=== PATIENT | male | born 1950 | race Caucasian/White ===

== ENCOUNTER → 2018-06-02 08:54 | Outpatient (CLI) | payer MEDICARE, BC, SELFPAY ==
[2017-08-20 10:12] VITALS: BMI 27.3
--- NOTE | 2018-06-02 08:59 | NM_ITS ---
CLINICAL: 68-year-old male with reported history of low back discomfort. WHOLE BODY 99m Tc MDP RADIONUCLIDE BONE SCINTIGRAPHY COMPARISON: None available FINDINGS: Following the intravenous administration of 25.4 mCi of 99m Tc MDP, whole body bone images reveal: 1. Increased radiopharmaceutical concentration is identified in the acromioclavicular and sternoclavicular compartments of both shoulders, second lumbar vertebra posteriorly on the left and right, left posterior sacrum. 2. Facilitated tracer concentration is demonstrated in the left posterior seventh rib. 3. The remaining skeletal structures are scintigraphically unremarkable with the bilateral renal images and urinary bladder activity identified. The right kidney demonstrates apparent prominent collecting system activity. NM/Bone Scan Whole Body IMPRESSION: 1. The increase in radiopharmaceutical concentration identified in the left posterior seventh rib is most consistent with isolated trauma-fracture. Plain film radiography correlation may be of benefit. In patients > 65 years of age, increased radiopharmaceutical concentration on bone scintigraphy in uncomplicated documented fracture, may take > 18 months for complete resolution. (River et al, Seminars of Nuclear Medicine, 13:104, 1983). 2. Degenerative arthritis appears expressed in the shoulders bilaterally, second lumbar vertebra and left-posterior sacrum. Electronically Signed: Pradip Carrion DO at 23:15 EST Tel , Service support ,
== END ==
PROVIDERS: Family Provider Family Medicine; PCP Family Medicine; Referring Provider Orthopaedic Surgery; Visit Provider Orthopaedic Surgery
DX: Z87.81 Personal history of (healed) traumatic fracture (principal)
CPT/HCPCS: 78306

== ENCOUNTER 2019-06-22 05:32 | Day surgery (SDC) | payer MEDICARE, BC, SELFPAY ==
[2018-08-18 09:48] VITALS: BMI 27.3
[2019-06-22] VITALS (9 sets, daily range): BP systolic 85–122; BP diastolic 64–97; PULSE 52–60; RESP 16–18; TEMP 36.1–36.7; O2SAT 93–100; BMI 27.6
--- NOTE | 2019-06-22 06:00 | PCM.HP.STD ---
Problem List (1) Screening for intestinal cancer Status: Acute History of Present Illness Date of Admission: 06/22/19 The patient is a 69 year old M who presents for screening colonoscopy today. He denies abdominal pain or bright red blood per rectum or melena. His previous colonoscopy was approximately 6 years ago. He has a family history with a brother who had colon cancer Past Medical History Past Medical History (Chronic Problems): Chronic Problems (Last Updated 08/20/17 @ 10:32 by Glendy Medley) Psoriasis (Chronic) Lyme disease (Chronic) Vision problems (Chronic) Hyperlipidemia (Chronic) Hearing problem (Chronic) Acid reflux (Chronic) Skin cancer (Chronic) Back problem (Chronic) Arthritis (Chronic) Medical History: Medical History (Last Updated 08/20/17 @ 10:32 by Glendy Medley) Psoriasis (Chronic) L40.9 Lyme disease (Chronic) A69.20 Vision problems (Chronic) H54.7 Hyperlipidemia (Chronic) E78.5 Hearing problem (Chronic) H91.90 Acid reflux (Chronic) K21.9 Skin cancer (Chronic) C44.90 Back problem (Chronic) M53.9 Arthritis (Chronic) M19.90 History of malignant neoplasm of skin Z85.828 Neck, back & scalp Fracture T14.8XXA Rt arm Allergies No Known Allergies Allergy (Verified 06/17/19 15:15) Home Medications: Ambulatory Orders Medication Instructions Recorded apremilast 30 mg tablet 30 mg PO BID 08/20/17 clobetasol 0.05 % topical ointment 1 applic TOPICAL BID 08/20/17 metronidazole 0.75 % topical cream 1 applic TOPICAL BID 08/20/17 omeprazole 20 mg capsule,delayed 20 mg PO QDAY 08/20/17 release atorvastatin 40 mg tablet 20 mg PO QDAY tab 08/18/18 Surgical History: Surgical History (Last Updated 08/20/17 @ 10:26 by Glendy Medley) History of hand surgery Z98.890 Rt 4th digit Smoking Status: Current every day smoker Tobacco Use: Chew Review of Systems Constitutional: Denies: Anorexia HEENT: Denies: Difficulty Swallowing Cardiovascular: Denies: Chest Pain Respiratory: Denies: Cough Gastrointestinal: Denies: Abdominal Pain, Melena Endocrine: Denies: Change in Body Habitus VTE Information - Inpt Only VTE Present on Admission: No Patient Problems: Active and Suspected Problems (Last Updated 08/20/17 @ 10:32 by Glendy Medley) Screening for intestinal cancer (Acute) - Physical Exam Vitals/I&O's: Body Mass Index (BMI) 27.3 General: Alert, Oriented x3, Cooperative, No apparent distress HEENT: Atraumatic Lungs: Clear to auscultation, Normal air movement Cardiovascular: Regular rate, Regular Rhythm Abdomen: Bowel Sounds Present, Soft, Non Tender Psych/Mental Status: Normal Affect Assessment/Plan All Active Problems (Last Updated 08/20/17 @ 10:32 by Glendy Medley) Screening for intestinal cancer (Acute) Plan to proceed with a screening colonoscopy with possible biopsy or polypectomy is indicated. He is aware of the technique, benefit, risks, alternatives. Previous colonoscopy approximately 5 to 6 years ago. Family history of colon cancer in a sibling. He presents via open access today. Fabian Garcia M.D., F.A.C.S.
[2019-06-22] MEDS: Lactated Ringers 1,000 ML 100 ML IV (06:13)
--- NOTE | 2019-06-22 06:43 | OP.COLON_ITS ---
Patient Name: iJm Fowler Procedure Date: 06/22/2019 6:10 AM Date of : 1950 Age: 69 Procedure: Colonoscopy Indications: Screening in patient at increased risk: Colorectal cancer in brother before age 60 Providers: Fabian Garcia MD Referring MD: Fabian Garcia MD Medicines: Midazolam 3.5 mg IV, Meperidine 100 mg IV Patient Profile: Last Colonoscopy: 5 years ago. Complications: No immediate complications. Procedure: Pre-Anesthesia Assessment: - Prior to the procedure, a History and Physical was performed, and patient medications and allergies were reviewed. The patient's tolerance of previous anesthesia was also reviewed. The risks and benefits of the procedure and the sedation options and risks were discussed with the patient. All questions were answered, and informed consent was obtained. Prior Anticoagulants: The patient has taken no previous anticoagulant or antiplatelet agents. ASA Grade Assessment: II - A patient with mild systemic disease. After reviewing the risks and benefits, the patient was deemed in satisfactory condition to undergo the procedure. After I obtained informed consent, the scope was passed under direct vision. Throughout the procedure, the patient's blood pressure, pulse, and oxygen saturations were monitored continuously. The colonoscope was introduced through the anus and advanced to the cecum, identified by appendiceal orifice and ileocecal valve. The colonoscopy was performed without difficulty. The patient tolerated the procedure well. The quality of the bowel preparation was good. The ileocecal valve and the appendiceal orifice were photographed. Moderate Sedation: Moderate (conscious) sedation was personally administered by the endoscopist. The following parameters were monitored: oxygen saturation, heart rate, blood pressure, and response to care. Total physician intraservice time was 15 minutes. Scope In: 6:29:13 AM Scope Withdrawal Time 0 hours 6 minutes 11 seconds Scope Out: 6:38:29 AM Total Procedure Duration Time 0 hours 9 minutes 16 seconds Findings: The perianal and digital rectal examinations were normal. The colon (entire examined portion) appeared normal. Impression: - The entire examined colon is normal. - No specimens collected. Recommendation: - Discharge patient to home. - Resume previous diet. - Continue present medications. - Repeat colonoscopy in 5 years for surveillance. Procedure Code(s): --- Professional --- 99583, Colonoscopy, flexible; diagnostic, including collection of specimen(s) by brushing or washing, when performed (separate procedure) 35109, 59, Moderate sedation services provided by the same physician or other qualified health animal care specialist performing the diagnostic or therapeutic service that the sedation supports, requiring the presence of an independent trained observer to assist in the monitoring of the patient's level of consciousness and physiological status; initial 15 minutes of intraservice time, patient age 5 years or older Diagnosis Code(s): --- Professional --- Z80.0, Family history of malignant neoplasm of digestive organs CPT copyright 2017 [employer]. All rights reserved. The codes documented in this report are preliminary and upon bilingual receptionist review may be revised to meet current compliance requirements. Fabian Garcia MD 06/22/2019 6:42:21 AM This report has been signed electronically. Number of Addenda: 0 Note Initiated On: 06/22/2019 6:10 AM
--- NOTE | 2019-06-22 06:43 | OP.CCLET_ITS ---
06/22/2019 Hang Vera Re : Colonoscopy procedure for Jim Fowler Dear Dr. Vera This procedure was performed on Saturday, June 22, 2019. My impressions and recommendations are as follows: Impressions : - The entire examined colon is normal. - No specimens collected. Recommendations : - Discharge patient to home. - Resume previous diet. - Continue present medications. - Repeat colonoscopy in 5 years for surveillance. My findings are described in the full procedure note, which is enclosed. If I can be of further assistance, please feel free to contact me at Doctor phone number(s): Work: . Sincerely, Fabian Garcia MD 06/22/2019 6:42:21 AM This report has been signed electronically.
== END 2019-06-22 08:02 | disposition home or self-care (01) ==
LOC: EN 05:33 → AC 05:35
PROVIDERS: Family Provider Family Medicine; PCP Family Medicine; Referring Provider Surgery; Visit Provider Surgery
PROC: 0DJD8ZZ Inspection of Lower Intestinal Tract, Via Natural or Artificial Opening Endoscopic (ICD-10-PCS; CPT 45378; principal; 2019-06-22 06:25)
DX: Z12.11 Encounter for screening for malignant neoplasm of colon (principal); Z80.0 Family history of malignant neoplasm of digestive organs; K21.9 Gastro-esophageal reflux disease without esophagitis; L40.9 Psoriasis, unspecified; A69.20 Lyme disease, unspecified; E78.5 Hyperlipidemia, unspecified; M19.90 Unspecified osteoarthritis, unspecified site; Z85.828 Personal history of other malignant neoplasm of skin; Z79.899 Other long term (current) drug therapy; F17.220 Nicotine dependence, chewing tobacco, uncomplicated
CPT/HCPCS: G0105; 99152; 99153; J7120

== ENCOUNTER → 2020-02-01 16:20 | Outpatient (CLI) | payer MEDICARE, BC, SELFPAY ==
[2020-02-01 16:00] VITALS: BMI 27.6
[2020-02-01 16:44] LABS: Absolute Lymphocyte Count 1.94 X10^3/uL (0.83-4.51); Absolute Neutrophil Count 5.5 X10^3/uL (2.0-7.7); Basophil# 0.03 X10^3/uL; Basophil% 0.4 % (0-1); Eosinophil# 0.03 X10^3/uL; Eosinophils% 0.4 % (0-5); Hematocrit 47.5 % (40-54); Hemoglobin 16.1 g/dL (13.0-16.5); Lymphocyte # 1.94 X10^3/ul (4.0); Lymphocyte % 23.6 % (19-41); Mean Corp Hgb Conc 33.9 g/dL (32-36); Mean Corpuscular Hgb 32.2 pg (27.0-32.0); Mean Platelet Vol. 9.4 fl (6.2-12.0); Monocyte# 0.68 X10^3/uL; Monocyte% 8.3 % (0-10); NRBC Flagged by Analyzer 0 % (0-5); Neutrophil # 5.51 X10^3/uL (2.7-7.7); Neutrophil % 67.1 % (47-70); Platelet Count 207 K/mm3 (150-450); RBC Distribution Width CV 13.2 % (11.6-14.6); RBC Distribution Width SD 45.3 fl (35.1-43.9); White Blood Count 8.2 K/mm3 (4.4-11.0)
[2020-02-01 17:19] LABS: Thyroid Stim Hormone (TSH) 1.09 uIU/mL (0.358-3.74)
== END ==
PROVIDERS: PCP Family Medicine; Visit Provider Family Medicine
DX: E78.5 Hyperlipidemia, unspecified (principal); G57.90 Unspecified mononeuropathy of unspecified lower limb
CPT/HCPCS: 36415; 84443; 85025

== ENCOUNTER → 2020-06-16 14:19 | Outpatient (CLI) | payer MEDICARE, BC, SELFPAY ==
[2020-06-16 13:31] VITALS: BMI 35.9
[2020-06-16 14:22] LABS: Bacteria 0 SEEN /hpf (None Seen); Mucous, Urine 0 SEEN /hpf (<or=2+); Squamous Epithelial Cells - UA 0 SEEN /hpf (0-5); White Blood Cells 0 SEEN /hpf (0-5)
[2020-06-16 16:03] LABS: Color, Urine Yellow (Yellow); Glucose, Dipstick Normal (Normal); Ketone-Dipstick Negative (Negative); Leukocyte Esterase-Dipstick Negative /ul (Negative); Nitrite-Dipstick Negative (Negative); Occult Blood-Urine 10 /ul (Negative); Protein-Dipstick Negative (Negative); Urine Bilirubin Dipstick Negative (Negative); Urine Clarity Clear (Clear); Urine Urobilinogen Normal (Normal); Urine pH 6.5 (5.0 - 8.0)
[2020-06-16 16:10] LABS: Red Blood Cells-Urine 0-5 SEEN /hpf (0-5)
== END ==
PROVIDERS: PCP Family Medicine; Referring Provider Nurse Practitioner Family; Visit Provider Nurse Practitioner Family
DX: N50.819 Testicular pain, unspecified (principal); N45.1 Epididymitis
CPT/HCPCS: 81001; 87086

== ENCOUNTER → 2020-07-10 13:56 | Outpatient (CLI) | payer MEDICARE, BC, SELFPAY ==
[2020-06-28 14:20] VITALS: BMI 28.0
--- NOTE | 2020-07-10 14:02 | CT_ITS ---
STUDY: CT ABDOMEN AND PELVIS WITHOUT CONTRAST REASON FOR EXAM: Male, 70 years old. RLQ PAIN. NO HEMATURIA/N/V/D/C. RADIATION DOSAGE (If Supplied By Facility): CTDIvol = ( 11.65 ) mGy, DLP = ( 605.18 ) mGycm TECHNIQUE: Transaxial images were obtained from the dome of the diaphragm to the symphysis pubis without oral contrast, and without intravenous contrast. Sagittal and coronal images were reconstructed. Individualized dose optimization techniques were used for this CT. COMPARISON: None. FINDINGS: The visualized lung bases are unremarkable. The visualized portions of the heart are within normal limits. Scattered calcified hepatic granulomas. There is a solitary gallstone. It measures 8.9 mm. There are multiple benign calcified granulomata of the spleen. Normal pancreas. Normal bilateral adrenal glands. There is a 4.6 cm x 3.6 cm cyst in the anterior midportion of the right kidney. Scattered nonobstructive right intrarenal calculi. The largest calculus measures 4.8 mm and is in the lower pole. Scattered small nonobstructive left intrarenal calculi. The largest measures 2 mm and is in the lower pole. Normal visualized stomach. Normal small intestine. There are multiple colonic diverticula consistent with diverticulosis. The appendix is visualized and appears normal. There is scattered atherosclerotic calcification of the abdominal aorta, without a demonstrated aneurysm. Normal inferior vena cava. Normal retroperitoneum. Normal urinary bladder. Central prostatic calcification. There is a small umbilical hernia containing fat. Small right inguinal hernia containing fat. There are degenerative changes of the visualized lumbar spine. Mild degree of loss of height of the superior end plate of the L2 vertebrae. CT/Abdomen/Pelvis without Cont IMPRESSION: Small scattered bilateral nonobstructive intrarenal calculi. Right renal cyst. Solitary gallstone. Electronically Signed: Jake De Santiago MD at 15:01 EST , Service support ,
== END ==
PROVIDERS: PCP Family Medicine; Referring Provider Nurse Practitioner Adult Health; Visit Provider Nurse Practitioner Adult Health
DX: R10.9 Unspecified abdominal pain (principal); Z87.442 Personal history of urinary calculi
CPT/HCPCS: 74176

== ENCOUNTER → 2020-07-12 11:08 | Outpatient (CLI) | payer MEDICARE, BC, SELFPAY ==
[2020-06-28 14:20] VITALS: BMI 28.0
--- NOTE | 2020-07-12 11:12 | US_ITS ---
STUDY: SCROTUM ULTRASOUND REASON FOR EXAM: Male, 70 years old. RIGHT TESTICLE PAIN X 3 MONTHS -- PATIENT IS DONE TAKING ANTIBIOTICS TECHNIQUE: Ultrasound evaluation of the scrotum was performed with color Doppler and static rolle-scale imaging. COMPARISON: None. FINDINGS: RIGHT TESTICLE INTRATESTICULAR: There is a normal size of the right testicle. The right testicle measures 4.8 cm x 4 cm x 2.7 cm. There is a homogenous echotexture. There is normal arterial and normal venous vascularity. There is no demonstrated right testicular mass or cyst. EXTRATESTICULAR: The epididymis is enlarged. The epididymis head measures 1 cm x 1.6 cm x 1.4 cm. There is normal vascularity of the epididymis. There is a well-defined cystic structure within the epididymis, without internal echoes, consistent with an epididymal cyst. This measures 6 mm x 6 mm x 4 mm. There is a large hydrocele. There is no demonstrated varicocele. There is no demonstrated extratesticular mass or cyst. LEFT TESTICLE INTRATESTICULAR: There is a normal size of the left testicle. The left testicle measures 4.2 cm x 2.6 cm x 2.4 cm. There is a homogenous echotexture. There is normal arterial and normal venous vascularity. There is no demonstrated left testicular mass or cyst. EXTRATESTICULAR: The epididymis is enlarged. The epididymis head measures 1.4 cm x 1.6 x 1 cm. There is normal vascularity of the epididymis. There is a well-defined cystic structure within the epididymis, without internal echoes, consistent with an epididymal cyst. This measures 6 mm x 6 mm x 4 mm. There is a large hydrocele. There is no demonstrated varicocele. There is no demonstrated extratesticular mass or cyst. US/Testicular with Arterial Flow IMPRESSION: Large bilateral hydroceles. Enlargement of both epididymis. Small bilateral epididymal cysts. Electronically Signed: Jake De Santiago MD at 12:55 EST , Service support ,
== END ==
PROVIDERS: PCP Family Medicine; Referring Provider Nurse Practitioner Adult Health; Visit Provider Nurse Practitioner Adult Health
DX: N50.811 Right testicular pain (principal)
CPT/HCPCS: 76870; 93976

== ENCOUNTER → 2020-07-13 15:04 | Outpatient (CLI) | payer MEDICARE, BC, SELFPAY ==
[2020-06-28 14:20] VITALS: BMI 28.0
--- NOTE | 2020-07-13 15:07 | EKG12_ITS ---
Test Reason : PREOP Blood Pressure : / mmHG Vent. Rate : 078 BPM Atrial Rate : 078 BPM P-R Int : 138 ms QRS Dur : 086 ms QT Int : 358 ms P-R-T Axes : 035 -22 029 degrees QTc Int : 408 ms Normal sinus rhythm Normal ECG Confirmed by PALLAVI PÉREZ, BRODY ([id number]), editor trade journal MAYA URBAN ([id number]) on 07/17/2020 7:53:47 AM Referred By: Sorin Lebron Confirmed By:ROBIN OLIVO MD
[2020-07-13 16:19] LABS: Hematocrit 47.8 % (40-54); Hemoglobin 15.8 g/dL (13.0-16.5); Mean Corp Hgb Conc 33.1 g/dL (32-36); Mean Corpuscular Hgb 32.2 pg (27.0-32.0); Mean Corpuscular Volume 97.4 fL (80-94); Mean Platelet Vol. 9.7 fl (6.2-12.0); Platelet Count 233 K/mm3 (150-450); RBC Distribution Width CV 12.7 % (11.6-14.6); RBC Distribution Width SD 45.8 fl (35.1-43.9); Red Blood Count 4.91 M/mm3 (4.6-6.2); White Blood Count 7.4 K/mm3 (4.4-11.0)
[2020-07-13 17:13] LABS: Anion Gap 4 (5-15); BUN 16 mg/dL (7-18); BUN/Creat Ratio 15.2 RATIO (10-20); Calcium,Total 8.7 mg/dL (8.5-10.1); Chloride 106 mmol/L (98-107); Creatinine, Serum 1.05 mg/dL (0.70-1.30); EST Glomerular Filtration Rate 74 mL/min (>60); Est Glom Filt Rate - Afr Amer 89 mL/min (>60); Glucose 71 mg/dL (74-106); Potassium 4.2 mmol/L (3.5-5.1); Sodium Level 140 mmol/L (136-145)
== END ==
PROVIDERS: PCP Family Medicine; Referring Provider Urology; Visit Provider Urology
DX: Z01.812 Encounter for preprocedural laboratory examination (principal); G57.90 Unspecified mononeuropathy of unspecified lower limb
CPT/HCPCS: 36415; 80048; 85027; 93005

== ENCOUNTER → 2020-08-21 13:55 | Outpatient (CLI) | payer MEDICARE, BC, SELFPAY ==
[2020-06-28 14:20] VITALS: BMI 28.0
== END ==
PROVIDERS: PCP Family Medicine; Visit Provider Nurse Practitioner Adult Health
DX: N43.2 Other hydrocele (principal)
CPT/HCPCS: 87070; 87075; 87205

== ENCOUNTER → 2021-09-13 | Outpatient (CLI) | payer MEDICARE, BC, SELFPAY ==
[2021-09-13 15:19] LABS: Absolute Lymphocyte Count 2.01 X10^3/uL (0.83-4.51); Absolute Neutrophil Count 5.2 X10^3/uL (2.0-7.7); Basophil# 0.03 X10^3/uL; Basophil% 0.4 % (0-1); Eosinophil# 0.06 X10^3/uL; Eosinophils% 0.7 % (0-5); Hematocrit 47.5 % (40-54); Hemoglobin 16.2 g/dL (13.0-16.5); Lymphocyte # 2.01 X10^3/ul (0.83-4.51); Lymphocyte % 24.7 % (19-41); Mean Corp Hgb Conc 34.1 g/dL (32-36); Mean Corpuscular Hgb 32.5 pg (27.0-32.0); Mean Corpuscular Volume 95.4 fL (80-94); Mean Platelet Vol. 9.9 fl (6.2-12.0); Monocyte# 0.83 X10^3/uL; Monocyte% 10.2 % (0-10); NRBC Flagged by Analyzer 0 % (0-5); Neutrophil # 5.18 X10^3/uL (2.7-7.7); Neutrophil % 63.6 % (47-70); Platelet Count 225 K/mm3 (150-450); RBC Distribution Width CV 12.9 % (11.6-14.6); RBC Distribution Width SD 45.4 fl (35.1-43.9); Red Blood Count 4.98 M/mm3 (4.6-6.2); White Blood Count 8.1 K/mm3 (4.4-11.0)
[2021-09-13 15:35] LABS: Thyroid Stim Hormone (TSH) 1.14 uIU/mL (0.358-3.74)
== END | disposition home or self-care (01) ==
LOC: BIMLAB 13:44
PROVIDERS: PCP Family Medicine; Referring Provider Physician Assistant; Visit Provider Physician Assistant
DX: R53.83 Other fatigue (principal); Z13.29 Encounter for screening for other suspected endocrine disorder
CPT/HCPCS: 36415; 84443; 85025

== ENCOUNTER → 2023-08-05 | Outpatient (CLI) | payer MEDICARE, BC, SELFPAY ==
[2023-08-05 15:43] LABS: Absolute Lymphocyte Count 2.06 X10^3/uL (0.83-4.51); Absolute Neutrophil Count 3.1 X10^3/uL (2.0-7.7); Basophil# 0.02 X10^3/uL; Basophil% 0.3 % (0-1); Eosinophil# 0.04 X10^3/uL; Eosinophils% 0.7 % (0-5); Hemoglobin 16.4 g/dL (13.0-16.5); Lymphocyte # 2.06 X10^3/ul (0.83-4.51); Lymphocyte % 35.3 % (19-41); Mean Corp Hgb Conc 33.5 g/dL (32-36); Mean Corpuscular Hgb 31.4 pg (27.0-32.0); Mean Corpuscular Volume 93.7 fL (80-94); Mean Platelet Vol. 10.6 fl (6.2-12.0); Monocyte# 0.64 X10^3/uL; NRBC Flagged by Analyzer 0 % (0-5); Neutrophil # 3.06 X10^3/uL (2.7-7.7); Neutrophil % 52.4 % (47-70); Platelet Count 189 K/mm3 (150-450); RBC Distribution Width CV 12.3 % (11.6-14.6); RBC Distribution Width SD 42.8 fl (35.1-43.9); Red Blood Count 5.23 M/mm3 (4.6-6.2); White Blood Count 5.8 K/mm3 (4.4-11.0)
== END | disposition home or self-care (01) ==
LOC: BIMLAB 11:24
PROVIDERS: PCP Family Medicine; Visit Provider Family Medicine
DX: A69.20 Lyme disease, unspecified (principal)
CPT/HCPCS: 36415; 84403; 85025

== ENCOUNTER → 2023-08-26 | Outpatient (CLI) | payer MEDICARE, BC, SELFPAY ==
[2023-08-26 16:44] LABS: Basophil# 0.03 X10^3/uL; Basophil% 0.5 % (0-1); Eosinophil# 0.07 X10^3/uL; Eosinophils% 1.1 % (0-5); Hematocrit 48.1 % (40-54); Hemoglobin 16.8 g/dL (13.0-16.5); Lymphocyte % 27.6 % (19-41); Mean Corp Hgb Conc 34.9 g/dL (32-36); Mean Corpuscular Hgb 32.2 pg (27.0-32.0); Mean Corpuscular Volume 92.3 fL (80-94); Mean Platelet Vol. 10.4 fl (6.2-12.0); Monocyte# 0.59 X10^3/uL; NRBC Flagged by Analyzer 0 % (0-5); Neutrophil # 4.01 X10^3/uL (2.7-7.7); Neutrophil % 61.5 % (47-70); Platelet Count 191 K/mm3 (150-450); RBC Distribution Width CV 12.2 % (11.6-14.6); RBC Distribution Width SD 41.5 fl (35.1-43.9); Red Blood Count 5.21 M/mm3 (4.6-6.2); White Blood Count 6.5 K/mm3 (4.4-11.0)
[2023-08-26 16:56] LABS: ALB/GLOB Ratio 0.8 RATIO (0.9-2.4); AST(SGOT) 40 U/L (15-37); Alanine Aminotransfer ALT/SGPT 54 U/L (16-61); Albumin, Serum 3.5 g/dL (3.2-5.0); Alkaline Phosphatase 79 U/L (45-117); Amylase 40 U/L (25-115); Anion Gap 9 (5-15); BUN 17 mg/dL (7-18); BUN/Creat Ratio 12.9 RATIO (10-20); Calcium,Total 8.9 mg/dL (8.5-10.1); Chloride 106 mmol/L (98-107); Creatinine, Serum 1.32 mg/dL (0.70-1.30); EST Glomerular Filtration Rate 56 mL/min (>60); Est Glom Filt Rate - Afr Amer 68 mL/min (>60); Globulin 4.3 g/dL (2.2-4.2); Glucose 179 mg/dL (74-106); Lipase 26 U/L (13-75); Potassium 3.8 mmol/L (3.5-5.1); Protein, Total 7.8 g/dL (6.4-8.2); Sodium Level 136 mmol/L (136-145)
[2023-08-28 13:08] LABS: Lyme Scn Total Ab w/Rflx Negative (Negative)
== END | disposition home or self-care (01) ==
LOC: BIMLAB 15:48
PROVIDERS: PCP Family Medicine; Visit Provider Nurse Practitioner
DX: R10.9 Unspecified abdominal pain (principal); R53.83 Other fatigue
CPT/HCPCS: 36415; 80053; 82150; 83690; 85025; 86618

== ENCOUNTER → 2023-12-08 | Outpatient (CLI) | payer MEDICARE, BC, SELFPAY ==
[2023-12-10 19:07] LABS: QNTFERON TB Mitogen Value > 10.00 IU/mL (.); QNTFERON TB Nil Value 0 IU/mL (.); QNTFERON TB1+ Ag Value 0.06 IU/mL (.); QNTFERON TB2+ Ag Value 0.05 IU/mL (.); QNTIFERON TB Positive Criteria Negative (Negative)
== END | disposition home or self-care (01) ==
PROVIDERS: PCP Family Medicine; Referring Provider Dermatology Pediatric Dermatology; Visit Provider Dermatology Pediatric Dermatology
DX: L20.89 Other atopic dermatitis (principal); L40.0 Psoriasis vulgaris; Z79.899 Other long term (current) drug therapy
CPT/HCPCS: 36415; 86480

== ENCOUNTER → 2024-02-09 | Outpatient (CLI) | payer MEDICARE, BC, SELFPAY ==
[2024-02-09 11:19] LABS: Bacteria 0 SEEN /hpf (None Seen); Red Blood Cells-Urine 0 SEEN /hpf (0-5); Squamous Epithelial Cells - UA 0 SEEN /hpf (0-5)
[2024-02-09 15:15] LABS: Color, Urine Yellow (Yellow); Glucose, Dipstick Normal (Normal); Ketone-Dipstick Negative (Negative); Leukocyte Esterase-Dipstick Negative /ul (Negative); Nitrite-Dipstick Negative (Negative); Occult Blood-Urine Negative /ul (Negative); Protein-Dipstick Negative (Negative); Urine Bilirubin Dipstick Negative (Negative); Urine Clarity Clear (Clear); Urine Urobilinogen Normal (Normal)
[2024-02-09 15:29] LABS: Mucous, Urine RARE /hpf (<or=2+); White Blood Cells 0-5 SEEN /hpf (0-5)
[2024-02-09 15:54] LABS: ALB/GLOB Ratio 1.1 RATIO (0.9-2.4); AST(SGOT) 39 U/L (15-37); Alanine Aminotransfer ALT/SGPT 49 U/L (16-61); Albumin, Serum 3.8 g/dL (3.2-5.0); Alkaline Phosphatase 56 U/L (45-117); Anion Gap 7 (5-15); BUN 19 mg/dL (7-18); BUN/Creat Ratio 18.3 RATIO (10-20); Chloride 103 mmol/L (98-107); Creatinine, Serum 1.04 mg/dL (0.70-1.30); EST Glomerular Filtration Rate 74 mL/min (>60); Est Glom Filt Rate - Afr Amer 89 mL/min (>60); Globulin 3.5 g/dL (2.2-4.2); Glucose 90 mg/dL (74-106); Potassium 4.1 mmol/L (3.5-5.1); Protein, Total 7.3 g/dL (6.4-8.2); Sodium Level 139 mmol/L (136-145)
[2024-02-09 16:21] LABS: Hemoglobin A1c 5.8 % (3.8-5.6)
== END | disposition home or self-care (01) ==
PROVIDERS: PCP Family Medicine; Referring Provider Dermatology Pediatric Dermatology; Visit Provider Dermatology Pediatric Dermatology
DX: L20.89 Other atopic dermatitis (principal); L40.0 Psoriasis vulgaris; Z79.899 Other long term (current) drug therapy
CPT/HCPCS: 36415; 80053; 81001; 83036; 87086

== ENCOUNTER → 2024-10-25 | Outpatient (CLI) | payer MEDICARE, BC, SELFPAY ==
[2024-10-27 11:08] LABS: QNTFERON TB Mitogen Value > 10.00 IU/mL (.); QNTFERON TB Nil Value 0.05 IU/mL (.); QNTFERON TB1+ Ag Value 0.04 IU/mL (.); QNTFERON TB2+ Ag Value 0.05 IU/mL (.); QNTIFERON TB Positive Criteria Negative (Negative)
== END | disposition home or self-care (01) ==
LOC: MTLAB 11:09
PROVIDERS: PCP Family Medicine; Referring Provider Physician Assistant Medical; Visit Provider Physician Assistant Medical
DX: L40.0 Psoriasis vulgaris (principal); Z79.899 Other long term (current) drug therapy
CPT/HCPCS: 36415; 86480

== ENCOUNTER 2024-11-16 06:47 | Day surgery (SDC) | payer MEDICARE, BC, SELFPAY ==
[2024-11-16] VITALS (8 sets, daily range): BP systolic 107–130; BP diastolic 70–86; PULSE 61–72; RESP 16; TEMP 36.6–36.7; O2SAT 92–100; BMI 30.6
--- OUTSIDE RECORDS SUMMARY | 2024-11-16 06:50 | XMS RPT_ITS | CCD ---
Author Organization [facility] [employer] Care Team Providers Care Customer Operations Associate Name Role Phone UNKNOWN, PCP D Unavailable Unavailable ESTERLE, RYANNE Unavailable Unavailable ESTERLE, RYANNE Unavailable Unavailable ESTERLE, RYANNE Unavailable Unavailable ESTERLE, RYANNE Unavailable Unavailable Dr. Kevin Vera Primary Care Provider [phone] Dr. Kevin Vera Referring Provider [phone] NAHUN Dominguez Attending Provider Unavailab Dr. Kevin Osorio Primary Care Provider [phone] Dr. Kevin Vera Attending Provider [phone] Dr. Kevin Vera Referring Provider [phone] CONCHITA Power Attending Provider [phone] KEVIN VERA Consulting Unavailable KEVIN VERA Referring Unavailable CLAUDIOLUIS SHANNON Admitting Unavailable CLAUDIO LUIS Felipe Primary Care Unavailable CLAUDIOLUIS SHANNON Attending Unavailable PROVIDER, UNKNOWN Consulting Unavailable PROVIDER, UNKNOWN Consulting Unavailable COLLIER, NEO C Admitting Unavailable COLLIER, NEO C Primary Care Unavailable NANDO NEO Beth Attending Unavailable KEVIN VERA DO Consulting Unavailable PROVIDER, UNKNOWN Consulting Unavailable PROVIDER, UNKNOWN Consulting Unavailable LAURITA SANCHEZ MD Admitting Unavailable LAURITA SANCHEZ MD Primary Care Unavailable LAURITA SANCHEZ MD Attending Unavailable KEVIN VERA DO Consulting Unavailable PROVIDER, UNKNOWN Consulting Unavailable PROVIDER, UNKNOWN Consulting Unavailable KEVIN VERA DO Consulting Unavailable BELIA HOLLEY DR Admitting Unavailable BELIA HOLLEY DR Primary Care Unavailable BELIA HOLLEY DR Attending Unavailable PROVIDER, UNKNOWN Consulting Unavailable PROVIDER, UNKNOWN Consulting Unavailable Dr. Kevin Vera DO Primary Care Provider Dr. Kevin Vera DO Referring Provider [phone] Jennie Yun Attending Provider [phone] Jojo PÉREZ, Dr. Orantes Attending Provider Gilberto Elmore Attending Provider Gilberto Elmore Referring Provider Dr. Haris Harding MD Attending Provider Brown, Kevin R Referring Unavailable Jennie Calvo Attending Unavailable Brown, Kevin R Primary Care Unavailable Laura Laurita Attending Unavailable Laura, Laurita Referring Unavailable Brown, Kevin R Primary Care Unavailable Laura Laurita Attending Unavailable Laura, Laurita Referring Unavailable Brown, Kevin R Primary Care Unavailable Gilberto Elmore Attending Unavailable Brown, Kevin R Primary Care Unavailable Gilberto Elmore Referring Unavailable Brown, Kevin R Primary Care Unavailable Haris Harding Attending Unavailable Brown, Kevin R Referring Unavailable Lamberto Uribe Attending Unavailable Brown, Kevin R Primary Care Unavailable Brown, Kevin R Referring Unavailable Brown, Kevin R Primary Care Unavailable Haris Harding Attending Unavailable Allergies Allergy Classification Reported Allergen(s) Allergy Type Date of Onset Reaction(s) Facility (1 source) Adhesive agent; Translations: [ADHESIVE] Propensity to adverse reactions (disorder) [facility] Repository (1 source) Shellfish; Translations: [SHELLFISH DERIVED] Propensity to adverse reactions (disorder) [facility] Repository (1 source) Adhesive Tape; Translations: [TAPE] Propensity to adverse reactions (disorder) [facility] Repository (1 source) Seafood; Translations: [SEAFOOD] Food allergy (disorder) [facility] Repository (4 sources) Amoxicillin Drug Allergy [facility] (1 source) Amoxicillin Drug Allergy [address] [place] [address] Repository (1 source) clams Drug allergy (disorder) [address] [place] [address] Medications Current Medications Medication Drug Class(es) Dates Sig (Normalized) Sig (Original) amLODIPine 5 mg oral tablet (7 sources) Dihydropyridine Calcium Channel Katie Start: 09-13-2021 take 1 tablet by mouth once daily Amlodipine 5 mg tablet Active 5 mg PO DAILY September 13, 2021 12:00am cholecalciferol 0.05 mg oral capsule (7 sources) Vitamin D Start: 09-13-2021 take 1 capsule by mouth once daily Cholecalciferol (Vitamin D3) 50 mcg (2,000 unit) capsule Active 50 ug PO DAILY September 13, 2021 12:00am clobetasol propionate 0.0005 mg/mg topical ointment (7 sources) Corticosteroid Start: 08-20-2017 Clobetasol 0.05 % ointment Active 1 NMA TOPICAL TWICE A DAY August 20, 2017 12:00am 1 ml guselkumab 100 mg/ml auto-injector (2 sources) Interleukin-23 Antagonist Start: 10-26-2024 Guselkumab (Tremfya) 100 mg/mL auto-injector Active 100 mg SC every 8 weeks October 26, 2024 12:00am methocarbamol 500 mg oral tablet (3 sources) Muscle Relaxant Start: 09-28-2024 take 1 tablet by mouth three times daily as needed for pain Methocarbamol 500 mg tablet Active 500 mg PO THREE TIMES A DAY as needed for pain/spasms September 28, 2024 12:00am metroNIDAZOLE 7.5 mg/ml topical cream (7 sources) Nitroimidazole Antimicrobial Start: 08-20-2017 Metronidazole 0.75 % cream Active 1 NMA TOPICAL TWICE A DAY August 20, 2017 12:00am omeprazole 20 mg delayed release oral capsule (7 sources) Proton Pump Inhibitor Start: 08-20-2017 take 1 capsule by mouth once daily Omeprazole 20 mg capsule,delayed release(DR/EC) Active 20 mg PO daily August 20, 2017 12:00am rosuvastatin calcium 10 mg oral tablet (7 sources) HMG-CoA Reductase Inhibitor Start: 09-13-2021 take 1 tablet by mouth once daily Rosuvastatin 10 mg tablet Active 10 mg PO DAILY September 13, 2021 12:00am Completed/Discontinued Medications Medication Drug Class(es) Dates Sig (Normalized) Sig (Original) acetaminophen 325 mg / oxyCODONE hydrochloride 5 mg oral tablet (7 sources) Opioid Agonist Start: 11-30-2013 End: 08-20-2017 Oxycodone-Acetamino phen 1 TABLET tablet Discontinued 1 {tbl} PO EVERY 4 HOURS NEEDED as needed for Pain November 30, 2013 12:00am August 20, 2017 10:16am Start: 11-30-2013 End: 08-20-2017 take 1 tablet by mouth every four hours as needed Oxycodone-Acetaminophen Discontinued 1 TABLET PO EVERY 4 HOURS NEEDED November 30, 2013 12:00am August 20, 2017 10:16am apremilast 30 mg oral tablet (7 sources) Start: 08-20-2017 End: 09-13-2021 take 1 tablet by mouth twice daily Apremilast 30 mg tablet Discontinued 30 mg PO TWICE A DAY August 20, 2017 12:00am September 13, 2021 1:03pm atorvastatin 40 mg oral tablet (14 sources) HMG-CoA Reductase Inhibitor Start: 08-18-2018 End: 02-01-2020 Atorvastatin 40 mg tablet Discontinued 20 mg PO daily August 18, 2018 9:43am February 01, 2020 3:58pm Start: 08-18-2018 End: 02-01-2020 take 20 mg by mouth once daily Atorvastatin Discontinu ed 20 MG PO daily August 18, 2018 9:43am February 01, 2020 3:58pm Start: 08-20-2017 End: 08-18-2018 take 1 tablet by mouth once daily Atorvastatin 40 mg tablet Discontinued 40 mg PO daily August 20, 2017 12:00am August 18, 2018 9:45am cephalexin 500 mg oral capsule (7 sources) Cephalosporin Antibacterial Start: 08-16-2020 End: 09-13-2021 take 1 capsule by mouth twice daily Cephalexin (Keflex) 500 mg capsule Discontinued 500 mg PO TWICE A DAY August 16, 2020 12:00am September 13, 2021 1:03pm ciprofloxacin 500 mg oral tablet (7 sources) Quinolone Antimicrobial Start: 11-30-2013 End: 08-20-2017 take 1 tablet by mouth twice daily Ciprofloxacin Hcl 500 MG tablet Discontinued 500 mg PO TWICE A DAY November 30, 2013 12:00am August 20, 2017 10:16am DULoxetine 30 mg delayed release oral capsule (19 sources) Serotonin and Norepinephrine Reuptake Inhibitor Start: 08-12-2023 End: 08-26-2023 take 1 capsule by mouth once daily Duloxetine 30 mg capsule,delayed release(DR/EC) Discontinued 30 mg PO DAILY August 12, 2023 12:00am August 26, 2023 3:41pm Start: 08-20-2017 End: 08-18-2018 take 1 capsule by mouth once daily Duloxetine 30 mg capsule,delayed release(DR/EC) Discontinued 30 mg PO daily August 25, 2017 3:59pm August 18, 2018 9:44am gabapentin 300 mg oral capsule (7 sources) Anti-epileptic Agent Start: 06-27-2020 End: 09-13-2021 take 1 capsule by mouth at bedtime Gabapentin 300 mg capsule Discontinued 300 mg PO AT BEDTIME June 27, 2020 1:00am September 13, 2021 1:04pm levoFLOXacin 500 mg oral tablet (7 sources) Quinolone Antimicrobial Start: 06-16-2020 End: 06-28-2020 take 1 tablet by mouth every twenty-four hours Levofloxacin 500 mg tablet Discontinued 500 mg PO Q24H June 16, 2020 1:00am June 28, 2020 3:50pm pramipexole dihydrochloride 0.25 mg oral tablet (14 sources) Nonergot Dopamine Agonist Start: 03-22-2020 End: 06-27-2020 take 1 tablet by mouth at bedtime Pramipexole 0.25 mg tablet Discontinued 0.25 mg PO AT BEDTIME March 22, 2020 3:27pm June 27, 2020 4:55pm Start: 02-02-2020 End: 03-22-2020 take 1 tablet by mouth at bedtime Pramipexole 0.125 mg tablet Discontinued 0.125 mg PO AT BEDTIME February 02, 2020 12:00am March 22, 2020 3:28pm sulfamethoxazole 800 mg / trimethoprim 160 mg oral tablet (7 sources) Dihydrofolate Reductase Inhibitor Antibacterial, Sulfonamide Antimicrobial Start: 06-28-2020 End: 09-13-2021 Sulfamethoxazole-Trimethopri m (Bactrim Ds) 800-160 mg tablet Discontinued 1 {tbl} PO TWICE A DAY June 28, 2020 1:00am September 13, 2021 1:03pm tamsulosin hydrochloride 0.4 mg oral capsule (7 sources) alpha-Adrenergic Katie Start: 11-24-2013 End: 08-20-2017 take 1 capsule by mouth once daily Tamsulosin 0.4 MG capsule Discontinued 0.4 mg PO DAILY November 24, 2013 12:00am August 20, 2017 10:16am Problems Active Problems Problem Classification Problem Date Documented Da te Episodic/Chronic Abdominal pain (9 sources) Abdominal pain; Translations: [Unspecified abdominal pain] Onset: 10-26-2024 08-26-2023 Episodic Allergic reactions (1 source) Other atopic dermatitis; Translations: [Other atopic dermatitis] Onset: 03-06-2024 Chronic Allergic reactions (6 sources) Environmental allergy; Translations: [Other allergy status, other than to drugs and biological substances] 10-24-2021 Episodic Blindness and vision defects (7 sources) Disorder of vision; Translations: [Unspecified visual loss] 08-20-2017 Chronic Disorders of lipid metabolism (8 sources) Hyperlipidemia, unspecified; Translations: [Hyperlipidemia] Onset: 10-02-2016 07-28-2019 Chronic E Codes: Adverse effects of medical drugs (6 sources) Adverse reaction to drug; Translations: [Adverse effect of unspecified drugs, medicaments and biological substances, initial encounter] 08-26-2023 Episodic Esophageal disorders (8 sources) Gastro-esophageal reflux disease without esophagitis; Translations: [Gastroesophageal reflux disease] Onset: 10-02-2016 08-20-2017 Chronic External Injury - Machinery (1 source) Contact with other specified machinery, initial encounter; Translations: [CONTACT OTH SPEC MACHINE] Onset: 10-02-2016 Inflammatory conditions of male genital organs (7 sources) Epididymitis; Translations: [Epididymitis] 06-28-2020 Episodic Malaise and fatigue (8 sources) Fatigue; Translations: [Other fatigue] 10-17-2021 Episodic Osteoarthritis (7 sources) Arthritis; Translations: [Unspecified osteoarthritis, unspecified site] 08-20-2017 Chronic Other ear and sense organ disorders (7 sources) Hearing disorder; Translations: [Unspecified hearing loss, unspecified ear] 08-20-2017 Chronic Other fractures (4 sources) Compression fracture of thoracic spine; Translations: [Wedge compression fracture of T7-T8 vertebra, initial encounter for closed fracture] 09-28-2024 Episodic Other gastrointestinal disorders (2 sources) Dysphagia; Translations: [Dysphagia, unspecified] 10-05-2024 Episodic Other hereditary and degenerative nervous system conditions (7 sources) Restless legs; Translations: [Restless legs syndrome] 04-05-2020 Chronic Other infections; including parasitic (7 sources) Lyme disease; Translations: [Lyme disease, unspecified] 08-20-2017 Episodic Other inflammatory condition of skin (1 source) Psoriasis, unspecified; Translations: [PSORIASIS UNSPECIFIED] Onset: 10-02-2016 Chronic Other inflammatory condition of skin (7 sources) Psoriasis; Translations: [Psoriasis, unspecified] 08-20-2017 Chronic Other inflammatory condition of skin (1 source) Psoriasis vulgaris; Translations: [Psoriasis vulgaris] Onset: 10-29-2024 Chronic Other lower respiratory disease (7 sources) History of influenza; Translations: [Personal history of other diseases of the respiratory system] 07-28-2019 Episodic Other nervous system disorders (7 sources) Peripheral neuritis; Translations: [Unspecified mononeuropathy of unspecified lower limb] 02-01-2020 Chronic Other non-epithelial cancer of skin (7 sources) Malignant neoplasm of skin; Translations: [Unspecified malignant neoplasm of skin, unspecified] 08-20-2017 Episodic Other screening for suspected conditions (not mental disorders or infectious disease) (7 sources) Patient encounter status; Translations: [Encounter for screening for malignant neoplasm of intestinal tract, unspecified] 06-22-2019 Episodic Spondylosis; intervertebral disc disorders; other back problems (13 sources) Back problem; Translations: [Dorsopathy, unspecified] Onset: 09-28-2024 08-20-2017 Episodic Past or Other Problems Problem Classification Problem Date Documented Da te Episodic/Chronic Open wounds of extremities (1 source) Laceration of other specified muscles, fascia and tendons at wrist and hand level, left hand, initial encounter; Translations: [LAC OTH SPEC M T T WR HN] Onset: 10-02-2016 Episodic Other connective tissue disease (2 sources) Pain in left hand; Translations: [PAIN IN LEFT HAND] Onset: 10-02-2016 Episodic Results Test Name Value Interpretation Reference Range Facility Quantiferon TB-Gold+on 10-27 QFT MITOGEN JEREMIAH > 10.00 Normal . [facility] Comment on above: Performed By: #### L 3400.8000 #### [facility] [address] [place], [address] QFT NIL VALUE 0.05 IU/mL Normal . [facility] Comment on above: Performed By: #### [id number] #### [facility] [address] [place], [address] QFT TB GOLD+ Comment Normal . [facility] Comment on above: Result Comment: Nicolás tiFERON-TB Gold Plus is a qualitative indirect test for M tuberculosis infection (including disease) and is intended for use in conjunction with risk assessment, radiography, and other medical and diagnostic evaluations. The QuantiFERON-TB Gold Plus result is determined by subtracting the Nil value from either TB antigen (Ag) value. The Mitogen tube serves as a control for the test. Performed By: #### L [id number] #### [facility] [address] [place], [place], [id number] QFT TB POS CRIT Negative Normal Negative [facility] Comment on above: Result Comment: No r esponse to M tuberculosis antigens detected. Infection with M tuberculosis is unlikely, but high risk individuals should be considered for additional testing (ATS/IDSA/CDC Clinical Practice Guidelines, 2017). The reference range is an Antigen minus Nil result of <0.35 IU/mL. The specimen received for QuantiFERON testing was incubated by the ordering institution. Specific procedures outlined in our Directory of Services and in the package insert for the QuantiFERON Gold (In Tube) test must be followed to enable for proper stimulation of cells for the production of interferon gamma. Chemiluminescence immunoassay methodology Performed at: [employer] [id number] [employer] Commod[employer] Grader: Pro Briceño PhD, Phone: [phone] Performed By: #### [id number] #### [facility] [address] [place], [address] QFT TB1+ AG JEREMIAH 0.04 IU/mL Normal . [facility] Comment on above: Performed By: #### [id number] #### [facility] [address] [place], [address] QFT TB2+ AG JEREMIAH 0.05 IU/mL Normal . [facility] Comment on above: Performed By: #### [id number] #### [facility] [address] [place], [place], [id number] Surgery Visit Reporton 10-26 Surgery Visit Report [facility] [address] [place] [address] OFFICE VISIT Date of Service: 10/26/24 MR#: [id number] Acct: [id number] Name: GILL KENNEY Rep #: [id number] : 1950 Provider: Dr. Haris lockhart MD Age/Sex: 74/M Location: [facility] Status: Signed Intake Vital Signs 09/28/24 08:49 10/26/24 09:29 Height 5 ft 10 in 5 ft 9 in Weight: 210 lb 210 lb BMI 30.1 31.0 BP 199/96 H Blood Pressure Location Rt brachial Position Sitting Respiration 18 Intake Visit Reasons: Dysphagia Chief Complaint: GI issues/due for c-scope Bleaching Supervisor Required: No Is patient in pain?: No Allergies amoxicillin Allergy (Severe, Verified 10/26/24 09:30) Rash Medications ???Medication ???Instructions ???Recorded ???Confirmed ???Type clobetasol 0.05 % topical ointment 1 applic topical BID 08/20/17 History metronidazole 0.75 % topical cream 1 applic topical BID 08/20/17 History omeprazole 20 mg capsule,delayed 20 mg PO QDAY 08/20/17 09/28/24 Hi story release amlodipine 5 mg tablet 5 mg PO DAILY 09/13/21 09/28/24 Hi story cholecalciferol (vitamin D3) 50 50 mcg PO DAILY 09/13/21 09/28/24 History mcg (2,000 unit) capsule rosuvastatin 10 mg tablet 10 mg PO DAILY 09/13/21 09/28/24 H istory methocarbamol 500 mg tablet 500 mg PO TID PRN pain/spasms #60 09/28/24 09/28/24 Rx tabs guselkumab 100 mg/mL subcutaneous 100 mg subcut Q8W 10/26/24 History auto-injector (Tremfya) Have you fallen in the past year?: No PFSH Medical History Epididymitis Psoriasis Lyme disease History of malignant neoplasm of skin Vision problems Hyperlipidemia Hearing problem Acid reflux Skin cancer Fracture Back problem Arthritis Surgical History Status post bilateral inguinal hernia repair History of hand surgery Family History Mother Arthritis Father Arthritis Brother Colon cancer Diabetes Sister Diabetes Social History Smoking Status: Current every day smoker alcohol intake: current alcohol intake frequency: 0-2 drinks per day Alcohol type: beer substance use type: does not use what type of physical activity do you participate in: none HPI HPI HPI: Patient is a 74-year-old male here for belching and bloating. Patient reports that he does not have any dysphagia. He says he easily swallows with no issue. He says that after he eats he feels very full and bloated. He is on omeprazole currently. He does not have any acid reflux. ROS General General: Yes fatigue; No weight change, appetite, colon cancer, breast cancer or weakness HEENT HEENT: No difficulty swallowing, eye injury, eye surgery, swollen glands or hoarseness Endo Endocrine: No thyroid disease, diabetes mellitus, thyroid cancer, Hair loss, heat intolerance or cold intolerance Skin Skin: No rash or changing moles Breast Breast: No left breast lump, right breast lump, nipple discharge, breast pain, abnormal mammogram, abnormal US or breast enlargement Musc Musculoskeletal: Yes back problems and arthritis; No rheumatoid arthritis, gout or joint pain Cardio Cardiovascular: No murmur, pacemaker, heart disease, atrial fibrillation, high blood pressure, heart attack, heart stent, palpitations, shortness of breath with exertion or chest pain Psych Psychiatric: No depression, anxiety or hearing voices Resp Respiratory: Yes shortness of breath, No sleep apnea, No cough, No COPD, No asthma, No emphysema and No wheezing Gastro Gastrointestinal: Yes abdominal pain, Yes nausea or vomiting, No diarrhea, No constipation, No blood in stool, Yes acid reflux, Yes hemorrhoids, No ulcers, No gallbladder problem and No black,tarry stools Will Hematologic: No blood thinners, No blood disorders, No bleeding, No anemia and No blood clots Neuro Neurologic: No system reviewed and no additional complaints, except as documented, No as per HPI, No abnormal gait, No abnormal hearing, No abnormal movements, No abnormal speech, No behavioral changes, No burning sensations, No confusion, No convulsions, No disequilibrium, No dizziness, No localized weakness, No frequent falls, No headache(s), No lack of coordination, No loss of vision, No memory loss, No numbness, No other visual disturbances, No radicular pain, No restless legs, No sensory deficit, No syncope, No tingling, No tremor(s), No weakness and No other Exam Const General: cooperative Orientation: alert and oriented x3 HENMT Head: normal to inspection Neck Neck: normal visual inspection and full ROM Chest Chest (more content not included)... Normal [facility] Qualitative QuantiFERON-TB g old in tube testOrdered By: Gilberto Cosme on 10-25-2024 M. tuberculosis tuberculin stim IFN-g Ql (Bld) 0.04 IU/mL . [facility] Cerv Spine 4 or 5 Viewson Cerv Spine 4 or 5 Views [facility] Services [address] [place], [place] [id number] Cerv Spine 4 or 5 Views MR#: [id number] Acct: [id number] Name: GILL KENNEY Rep #: [id number] : 1950 M 74 From: Thai Ayers MD PCP: Dr. Kevin Vera, DO Status: DEP AMB Study: Cerv Spine 4 or 5 Views Date of Exam: 09/28/24 Exam# [id number] Ordering Dr: Jennie Calvo PROCEDURE: CERV SPINE 4 OR 5 VIEWS 09/28/2024 REASON FOR EXAM: UPPER BACK AND NECK PAIN,X 1 WEEK TECHNIQUE: 4 views of the cervical spine. COMPARISON: None FINDINGS: Cervical vertebral body heights are maintained. There is minimal anterolisthesis of C3 on C4. No significant change in listhesis on flexion and extension imaging. There is disc space narrowing with endplate osteophyte formation and facet arthrosis which is most pronounced at C5-6. RAD/Cerv Spine 4 or 5 Views IMPRESSION: 1. Moderate degenerative changes of the cervical spine are worst at C5-6. 2. Minimal anterolisthesis of C3 on C4, likely degenerative. Reading Location: [facility] CC: NAHUN Ferrer; Dr. Kevin Vera DO [employer] Representative: Signed Normal [facility] Orthopedic Visit Reporton Orthopedic Visit Report [facility] [address] [place] [address] [address] [place] [address] OFFICE VISIT Date of Service: 09/28/24 MR#: [id number] Acct: [id number] Name: GILL KENNEY Rep #: [id number] : 1950 Provider: NAHUN Ferrer Age/Sex: 74/M Location: [facility] Status: Signed Intake Vital Signs 08/26/23 15:23 09/28/24 08:49 Height 5 ft 10 in 5 ft 10 in Weight: 210 lb BMI 30.1 Intake Visit Reasons: CERVICAL SPINE Chief Complaint: Cervical spine pain Accompanied by: Self Is patient in pain?: Yes Pain scale (1-10): 5 Allergies amoxicillin Allergy (Severe, Verified 09/28/24 08:52) Rash Medications ???Medication ???Instructions ???Recorded ???Confirmed ???Type clobetasol 0.05 % topical ointment 1 applic topical BID 08/20/17 History metronidazole 0.75 % topical cream 1 applic topical BID 08/20/17 History omeprazole 20 mg capsule,delayed 20 mg PO QDAY 08/20/17 09/28/24 Hi story release amlodipine 5 mg tablet 5 mg PO DAILY 09/13/21 09/28/24 Hi story cholecalciferol (vitamin D3) 50 50 mcg PO DAILY 09/13/21 09/28/24 History mcg (2,000 unit) capsule rosuvastatin 10 mg tablet 10 mg PO DAILY 09/13/21 09/28/24 H istory methocarbamol 500 mg tablet 500 mg PO TID PRN pain/spasms #60 09/28/24 09/28/24 Rx tabs Have you fallen in the past year?: Yes PFSH Medical History Epididymitis Psoriasis Lyme disease History of malignant neoplasm of skin Vision problems Hyperlipidemia Hearing problem Acid reflux Skin cancer Fracture Back problem Arthritis Surgical History Status post bilateral inguinal hernia repair History of hand surgery Family History Mother Arthritis Father Arthritis Brother Colon cancer Diabetes Sister Diabetes Social History Smoking Status: Current every day smoker alcohol intake: current alcohol intake frequency: 0-2 drinks per day Alcohol type: beer substance use type: does not use what type of physical activity do you participate in: none HPI CERVICAL SPINE Details: This documentation accurately reflects the service provided and the decisions made by me, NAHUN Ferrer 09/28/24 0849. Part of today???s visit was documented by Sebastien Pichardo MA, acting as scribe. GILL KENNEY is a 74 year old M here today for cervical spine pain. Patient is having pain in the ribs and then up into the mid back. The pain is a sharp pain. Both of his legs feels like they're going to give out, because the pain is so bad. This has been going on for the last month. He does think that at least over the last 3 days his pain has been slowly starting to improve. He was in a boat and he fell on his right side and he felt like he pulled something. Patient denies any surgeries on his back. Coughing makes the pain worse. When he coughs the pain in the ribs worsens. Patient denies any radicular symptoms that extends down his arms or legs. The patient has seen his chiropractor which he has been going to for years but has not had any benefit with the chiropractic treatment. Patient denies any balance issues. Patient denies any physical therapy, or injections in the back. Denies any diabetes, or blood thinners. No prior abdominal surgeries. The patient will occasionally take Aleve for his pain which does not give him any significant benefit. Sitting does seem to improve his pain. Bending over worsens the pain. No increased pain with walking. Patient denies any smoking or drug use. Patient does have numbness and tingling in the feet and the toes. The patient does mention that he has had some new shortness of breath especially when bending over. The patient mentions that he has also had some new abdominal discomfort as well. Ortho Exam General General: Yes no acute distress Neurologic: Yes alert and Yes oriented x3 Spine SPINE TESTING CERVICAL THORACIC LUMBAR Musculoskeletal Strength 0=absent - 5=normal Details: Neurological exam of the lower extremities shows 5x5 power. Normal sensations across all dermatomes. No hyperreflexia. No midline or paraspinal tenderness. The patient did have some shortness of breath while completing the muscle examination. Coding Level of Care Code Off vis,new,level 4 Diagnoses Compression fracture of T8 vertebra, initial encounter S22.060A Encounter type: initial encounter Acute bilateral thoracic back pain M54.6 Chronicity: acute Back pain laterality: bilateral Assessment and Plan Assessment and Plan (1) Compression fracture of T8 vertebra: Status: Acu (more content not included)... Normal [facility] Thoracic Spine 2 Viewson Thoracic Spine 2 Views [facility] Imaging Services [address] [place] [address] Thoracic Spine 2 Views MR#: [id number] Acct: [id number] Name: GILL KENNEY Rep #: [id number] : 1950 M 74 From: Fabian Mayer MD PCP: Dr. Kevin Vera, Status: DEP AMB Study: Thoracic Spine 2 Views Date of Exam: 09/28/24 Exam# [id number] Ordering Dr: Jennie Calvo PROCEDURE: THORACIC SPINE 2 VIEWS 09/28/2024 REASON FOR EXAM: UPPER BACK AND NECK PAIN X 1 WEEK TECHNIQUE: Two views thoracic spine COMPARISON: None available FINDINGS: Age-indeterminate moderate anterior wedge compression fracture deformity of what appears to be T8. The other visualized thoracic vertebral bodies appear within limits. Disc spaces appear within limits. RAD/Thoracic Spine 2 Views IMPRESSION: Age-indeterminate moderate anterior wedge compression fracture deformity of what appears to be T8, clinically correlate. Reading Location: [facility] CC: NAHUN Ferrer; Dr. Kevin Vera DO In [employer] Representative: Signed Normal [facility] Urine Cultureon 02-10-2024 URC Culture exhibits no growth. Normal [facility] Comment on above: Performed By: #### L 500.4050, L400.0001, L501.9985, M100.2200 #### [facility] [address] [place], [address] Comprehensive Metabolic Prof ilon 02-09-2024 Albumin [Mass/Vol] 3.8 g/dL Normal 3.2-5.0 [facility] Comment on above: Performed By: #### L 500.4050, L400.0001, L501.9985, M100.2200 #### [facility] [address] [place], [address] Albumin/Globulin [Mass ratio] 1.1 {ratio} Normal 0.9-2.4 [facility] Comment on above: Performed By: #### L 500.4050, L400.0001, L501.9985, M100.2200 #### [facility] [address] [place], [address] ALK P 56 U/L Normal 45-117 [facility] Comment on above: Performed By: #### L 500.4050, L400.0001, L501.9985, M100.2200 #### [facility] [address] [place], [address] ALT [Catalytic activity/Vol] 49 U/L Normal 16-61 [facility] Comment on above: Performed By: #### L 500.4050, L400.0001, L501.9985, M100.2200 #### [facility] [address] [place], [address] AST [Catalytic activity/Vol] 39 U/L High 15-37 [facility] Comment on above: Performed By: #### L 500.4050, L400.0001, L501.9985, M100.2200 #### [facility] [address] [place], [address] Bilirubin [Mass/Vol] 0.90 mg/dL Normal 0.20-1.00 [facility] Comment on above: Result Comment: For patients on eltrombopag therapy, use of Dimension [place] TBIL is not recommended. Performed By: #### L 500.4050, L400.0001, L501.9985, M100.2200 #### [facility] [address] [place], [address] BUN/CRE 18.3 RATIO Normal 10-20 [facility] Comment on above: Performed By: #### L 500.4050, L400.0001, L501.9985, M100.2200 #### [facility] [address] [place], [address] CA,Total 10.0 mg/dL Normal 8.5-10.1 [facility] Comment on above: Performed By: #### L 500.4050, L400.0001, L501.9985, M100.2200 #### [facility] [address] [place], [address] Chloride [Moles/Vol] 103 mmol/L Normal 98-107 [facility] Comment on above: Performed By: #### L 500.4050, L400.0001, L501.9985, M100.2200 #### [facility] [address] [place], [address] CO2 [Moles/Vol] 29.0 mmol/L Normal 21.0-32.0 [facility] Comment on above: Performed By: #### L 500.4050, L400.0001, L501.9985, M100.2200 #### [facility] [address] [place], [address] Creatinine [Mass/Vol] 1.04 mg/dL Normal 0.70-1.30 [facility] Comment on above: Result Comment: The validity of the calculated GFR GFRAA in patients over 70 years has not been determined. Clinical correlation is essential. Performed By: #### L 500.4050, L400.0001, L501.9985, M100.2200 #### [facility] [address] [place], [address] EST GFR - AA 89 mL/min Normal >60 [facility] Comment on above: Result Comment: Afri can [place] GFR Calc Performed By: #### L 500.4050, L400.0001, L501.9985, M100.2200 #### [facility] [address] [place], [address] GAP 7 Normal 5-15 [facility] Comment on above: Performed By: #### L 500.4050, L400.0001, L501.9985, M100.2200 #### [facility] [address] [place], [address] GFR/1.73 sq M.predicted among non-blacks MDRD (S/P/Bld) [Vol rate/Area] 74 mL/min/{1.73_m2} Normal >60 [facility] Comment on above: Result Comment: Non- GFR Calc Performed By: #### L 500.4050, L400.0001, L501.9985, M100.2200 #### [facility] [address] [place], [address] Globulin (S) [Mass/Vol] 3.5 g/dL Normal 2.2-4.2 [facility] Comment on above: Performed By: #### L 500.4050, L400.0001, L501.9985, M100.2200 #### [facility] [address] [place], [address] Glucose [Mass/Vol] 90 mg/dL Normal 74-106 [facility] Comment on above: Performed By: #### L 500.4050, L400.0001, L501.9985, M100.2200 #### [facility] [address] [place], [address] Potassium [Moles/Vol] 4.1 mmol/L Normal 3.5-5.1 [facility] Comment on above: Performed By: #### L 500.4050, L400.0001, L501.9985, M100.2200 #### [facility] [address] [place], [address] Sodium [Moles/Vol] 139 mmol/L Normal 136-145 [facility] Comment on above: Performed By: #### L 500.4050, L400.0001, L501.9985, M100.2200 #### [facility] [address] [place], [address] T PROT 7.3 g/dL Normal 6.4-8.2 [facility] Comment on above: Performed By: #### L 500.4050, L400.0001, L501.9985, M100.2200 #### [facility] [address] [place], [address] Urea nitrogen [Mass/Vol] 19 mg/dL High 7-18 [facility] Comment on above: Performed By: #### L 500.4050, L400.0001, L501.9985, M100.2200 #### [facility] [address] [place], [address] Hemoglobin A1con 02-09-2024 HbA1c (Bld) [Mass fraction] 5.8 % High 3.8-5.6 [facility] Comment on above: Result Comment: Norm al < 5.7 % Prediabetic 5.7 - 6.4 % Diabetic >or= 6.5 % Please note range changes. Performed By: #### L 500.4050, L400.0001, L501.9985, M100.2200 #### [facility] [address] [place], [address] Urinalysis, Completeon 02-08 Mucus Ql (Urine sed) RARE Normal [facility] Comment on above: Order Comment: CLEAN CATCH Performed By: #### L 500.4050, L400.0001, L501.9985, M100.2200 #### [facility] [address] [place], [address] WBC 0-5 SEEN Normal 0-5 [facility] Comment on above: Order Comment: CLEAN CATCH Performed By: #### L 500.4050, L400.0001, L501.9985, M100.2200 #### [facility] [address] [place], [address] BACTERIA 0 SEEN Normal None Seen [facility] Comment on above: Order Comment: CLEAN CATCH Performed By: #### L 500.4050, L400.0001, L501.9985, M100.2200 #### [facility] [address] [place], [address] EPI,SQUAMOUS 0 SEEN Normal 0-5 [facility] Comment on above: Order Comment: CLEAN CATCH Performed By: #### L 500.4050, L400.0001, L501.9985, M100.2200 #### [facility] [address] [place], [address] RBC 0 SEEN Normal 0-5 [facility] Comment on above: Order Comment: CLEAN CATCH Performed By: #### L 500.4050, L400.0001, L501.9985, M100.2200 #### [facility] [address] [place], [address] HEPATITIS ACUTE PANEL [CCL]o n 02-03-2024 Hep B Core Ab, IgM Negative Normal Negative [facility] Comment on above: Result Comment: No e vidence of recent infection with Hepatitis B virus. Should recent infection be suspected, repeat testing may be considered 3-4 weeks after this draw. Performed By: #### 2 76411 #### [facility],[address] [place] [address] Hepatitis A Ab IgM Negative Normal Negative [facility] Comment on above: Result Comment: No e vidence of recent infection with Hepatitis A virus. Performed By: #### 2 99474 #### [facility],[address] [place] [address] Hepatitis B Surf. Ag Negative Normal Negative [facility] Comment on above: Result Comment: [place] [address] Aric Whitt III, M.D. [id number] Performed By: #### 2 12849 #### [facility],[address] [place], [place] [address] Hepatitis C Ab IA Negative Normal Negative [facility] Comment on above: Result Comment: The result suggests no evidence of active infection with Hepatitis C virus. Should recent infection be suspected, repeat testing may be considered 4-6 weeks after this draw. Performed By: #### 2 00788 #### [facility],[address] [place], [place] [address] HAV IgM Ser Qlon 02-02-2024 HAV IgM Ql (S) Negative Normal Negative [facility] Comment on above: Order Comment: Speci men Type: BLOOD SPECIMEN Ordering Facility: [facility] Address: [address] [place] [address] Result Comment: No e vidence of recent infection with Hepatitis A virus. Performed By: #### 3 1204-1, 5195-3, 57136-5 #### [facility] CLIA [id number] [address] [place] [address] [place] HBV core IgM Ser Qlon 2023 HBV core IgM Ql (S) Negative Normal Negative [facility] Comment on above: Order Comment: Rebeccai bear Type: BLOOD SPECIMEN Ordering Facility: [facility] Address: [address] [place] [address] Result Comment: No e vidence of recent infection with Hepatitis B virus. Should recent infection be suspected, repeat testing may be considered 3-4 weeks after this draw. Performed By: #### 3 1204-1, 5195-3, 62063-1 #### [facility] CLIA [id number] [address] [place] [address] [place] HBV surface Ag Ser Qlon 01-17 HBV surface Ag Ql (S) Negative Normal Negative [facility] Comment on above: Order Comment: Speci men Type: BLOOD SPECIMEN Ordering Facility: [facility] Address: [address] [place] [address] Performed By: #### 3 1204-1, 5195-3, 23257-3 #### [facility] CLIA [id number] [address] [place] [address] [place] HCV Ab Ser Qlon 02-02-2024 HCV Ab Ql (S) Negative Normal Negative [facility] Comment on above: Order Comment: Speci men Type: BLOOD SPECIMEN Ordering Facility: [facility] Address: [address] [place] [address] Result Comment: The result suggests no evidence of active infection with Hepatitis C virus. Should recent infection be suspected, repeat testing may be considered 4-6 weeks after this draw. Performed By: #### 1 6128-1 #### [facility] CLIA [id number] [address] [place] [address] [place] Quantiferon TB-Gold+on 12-09 QFT MITOGEN JEREMIAH > 10.00 Normal . [facility] Comment on above: Performed By: #### L 3400.8000 #### [facility] [address] [place], [place], [address] QFT NIL VALUE 0 IU/mL Normal . [facility] Comment on above: Performed By: #### L 3400.8000 #### [facility] [address] [place], [place], [address] QFT TB GOLD+ Comment Normal . [facility] Comment on above: Result Comment: Nicolás tiFERON-TB Gold Plus is a qualitative indirect test for M tuberculosis infection (including disease) and is intended for use in conjunction with risk assessment, radiography, and other medical and diagnostic evaluations. The QuantiFERON-TB Gold Plus result is determined by subtracting the Nil value from either TB antigen (Ag) value. The Mitogen tube serves as a control for the test. Performed By: #### L 3400.8000 #### [facility] [address] [facility]. [place], [place], [address] QFT TB POS CRIT Negative Normal Negative [facility] Comment on above: Result Comment: No r esponse to M tuberculosis antigens detected. Infection with M tuberculosis is unlikely, but high risk individuals should be considered for additional testing (ATS/IDSA/CDC Clinical Practice Guidelines, 2017). The reference range is an Antigen minus Nil result of <0.35 IU/mL. The specimen received for QuantiFERON testing was incubated by the ordering institution. Specific procedures outlined in our Directory of Services and in the package insert for the QuantiFERON Gold (In Tube) test must be followed to enable for proper stimulation of cells for the production of interferon gamma. Chemiluminescence immunoassay methodology Performed at: [employer] [id number] [employer] Grader: Pro Briceño PhD, Phone: [phone] Performed By: #### L 3400.8000 #### [facility] [address] [facility] [place], [address] QFT TB1+ AG JEREMIAH 0.06 IU/mL Normal . [facility] Comment on above: Performed By: #### L 3400.8000 #### [facility] [address] [place], [address] QFT TB2+ AG JEREMIAH 0.05 IU/mL Normal . [facility] Comment on above: Performed By: #### L 3400.8000 #### [facility] [address] [place], [place], [address] EMERGENCY REPORTon 4 EMERGENCY REPORT [facility] EMERGENCY ROOM REPORT NAME ACCOUNT SEX AGE ADMIT DISCHARGE PT MED. RECORD# NUMBER DATE DATE TYPE GILL KENNEY [id number] M 73 09/20/23 09/20/23 3 [id number] ROOM: ER DATE OF : 1950 DICTATING PHYSICIAN: Neo Collier CHIEF COMPLAINT: 1. Right eye foreign body irritation. 2. Redness and tenderness to the right hand. HISTORY OF PRESENT ILLNESS: The patient was using a skill saw yesterday and thinks he got a small wood chip in his right eye. He has continued to have a painful foreign body sensation in that eye since. It was more noticeable this morning. He has not had any vision deficits. No purulent drainage or noticeable redness. It seems to be worse when he blinks. Additionally, he states that he has a small skin scrape over the dorsum of his right hand that he had earlier in the week, and over the last couple of days he has developed some redness and soreness along that area that radiates slightly toward the fingers and wrist area. No fever or chills. No drainage or fluctuance. He is able to move the hand and fingers well. No forearm or any other regional pain. PAST MEDICAL HISTORY: Significant for hypertension and elevated cholesterol. PAST SURGICAL HISTORY: Previous surgeries as noted on the surgery list. MEDICATIONS: Per medication reconciliation list. SOCIAL HISTORY: He lives at home by himself. He does not smoke. He drinks alcohol occasionally. PHYSICAL EXAMINATION: GENERAL: This is a 73-year-old, pleasant male who is alert and appropriate. He does not appear toxic or in acute distress. SKIN: His skin is pink, warm and dry. HEENT: There is no obvious facial redness or swelling. No noticeable conjunctival redness or periorbital edema. Pupils are equal, round, and reactive to light. Extraocular muscles are intact. On closer examination across his cornea, it does look like he has perhaps a small wood sliver that is adherent to the cornea at about the mid to lateral aspect of the iris at about 8 to 9 o'clock. No other obvious abnormalities seen. EXTREMITIES: Examination to the right hand shows a superficial healing scabbed skin tear of about 1 cm on the mid-dorsum of the hand. Surrounding this, there is some mild redness and some slight tenderness extending out toward the MCP joints. Full range of motion. Good extension. Good flexion. Normal neurovascular examination. No appreciable induration. No tenderness at the wrist or Page 1 of 2 GILL KENNEY Emergency Room Report GILL KENNEY : 1950 forearm. EMERGENCY DEPARTMENT COURSE AND TREATMENT: The patient had tetracaine drops instilled in that eye, and then it was examined further after the drops were placed. I did not see this area across the cornea anymore. The upper lid was everted actually several times, and eye irrigation was placed to that area. No further foreign body was seen. I did not see any evidence of any fluorescein uptake with blue light examination. Repeat eye examination essentially was normal. DIAGNOSIS: 1. Right corneal foreign body, removed in Emergency Department. No evidence of any significant corneal abrasion. 2. Local cellulitis from skin abrasion to right hand. PLAN/DISPOSITION: I did give him a prescription for cephalexin. Return if symptoms worsen. He was referred to [facility] to follow up in 24-48 hours if the eye has any ongoing symptoms, returning if it is significantly worse. Follow up with family provider in 2 to 3 days if the hand has any ongoing symptoms as well. Dictated By: Neo Collier MD 09/20/23 09:11 JOB #: [id number] Transcribed By: darrell 09/20/23 12:13 Electronically signed by: LILO Collier M.D. 09/28/23 08:20 Page 2 of 2 GILL KENNEY Emergency Room Report Normal [facility] Absolute lymphocyte countOrd ered By: Isi Power on 08-26-2023 Lymphocytes Auto (Unsp spec) [#/Vol] 1.80 10*3/uL 0.83-4.51 [facility] Automated lymphocyte count a s percentage of total leukocytesOrdered By: Isi Power on 08-26-2023 Lymphocytes/100 WBC Auto (Unsp spec) 27.6 % 19-41 [facility] Basophil percentageOrdered B y: Isi Power on 08-26-2023 Amylase [Catalytic activity/Vol] 40 U/L 25-115 [facility] Basophils/100 WBC (Bld) 0.5 % 0-1 [facility] Bilirubin [Mass/Vol] 0.90 mg/dL 0.20-1.[address] [facility] Comment on above: For patients on eltr ombopag therapy, use of Dimension [place] TBIL is not recommended. Chloride [Moles/Vol] 106 mmol/L 98-107 [facility] Eosinophils/100 WBC (Bld) 1.1 % 0-5 [facility] Glucose [Mass/Vol] 179 mg/dL 74-106 [facility] Comment on above: Fasting Glucose resu lt greater than or equal to 126 mg/dL suggests DIABETES MELLITUS per A.D.A. criteria. Hemoglobin (Bld) [Mass/Vol] 16.8 g/dL 13.0-16.5 [facility] Monocytes/100 WBC (Bld) 9.0 % 0-10 [facility] Neutrophils (Bld) [#/Vol] 4.0 10*3/uL 2.0-7.7 [facility] Neutrophils/100 WBC (Bld) 61.5 % 47-70 [facility] Potassium [Moles/Vol] 3.8 mmol/L 3.5-5.1 [facility] Protein [Mass/Vol] 7.8 g/dL 6.4-8.2 [facility] Sodium [Moles/Vol] 136 mmol/L 136-145 [facility] WBC (Bld) [#/Vol] 6.5 10*3/uL 4.4-11.0 [facility] Determination of erythrocyte mean corpuscular volume (MCV)Ordered By: Isi Power on 08-26-2023 MCV (RBC) [Entitic vol] 92.3 fL 80-94 [facility] Erythrocyte distribution wid th ratioOrdered By: Isi Power on 08-26-2023 Erythrocyte distribution width (RBC) [Ratio] 12.2 % 11.6-14.6 [facility] Erythrocyte distribution wid th standard deviationOrdered By: Isi Power on 08-26-2023 Erythrocyte distribution width (RBC) [Entitic vol] 41.5 fL 35.1-43.9 [facility] Hematocrit Auto (Bld) [Volum e fraction]Ordered By: Isi Power on 08-26-2023 Hematocrit (Bld) [Volume fraction] 48.1 % 40-54 [facility] Immature granulocytes/100 WB C Auto (Bld)Ordered By: Isi Power on 08-26-2023 Immature granulocytes/100 WBC (Bld) 0.300 % 0.0-0.9 [facility] Comment on above: IG% - Immature Granu locytes (promyelocytes, myelocytes and metamyelocytes) > 1% indicates that a LEFT SHIFT is Present. Laboratory - Chemistry and C hemistry - challengeon 08-26-2023 Bilirubin Ql (U) Small (1+) [facility] Glucose Ql (U) Negative [facility] Ketones Ql (U) Small (15+) [facility] pH (U) 6 [pH] [facility] Specific gravity (U) [Rel density] 1.015 [facility] Urobilinogen (U) [Mass/Vol] Negative [facility] - Chemistry and C hemistry - challengeOrdered By: Isi Power on 08-26-2023 Albumin/Globulin [Mass ratio] 0.8 {ratio} 0.9-2.4 [facility] ALP [Catalytic activity/Vol] 79 U/L 45-117 [facility] ALT [Catalytic activity/Vol] 54 U/L 16-61 [facility] CO2 [Moles/Vol] 21.0 mmol/L 21.0-32.0 [facility] Globulin (S) [Mass/Vol] 4.3 g/dL 2.2-4.2 [facility] Lipase [Catalytic activity/Vol] 26 U/L 13-75 [facility] Comment on above: Please note:LIPASE r evised reference range effective 22. New Lipase methodology. Expected to produce lower values than the previous assay method. NEW Reference Range: 13 - 75 U/L Urea nitrogen/Creatinine [Mass ratio] 12.9 mg/mg 10-20 [facility] - Hematology and Cell countson 08-26-2023 Hemoglobin Ql (U) Negative [facility] - Hematology and Cell countsOrdered By: Isi Power on 08-26-2023 MCH (RBC) [Entitic mass] 32.2 pg 27.0-32.0 [facility] MCHC (RBC) [Mass/Vol] 34.9 g/dL 32-36 [facility] Nucleated RBC/100 WBC (Bld) [Ratio] 0 % 0-5 [facility] Platelet mean volume (Bld) [Entitic vol] 10.4 fL 6.2-12.0 [facility] Platelets (Bld) [#/Vol] 191 10*3/uL 150-450 [facility] - Specimen inform ationon 08-26-2023 Clarity (U) Cloudy [facility] Color (U) STRAW [facility] - Urinalysison Nitrite Ql (U) Negative [facility] Protein Ql (U) Negative [facility] No Panel Informationon 08-25 Urine Leukocytes Negatve [facility] Urine Non-Hemolyzed Blood [facility] No Panel InformationOrdered By: Isi Power on 08-26-2023 Estimated GFR (MDRD) Amer 68 mL/min >60 [facility] Comment on above: GFR Calc Estimated GFR (MDRD) Non-Af Amer 56 mL/min >60 [facility] Comment on above: Non- GFR Calc Lyme Disease Total Antibody Negative Negative [facility] Comment on above: Lyme antibodies not detected. Reflex testing is notindicated.No laboratory evidence of infection with B. burgdorferi(Lyme disease). Negative results may occur in patientsrecently infected (less than or equal to 14 days) with B.burgdorferi. If recent infection is suspected, repeattesting on a new sample collected in 7 to 14 days isrecommended.Performed at: [facility] [id number] Director: Pro Briceño PhD, Phone: [phone] RBC Auto (Bld) [#/Vol]Ordere d By: Isi Power on 08-26-2023 RBC (Bld) [#/Vol] 5.21 10*6/uL 4.6-6.2 [facility] Serum or plasma calcium sadiq urement (mass/volume)Ordered By: Isi Power on 08-26-2023 Calcium [Mass/Vol] 8.9 mg/dL 8.5-10.1 [facility] Serum or plasma creatinine m easurement (mass/volume)Ordered By: Isi Power on 08-26-2023 Creatinine [Mass/Vol] 1.32 mg/dL 0.70-1.30 [facility] Comment on above: The validity of the calculated GFR & GFRAA in patients over 70 years has not been determined. Clinical correlation is essential. Serum or plasma urea nitroge n measurement (mass/volume)Ordered By: Isi Power on 08-26-2023 Urea nitrogen [Mass/Vol] 17 mg/dL 7-18 [facility] Thin prep Papanicolaou smear with manual screeningOrdered By: Isi Power on 08-26-2023 Thin prep Papanicolaou smear with manual screening 3.5 g/dL 3.2-5.0 [facility] Thin prep Papanicolaou smear with manual screening 40 U/L 15-37 [facility] Thin prep Papanicolaou smear with manual screening 9 5-15 [facility] Absolute lymphocyte countOrd ered By: Kevin Vera on 08-05-2023 Lymphocytes Auto (Unsp spec) [#/Vol] 2.06 10*3/uL 0.83-4.51 [facility] Automated lymphocyte count a s percentage of total leukocytesOrdered By: Kevin Vera on 08-05-2023 Lymphocytes/100 WBC Auto (Unsp spec) 35.3 % 19-41 [facility] Basophil percentageOrdered B y: Kevin Vera on 08-05-2023 Basophils/100 WBC (Bld) 0.3 % 0-1 [facility] Eosinophils/100 WBC (Bld) 0.7 % 0-5 [facility] Hemoglobin (Bld) [Mass/Vol] 16.4 g/dL 13.0-16.5 [facility] Monocytes/100 WBC (Bld) 11.0 % 0-10 [facility] Neutrophils (Bld) [#/Vol] 3.1 10*3/uL 2.0-7.7 [facility] Neutrophils/100 WBC (Bld) 52.4 % 47-70 [facility] Testosterone [Mass/Vol] 490.12 ng/dL [facility] Comment on above: CENTRAL 90% REFERENC E RANGES MALE AGE <50 197.44 - 669.58 ng/dL MALE AGE > or = 50 187.72 - 684.19 ng/dL FEMALE AGE <50 8.38 - 35.01 ng/dL FEMALE AGE > or = 50 <7.00 - 35.92 ng/dL Effective as of 12/12/20 WBC (Bld) [#/Vol] 5.8 10*3/uL 4.4-11.0 [facility] Determination of erythrocyte mean corpuscular volume (MCV)Ordered By: Kevin Vera on 08-05-2023 MCV (RBC) [Entitic vol] 93.7 fL 80-94 [facility] Erythrocyte distribution wid th ratioOrdered By: Kevin Vera on 08-05-2023 Erythrocyte distribution width (RBC) [Ratio] 12.3 % 11.6-14.6 [facility] Erythrocyte distribution wid th standard deviationOrdered By: Kevin Vera on 08-05-2023 Erythrocyte distribution width (RBC) [Entitic vol] 42.8 fL 35.1-43.9 [facility] Hematocrit Auto (Bld) [Volum e fraction]Ordered By: Kevin Vera on 08-05-2023 Hematocrit (Bld) [Volume fraction] 49.0 % 40-54 [facility] Immature granulocytes/100 WB C Auto (Bld)Ordered By: Kevin Vera on 08-05-2023 Immature granulocytes/100 WBC (Bld) 0.300 % 0.0-0.9 [facility] Comment on above: IG% - Immature Granu locytes (promyelocytes, myelocytes and metamyelocytes) > 1% indicates that a LEFT SHIFT is Present. Laboratory - Hematology and Cell countsOrdered By: Kevin Vera on 08-05-2023 MCH (RBC) [Entitic mass] 31.4 pg 27.0-32.0 [facility] MCHC (RBC) [Mass/Vol] 33.5 g/dL 32-36 [facility] Nucleated RBC/100 WBC (Bld) [Ratio] 0 % 0-5 [facility] Platelet mean volume (Bld) [Entitic vol] 10.6 fL 6.2-12.0 [facility] Platelets (Bld) [#/Vol] 189 10*3/uL 150-450 [facility] RBC Auto (Bld) [#/Vol]Ordere d By: Kevin Vera on 08-05-2023 RBC (Bld) [#/Vol] 5.23 10*6/uL 4.6-6.2 [facility] Absolute lymphocyte counton 09-13-2021 Lymphocytes Auto (Unsp spec) [#/Vol] 2.01 10*3/uL 0.83-4.51 [facility] Work Phone: Basophil percentageon 2021 Basophils/100 WBC (Bld) 0.4 % 0-1 [facility] Work Phone: [phone] Eosinophils/100 WBC (Bld) 0.7 % 0-5 [facility] Work Phone: [phone] Neutrophils (Bld) [#/Vol] 5.2 10*3/uL 2.0-7.7 [facility] Work Phone: [phone] Neutrophils/100 WBC (Bld) 63.6 % 47-70 [facility] Work Phone: [phone] WBC (Bld) [#/Vol] 8.1 10*3/uL 4.4-11.0 [facility] Work Phone: Blood erythrocytes count (nu mber/volume)on 09-13-2021 RBC (Bld) [#/Vol] 4.98 10*6/uL 4.6-6.2 [facility] Work Phone: Blood hemoglobin measurement (mass/volume)on 09-13-2021 Hemoglobin (Bld) [Mass/Vol] 16.2 g/dL 13.0-16.5 [facility] Work Phone: [phone] Blood lymphocytes/100 leukoc yteson 09-13-2021 Lymphocytes/100 WBC (Bld) 24.7 % 19-41 [facility] Work Phone: Blood monocytes/100 leukocyt eson 09-13-2021 Monocytes/100 WBC (Bld) 10.2 % 0-10 [facility] Work [phone] Blood platelet mean volumeon 09-13-2021 Platelet mean volume (Bld) [Entitic vol] 9.9 fL 6.2-12.0 [facility] Work Phone: Determination of erythrocyte mean corpuscular volume (MCV)on 09-13-2021 MCV (RBC) [Entitic vol] 95.4 fL 80-94 [facility] Work Phone: Hematocrit Auto (Bld) [Volum e fraction]on 09-13-2021 Hematocrit (Bld) [Volume fraction] 47.5 % 40-54 [facility] Work Phone: Laboratory - Hematology and Cell countson 09-13-2021 Erythrocyte distribution width (RBC) [Entitic vol] 45.4 fL 35.1-43.9 [facility] Work Phone: Erythrocyte distribution width (RBC) [Ratio] 12.9 % 11.6-14.6 [facility] Work Phone: Immature granulocytes/100 WBC (Bld) 0.400 % 0.0-0.9 [facility] Work Phone: Comment on above: IG% - Immature Granu locytes (promyelocytes, myelocytes and metamyelocytes) > 1% indicates that a LEFT SHIFT is Present. MCH (RBC) [Entitic mass] 32.5 pg 27.0-32.0 [facility] Work Phone: Nucleated RBC/100 WBC (Bld) [Ratio] 0 % 0-5 [facility] Work Phone: MCHC Auto (RBC) [Mass/Vol]on 09-13-2021 MCHC (RBC) [Mass/Vol] 34.1 g/dL 32-36 [facility] Work Phone: No Panel Informationon 09-13 Thyroid Stimulating Hormone (TSH) 1.14 uIU/mL 0.358-3.74 [facility] Work Phone: Platelets bldon 09-13-2021 Platelets (Bld) [#/Vol] 225 10*3/uL 150-450 [facility] Work Phone: Vital Signs Date Time Vital Sign Value Performing Clinician Faci lity 10-26-2024 09:29-0400 Body height 175.[address] Kevin Vera DO Work Phone: [facility] 10-26-2024 09:29-0400 Body mass index (BMI) [Ratio] 31 kg/m2 Dr. Kevin Vera DO Work Phone: [facility] 10-26-2024 09:29-0400 Body weight 95.[address] Kevin Vear DO Work Phone: [facility] 10-26-2024 09:29-0400 Diastolic blood pressure 96 mm[Hg] Dr. Kevin Vera DO Work Phone: [facility] 10-26-2024 09:29-0400 Respiratory rate 18 /min Dr. Kevin Vera DO Work Phone: [facility] 10-26-2024 09:29-0400 Systolic blood pressure 199 mm[Hg] Dr. Kevin Vera DO Work Phone: [facility] 09-28-2024 08:49-0400 Body height 177.[address] Kevin Vera DO Work Phone: [facility] 09-28-2024 08:49-0400 Body mass index (BMI) [Ratio] 30.1 kg/m2 Dr. Kevin Vera DO Work Phone: [facility] 09-28-2024 08:49-0400 Body weight 95.[address] Kevin Vera DO Work Phone: [facility] 08-26-2023 15:23-0400 Body height 177.[address] Kevin Vera Work Phone: [facility] 08-26-2023 15:23-0400 Body mass index (BMI) [Ratio] 27.8 kg/m2 Dr. Kevin Vera Work Phone: [facility] 08-26-2023 15:23-0400 Body temperature 97.8 [degF] Dr. Kevin Vera Work Phone: [facility] 08-26-2023 15:23-0400 Body weight 88.[address] Kevin Vera Work Phone: [facility] 08-26-2023 15:23-0400 Diastolic blood pressure 70 mm[Hg] Dr. Kevin Vera Work Phone: [facility] 08-26-2023 15:23-0400 Heart rate 105 /min Dr. Kevin Vera Work Phone: [facility] 08-26-2023 15:23-0400 Respiratory rate 16 /min Dr. Kevin Vera Work Phone: [facility] 08-26-2023 15:23-0400 SaO2% (BldA) [Mass fraction] 98 % Dr. Kevin Vera Work Phone: [facility] 08-26-2023 15:23-0400 Systolic blood pressure 118 mm[Hg] Dr. Kevin Vera Work Phone: [facility] 08-05-2023 10:42-0400 Body height 177.[address] Kevin Vera Work Phone: [facility] 08-05-2023 10:42-0400 Body mass index (BMI) [Ratio] 28.1 kg/m2 Dr. Kevin Vera Work Phone: [facility] 08-05-2023 10:42-0400 Body temperature 97.3 [degF] Dr. Kevin Vera Work Phone: [facility] 08-05-2023 10:42-0400 Body weight 88.[address] Kevin Vera Work Phone: [facility] 08-05-2023 10:42-0400 Diastolic blood pressure 84 mm[Hg] Dr. Kevin Vera Work Phone: [facility] 08-05-2023 10:42-0400 Heart rate 78 /min Dr. Kevin Vera Work Phone: [facility] 08-05-2023 10:42-0400 Respiratory rate 16 /min Dr. Kevin Vera Work Phone: [facility] 08-05-2023 10:42-0400 SaO2% (BldA) [Mass fraction] 96 % Dr. Kevin Vera Work Phone: [facility] 08-05-2023 10:42-0400 Systolic blood pressure 128 mm[Hg] Dr. Kevin Vera Work Phone: [facility] 09-13-2021 13:19-0400 Body height 177.[address] Kevin Vera Work Phone: [facility] Work Phone: 09-13-2021 13:19-0400 Body mass index (BMI) [Ratio] 27.8 kg/m2 Dr. Kevin Vera Work Phone: [facility] Work Phone: 09-13-2021 13:19-0400 Body temperature 97.4 [degF] Dr. Kevin Vera Work Phone: [facility] Work Phone: 09-13-2021 13:19-0400 Body weight 87.[address] Kevin Vera Work Phone: [facility] Work Phone: 09-13-2021 13:19-0400 Diastolic blood pressure 86 mm[Hg] Dr. Kevin Vera Work Phone: [facility] Work Phone: 09-13-2021 13:19-0400 Heart rate 72 /min Dr. Kevin Vera Work Phone: [facility] Work Phone: 09-13-2021 13:19-0400 Respiratory rate 14 /min Dr. Kevin Vera Work Phone: [facility] Work Phone: 09-13-2021 13:19-0400 SaO2% (BldA) [Mass fraction] 99 % Dr. Kevin Vera Work Phone: [facility] Work Phone: 09-13-2021 13:19-0400 Systolic blood pressure 138 mm[Hg] Dr. Kevin Vera Work Phone: [facility] Work Phone: Encounters Encounter Date Encounter Type Care Provider Facility Start: 11-16-2024 ambulatory Kevin Vera Facilit y:[facility] Start: 10-26-2024 End: 10-26-[address] Haris Harding MD -[facility] Work Phone: Start: 10-26-2024 End: 10-26-[address] Kevin Vera DO Work Phone: [facility] Work Phone: Start: 10-25-2024 End: 10-25-[address] Kevin Vera DO Work Phone: [facility] Work Phone: Start: 10-25-2024 End: 10-25-2024 Patient encounter procedure Gilberto GARNICA [facility] Work Phone: Start: 10-25-2024 End: 10-25-2024 ambulatory Gilberto GARNICA Facility:[facility] Start: 09-28-2024 End: 09-28-[address] Lamberto Uribe MD -[facility] Start: 09-28-2024 End: 09-28-[address] Kevin Vera DO Work Phone: [facility] Work Phone: Start: 02-09-2024 End: 02-09-2024 ambulatory Laurita Laura Facility:[facility] Start: 02-02-2024 End: 02-02-2024 ambulatory LAURITA PÉREZ [facility] Start: 12-08-2023 End: 12-08-2023 ambulatory Laurita Sanchez Facility:[facility] Start: 09-20-2023 End: 09-20-2023 Emergency department patient visit NEO COLLIER [facility] Start: 08-26-2023 End: 08-26-[address] Kevin Vera Work Phone: [facility] Work Phone: Start: 08-26-2023 End: 08-26-[address] Kevin Vera Work Phone: [facility] Work Phone: Start: 08-05-2023 End: 08-05-[address] Kevin Vera Work Phone: [facility] Work Phone: Start: 08-05-2023 End: 08-05-[address] Kevin Vera Work Phone: [facility] Work Phone: Start: 05-22-2023 End: 05-22-2023 ambulatory KEVIN MALCOLM [facility] Start: 03-29-2023 End: 03-29-2023 Emergency department patient visit KEVIN VERA [facility] Start: 09-13-2021 End: 09-13-[address] Kevin Vera Work Phone: [facility] Start: 10-03-2016 End: 10-04-2016 Evaluation and management of inpatient PCP D UNKNOWN Facility:[facility] Procedures Date Procedure Procedure Detail Performing Clinician Start: 10-25-2024 In-vitro immunologic test Dr. Kevin prakash DO Work Phone: Comment on above: QuantiFERON-TB Gold Plus is a qualitativ e indirect test forM tuberculosis infection (including disease) and isintended for use in conjunction with risk assessment,radiography, and other medical and diagnostic evaluations.The QuantiFERON-TB Gold Plus result is determined bysubtracting the Nil value from either TB antigen (Ag)value. The Mitogen tube serves as a control for the test. No response to M tub erculosis antigens detected.Infection with M tuberculosis is unlikely, but high riskindividuals should be considered for additional testing(ATS/IDSA/CDC Clinical Practice Guidelines, 2017). Thereference range is an Antigen minus Nil result of <0.35IU/mL.The specimen received for QuantiFERON testing was incubatedby the ordering institution. Specific procedures outlinedin our Directory of Services and in the package insert forthe QuantiFERON Gold (In Tube) test must be followed toenable for proper stimulation of cells for the productionof interferon gamma. Chemiluminescence immunoassaymethodologyPerformed at: [address] [id number] Director: Pro Briceño PhD, Phone: [phone] Start: 09-28-[address] Kevin Vera DO Work Phone: Start: 09-28-2024 X-ray of cervical spine Dr. 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 [Presence] in [facility] Payers Date Payer Category Payer Self-pay [id number] 2023 Unknown [id number] 2013 Medicare [id number] 2013 Unknown [id number] 1950 Unknown [id number] 2.16.8 [id number] 1950 Unknown [id number] 2.16.8 [id number] 1950 Unknown [id number] 2.16.8 [id number] 1950 Unknown [id number] 2.16.8 [id number] Medicare [id number] Unknown [id number] Unknown [id number] Unknown [id number] 2.16.8 [id number] Unknown [id number] 2.16.8 [id number] Unknown [id number] 2.16.8 [id number] Unknown [id number] 2.16.8 [id number] Unknown [id number] 2.16.8 [id number] Unknown [id number] 2.16.8 [id number] Unknown [id number] 2.16.8 [id number] Social History Date Type Detail Facility Start: 09-13-2021 End: 08-26-2023 Tobacco smoking status NHIS Unknown if ever smoked [facility] Start: 06-17-2019 [facility] Start: 1950 Sex Assigned At Male [facility] Start: 08-26-2023 Tobacco smoking stat us NHIS Smokes tobacco daily (finding) [facility] Progress note 10-26-2024 Note Date & Type Note Facility 10-26-2024 Progress note [facility] Progress note 10-26-2024 Note Date & Type Note Facility 10-26-2024 Progress note Note Date/Time October 26, 2024 10:00am [facility] [address] [place] [address] OFFICE VISIT Date of Service: 10/26/24 MR#: [id number] Acct: [id number] Name: GILL KENNEY Rep #: [id number] : 1950 Provider: Dr. 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 Supervisor Required: No Is patient in pain?: No Allergies amoxicillin Allergy (Severe, Verified 10/26/24 09:30) Rash Medications ?Medication ?Instructions ?Recorded ?Confirmed ?Type clobetasol 0.05 % topical ointment 1 applic topical BI D 08/20/17 09/28/24 History metronidazole 0.75 % topical cream 1 applic topical BI D 08/20/17 09/28/24 History omeprazole 20 mg capsule,delayed 20 mg PO QDAY 8 09/28/24 History release amlodipine 5 mg tablet 5 mg PO DAILY 09/13/2109/28 History cholecalciferol (vitamin D3) 50 50 mcg PO DAILY 09/28/24 History mcg (2,000 unit) capsule rosuvastatin 10 mg tablet 10 mg PO DAILY 09/13/2109/16 History methocarbamol 500 mg tablet 500 mg PO TID PRN pain/spa sms #60 09/28/24 09/28/24 Rx tabs guselkumab 100 mg/mL subcutaneous 100 mg subcut Q8W 10/26/24 History auto-injector (Tremfya) Have you fallen in the past year?: No PFSH Medical History Epididymitis Psoriasis Lyme disease History of malignant neoplasm of skin Vision problems Hyperlipidemia Hearing problem Acid reflux Skin cancer Fracture Back problem Arthritis Surgical History Status post bilateral inguinal hernia repair History of hand surgery Family History Mother Arthritis Father Arthritis Brother Colon cancer Diabetes Sister Diabetes Social History Smoking Status: Current every day smoker alcohol intake: current alcohol intake frequency: 0-2 drinks per day Alcohol type: beer substance use type: does not use what type of physical activity do you participate in: none HPI HPI HPI: Patient is a 74-year-old male here for belching and bloating. Patient reports that he does not have any dysphagia. He says he easily swallows with no issue. He says that after he eats he feels very full and bloated. He is on omeprazole currently. He does not have any acid reflux. ROS General General: Yes fatigue; No weight change, appetite, colon cancer, breast cancer or weakness HEENT HEENT: No difficulty swallowing, eye injury, eye surgery, swollen glands or hoarseness Endo Endocrine: No thyroid disease, diabetes mellitus, thyroid cancer, Hair loss, heat intolerance or cold intolerance Skin Skin: No rash or changing moles Breast Breast: No left breast lump, right breast lump, nipple discharge, breast pain, abnormal mammogram, abnormal US or breast enlargement Musc Musculoskeletal: Yes back problems and arthritis; No rheumatoid arthritis, gout or joint pain Cardio Cardiovascular: No murmur, pacemaker, heart disease, atrial fibrillation, high blood pressure, heart attack, heart stent, palpitations, shortness of breath with exertion or chest pain Psych Psychiatric: No depression, anxiety or hearing voices Resp Respiratory: Yes shortness of breath, No sleep apnea, No cough, No COPD, No asthma, No emphysema and No wheezing Gastro Gastrointestinal: Yes abdominal pain, Yes nausea or vomiting, No diarrhea, No constipation, No blood in stool, Yes acid reflux, Yes hemorrhoids, No ulcers, Nogallbladder problem and No black,tarry stools Will Hematologic: No blood thinners, No blood disorders, No bleeding, No anemia and No blood clots Neuro Neurologic: No system reviewed and no additional complaints, except as documented, No as per HPI, No abnormal gait, No abnormal hearing, No abnormal movements, No abnormal speech, No behavioral changes, No burning sensations, No confusion, No convulsions, No disequilibrium, No dizziness, No localized weakness, No frequent falls, No headache(s), No lack of coordination, No loss ofvision, No memory loss, No numbness, No other visual disturbances, No radicular pain, No restless legs, No sensory deficit, No syncope, No tingling, No tremor(s), No weakness and No other Exam Const General: cooperative Orientation: alert and oriented x3 HENMT Head: normal to inspection Neck Neck: normal visual inspection and full ROM Chest Chest palpation & inspection: normal inspection of the chest Resp Effort & Inspection: normal respiratory effort Auscultation: clear to auscultation bilaterally Cardio Rate: regular rate Rhythm: regular rhythm GI Inspection: non-distended Palpation: soft and nontender Skin General: no rashes or lesions noted Neuro General: patient alert and patient oriented x3 Extrem General: full ROM Psych Appearance: grossly normal Mental Status: mental status grossly normal Assessment and Plan Assessment and Plan (1) Abdominal pain: Status: Acute Qualifiers: Abdominal location: generalized Qualified Code(s): R10.84 - Generalizedabdominal pain Plan: The patient is having epigastric pain as well as some left upper quadrant pain. He is on omeprazole. He has his last colonoscopy 5 years ago and he was recommended to have another one for family history but he does not want to have this done at this time. He only wants EGD. I discussed EGD in detail with the patient. I explained endoscopy in detail to the patient. I explained the risksincluding but not limited to stroke or heart attack with anesthesia, perforationof the GI tract, bleeding, infection. I explained that any of these could necessitate further emergency surgery. The patient understands and all questions were answered sufficiently. The patient wishes to proceed with procedure. Haris Harding MD Pager: [facility] [address] [place] [address], [address] [place] [address] Office: Coding Level of Care Code Off vis,new,level 3 Diagnoses Generalized abdominal pain R10.84 Abdominal location: generalized Clinical Quality Measures Falls Risk Screening/Assistive Devices Have you fallen in the past year?: No 10/26/24 1000 <Electronically signed by Haris duran MD> Date _ Haris Irvin Signature: Date (if applicable) CC: ~ [facility] Work Phone: Evaluation note 09-28-2024 Note Date & Type Note Facility 09-28-2024 Evaluation note Diagnosis Onset Date Resolution Compression fracture of T8 vertebra acute September 28, 2024 8 :38am Thoracic back pain acute September 282024 8:38am Abdominal pain acute October 26, 2024 9:07am [facility] Work Phone: Evaluation note Note Date & Type Note Facility Evaluation note No assessment information availa ble [facility] Work Phone: Evaluation note Note Date & Type Note Facility Evaluation note Diagnosis Onset Date Fatigue acute [facility] Work Phone: Evaluation note Note Date & Type Note Facility Evaluation note Diagnosis Onset Date Fatigue acute Abdominal pain acute Medication adverse effect ac [place] [facility] Work Phone: Reason for referral (narrative) Note Date & Type Note Facility Reason for referral (narrative) No reason for referral information available [facility] Work Phone: Summary Purpose Family History No Family History Records Found Relationship Condition Age at Onset Recorded Date/T gavino mother Arthritis Unknown father Arthritis Unknown brother Malignant neoplasm of colon Unknown Diabetes mellitus Unknown sister Diabetes mellitus Unknown Advance Directives No Advanced Directives Records Found Advance Directive Response Recorded Date/ Time Advance Directives No November 24 4 10:24am Living Will No June 17 4:19pm Power of Executive Coordinator No June 17, 2019 4:19pm Advance Directive Response Recorded Date/ Time Advance Directives No November 24 4 10:24am Chief Complaint and Reason for Visit Chief Complaint EXCESSIVE FATIGUE Chief Complaint STOMACH PROBLEMS Reason for Visit Fatigue Chief Complaint STOMACH PROBLEMS acute - wants to DC medication Reason for Visit Fatigue Abdominal pain Medication adverse effect Chief Complaint Admit Date CERVICAL SPINE September 28, 2024 8:38a m Room 3 September 28, 2024 9:02a m Chief Complaint Admit Date CERVICAL SPINE September 28, 2024 8:38a m Room 3 September 28, 2024 9:02a m SKIN October 25, 2024 11:08 am Dysphagia October 26, 2024 9:07 am Reason for Visit Admit Date Compression fracture of T8 vertebra September 28, 2024 8:38am Thoracic back pain September 28, 2024 8:38a m Abdominal pain October 26, 2024 9:07 am Additional Source Comments (unrecognized sect ion and content) No Status Records FoundNo Status Records FoundNo Status Records FoundNo Status Records Found INFORMATION SOURCE (unrecogn ized section and content) DATE CREATED AUTHOR 11/12/2017 [facility] DATE CREATED AUTHOR AUTHOR'S ORGANIZ ATION 02/03/2024 [facility] DATE CREATED AUTHOR AUTHOR'S ORGANIZ ATION 02/05/2024 [facility] DATE CREATED AUTHOR AUTHOR'S ORGANIZ ATION 11/16/2024 [facility] Goals (unrecognized section and content) Goals may be documented in a n alternate sectionGoals may be documented in an alternate sectionGoals may be documented in an alternate sectionGoals may be documented in an alternate sectionGoals may be documented in an alternate sectionGoals may be documented in an alternate sectionGoals may be documented in an alternate section Care Teams (unrecognized sec tion and content) Team Status: Active Member Role Status Dates Dr. Kevin Vera DO Primary Care Provider Active Team Status: Inactive Member Role Status Dates Dr. Kevin Vera DO Primary Care Provider Active Start: September 28, 2024 End: September 28, 2024 Dr. Kevin Vera DO Referring Provider Active Start: September 28, 2024 End: September 28, 2024 NAHUN Ferrer Attending Provider Active Star t: September 28, 2024 End: September 28, 2024 Team Status: Inactive Member Role Status Dates Dr. Kevin Vera DO Primary Care Provider Active Start: September 28, 2024 End: September 28, 2024 Dr. Lamberto Uribe MD Attending Provider Active S tart: September 28, 2024 End: September 28, 2024 Team Status: Active Member Role Status Dates Dr. Kevin Vera DO Primary Care Provider Active Start: October 25, 2024 NAHUN Esquivel Attending Provider Active Sta rt: October 25, 2024 NAHUN Esquivel Referring Provider Active Sta rt: October 25, 2024 Team Status: Inactive Member Role Status Dates Dr. Kevin Vera DO Primary Care Provider Active Start: October 26, 2024 End: October 26, 2024 Dr. Kevin Vera DO Referring Provider Active Start: October 26, 2024 End: October 26, 2024 Dr. Haris Harding MD Attending Provider Active Start: October 26, 2024 End: October 26, 2024 Team Status: Active Member Role Status Dates Dr. Kevin Vera DO Family Provider Active Dr. Kevin Vera DO Primary Care Provider Active Team Status: Inactive Member Role Status Dates Dr. Kevin Vera DO Primary Care Pr ovider, Attending Provider, Referring Provider Active Team Status: Inactive Member Role Status Dates Dr. Kevin Vera DO Primary Care Provider, Attend ing Provider Active Team Status: Inactive Member Role Status Dates Dr. Kevin Vera DO Primary Care Provider, Referr ing Provider Active Isi Power NP-C Attending Provider Active Team Status: Inactive Member Role Status Dates Dr. Kevin Vera DO Primary Care Provider Active Isi Power NP-Beth Attending Provider Active Team Status: Active Member Role Status Dates Dr. Kevin Vera DO Primary Care Provider Active Start: September 28, 2024 Dr. Kevin Vera DO Referring Provider Active Start: September 28, 2024 NAHUN Ferrer Attending Provider Active Star t: September 28, 2024 Team Status: Inactive Member Role Status Dates Dr. Kevin Vera DO Primary Care Provider Active Start: October 25, 2024 End: October 25, 2024 NAHUN Esquivel Attending Provider Active Sta rt: October 25, 2024 End: October 25, 2024 NAHUN Esquivel Referring Provider Active Sta rt: October 25, 2024 End: October 25, 2024 FOR RECORDS PERTAINING TO PATIENTS WHO ARE OR HAVE BEEN ENROLLED IN A CHEMICAL DEPENDENCY/SUBSTANCEABUSE PROGRAM, SOME INFORMATION MAY BE OMITTED. This clinical summary was aggregated from multiple sources. Caution should be exercised in using it in the provision of clinical care. This summary normalizes information from multiple sources, and as a consequence, information in this document may materially change the coding, format and clinical context of patient data. In addition, data may be omitted in some cases. CLINICAL DECISIONS SHOULD BE BASED ON THE PRIMARY CLINICAL RECORDS. [employer] [facility]. provides no warranty or guarantee of the accuracy or completeness of information in this document.
[2024-11-16] MEDS: Lactated Ringers 1,000 ML 15 ML IV (07:13)
--- NOTE | 2024-11-16 07:38 | PCM.PRE.AN2 ---
ASA Classification* ASA Classification ASA Classification: 3 Assessment & Plan Anesthesia* Anesthesia Assessment Anesthesia Assessment: Discussed sedation and/or anesthesia options, risks, benefits, and alternatives with patient/parents/legal guardian/POA. Questions invited. The patient/parents/legal guardian/POA seems to understand and agrees to proceed with anesthesia plan. Reviewed the physical assessment, medical history, allergy history and patient home medications list prior to surgery/procedure/anesthetic and documented any changes. Performed airway and anesthesia risk assessments. Anesthesia Type Anesthesia Type: MAC History Source History Obtained from:: Patient and Chart Anesthesia Focused Assessment* Temperature: 98.1 F Pulse Rate: 72 Blood Pressure: 130/86 Respiratory Rate: 16 Pulse Ox: 100 Oxygen Delivery Method: Room Air Airway Assessment Mouth opens: >3 cm Mallampati Score: II Teeth Condition: Intact Labs Anesthesia Preop lab: CBC WBC 6.5 K/mm3 (4.4-11.0) 08/26/23 15:48 08/26/23 RBC 5.21 M/mm3 (4.6-6.2) 08/26/23 15:48 08/26/23 Hgb 16.8 g/dL (13.0-16.5) H 08/26/23 15:48 08/26/23 Hct 48.1 % (40-54) 08/26/23 15:48 08/26/23 Plt Count 191 K/mm3 (150-450) 08/26/23 15:48 08/26/23 CHEMISTRY Potassium 4.1 mmol/L (3.5-5.1) 02/09/24 11:18 02/09/24 Sodium 139 mmol/L (136-145) 02/09/24 11:18 02/09/24 BUN 19 mg/dL (7-18) H 02/09/24 11:18 02/09/24 Creatinine 1.04 mg/dL (0.70-1.30) 02/09/24 11:18 02/09/24 Glucose 90 mg/dL (74-106) 02/09/24 11:18 02/09/24 TSH 1.14 uIU/mL (0.358-3.74) 09/13/21 13:45 09/13/21 COAG Pre-Assessment Diagnosis/Proposed Procedure Planned Operative Procedure(s): EGD with biopsies Anesthesia History 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 When Was Last Pacemaker Check QUESTION #4 FULL TEXT: You/Your Family Experience fever (hyperthermia) with Anesthesia Any additional information?: No Last Oral Intake Last Oral intake: Last Oral Intake NPO since 04:45 11/16/24 07:14 Meds taken in AM with sips of Yes 11/16/24 07:14 water? Meds patient instructed to take am of surgery Any additional information?: No PONV PONV - organizational development manager: PONV - organizational development manager Female No 11/12/24 13:37 HX of Motion Sickness No 11/12/24 13:37 HX of N/V After Surgery No 11/12/24 13:37 Non-Smoker Yes 11/12/24 13:37 Duration of Surgery greater No 11/12/24 13:37 than 60 minutes Number of Risk Factors 1 11/12/24 13:37 PONV Score Low Risk 11/12/24 13:37 Height & Weight Height & Weight: Anesthesia: Height & Weight Height 5 ft 9 in 11/16/24 07:14 Weight: 94 kg 11/16/24 07:14 Body Mass Index (BMI) 30.6 11/16/24 07:14 Respiratory Assessment Respiratory Assessment - organizational development manager: Respiratory Tract Infection Hx - organizational development manager Hx Respiratory Tract Infection No 11/12/24 13:37 STOP Sleep Apnea STOP Sleep Apnea - organizational development manager: STOP Sleep Apnea - organizational development manager Hx Hypertension Yes: on med 11/12/24 13:37 Hx Sleep Apnea No 11/12/24 13:37 CPAP No 06/22/19 06:45 BIPAP No 06/17/19 15:19 Do you snore loudly (louder No 11/12/24 13:37 than talking or can be heard Do you often feel tired/ No 11/12/24 13:37 fatigued/ sleepy during daytime? Has anyone observed you stop No 11/12/24 13:37 breathing during sleep? STOP Results Negative 11/12/24 13:37 QUESTION #5 FULL TEXT : Do you snore loudly (louder than talking or can be heard through closed doors)? Tobacco Use History Tobacco Use History - organizational development manager: Tobacco Use History - organizational development manager Tobacco Use Smoking Status Former smoker 11/12/24 13:37 Hx Tobacco Use No 11/12/24 13:37 Years Smoking Packs Smoked per Day Smoking Cessation Date was No - quit smoking greater 11/12/24 13:37 within the last 15 years than 15 years ago Hx Smoking Cessation Date Hx Smoking Cessation No 11/12/24 13:37 Counseling Hematologic Medial History Hematologic Hx - organizational development manager: Hematologic Medical Hx - metal leaf layer Hx of Blood Transfusion No 11/12/24 13:37 Hx of Transfusion in last 3 No 11/12/24 13:37 Months Date of Last Transfusion (if within last 3 months) Ever experience any problems No 11/12/24 13:37 with transfusion(s)? Specify any problems Hx of Preganancy in last 3 N/A 11/12/24 13:37 Months Nurse Filling Out Transfusion GLADYS 11/12/24 13:37 & Questions: Date: 11/12/24 11/12/24 13:37 Time: 13:39 11/12/24 13:37 Patient unable to answer at this time (ie. confused, unrespo /Reproduction History /Reproductive History - organizational development manager: /Reproductive Hx- organizational development manager Hx Now No 11/12/24 13:37 Gestational Age (in weeks): EDC: Hx Hx Para Hx Section SAB No 11/12/24 13:37 Active Medications Active Medications: Current Medications Generic Name Dose Route Start Last Admin Trade Name Freq PRN Reason Stop Dose Admin Lactated Ringer's 1,000 mls @ 15 mls/hr 11/16/24 07:00 11/16/24 07:13 IV 15 mls/hr .Q48H MANAS Administration PFSH Medical History (Updated 11/12/24 @ 13:36 by Tania Terry) Wears glasses Alcohol use Back pain Gastric reflux Heartburn Former smoker Epididymitis Psoriasis Lyme disease History of malignant neoplasm of skin Vision problems Hyperlipidemia Hearing problem Acid reflux Skin cancer Fracture Back problem Arthritis Home Medications ?Medication ?Instructions ?Recorded ?Last Taken ?Type clobetasol 0.05 % topical ointment 1 applic topical BID PRN psoriasis 08/20/17 Unknown History metronidazole 0.75 % topical cream 1 applic topical BID PRN skin 08/20/17 Unknown History irritation omeprazole 20 mg capsule,delayed 20 mg PO QDAY 08/20/17 11/16/24 History release amlodipine 5 mg tablet 5 mg PO DAILY 09/13/21 11/16/24 History cholecalciferol (vitamin D3) 50 50 mcg PO DAILY 09/13/21 Unknown History mcg (2,000 unit) capsule rosuvastatin 10 mg tablet 10 mg PO DAILY 09/13/21 Unknown History guselkumab 100 mg/mL subcutaneous 100 mg subcut Q8W 10/26/24 Unknown History auto-injector (Tremfya) Allergy/AdvReac Type Severity Reaction Status Date / Time amoxicillin Allergy Severe Rash Verified 11/16/24 07:12 clams AdvReac Severe Vomiting Verified 11/16/24 07:12 Family History Mother Arthritis Father Arthritis Brother Colon cancer Diabetes Sister Diabetes Surgical History (Updated 11/12/24 @ 13:36 by Tania Terry) Status post bilateral inguinal hernia repair History of hand surgery Social History Smoking Status: Former smoker quit date: 05/19/69 alcohol intake: current alcohol intake frequency: 0-2 drinks per day Alcohol type: beer substance use type: does not use what type of physical activity do you participate in: none Review of Systems (Anesthesia) ROS Narrative System reviewed and no additional complaints, except as documented. Physical Exam Const alert and oriented x3 Neck full ROM Resp normal respiratory effort and normal air movement Cardio regular rate and regular rhythm Back/Spine normal ROM Extremity full ROM Extremity Narrative: multiple bruises on arm and hands Skin General Skin Exam: ecchymosis Neuro oriented x3 and moves all extremities
--- NOTE | 2024-11-16 08:01 | HP.PCM_ITS ---
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 Is patient in pain?: No Allergies amoxicillin Allergy (Severe, Verified 10/26/24 09:30) Rash Medications ?Medication ?Instructions ?Recorded ?Confirmed ?Type clobetasol 0.05 % topical ointment 1 applic topical BID 08/20/17 09/28/24 History metronidazole 0.75 % topical cream 1 applic topical BID 08/20/17 09/28/24 History omeprazole 20 mg capsule,delayed 20 mg PO QDAY 08/20/17 09/28/24 History release amlodipine 5 mg tablet 5 mg PO DAILY 09/13/21 09/28/24 History cholecalciferol (vitamin D3) 50 50 mcg PO DAILY 09/13/21 09/28/24 Histor y mcg (2,000 unit) capsule rosuvastatin 10 mg tablet 10 mg PO DAILY 09/13/21 09/28/24 History methocarbamol 500 mg tablet 500 mg PO TID PRN pain/spasms #60 09/28/24 Rx tabs guselkumab 100 mg/mL subcutaneous 100 mg subcut Q8W 10/26/24 10/26/24 Hist ory auto-injector (Tremfya) Have you fallen in the past year?: No PFSH Medical History Epididymitis Psoriasis Lyme disease History of malignant neoplasm of skin Vision problems Hyperlipidemia Hearing problem Acid reflux Skin cancer Fracture Back problem Arthritis Surgical History Status post bilateral inguinal hernia repair History of hand surgery Family History Mother ArthritisFather ArthritisBrother Colon cancer DiabetesSister Diabetes Social History Smoking Status: Current every day smoker alcohol intake: current alcohol intake frequency: 0-2 drinks per day Alcohol type: beer substance use type: does not use what type of physical activity do you participate in: none HPI HPI HPI: Patient is a 74-year-old male here for belching and bloating. Patient reports that he does not have any dysphagia. He says he easily swallows with no issue. He says that after he eats he feels very full and bloated. He is on omeprazole currently. He does not have any acid reflux. ROS General General: Yes fatigue; No weight change, appetite, colon cancer, breast cancer or weakness HEENT HEENT: No difficulty swallowing, eye injury, eye surgery, swollen glands or hoarseness Endo Endocrine: No thyroid disease, diabetes mellitus, thyroid cancer, Hair loss, heat intolerance or cold intolerance Skin Skin: No rash or changing moles Breast Breast: No left breast lump, right breast lump, nipple discharge, breast pain, abnormal mammogram, abnormal US or breast enlargement Musc Musculoskeletal: Yes back problems and arthritis; No rheumatoid arthritis, gout or joint pain Cardio Cardiovascular: No murmur, pacemaker, heart disease, atrial fibrillation, high blood pressure, heart attack, heart stent, palpitations, shortness of breath with exertion or chest pain Psych Psychiatric: No depression, anxiety or hearing voices Resp Respiratory: Yes shortness of breath, No sleep apnea, No cough, No COPD, No asthma, No emphysema and No wheezing Gastro Gastrointestinal: Yes abdominal pain, Yes nausea or vomiting, No diarrhea, No constipation, No blood in stool, Yes acid reflux, Yes hemorrhoids, No ulcers, No gallbladder problem and No black,tarry stools Will Hematologic: No blood thinners, No blood disorders, No bleeding, No anemia and No blood clots Neuro Neurologic: No system reviewed and no additional complaints, except as documented, No as per HPI, No abnormal gait, No abnormal hearing, No abnormal movements, No abnormal speech, No behavioral changes, No burning sensations, No confusion, No convulsions, No disequilibrium, No dizziness, No localized w eakness, No frequent falls, No headache(s), No lack of coordination, No loss of vision, No memory loss, No numbness, No other visual disturbances, No radicular pain, No restless legs, No sensory deficit, No syncope, No tingling, No tremor(s), No weakness and No other Exam Const General: cooperative Orientation: alert and oriented x3 HENMT Head: normal to inspection Neck Neck: normal visual inspection and full ROM Chest Chest palpation & inspection: normal inspection of the chest Resp Effort & Inspection: normal respiratory effort Auscultation: clear to auscultation bilaterally Cardio Rate: regular rate Rhythm: regular rhythm GI Inspection: non-distended Palpation: soft and nontender Skin General: no rashes or lesions noted Neuro General: patient alert and patient oriented x3 Extrem General: full ROM Psych Appearance: grossly normal Mental Status: mental status grossly normal Assessment and Plan Assessment and Plan (1) Abdominal pain: Status: Acute Qualifiers: Abdominal location: generalized Qualified Code(s): R10.84 - Generalized abdominal pain Plan: The patient is having epigastric pain as well as some left upper quadrant pain. He is on omeprazole. He has his last colonoscopy 5 years ago and he was recommended to have another one for family history but he does not want to have this done at this time. He only wants EGD. I discussed EGD in detail with the patient. I explained endoscopy in detail to the patient. I explained the risks including but not limited to stroke or heart attack with anesthesia, perforation of the GI tract, bleeding, infection. I explained that any of these could necessitate further emergency surgery. The patient understands and all questions were answered sufficiently. The patient wishes to proceed with procedure. Haris Harding MD Pager: [facility] [address] [place] [address], [address] [place] [address] Office: I have examined the patient and the H&P has been reviewed. There are no clinical changes since date of exam.
--- NOTE | 2024-11-16 08:25 | OP.EGD_ITS ---
Patient Name: Jim Fowler Procedure Date: 11/16/2024 8:05 AM Date of : 1950 Age: 74 Procedure: Upper GI endoscopy Indications: Epigastric abdominal pain Providers: Haris Harding MD Referring MD: Hang Vera Medicines: Propofol per Anesthesia Patient Profile: This is a 74 year old male. Refer to note in patient chart for documentation of history and physical. Complications: No immediate complications. Procedure: Pre-Anesthesia Assessment: - Prior to the procedure, a History and Physical was performed, and patient medications and allergies were reviewed. The patient's tolerance of previous anesthesia was also reviewed. The risks and benefits of the procedure and the sedation options and risks were discussed with the patient. All questions were answered, and informed consent was obtained. Prior Anticoagulants: The patient has taken no anticoagulant or antiplatelet agents. After reviewing the risks and benefits, the patient was deemed in satisfactory condition to undergo the procedure. After obtaining informed consent, the endoscope was passed under direct vision. Throughout the procedure, the patient's blood pressure, pulse, and oxygen saturations were monitored continuously. The Endoscope was introduced through the mouth, and advanced to the third part of duodenum. The upper GI endoscopy was accomplished without difficulty. The patient tolerated the procedure well. Scope In: 8:18:02 AM Scope Out: 8:20:18 AM Total Procedure Duration Time 0 hours 2 minutes 16 seconds Findings: The esophagus was normal. The stomach was normal. The examined duodenum was normal. Impression: - Normal esophagus. - Normal stomach. - Normal examined duodenum. - No specimens collected. Recommendation: - Discharge patient to home. - Resume previous diet. - Continue present medications. - Perform a RUQ ultrasound at appointment to be scheduled. Procedure Code(s): --- Professional --- 93254, Esophagogastroduodenoscopy, flexible, transoral; diagnostic, including collection of specimen(s) by brushing or washing, when performed (separate procedure) Diagnosis Code(s): --- Professional --- R10.13, Epigastric pain CPT copyright 2021 [employer]. All rights reserved. The codes documented in this report are preliminary and upon information coder review may be revised to meet current compliance requirements. Haris Harding MD 11/16/2024 8:25:52 AM This report has been signed electronically. Number of Addenda: 0 Note Initiated On: 11/16/2024 8:05 AM
--- NOTE | 2024-11-16 08:26 | OP.CCLET_ITS ---
11/16/2024 Hang Vera Re : Upper GI endoscopy procedure for Jim Fowler Dear Dr. Vera This procedure was performed on Saturday, November 16, 2024. My impressions and recommendations are as follows: Impressions : - Normal esophagus. - Normal stomach. - Normal examined duodenum. - No specimens collected. Recommendations : - Discharge patient to home. - Resume previous diet. - Continue present medications. - Perform a RUQ ultrasound at appointment to be scheduled. My findings are described in the full procedure note, which is enclosed. If I can be of further assistance, please feel free to contact me at Doctor phone number(s): , Work: . Sincerely, Haris Harding MD 11/16/2024 8:25:52 AM This report has been signed electronically.
--- NOTE | 2024-11-16 08:28 | PCM.POST.ANE ---
Anesthesia: Postop Eval I Current Vital Signs Temperature: 97.8 F Pulse Rate: 67 Blood Pressure: 107/74 Respiratory Rate: 16 Pulse Ox: 92 Oxygen Delivery Method: Room Air Assessment Airway patent: Yes Spontaneous unlabored respirations: Yes Mental status: Asleep nausea: No Vomiting: No Anesthesia Complication: No Fluid Hydration Crystalloid volume administer (ml): 300 Total IV fluid infused: 300 Progress Note Anesthesia document: Postop Eval 1 completed: Yes
--- NOTE | 2024-11-16 08:43 | PCM.POSTANE2 ---
Anesthesia Postop Eval I Sum Postop Eval Completion status Anesthesia document: Postop Eval 1 completed: Yes Anesthesia Postop Eval I Summary Anesthesia Postop Eval I Summary: Anesthesia Postop Eval I: Assessment Summary Airway patent Yes 11/16/24 08:28 [email or web address] Spontaneous unlabored Yes 11/16/24 08:28 [email or web address] respirations Mental status Asleep 11/16/24 08:28 [email or web address] nausea No 11/16/24 08:28 [email or web address] Vomiting No 11/16/24 08:28 [email or web address] Anesthesia Postop Eval I: Fluid Summary Crystalloid volume administer 300 11/16/24 08:28 [email or web address] (ml) Colloids volume administered ( ml) Blood Product volume administered (ml) Total IV fluid infused 300 11/16/24 08:28 [email or web address] Anesthesia Postop Eval I: Summary Notes Anesthesia Complication No 11/16/24 08:28 [email or web address] Anesthesia Complication Comment: Post-operative progress note Anesthesia: Postop Eval II Evaluation Mental status: Awake and Calm Pain Level: 3 nausea: No Vomiting: No Complications Anesthesia Complication: No
== END 2024-11-16 09:26 | disposition home or self-care (01) ==
LOC: EN 06:48 → AC 06:49
PROVIDERS: PCP Family Medicine; Referring Provider Family Medicine; Visit Provider Surgery
PROC: 0DJ08ZZ Inspection of Upper Intestinal Tract, Via Natural or Artificial Opening Endoscopic (ICD-10-PCS; CPT 43235; principal; 2024-11-16 07:55)
DX: R10.13 Epigastric pain (principal); K21.9 Gastro-esophageal reflux disease without esophagitis; L40.9 Psoriasis, unspecified; E78.5 Hyperlipidemia, unspecified; Z79.899 Other long term (current) drug therapy; Z87.891 Personal history of nicotine dependence
CPT/HCPCS: 43235; J2405

== ENCOUNTER → 2024-11-25 | Outpatient (CLI) | payer MEDICARE, BC, SELFPAY ==
--- NOTE | 2024-11-25 07:45 | US_ITS ---
PROCEDURE: GALLBLADDER 11/25/2024 REASON FOR EXAM: RUQ PAIN COMPARISON: None FINDINGS: Liver: Diffusely echogenic suggesting fatty infiltration. Borderline hepatomegaly. The liver measures 17.7 cm. Gallbladder: Solitary gallstone measuring 1.3 cm 1.3 cm 1.1 cm. Gallbladder wall measures 2 mm. Common bile duct: Normal measuring 5 mm. . Pancreas: Normal Other: The right kidneys of normal size and renal cortex. There is evidence of 2 renal cysts. The largest cyst measures 4.2 cm 3.9 cm 4.7 cm. US/Gallbladder IMPRESSION: Borderline hepatomegaly and fatty infiltration of the liver. Solitary gallstone measuring 1.3 cm 1.3 cm 1.1 cm. Right renal cysts. Reading Location: [place] [address]
== END | disposition home or self-care (01) ==
LOC: US 07:41
PROVIDERS: PCP Family Medicine; Referring Provider Surgery; Visit Provider Surgery
DX: R10.11 Right upper quadrant pain (principal)
CPT/HCPCS: 76705

== ENCOUNTER 2024-12-13 06:49 | Day surgery (SDC) | payer MEDICARE, BC, SELFPAY ==
[2024-12-13] VITALS (13 sets, daily range): BP systolic 86–160; BP diastolic 57–86; PULSE 51–58; RESP 16–20; TEMP 36.1–36.3; O2SAT 96–99; BMI 31.2
--- OUTSIDE RECORDS SUMMARY | 2024-12-13 06:55 | XMS RPT_ITS | CCD ---
Author Organization [facility] Care Team Providers Care Reception Clerk Name Role Phone UNKNOWN, PCP D Unavailable Unavailable ESTERLE, RYANNE Unavailable Unavailable ESTERLE, RYANNE Unavailable Unavailable ESTERLE, RYANNE Unavailable Unavailable ESTERLE, RYANNE Unavailable Unavailable Dr. Kevin Vera Primary Care Provider [phone] Dr. Kevin eVra Referring Provider [phone] NAHUN Dominguez Attending Provider Unavailab Dr. Kevin Osorio Primary Care Provider [phone] Dr. Kevin Vera Attending Provider [phone] Dr. Kevin Vera Referring Provider [phone] CONCHITA Power Attending Provider [phone] KEVIN VERA Consulting Unavailable KEVIN VERA Referring Unavailable CLAUDIOLUIS Admitting Unavailable CLAUDIO, LUIS E Primary Care Unavailable CLAUDIOLUIS SHANNON Attending Unavailable PROVIDER, UNKNOWN Consulting Unavailable PROVIDER, UNKNOWN Consulting Unavailable COLLIER NEO Beth Admitting Unavailable COLLIER, NEO C Primary Care Unavailable NEO COLLIER Attending Unavailable KEVIN VERA DO Consulting Unavailable PROVIDER, UNKNOWN Consulting Unavailable PROVIDER, UNKNOWN Consulting Unavailable LAURITA TARIQ MD Admitting Unavailable LAURITA TARIQ MD Primary Care Unavailable LAURITA TARIQ MD Attending Unavailable KEVIN VERA DO Consulting Unavailable PROVIDER, UNKNOWN Consulting Unavailable PROVIDER, UNKNOWN Consulting Unavailable KEVIN VERA DO Consulting Unavailable BELIA HOLLEY DR Admitting Unavailable BELIA HOLLEY DR Primary Care Unavailable BELIA HOLLEY DR Attending Unavailable PROVIDER, UNKNOWN Consulting Unavailable PROVIDER, UNKNOWN Consulting Unavailable Dr. Kevin Vera DO Primary Care Provider [phone] Dr. Kevin Vera DO Referring Provider [phone] Jennie Yun Attending Provider Jojo PÉREZ, Dr. Orantes Attending Provider Gilberto Elmore Attending Provider [phone] Gilberto Elmore Referring Provider [phone] Meaghan PÉREZ, Dr. Carballo Attending Provider [phone] Meaghan PÉREZ, Dr. Carballo Other Provider Meaghan PÉREZ, Dr. Carballo Referring Provider [phone] Lamberto Uribe Attending Unavailable Brown, Kevin R Primary Care Unavailable Brown, Kevin R Referring Unavailable Calabretta, Haris Consulting Unavailable Brown, Kevin R Primary Care Unavailable Calabretta, Haris Attending Unavailable Brown, Kevin R Referring Unavailable Jennie Calvo Attending Unavailable Brown, Kevin R Primary Care Unavailable Brown, Kevin R Referring Unavailable Brown, Kevin R Primary Care Unavailable Calabretta, Haris Attending Unavailable Brown, Kevin R Referring Unavailable Brown, Kevin R Primary Care Unavailable Calabretta, Haris Attending Unavailable Brown, Kevin R Referring Unavailable Brown, Kevin R Primary Care Unavailable Calabretta, Haris Attending Unavailable LauraDereken Attending Unavailable Laura, Laurita Referring Unavailable Brown, Kevin R Primary Care Unavailable Calabretta, Haris Referring Unavailable Brown, Kevin R Primary Care Unavailable Calabretta, Haris Attending Unavailable Brown, Kevin R Primary Care Unavailable Gilberto Elmore Attending Unavailable Gilberto Elmore Referring Unavailable Calabretta, Haris Referring Unavailable Calabretta, Haris Attending Unavailable Brown, Kevin R Primary Care Unavailable Allergies Allergy Classification Reported Allergen(s) Allergy Type Date of Onset Reaction(s) Facility (1 source) Adhesive agent; Translations: [ADHESIVE] Propensity to adverse reactions (disorder) [facility] Repository (1 source) Shellfish; Translations: [SHELLFISH DERIVED] Propensity to adverse reactions (disorder) [facility] Repository (1 source) Adhesive Tape; Translations: [TAPE] Propensity to adverse reactions (disorder) [facility] Repository (1 source) Seafood; Translations: [SEAFOOD] Food allergy (disorder) [facility] Repository (7 sources) Amoxicillin Drug Allergy [facility] (3 sources) clam allergenic extract Drug Allergy 5 Vomiting [facility] (1 source) Amoxicillin Drug Allergy 5 [facility] Repository (1 source) clams Drug allergy (disorder) 5 [facility] Repository Medications Current Medications Medication Drug Class(es) Dates Sig (Normalized) Sig (Original) amLODIPine 5 mg oral tablet (10 sources) Dihydropyridine Calcium Channel Katie Start: 09-13-2021 take 1 tablet by mouth once daily Amlodipine 5 mg tablet Active 5 mg PO DAILY September 13, 2021 12:00am cholecalciferol 0.05 mg oral capsule (10 sources) Vitamin D Start: 09-13-2021 take 1 capsule by mouth once daily Cholecalciferol (Vitamin D3) 50 mcg (2,000 unit) capsule Active 50 ug PO DAILY September 13, 2021 12:00am clobetasol propionate 0.0005 mg/mg topical ointment (10 sources) Corticosteroid Start: 08-20-2017 Clobetasol 0.05 % ointment Active 1 NMA TOPICAL TWICE A DAY as needed for psoriasis August 20, 2017 12:00am 1 ml guselkumab 100 mg/ml auto-injector (5 sources) Interleukin-23 Antagonist Start: 10-26-2024 Guselkumab (Tremfya) 100 mg/mL auto-injector Active 100 mg SC every 8 weeks October 26, 2024 12:00am metroNIDAZOLE 7.5 mg/ml topical cream (10 sources) Nitroimidazole Antimicrobial Start: 08-20-2017 Metronidazole 0.75 % cream Active 1 NMA TOPICAL TWICE A DAY as needed for skin irritation August 20, 2017 12:00am omeprazole 20 mg delayed release oral capsule (10 sources) Proton Pump Inhibitor Start: 08-20-2017 take 1 capsule by mouth once daily Omeprazole 20 mg capsule,delayed release(DR/EC) Active 20 mg PO daily August 20, 2017 12:00am rosuvastatin calcium 10 mg oral tablet (10 sources) HMG-CoA Reductase Inhibitor Start: 09-13-2021 take 1 tablet by mouth once daily Rosuvastatin 10 mg tablet Active 10 mg PO DAILY September 13, 2021 12:00am Completed/Discontinued Medications Medication Drug Class(es) Dates Sig (Normalized) Sig (Original) acetaminophen 325 mg / oxyCODONE hydrochloride 5 mg oral tablet (10 sources) Opioid Agonist Start: 11-30-2013 End: 08-20-2017 [...] 2017 10:16am apremilast 30 mg oral tablet (10 sources) Start: 08-20-2017 End: 09-13-2021 take 1 tablet by mouth twice daily Apremilast 30 mg tablet Discontinued 30 mg PO TWICE A DAY August 20, 2017 12:00am September 13, 2021 1:03pm atorvastatin 40 mg oral tablet (20 sources) HMG-CoA Reductase Inhibitor Start: 08-18-2018 End: [...] 2018 9:45am cephalexin 500 mg oral capsule (10 sources) Cephalosporin Antibacterial Start: 08-16-2020 End: 09-13-2021 take 1 capsule by mouth twice daily Cephalexin (Keflex) 500 mg capsule Discontinued 500 mg PO TWICE A DAY 14 0 August 16, 2020 12:00am September 13, 2021 1:03pm ciprofloxacin 500 mg oral tablet (10 sources) Quinolone Antimicrobial Start: 11-30-2013 End: 08-20-2017 take 1 tablet by mouth twice daily Ciprofloxacin Hcl 500 MG tablet Discontinued 500 mg PO TWICE A DAY 6 0 November 30, 2013 12:00am August 20, 2017 10:16am DULoxetine 30 mg delayed release oral capsule (20 sources) Serotonin and Norepinephrine Reuptake Inhibitor Start: 08-12-2023 End: 08-26-2023 take 1 capsule by mouth once daily Duloxetine 30 mg capsule,delayed release(DR/EC) Discontinued 30 mg PO DAILY 30 3 August 12, 2023 12:00am August 26, 2023 3:41pm Start: 08-20-2017 End: 08-18-2018 take 1 capsule by mouth once daily Duloxetine 30 mg capsule,delayed release(DR/EC) Discontinued 30 mg PO daily 30 1 August 25, 2017 3:59pm August 18, 2018 9:44am gabapentin 300 mg oral capsule (10 sources) Anti-epileptic Agent Start: 06-27-2020 End: 09-13-2021 take 1 capsule by mouth at bedtime Gabapentin 300 mg capsule Discontinued 300 mg PO AT BEDTIME 30 June 27, 2020 1:00am September 13, 2021 1:04pm levoFLOXacin 500 mg oral tablet (10 sources) Quinolone Antimicrobial Start: 06-16-2020 End: 06-28-2020 take 1 tablet by mouth every twenty-four hours Levofloxacin 500 mg tablet Discontinued 500 mg PO Q24H 10 June 16, 2020 1:00am June 28, 2020 3:50pm methocarbamol 500 mg oral tablet (6 sources) Muscle Relaxant Start: 09-28-2024 End: 11-12-2024 take 1 tablet by mouth three times daily as needed for pain Methocarbamol 500 mg tablet Discontinued 500 mg PO THREE TIMES A DAY as needed for pain/spasms 60 0 September 28, 2024 12:00am November 12, 2024 1:27pm pramipexole dihydrochloride 0.25 mg oral tablet (20 sources) Nonergot Dopamine Agonist Start: 03-22-2020 End: 06-27-2020 take 1 tablet by mouth at bedtime Pramipexole 0.25 mg tablet Discontinued 0.25 mg PO AT BEDTIME 30 March 22, 2020 3:27pm June 27, 2020 4:55pm Start: 02-02-2020 End: 03-22-2020 take 1 tablet by mouth at bedtime Pramipexole 0.125 mg tablet Discontinued 0.125 mg PO AT BEDTIME 30 February 02, 2020 12:00am March 22, 2020 3:28pm sulfamethoxazole 800 mg / trimethoprim 160 mg oral tablet (10 sources) Dihydrofolate Reductase Inhibitor Antibacterial, Sulfonamide Antimicrobial Start: 06-28-2020 End: 09-13-2021 Sulfamethoxazole-Trimethopri m (Bactrim Ds) 800-160 mg tablet Discontinued 1 {tbl} PO TWICE A DAY 28 June 28, 2020 1:00am September 13, 2021 1:03pm tamsulosin hydrochloride 0.4 mg oral capsule (10 sources) alpha-Adrenergic Katie Start: 11-24-2013 End: 08-20-2017 take 1 capsule by mouth once daily Tamsulosin 0.4 MG capsule Discontinued 0.4 mg PO DAILY November 24, 2013 12:00am August 20, 2017 10:16am Problems Active Problems Problem Classification Problem Date Documented Da te Episodic/Chronic Abdominal pain (20 sources) Abdominal pain; Translations: [Unspecified abdominal pain] Onset: 10-26-2024 08-26-2023 Episodic Allergic reactions (1 source) Other atopic dermatitis; Translations: [Other atopic dermatitis] Onset: 03-06-2024 Chronic Allergic reactions (9 sources) Environmental allergy; Translations: [Other allergy status, other than to drugs and biological substances] 10-24-2021 Episodic Blindness and vision defects (10 sources) Disorder of vision; Translations: [Unspecified visual loss] 08-20-2017 Chronic Comment on above: blurry vision Disorders of lipid metabolism (11 sources) Hyperlipidemia, unspecified; Translations: [Hyperlipidemia] Onset: 10-02-2016 07-28-2019 Chronic E Codes: Adverse effects of medical drugs (9 sources) Adverse reaction to drug; Translations: [Adverse effect of unspecified drugs, medicaments and biological substances, initial encounter] 08-26-2023 Episodic Esophageal disorders (11 sources) Gastro-esophageal reflux disease without esophagitis; Translations: [Gastroesophageal reflux disease] Onset: 10-02-2016 08-20-2017 Chronic External Injury - Machinery (1 source) Contact with other specified machinery, initial encounter; Translations: [CONTACT OTH SPEC MACHINE] Onset: 10-02-2016 Inflammatory conditions of male genital organs (10 sources) Epididymitis; Translations: [Epididymitis] 06-28-2020 Episodic Malaise and fatigue (11 sources) Fatigue; Translations: [Other fatigue] 10-17-2021 Episodic Osteoarthritis (10 sources) Arthritis; Translations: [Unspecified osteoarthritis, unspecified site] 08-20-2017 Chronic Other ear and sense organ disorders (10 sources) Hearing disorder; Translations: [Unspecified hearing loss, unspecified ear] 08-20-2017 Chronic Other fractures (10 sources) Compression fracture of thoracic spine; Translations: [Wedge compression fracture of T7-T8 vertebra, initial encounter for closed fracture] 09-28-2024 Episodic Other gastrointestinal disorders (5 sources) Dysphagia; Translations: [Dysphagia, unspecified] 10-05-2024 Episodic Other hereditary and degenerative nervous system conditions (10 sources) Restless legs; Translations: [Restless legs syndrome] 04-05-2020 Chronic Other infections; including parasitic (10 sources) Lyme disease; Translations: [Lyme disease, unspecified] 08-20-2017 Episodic Other inflammatory condition of skin (1 source) Psoriasis, unspecified; Translations: [PSORIASIS UNSPECIFIED] Onset: 10-02-2016 Chronic Other inflammatory condition of skin (10 sources) Psoriasis; Translations: [Psoriasis, unspecified] 08-20-2017 Chronic Other inflammatory condition of skin (1 source) Psoriasis vulgaris; Translations: [Psoriasis vulgaris] Onset: 10-29-2024 Chronic Other lower respiratory disease (10 sources) History of influenza; Translations: [Personal history of other diseases of the respiratory system] 07-28-2019 Episodic Other nervous system disorders (10 sources) Peripheral neuritis; Translations: [Unspecified mononeuropathy of unspecified lower limb] 02-01-2020 Chronic Other non-epithelial cancer of skin (10 sources) Malignant neoplasm of skin; Translations: [Unspecified malignant neoplasm of skin, unspecified] 08-20-2017 Episodic Other screening for suspected conditions (not mental disorders or infectious disease) (10 sources) Patient encounter status; Translations: [Encounter for screening for malignant neoplasm of intestinal tract, unspecified] 06-22-2019 Episodic Spondylosis; intervertebral disc disorders; other back problems (20 sources) Back problem; Translations: [Dorsopathy, unspecified] Onset: [...] Test Name Value Interpretation Reference Range Facility Surgery Visit Reporton 12-07 Surgery Visit Report [facility] [address] [place] [address] OFFICE VISIT Date of Service: 12/07/24 MR#: [id number] Acct: [id number] Name: JIM FOWLER Rep #: [id number] : 1950 Provider: Dr. Haris lockhart MD Age/Sex: 74/M Location: [facility] Status: Signed Intake Vital Signs 11/16/24 07:14 12/07/24 14:52 Height 5 ft 9 in 59 ft BP 117/80 Blood Pressure Location Lt brachial Position Sitting Respiration 17 Pulse 84 Pulse Source Monitor Pulse Oximetry (%) 96 Oxygen Delivery Method room air Intake Visit Reasons: GALLBLADDER U/S RESULTS Chief Complaint: gallbladder u/s results Is patient in pain?: No Allergies amoxicillin Allergy (Severe, Verified 12/07/24 14:49) Rash clams Adverse Reaction (Severe, Verified 12/07/24 14:49) Vomiting Medications ???Medication ???Instructions ???Recorded ???Confirmed ???Type clobetasol 0.05 % topical ointment 1 applic topical BID PRN psorias is 08/20/17 12/07/24 History metronidazole 0.75 % topical cream 1 applic topical BID PRN skin 12/07/24 History irritation omeprazole 20 mg capsule,delayed 20 mg PO QDAY 08/20/17 12/07/24 Hi story release amlodipine 5 mg tablet 5 mg PO DAILY 09/13/21 12/07/24 Hi story cholecalciferol (vitamin D3) 50 50 mcg PO DAILY 09/13/21 12/07/24 History mcg (2,000 unit) capsule rosuvastatin 10 mg tablet 10 mg PO DAILY 09/13/21 12/07/24 H istory guselkumab 100 mg/mL subcutaneous 100 mg subcut Q8W 10/26/24 History auto-injector (Tremfya) Have you fallen in the past year?: No PFSH Medical History RUQ pain Wears glasses Alcohol use Back pain Gastric reflux Heartburn Former smoker Epididymitis Psoriasis Lyme disease History of malignant neoplasm of skin Vision problems Hyperlipidemia Hearing problem Acid reflux Skin cancer Fracture Back problem Arthritis Surgical History (Updated 11/12/24 @ 13:36 by Tania Terry) Status post bilateral inguinal hernia repair History of hand surgery Family History Mother Arthritis Father Arthritis Brother Colon cancer Diabetes Sister Diabetes Social History Smoking Status: Former smoker quit date: 05/19/69 alcohol intake: current alcohol intake frequency: 0-2 drinks per day Alcohol type: beer substance use type: does not use what type of physical activity do you participate in: none HPI HPI HPI: Patient is a 74-year-old male who is following up after ultrasound of the gallbladder. He is still having right back pain. He says there is no rhyme or reason to it. ROS General General: Yes fatigue; No weight change, appetite, colon cancer, breast cancer or weakness HEENT HEENT: No difficulty swallowing, eye injury, eye surgery, swollen glands or hoarseness Endo Endocrine: No thyroid disease, diabetes mellitus, thyroid cancer, Hair loss, heat intolerance or cold intolerance Skin Skin: No rash or changing moles Musc Musculoskeletal: Yes back problems and arthritis; [...] No wheezing Gastro Gastrointestinal: Yes abdominal pain, No nausea or vomiting, No diarrhea, No constipation, [...] inspection and full ROM Chest Chest palpation inspection: normal inspection of the chest Resp Effort Inspection: normal respiratory effort Aus (more content not included)... Normal [facility] Gallbladderon 11-25-2024 Gallbladder [facility] Imaging Services [address] [place], [place] [address] Gallbladder MR#: [id number] Acct: [id number] Name: JIM FOWLER Rep #: [id number] : 1950 M 74 From: Jake salazar MD PCP: Dr. Kevin Vera DO Status: REG CLI Study: Gallbladder Date of Exam: 11/25/24 Exam# [id number] Ordering Dr: Haris Harding PROCEDURE: GALLBLADDER 11/25/2024 REASON FOR EXAM: RUQ PAIN COMPARISON: None FINDINGS: Liver: Diffusely echogenic suggesting fatty infiltration. Borderline hepatomegaly. The liver measures 17.7 cm. Gallbladder: Solitary gallstone measuring 1.3 cm 1.3 cm 1.1 cm. Gallbladder wall measures 2 mm. Common bile duct: Normal measuring 5 mm. . Pancreas: Normal Other: The right kidneys of normal size and renal cortex. There is evidence of 2 renal cysts. The largest cyst measures 4.2 cm 3.9 cm 4.7 cm. US/Gallbladder IMPRESSION: Borderline hepatomegaly and fatty infiltration of the liver. Solitary gallstone measuring 1.3 cm 1.3 cm 1.1 cm. Right renal cysts. Reading Location: [place] [address] CC: Dr. Haris Harding MD; Dr. Kevin Vera DO Turbine Assembler: Signed Normal [facility] EGD Reporton 11-16-2024 EGD Report [facility] Medical Records Department [address] [place] [address] EGD Report MR#: [id number] Acct: [id number] Name: JIM FOWLER Rep #: [id number] : 1950 74 From: Haris Harding MD PCP: Dr. Kevin Vera, Status:REG SD Patient Name: Jim Fowler Procedure Date: 11/16/2024 8:05 AM Date of : 1950 Age: 74 Procedure: Upper GI endoscopy Indications: Epigastric abdominal pain Providers: Haris Harding MD Referring MD: Kevin Vera Medicines: Propofol per Anesthesia Patient Profile: This is a 74 year old male. Refer to note in patient chart for documentation of history and physical. Complications: No immediate complications. Procedure: Pre-Anesthesia Assessment: - Prior to the procedure, a History and Physical was performed, and patient medications and allergies were reviewed. The patient's tolerance of previous anesthesia was also reviewed. The risks and benefits of the procedure and the sedation options and risks were discussed with the patient. All questions were answered, and informed consent was obtained. Prior Anticoagulants: The patient has taken no anticoagulant or antiplatelet agents. After reviewing the risks and benefits, the patient was deemed in satisfactory condition to undergo the procedure. After obtaining informed consent, the endoscope was passed under direct vision. Throughout the procedure, the patient's blood pressure, pulse, and oxygen saturations were monitored continuously. The Endoscope was introduced through the mouth, and advanced to the third part of duodenum. The upper GI endoscopy was accomplished without difficulty. The patient tolerated the procedure well. Scope In: 8:18:02 AM Scope Out: 8:20:18 AM Total Procedure Duration Time 0 hours 2 minutes 16 seconds Findings: The esophagus was normal. The stomach was normal. The examined duodenum was normal. Impression: - Normal esophagus. - Normal stomach. - Normal examined duodenum. - No specimens collected. Recommendation: - Discharge patient to home. - Resume previous diet. - Continue present medications. - Perform a RUQ ultrasound at appointment to be scheduled. Procedure Code(s): --- Professional --- 24178, Esophagogastroduodeno scopy, flexible, transoral; diagnostic, including collection of specimen(s) by brushing or washing, when performed (separate procedure) Diagnosis Code(s): --- Professional --- R10.13, Epigastric pain CPT copyright 2021 [employer]. All rights reserved. The codes documented in this report are preliminary and upon cutting machine tender helper review may be revised to meet current compliance requirements. Haris Harding MD 11/16/2024 8:25:52 AM This report has been signed electronically. Number of Addenda: 0 Note Initiated On: 11/16/2024 8:05 AM 11/16/24824 Date Haris Harding MD Cosigner Signature: Date (if indicated) CC: Dr. Haris Harding MD; Dr. Kevin Vera DO Date Dictated: 11/16/24804 Date Transcribed: Turbine Assembler: MEKHI [facility] MR/POSTOP.[facility] 11-16-2024 MR/POSTOP.[facility] Medical Records Department [address] [place] [address] Anesthesia Postop Eval I 11/16/24827 MR#: [id number] Acct: [id number] Name: JIM FOWLER Rep #: [id number] : 1950 74 From: Zachary Garcia PCP: Dr. Kevin Vera, DO Status:REG SDC Y Race: C Location: [place] [address]- Anesthesia: Postop Eval I Current Vital Signs Temperature: 97.8 F Pulse Rate: 67 Blood Pressure: 107/74 Respiratory Rate: 16 Pulse Ox: 92 Oxygen Delivery Method: Room Air Assessment Airway patent: Yes Spontaneous unlabored respirations: Yes Mental status: Asleep nausea: No Vomiting: No Anesthesia Complication: No Fluid Hydration Crystalloid volume administer (ml): 300 Total IV fluid infused: 300 Progress Note Anesthesia document: Postop Eval 1 completed: Yes 11/16/24828 Zachary Irvin Signature: Date CC: Signed Normal [facility] MR/[id number] 11-16-2024 [facility] Medical Records Department [address] [facility] [place] [address] Anesthesia Postop Eval II 11/16/24 0843 MR#: [id number] Acct: [id number] Name: JIM FOWLER Rep #: [id number] : 1950 74 From: Nba Dallas MD PCP: Dr. Kevin Vera, DO Status:REG SDC Y Race: C Location: [place] [address] Anesthesia Postop Eval I Sum Postop Eval Completion status Anesthesia document: Postop Eval 1 completed: Yes Anesthesia Postop Eval I Summary Anesthesia Postop Eval I Summary: Anesthesia Postop Eval I: Assessment Summary Airway patent Yes 11/16/24 08:28 [email or web address] Spontaneous unlabored Yes 11/16/24 08:28 [email or web address] respirations Mental status Asleep 11/16/24 08:28 [email or web address] nausea No 11/16/24 08:28 [email or web address] Vomiting No 11/16/24 08:28 [email or web address] Anesthesia Postop Eval I: Fluid Summary Crystalloid volume administer 300 11/16/24 08:28 [email or web address] (ml) Colloids volume administered ( ml) Blood Product volume administered (ml) Total IV fluid infused 300 11/16/24 08:28 [email or web address] Anesthesia Postop Eval I: Summary Notes Anesthesia Complication No 11/16/24 08:28 [email or web address] Anesthesia Complication Comment: Post-operative progress note Anesthesia: Postop Eval II Evaluation Mental status: Awake and Calm Pain Level: 3 nausea: No Vomiting: No Complications Anesthesia Complication: No 11/16/24 0843 Date Nba Dallas MD Cosigner Signature: Date CC: Signed Normal [facility] Quantiferon TB-Gold+on 10-27 QFT MITOGEN JEREMIAH > 10.00 Normal . [facility] Comment on above: Performed By: #### L [id number] ####[facility] [address] [place], [address] QFT NIL VALUE 0.05 IU/mL Normal . [facility] Comment on above: Performed By: #### L [id number] ####[facility] [address] [place], [place], [id number] QFT TB GOLD+ Comment Normal . [facility] Comment on above: Result Comment: Nicolás [...] the test. Performed By: #### L [id number] ####[facility] [address] [place], [place], [id number] QFT TB POS CRIT Negative Normal Negative [facility] Comment on above: Result Comment: No [...] interferon gamma. Chemiluminescence immunoassay methodology Performed at: [facility] [address] [id number] Box Car Washer: Pro Briceño PhD, Phone: [phone] Performed By: #### L [id number] ####[facility] [address] [place], [place], [address] QFT TB1+ AG JEREMIAH 0.04 IU/mL Normal . [facility] Comment on above: Performed By: #### L [id number] ####[facility] [address] [facility] [facility] [address] QFT TB2+ AG JEREMIAH 0.05 IU/mL Normal . [facility] Comment on above: Performed By: #### L 3400.8000 ####[facility] [address] [place], [place], [id number] Surgery Visit Reporton 10-26 Surgery Visit Report [facility] [address] [place] [address] OFFICE VISIT Date of Service: 10/26/24 MR#: [id number] Acct: [id number] Name: JIM FOWLER Rep #: [id number] : 1950 Provider: Dr. Haris lockhart MD Age/Sex: 74/M Location: [facility] Status: Signed Intake Vital Signs 09/28/24 08:49 10/26/24 09:29 Height 5 ft 10 in 5 ft 9 in Weight: 210 lb 210 lb BMI 30.1 31.0 BP 199/96 H Blood Pressure Location Rt brachial Position Sitting Respiration 18 Intake Visit Reasons: Dysphagia Chief Complaint: GI issues/due for c-scope Level Vial Inside Grinder Required: No Is patient in pain?: No [...] Chest Chest (more content not included)... Normal [facility] Qualitative QuantiFERON-TB g old in tube testOrdered By: Gilberto Cosme on 10-25-2024 M. tuberculosis tuberculin stim IFN-g Ql (Bld) 0.04 IU/mL . [facility] Cerv Spine 4 or 5 Viewson Cerv Spine 4 or 5 Views [facility] [address] [place] [address] Cerv Spine 4 or 5 Views MR#: [id number] Acct: [id number] Name: JIM FOWLER Rep #: [id number] : 1950 M 74 From: Thai Ayers MD PCP: Dr. Kevin Vera, DO Status: DEP AMB Study: Cerv Spine 4 or 5 Views Date of Exam: 09/28/24 Exam# [id number] Ordering Dr: Jennie Calvo PROCEDURE: CERV SPINE [...] C3 on C4, likely degenerative. Reading Location: [id number] CC: NAHUN Ferrer; Dr. 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 Part of today???s visit was documented by Sebastien Pichardo MA, acting as scribe. JIM FOWLER is a 74 year old M here [...] Status: Acu (more content not included)... Normal [facility] Thoracic Spine 2 Viewson Thoracic Spine 2 Views [facility] Imaging Services [address] [place] [address] Thoracic Spine 2 Views MR#: [id number] Acct: [id number] Name: JIM FOWLER Rep #: [id number] : 1950 M 74 From: Fabian Mayer MD PCP: Dr. Kevin Vera, Status: DEP AMB Study: Thoracic Spine 2 Views Date of Exam: 09/28/24 Exam# [id number] Ordering Dr: Jennie Calvo PROCEDURE: THORACIC SPINE [...] to be T8, clinically correlate. Reading Location: [facility] CC: NAHUN Ferrer; Dr. Kevin Vera DO Turbine Assembler: Signed Normal [facility] Urine Cultureon 02-10-2024 URC Culture exhibits no growth. Normal [facility] Comment on above: Performed By: #### L 500.4050, L400.0001, L501.9985, M100.2200 ####[facility] [address] [place], [address] Comprehensive Metabolic Prof ilon 02-09-2024 Albumin [Mass/Vol] 3.8 g/dL Normal 3.2-5.0 [facility] Comment on above: Performed By: #### L 500.4050, L400.0001, L501.9985, M100.2200 #### [facility] [address] [place], [address] Albumin/Globulin [Mass ratio] 1.1 {ratio} Normal 0.9-2.4 [facility] Comment on above: Performed By: #### L 500.4050, L400.0001, L501.9985, M100.2200 #### [facility] [address] [place], [address] ALK P 56 U/L Normal 45-117 [facility] Comment on above: Performed By: #### L 500.4050, L400.0001, L501.9985, M100.2200 #### [facility] [address] [place], [address] ALT [Catalytic activity/Vol] 49 U/L Normal 16-61 [facility] Comment on above: Performed By: #### L 500.4050, L400.0001, L501.9985, M100.2200 #### [facility] [address] [place], [address] AST [Catalytic activity/Vol] 39 U/L High 15-37 [facility] Comment on above: Performed By: #### L 500.4050, L400.0001, L501.9985, M100.2200 #### [facility] [address] [place], [address] Bilirubin [Mass/Vol] 0.90 mg/dL Normal 0.20-1.00 [facility] Comment on above: Result Comment: For patients on eltrombopag therapy, use of Dimension [place] TBIL is not recommended. Performed By: #### L 500.4050, L400.0001, L501.9985, M100.2200 #### [facility] [address] [place], [address] BUN/CRE 18.3 RATIO Normal 10-20 [facility] Comment on above: Performed By: #### L 500.4050, L400.0001, L501.9985, M100.2200 #### [facility] [address] [place], [address] CA,Total 10.0 mg/dL Normal 8.5-10.1 [facility] Comment on above: Performed By: #### L 500.4050, L400.0001, L501.9985, M100.2200 #### [facility] [address] [place], [address] Chloride [Moles/Vol] 103 mmol/L Normal 98-107 [facility] Comment on above: Performed By: #### L 500.4050, L400.0001, L501.9985, M100.2200 #### [facility] [address] [place], [address] CO2 [Moles/Vol] 29.0 mmol/L Normal 21.0-32.0 [facility] Comment on above: Performed By: #### L 500.4050, L400.0001, L501.9985, M100.2200 #### [facility] [address] [place], [address] Creatinine [Mass/Vol] 1.04 mg/dL Normal 0.70-1.30 [facility] Comment on above: Result Comment: The validity of the calculated GFR GFRAA in patients over 70 years has not been determined. Clinical correlation is essential. Performed By: #### L 500.4050, L400.0001, L501.9985, M100.2200 #### [facility] [address] [place], [address] EST GFR - AA 89 mL/min Normal >60 [facility] Comment on above: Result Comment: Afri can Slovak GFR Calc Performed By: #### L 500.4050, L400.0001, L501.9985, M100.2200 #### [facility] [address] [place], [address] GAP 7 Normal 5-15 [facility] Comment on above: Performed By: #### L 500.4050, L400.0001, L501.9985, M100.2200 #### [facility] [address] [place], [address] GFR/1.73 sq M.predicted among non-blacks MDRD (S/P/Bld) [Vol rate/Area] 74 mL/min/{1.73_m2} Normal >60 [facility] Comment on above: Result Comment: Non- GFR Calc Performed By: #### L 500.4050, L400.0001, L501.9985, M100.2200 #### [facility] [address] [place], [address] Globulin (S) [Mass/Vol] 3.5 g/dL Normal 2.2-4.2 [facility] Comment on above: Performed By: #### L 500.4050, L400.0001, L501.9985, M100.2200 #### [facility] [address] [place], [address] Glucose [Mass/Vol] 90 mg/dL Normal 74-106 [facility] Comment on above: Performed By: #### L 500.4050, L400.0001, L501.9985, M100.2200 #### [facility] [address] [place], [address] Potassium [Moles/Vol] 4.1 mmol/L Normal 3.5-5.1 [facility] Comment on above: Performed By: #### L 500.4050, L400.0001, L501.9985, M100.2200 #### [facility] [address] [place], [address] Sodium [Moles/Vol] 139 mmol/L Normal 136-145 [facility] Comment on above: Performed By: #### L 500.4050, L400.0001, L501.9985, M100.2200 #### [facility] [address] [place], [address] T PROT 7.3 g/dL Normal 6.4-8.2 [facility] Comment on above: Performed By: #### L 500.4050, L400.0001, L501.9985, M100.2200 #### [facility] [address] [place], [address] Urea nitrogen [Mass/Vol] 19 mg/dL High 7-18 [facility] Comment on above: Performed By: #### L 500.4050, L400.0001, L501.9985, M100.2200 #### [facility] [address] [place], [address] Hemoglobin A1con 02-09-2024 HbA1c (Bld) [Mass fraction] 5.8 % High 3.8-5.6 [facility] Comment on above: Result Comment: Norm al < 5.7 % Prediabetic 5.7 - 6.4 % Diabetic >or= 6.5 % Please note range changes. Performed By: #### L 500.4050, L400.0001, L501.9985, M100.2200 #### [facility] [address] [place], [address] Urinalysis, Completeon 02-08 Mucus Ql (Urine sed) RARE Normal [facility] Comment on above: Order Comment: CLEAN CATCH Performed By: #### L 500.4050, L400.0001, L501.9985, M100.2200 #### [facility] [address] [place], [address] WBC 0-5 SEEN Normal 0-5 [facility] Comment on above: Order Comment: CLEAN CATCH Performed By: #### L 500.4050, L400.0001, L501.9985, M100.2200 #### [facility] [address] [place], [address] BACTERIA 0 SEEN Normal None Seen [facility] Comment on above: Order Comment: CLEAN CATCH Performed By: #### L 500.4050, L400.0001, L501.9985, M100.2200 #### [facility] [address] [place], [address] EPI,SQUAMOUS 0 SEEN Normal 0-5 [facility] Comment on above: Order Comment: CLEAN CATCH Performed By: #### L 500.4050, L400.0001, L501.9985, M100.2200 #### [facility] [address] [place], [address] RBC 0 SEEN Normal 0-5 [facility] Comment on above: Order Comment: CLEAN CATCH Performed By: #### L 500.4050, L400.0001, L501.9985, M100.2200 #### [facility] [address] [place], [address] HEPATITIS ACUTE PANEL [CCL]o n 02-03-2024 Hep B Core Ab, IgM Negative Normal Negative [facility] Comment on above: Result Comment: No e vidence of recent infection with Hepatitis B virus. Should recent infection be suspected, repeat testing may be considered 3-4 weeks after this draw. Performed By: #### 2 25744 #### [facility],[address] [place] [address] Hepatitis A Ab IgM Negative Normal Negative [facility] Comment on above: Result Comment: No e vidence of recent infection with Hepatitis A virus. Performed By: #### 2 17220 #### [facility],[address] [place], [place] [address] Hepatitis B Surf. Ag Negative Normal Negative [facility] Comment on above: Result Comment: [facility] [address] [place] [address] Aric Whitt III, M.D. [id number] Performed By: #### 2 64972 #### [facility],[address] [place], [place] [address] Hepatitis C Ab IA Negative Normal Negative [facility] Comment on above: Result Comment: The result suggests no evidence of active infection with Hepatitis C virus. Should recent infection be suspected, repeat testing may be considered 4-6 weeks after this draw. Performed By: #### 2 71522 #### [facility],[address] [place], [place] [address] HAV IgM Ser Qlon 02-02-2024 HAV IgM Ql (S) Negative Normal Negative [facility] Comment on above: Order Comment: Specdiane sifuentes Type: BLOOD SPECIMEN Ordering Facility: [facility] Address: [address] [place] [address] Result Comment: No e vidence of recent infection with Hepatitis A virus. Performed By: #### 3 1204-1, 3, 43510-4 #### [facility] CLIA [id number] [address] [place] [address] [place] HBV core IgM Ser Qlon 2023 HBV core IgM Ql (S) Negative Normal Negative [facility] Comment on above: Order Comment: Jenna sifuentes Type: BLOOD SPECIMEN Ordering Facility: [facility] Address: [address] [place] [address] Result Comment: No e vidence of recent infection with Hepatitis B virus. Should recent infection be suspected, repeat testing may be considered 3-4 weeks after this draw. Performed By: #### 3 1204-1, 5-3, 09595-5 #### [facility] CLIA [id number] [address] [place] [address] [place] HBV surface Ag Ser Qlon 01-17 HBV surface Ag Ql (S) Negative Normal Negative [facility] Comment on above: Order Comment: Jenna sifuentes Type: BLOOD SPECIMEN Ordering Facility: [facility] Address: [address] [place] [address] Performed By: #### 3 1204-1, 5-3, 29876-4 #### [facility] CLIA [id number] [facility] [place] [address] [place] HCV Ab Ser Qlon 02-02-2024 HCV Ab Ql (S) Negative Normal Negative [facility] Comment on above: Order Comment: Speci men Type: BLOOD SPECIMEN Ordering Facility: [facility] Address: [address] [place] [address] Result Comment: The result suggests no evidence of active infection with Hepatitis C virus. Should recent infection be suspected, repeat testing may be considered 4-6 weeks after this draw. Performed By: #### 1 6128-1 #### [facility] CLIA [id number] [address] [place], [place] [address] [address] [address] [place] EMERGENCY REPORTon 4 EMERGENCY REPORT [facility] EMERGENCY ROOM REPORT NAME ACCOUNT SEX AGE ADMIT DISCHARGE PT MED. RECORD# NUMBER DATE DATE TYPE JIM FOWLER [id number] M 73 09/20/23 09/20/23 3 [address] ROOM: ER DATE OF : 1950 DICTATING [...] the wrist or Page 1 of 2 JIM FOWLER Emergency Room Report JIM FOWLER : 1950 forearm. EMERGENCY DEPARTMENT COURSE AND [...] if symptoms worsen. He was referred to [facility] to follow up in 24-48 hours if the eye has any ongoing symptoms, returning if it is significantly worse. Follow up with family provider in 2 to 3 days if the hand has any ongoing symptoms as well. Dictated By: Neo Collier MD 09/20/23 09:11 JOB #: [id number] Transcribed By: darrell 09/20/23 12:13 Electronically signed by: LILO Collier M.D. 09/28/23 08:20 Page 2 of 2 JIM FOWLER Emergency Room Report Normal [facility] Absolute lymphocyte countOrd ered By: Isi Power on 08-26-2023 Lymphocytes Auto (Unsp spec) [#/Vol] 1.80 10*3/uL 0.83-4.51 [facility] Automated lymphocyte count a s percentage of total leukocytesOrdered By: Isi Power on 08-26-2023 Lymphocytes/100 WBC Auto (Unsp spec) 27.6 % 19-41 [facility] Basophil percentageOrdered B y: Isi Power on 08-26-2023 Amylase [Catalytic activity/Vol] 40 U/L 25-115 [facility] Basophils/100 WBC (Bld) 0.5 % 0-1 [facility] Bilirubin [Mass/Vol] 0.90 mg/dL 0.20-1.00 [facility] Comment on above: For patients on eltr ombopag therapy, use of Dimension [place] TBIL is not recommended. Chloride [Moles/Vol] 106 mmol/L 98-107 [facility] Eosinophils/100 WBC (Bld) 1.1 % 0-5 [facility] Glucose [Mass/Vol] 179 mg/dL 74-106 [facility] Comment on above: Fasting Glucose resu lt greater than or equal to 126 mg/dL suggests DIABETES MELLITUS per A.D.A. criteria. Hemoglobin (Bld) [Mass/Vol] 16.8 g/dL 13.0-16.5 [facility] Monocytes/100 WBC (Bld) 9.0 % 0-10 [facility] Neutrophils (Bld) [#/Vol] 4.0 10*3/uL 2.0-7.7 [facility] Neutrophils/100 WBC (Bld) 61.5 % 47-70 [facility] Potassium [Moles/Vol] 3.8 mmol/L 3.5-5.1 [facility] Protein [Mass/Vol] 7.8 g/dL 6.4-8.2 [facility] Sodium [Moles/Vol] 136 mmol/L 136-145 [facility] WBC (Bld) [#/Vol] 6.5 10*3/uL 4.4-11.0 [facility] Determination of erythrocyte mean corpuscular volume (MCV)Ordered By: Isi Mendietayelitza on 08-26-2023 MCV (RBC) [Entitic vol] 92.3 fL 80-94 [facility] Erythrocyte distribution wid th ratioOrdered By: Isi Power on 08-26-2023 Erythrocyte distribution width (RBC) [Ratio] 12.2 % 11.6-14.6 [facility] Erythrocyte distribution wid th standard deviationOrdered By: Isi Power on 08-26-2023 Erythrocyte distribution width (RBC) [Entitic vol] 41.5 fL 35.1-43.9 [facility] Hematocrit Auto (Bld) [Volum e fraction]Ordered By: Isi Power on 08-26-2023 Hematocrit (Bld) [Volume fraction] 48.1 % 40-54 [facility] Immature granulocytes/100 WB C Auto (Bld)Ordered By: Isi Power on 08-26-2023 Immature granulocytes/100 WBC (Bld) 0.300 % 0.0-0.9 [facility] Comment on above: IG% - Immature Granu locytes (promyelocytes, myelocytes and metamyelocytes) > 1% indicates that a LEFT SHIFT is Present. Laboratory - Chemistry and C hemistry - challengeon 08-26-2023 Bilirubin Ql (U) Small (1+) [facility] Glucose Ql (U) Negative [facility] Ketones Ql (U) Small (15+) [facility] pH (U) 6 [pH] [facility] Specific gravity (U) [Rel density] 1.015 [facility] Urobilinogen (U) [Mass/Vol] Negative [facility] Laboratory - Chemistry and C hemistry - challengeOrdered By: Isi Power on 08-26-2023 Albumin/Globulin [Mass ratio] 0.8 {ratio} 0.9-2.4 [facility] ALP [Catalytic activity/Vol] 79 U/L 45-117 [facility] ALT [Catalytic activity/Vol] 54 U/L 16-61 [facility] CO2 [Moles/Vol] 21.0 mmol/L 21.0-32.0 [facility] Globulin (S) [Mass/Vol] 4.3 g/dL 2.2-4.2 [facility] Lipase [Catalytic activity/Vol] 26 U/L 13-75 [facility] Comment on above: Please note:LIPASE r evised reference range effective 22. New Lipase methodology. Expected to produce lower values than the previous assay method. NEW Reference Range: 13 - 75 U/L Urea nitrogen/Creatinine [Mass ratio] 12.9 mg/mg 10-20 [facility] Laboratory - Hematology and Cell countson 08-26-2023 Hemoglobin Ql (U) Negative [facility] Laboratory - Hematology and Cell countsOrdered By: Isi Power on 08-26-2023 MCH (RBC) [Entitic mass] 32.2 pg 27.0-32.0 [facility] MCHC (RBC) [Mass/Vol] 34.9 g/dL 32-36 [facility] Nucleated RBC/100 WBC (Bld) [Ratio] 0 % 0-5 [facility] Platelet mean volume (Bld) [Entitic vol] 10.4 fL 6.2-12.0 [facility] Platelets (Bld) [#/Vol] 191 10*3/uL 150-450 [facility] Laboratory - Specimen inform ationon 08-26-2023 Clarity (U) Cloudy [facility] Color (U) STRAW [facility] Laboratory - Urinalysison Nitrite Ql (U) Negative [facility] Protein Ql (U) Negative [facility] No Panel Informationon 08-25 Urine Leukocytes Negatve [facility] Urine Non-Hemolyzed Blood [facility] No Panel InformationOrdered By: Isi Power on 08-26-2023 Estimated GFR (MDRD) Amer 68 mL/min >60 [facility] Comment on above: GFR Calc Estimated GFR (MDRD) Non-Af Amer 56 mL/min >60 [facility] Comment on above: Non- GFR Calc Lyme Disease Total Antibody Negative Negative [facility] Comment on above: Lyme antibodies not detected. Reflex testing is notindicated.No laboratory evidence of infection with B. burgdorferi(Lyme disease). Negative results may occur in patientsrecently infected (less than or equal to 14 days) with B.burgdorferi. If recent infection is suspected, repeattesting on a new sample collected in 7 to 14 days isrecommended.Performed at: [address] [id number] Director: Pro Briceño PhD, Phone: [phone] RBC Auto (Bld) [#/Vol]Ordere d By: Isi Power on 08-26-2023 RBC (Bld) [#/Vol] 5.21 10*6/uL 4.6-6.2 [facility] Serum or plasma calcium sadiq urement (mass/volume)Ordered By: Isi Power on 08-26-2023 Calcium [Mass/Vol] 8.9 mg/dL 8.5-10.1 [facility] Serum or plasma creatinine m easurement (mass/volume)Ordered By: Isi Power on 08-26-2023 Creatinine [Mass/Vol] 1.32 mg/dL 0.70-1.30 [facility] Comment on above: The validity of the calculated GFR & GFRAA in patients over 70 years has not been determined. Clinical correlation is essential. Serum or plasma urea nitroge n measurement (mass/volume)Ordered By: Isi Power on 08-26-2023 Urea nitrogen [Mass/Vol] 17 mg/dL 7-18 [facility] Thin prep Papanicolaou smear with manual screeningOrdered By: Isi Power on 08-26-2023 Thin prep Papanicolaou smear with manual screening 3.5 g/dL 3.2-5.0 [facility] Thin prep Papanicolaou smear with manual screening 40 U/L 15-37 [facility] Thin prep Papanicolaou smear with manual screening 9 5-15 [facility] Absolute lymphocyte countOrd ered By: Kevin Vera on 08-05-2023 Lymphocytes Auto (Unsp spec) [#/Vol] 2.06 10*3/uL 0.83-4.51 [facility] Automated lymphocyte count a s percentage of total leukocytesOrdered By: Kevin Vera on 08-05-2023 Lymphocytes/100 WBC Auto (Unsp spec) 35.3 % 19-41 [facility] Basophil percentageOrdered B y: Kevin Vera on 08-05-2023 Basophils/100 WBC (Bld) 0.3 % 0-1 [facility] Eosinophils/100 WBC (Bld) 0.7 % 0-5 [facility] Hemoglobin (Bld) [Mass/Vol] 16.4 g/dL 13.0-16.5 [facility] Monocytes/100 WBC (Bld) 11.0 % 0-10 [facility] Neutrophils (Bld) [#/Vol] 3.1 10*3/uL 2.0-7.7 [facility] Neutrophils/100 WBC (Bld) 52.4 % 47-70 [facility] Testosterone [Mass/Vol] 490.12 ng/dL [facility] Comment on above: CENTRAL 90% REFERENC E RANGES MALE AGE <50 197.44 - 669.58 ng/dL MALE AGE > or = 50 187.72 - 684.19 ng/dL FEMALE AGE <50 8.38 - 35.01 ng/dL FEMALE AGE > or = 50 <7.00 - 35.92 ng/dL Effective as of 12/12/20 WBC (Bld) [#/Vol] 5.8 10*3/uL 4.4-11.0 [facility] Determination of erythrocyte mean corpuscular volume (MCV)Ordered By: Kevin Vera on 08-05-2023 MCV (RBC) [Entitic vol] 93.7 fL 80-94 [facility] Erythrocyte distribution wid th ratioOrdered By: Kevin Vera on 08-05-2023 Erythrocyte distribution width (RBC) [Ratio] 12.3 % 11.6-14.6 [facility] Erythrocyte distribution wid th standard deviationOrdered By: Kevinranjit Vera on 08-05-2023 Erythrocyte distribution width (RBC) [Entitic vol] 42.8 fL 35.1-43.9 [facility] Hematocrit Auto (Bld) [Volum e fraction]Ordered By: Kevin Vera on 08-05-2023 Hematocrit (Bld) [Volume fraction] 49.0 % 40-54 [facility] Immature granulocytes/100 WB C Auto (Bld)Ordered By: Kevin eVra on 08-05-2023 Immature granulocytes/100 WBC (Bld) 0.300 % 0.0-0.9 [facility] Comment on above: IG% - Immature Granu locytes (promyelocytes, myelocytes and metamyelocytes) > 1% indicates that a LEFT SHIFT is Present. Laboratory - Hematology and Cell countsOrdered By: Kevin Vera on 08-05-2023 MCH (RBC) [Entitic mass] 31.4 pg 27.0-32.0 [facility] MCHC (RBC) [Mass/Vol] 33.5 g/dL 32-36 [facility] Nucleated RBC/100 WBC (Bld) [Ratio] 0 % 0-5 [facility] Platelet mean volume (Bld) [Entitic vol] 10.6 fL 6.2-12.0 [facility] Platelets (Bld) [#/Vol] 189 10*3/uL 150-450 [facility] RBC Auto (Bld) [#/Vol]Ordere d By: Kevin Vera on 08-05-2023 RBC (Bld) [#/Vol] 5.23 10*6/uL 4.6-6.2 [facility] Absolute lymphocyte counton 09-13-2021 Lymphocytes Auto (Unsp spec) [#/Vol] 2.01 10*3/uL 0.83-4.51 [facility] Work Phone: Basophil percentageon 2021 Basophils/100 WBC (Bld) 0.4 % 0-1 [facility] Work Phone: Eosinophils/100 WBC (Bld) 0.7 % 0-5 [facility] Work Phone: Neutrophils (Bld) [#/Vol] 5.2 10*3/uL 2.0-7.7 [facility] Work Phone: Neutrophils/100 WBC (Bld) 63.6 % 47-70 [facility] Work Phone: WBC (Bld) [#/Vol] 8.1 10*3/uL 4.4-11.0 [facility] Work Phone: Blood erythrocytes count (nu mber/volume)on 09-13-2021 RBC (Bld) [#/Vol] 4.98 10*6/uL 4.6-6.2 [facility] Work Phone: [phone] Blood hemoglobin measurement (mass/volume)on 09-13-2021 Hemoglobin (Bld) [Mass/Vol] 16.2 g/dL 13.0-16.5 [facility] Work Phone: Blood lymphocytes/100 leukoc yteson 09-13-2021 Lymphocytes/100 WBC (Bld) 24.7 % 19-41 [facility] Work Phone: Blood monocytes/100 leukocyt eson 09-13-2021 Monocytes/100 WBC (Bld) 10.2 % 0-10 [facility] Work Phone: Blood platelet mean volumeon 09-13-2021 Platelet mean volume (Bld) [Entitic vol] 9.9 fL 6.2-12.0 [facility] Work Phone: Determination of erythrocyte mean corpuscular volume (MCV)on 09-13-2021 MCV (RBC) [Entitic vol] 95.4 fL 80-94 [facility] Work Phone: Hematocrit Auto (Bld) [Volum e fraction]on 09-13-2021 Hematocrit (Bld) [Volume fraction] 47.5 % 40-54 [facility] Work Phone: Laboratory - Hematology and Cell countson 09-13-2021 Erythrocyte distribution width (RBC) [Entitic vol] 45.4 fL 35.1-43.9 [facility] Work Phone: Erythrocyte distribution width (RBC) [Ratio] 12.9 % 11.6-14.6 [facility] Work Phone: Immature granulocytes/100 WBC (Bld) 0.400 % 0.0-0.9 [facility] Work Phone: Comment on above: IG% - Immature Granu locytes (promyelocytes, myelocytes and metamyelocytes) > 1% indicates that a LEFT SHIFT is Present. MCH (RBC) [Entitic mass] 32.5 pg 27.0-32.0 [facility] Work Phone: Nucleated RBC/100 WBC (Bld) [Ratio] 0 % 0-5 [facility] Work Phone: MCHC Auto (RBC) [Mass/Vol]on 09-13-2021 MCHC (RBC) [Mass/Vol] 34.1 g/dL 32-36 [facility] Work Phone: No Panel Informationon 09-13 Thyroid Stimulating Hormone (TSH) 1.14 uIU/mL 0.358-3.74 [facility] Work Phone: Platelets bldon 09-13-2021 Platelets (Bld) [#/Vol] 225 10*3/uL 150-450 [facility] Work Phone: Vital Signs Date Time Vital Sign Value Performing Clinician Faci lity 12-07-2024 14:52-0400 Body height 1798.[address] Kevin Vera DO Work Phone: [facility] 12-07-2024 14:52-0400 Diastolic blood pressure 80 mm[Hg] Dr. Kevin Vera DO Work Phone: [facility] 12-07-2024 14:52-0400 Heart rate 84 /min Dr. Kevin Vera DO Work Phone: [facility] 12-07-2024 14:52-0400 Respiratory rate 17 /min Dr. Kevin Vera DO Work Phone: [facility] 12-07-2024 14:52-0400 SaO2% (BldA) [Mass fraction] 96 % Dr. Kevin Vera DO Work Phone: [facility] 12-07-2024 14:52-0400 Systolic blood pressure 117 mm[Hg] Dr. Kevin Vera DO Work Phone: [facility] 11-16-2024 08:40-0400 Body temperature 97.8 [degF] Dr. Kevin Vera DO Work Phone: [facility] 11-16-2024 08:40-0400 Diastolic blood pressure 80 mm[Hg] Dr. Kevin Vera DO Work Phone: [facility] 11-16-2024 08:40-0400 Heart rate 62 /min Dr. Kevin Vera DO Work Phone: [facility] 11-16-2024 08:40-0400 Respiratory rate 16 /min Dr. Kevin Vera DO Work Phone: [facility] 11-16-2024 08:40-0400 SaO2% (BldA) [Mass fraction] 96 % Dr. Kevin Vera DO Work Phone: [facility] 11-16-2024 08:40-0400 Systolic blood pressure 108 mm[Hg] Dr. Kevin Vera DO Work Phone: [facility] 11-16-2024 07:14-0400 Body height 175.[address] Kevin Vera DO Work Phone: [facility] 11-16-2024 07:14-0400 Body mass index (BMI) [Ratio] 30.6 kg/m2 Dr. Kevin Vera DO Work Phone: [facility] 11-16-2024 07:14-0400 Body weight [address] Kevin Vera DO Work Phone: [facility] 10-26-2024 09:29-0400 Body height 175.[address] Kevin Vera DO Work Phone: [facility] 10-26-2024 09:29-0400 Body mass index (BMI) [Ratio] 31 kg/m2 Dr. Kevin Vera DO Work Phone: [facility] 10-26-2024 09:29-0400 Body weight 95.[address] Kevin Vera DO Work Phone: [facility] 10-26-2024 09:29-0400 Diastolic blood pressure 96 mm[Hg] Dr. Kevin Vera DO Work Phone: [facility] 10-26-2024 09:29-0400 Respiratory rate 18 /min Dr. Kevin Vera DO Work Phone: [facility] 10-26-2024 09:29-0400 Systolic blood pressure 199 mm[Hg] Dr. Kevin Vera DO Work Phone: [facility] 09-28-2024 08:49-0400 Body height 177.[address] Kevin Vera DO Work Phone: [facility] 09-28-2024 08:49-0400 Body mass index (BMI) [Ratio] 30.1 kg/m2 Dr. Kevin Vera DO Work Phone: [facility] 09-28-2024 08:49-0400 Body weight 95.[address] Kevin Vera DO Work Phone: [facility] 08-26-2023 15:23-0400 Body height 177.[address] Kevin Vera Work Phone: [facility] 08-26-2023 15:23-0400 Body mass index (BMI) [Ratio] 27.8 kg/m2 Dr. Kevin Vera Work Phone: [facility] 08-26-2023 15:23-0400 Body temperature 97.8 [degF] Dr. Kevin Vera Work Phone: [facility] 08-26-2023 15:23-0400 Body weight 88.[address] Kevin Vera Work Phone: [facility] 08-26-2023 15:23-0400 Diastolic blood pressure 70 mm[Hg] Dr. Kevin Vera Work Phone: [facility] 08-26-2023 15:23-0400 Heart rate 105 /min Dr. Kevin Vera Work Phone: [facility] 08-26-2023 15:23-0400 Respiratory rate 16 /min Dr. Kevin Vera Work Phone: [facility] 08-26-2023 15:23-0400 SaO2% (BldA) [Mass fraction] 98 % Dr. Kevin Vera Work Phone: [facility] 08-26-2023 15:23-0400 Systolic blood pressure 118 mm[Hg] Dr. Kevin Vera Work Phone: [facility] 08-05-2023 10:42-0400 Body height 177.[address] Kevin Vera Work Phone: [facility] 08-05-2023 10:42-0400 Body mass index (BMI) [Ratio] 28.1 kg/m2 Dr. Kevin Vera Work Phone: [facility] 08-05-2023 10:42-0400 Body temperature 97.3 [degF] Dr. Kevin Vera Work Phone: [facility] 08-05-2023 10:42-0400 Body weight 88.[address] Kevin Vera Work Phone: [facility] 08-05-2023 10:42-0400 Diastolic blood pressure 84 mm[Hg] Dr. Kevin Vera Work Phone: [facility] 08-05-2023 10:42-0400 Heart rate 78 /min Dr. Kevin Vera Work Phone: [facility] 08-05-2023 10:42-0400 Respiratory rate 16 /min Dr. Kevin Vera Work Phone: [facility] 08-05-2023 10:42-0400 SaO2% (BldA) [Mass fraction] 96 % Dr. Kevin Vera Work Phone: [facility] 08-05-2023 10:42-0400 Systolic blood pressure 128 mm[Hg] Dr. Kevin Vera Work Phone: [facility] 09-13-2021 13:19-0400 Body height 177.[address] Kevin Vera Work Phone: [facility] Work Phone: 09-13-2021 13:19-0400 Body mass index (BMI) [Ratio] 27.8 kg/m2 Dr. Kevin Vera Work Phone: [facility] Work Phone: 09-13-2021 13:19-0400 Body temperature 97.4 [degF] Dr. Kevin Vera Work Phone: [facility] Work Phone: 09-13-2021 13:19-0400 Body weight 87.[address] Kevin Vera Work Phone: [facility] Work Phone: 09-13-2021 13:19-0400 Diastolic blood pressure 86 mm[Hg] Dr. Kevin Vera Work Phone: [facility] Work Phone: 09-13-2021 13:19-0400 Heart rate 72 /min Dr. Kevin Vera Work Phone: [facility] Work Phone: 09-13-2021 13:19-0400 Respiratory rate 14 /min Dr. Kevin Vera Work Phone: [facility] Work Phone: 09-13-2021 13:19-0400 SaO2% (BldA) [Mass fraction] 99 % Dr. Kevin Vera Work Phone: [facility] Work Phone: 09-13-2021 13:19-0400 Systolic blood pressure 138 mm[Hg] Dr. Kevin Vera Work Phone: [facility] Work Phone: Encounters Encounter Date Encounter Type Care Provider Facility Start: 12-13-2024 ambulatory Haris Varner lity:[facility] Start: 12-07-2024 End: 12-07-[address] Haris Harding MD -[facility] Work Phone: Start: 12-07-2024 End: 12-07-[address] Kevin Vera DO Work Phone: -[facility] Start: 11-25-2024 End: 11-25-[address] Kevin Vera DO Work Phone: [facility] Start: 11-25-2024 End: 11-25-[address] Haris Harding MD -Ultrasound [facility] Work Phone: Start: 11-25-2024 End: 11-25-2024 ambulatory Hrais Harding Facility:[facility] Start: 11-16-2024 ambulatory Kevin Vera Facilit y:[facility] Start: 11-16-2024 Non-patient / Non-visit Dr. Haris Harding MD -[facility] Start: 11-16-2024 End: 11-16-2024 Admission to same day surgery center Dr. Haris Harding MD -Endoscopy Work Phone: Start: 11-16-2024 End: 11-16-[address] Kevin Vera DO Work Phone: -Endoscopy Start: 10-26-2024 End: 10-26-[address] Haris Harding MD -[facility] Work Phone: Start: 10-26-2024 End: 10-26-[address] Kevin Vera DO Work Phone: [facility] Work Phone: Start: 10-25-2024 End: 10-25-[address] Kevin Vera DO Work Phone: [facility] Work Phone: Start: 10-25-2024 End: 10-25-2024 Patient encounter procedure Gilberto GARNICA -[facility] Work Phone: Start: 10-25-2024 End: 10-25-2024 ambulatory Kevin Vera Facility:[facility] Start: 09-28-2024 End: 09-28-[address] Lamberto Uribe MD -[facility] Start: 09-28-2024 End: 09-28-[address] Kevin Vera DO Work Phone: [facility] Work Phone: Start: 02-09-2024 End: 02-09-2024 ambulatory Laurita Darbyok Facility:[facility] Start: 02-02-2024 End: 02-02-2024 ambulatory LAURITA TARIQ [facility] Start: 09-20-2023 End: 09-20-2023 Emergency department patient visit NEO COLLIER [facility] Start: 08-26-2023 End: 08-26-[address] Kevin Vera Work Phone: [facility] Work Phone: Start: 08-26-2023 End: 08-26-[address] Kevin Vera Work Phone: [facility] Work Phone: Start: 08-05-2023 End: 08-05-[address] Kevin Vera Work Phone: [facility] Work Phone: Start: 08-05-2023 End: 08-05-[address] Kevin Vera Work Phone: [facility] Work Phone: Start: 05-22-2023 End: 05-22-2023 ambulatory KEVIN MALCOLM [facility] Start: 03-29-2023 End: 03-29-2023 Emergency department patient visit KEVIN VERA [facility] Start: 09-13-2021 End: 09-13-[address] Kevin Vera Work Phone: [facility] Start: 10-03-2016 End: 10-04-2016 Evaluation and management of inpatient PCP D UNKNOWN Facility:[facility] Procedures Date Procedure Procedure Detail Performing Clinician Start: 11-25-2024 US scan of gallbladder Dr. Kevin Vera DO Work Phone: Start: 11-16-[address] Kevin wang DO Work Phone: Start: 10-25-2024 In-vitro immunologic test Dr. Kevin [...] the productionof interferon gamma. Chemiluminescence immunoassaymethodologyPerformed at: [email or web address] [id number] Director: Pro Briceño PhD, Phone: [phone] Start: 09-28-[address] Kevin Vera DO Work Phone: Start: 09-28-2024 X-ray of cervical spine Dr. Kevin pitts DO Work Phone: Start: 10-02-2016 EXTRACTION LEFT HAND SKI PROVIDER UNKNOW N Start: 10-02-2016 REPAIR LEFT HAND TENDON PROVIDER UNKNOWN Plan of Treatment Date Care Activity Detail Author Start: 11-16-2024 Esophagogastroduodenoscopy transoral diagnostic EGD DIAGNOSTIC BRUSH WASH [facility] Start: 11-16-2024 Patient discharge [facility] Start: 10-25-2024 In-vitro immunologic test [facility] Start: 09-28-2024 XR Thoracic spine Views [facility] Start: 09-28-2024 Xray thoracic spine Thoracic Spine 2 Views [facility] Start: 09-28-2024 X-ray of cervical spine Cerv Spine 4 or 5 Views [facility] Start: 09-28-2024 XR Cervical spine 4 or 5 Views [facility] 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 [Presence] in Blood [facility] Payers Date Payer Category Payer Self-pay [id number] 2024 Unknown [id number] 2013 Medicare [id number] 2013 Unknown [id number] 1950 Unknown [id number] 2.16.8 [id number] 1950 Unknown [id number] 2.16.8 [id number] 1950 Unknown [id number] 2.16.8 [id number] 1950 Unknown [id number] 2.16.8 [id number] Medicare [id number] Unknown [id number] Unknown [id number] Unknown [id number] 2.16.8 [id number] Unknown [id number] 2.16.8 [id number] Unknown [id number] 2.16.8 [id number] Unknown [id number] 2.16.8 [id number] Unknown [id number] 2.16.8 [id number] Unknown [id number] 2.16.8 [id number] Unknown [id number] 2.16.8 [id number] Unknown [id number] 2.16.8 [id number] Unknown [id number] 2.16.8 [id number] Unknown [id number] 2.16.8 [id number] Social History Date Type Detail Facility Start: 09-13-2021 End: 08-26-2023 Tobacco smoking status RIIS Unknown if ever smoked [facility] Start: 06-17-[address] [facility] Start: 1950 Sex Assigned At Male [facility] Start: 08-26-2023 Tobacco smoking stat [facility] Smokes tobacco daily (finding) [facility] Start: 11-12-2024 Tobacco smoking stat [facility] Ex-smoker (finding) [facility] Goals Date Patient Goal Desired Activity /State Mental Status Date Assessment Result Facility 11-16-2024 Cognitive function Touch/Shaking [facility] Work Phone: Clinical Notes 09-28-2024 to 12-07-2024 Note Date & Type Note Facility 12-07-2024 Progress note [facility] 12-07-2024 Progress note Note Date/Time December 07, 2024 3:18pm [facility] H ealt System [facility] [address] [place] [address]. [address] [place] [address] OFFICE VISIT Date of Service: 12/07/24 MR#: [id number] Acct: [id number] Name: JIM FOWLER Rep #: [id number] : 1950 Provider: Dr. Heriberto Harding MD Age/Sex: 74/M Location: [facility] Status: Signed Intake Vital Signs 11/16/24 07:14 12/07/24 14:52 Height 5 ft 9 in 59 ft BP 117/80 Blood Pressure Location Lt brachial Position Sitting Respiration 17 Pulse 84 Pulse Source Monitor Pulse Oximetry (%) 96 Oxygen Delivery Method room air Intake Visit Reasons: GALLBLADDER U/S RESULTS Chief Complaint: gallbladder u/s results Is patient in pain?: No Allergies amoxicillin Allergy (Severe, Verified 12/07/24 14:49) Rash clams Adverse Reaction (Severe, Verified 12/07/24 14:49) Vomiting Medications ?Medication ?Instructions ?Recorded ?Confirmed ?Type clobetasol 0.05 % topical ointment 1 applic topical BI D PRN psoriasis 08/20/17 12/07/24 History metronidazole 0.75 % topical cream 1 applic topical BI D PRN skin 08/20/17 12/07/24 History irritation omeprazole 20 mg capsule,delayed 20 mg PO QDAY 8 12/07/24 History release amlodipine 5 mg tablet 5 mg PO DAILY 09/13/2112/07 History cholecalciferol (vitamin D3) 50 50 mcg PO DAILY 12/07/24 History mcg (2,000 unit) capsule rosuvastatin 10 mg tablet 10 mg PO DAILY 09/13/2111/17 History guselkumab 100 mg/mL subcutaneous 100 mg subcut Q8W 12/07/24 History auto-injector (Tremfya) Have you fallen in the past year?: No PFSH Medical History RUQ pain Wears glasses Alcohol use Back pain Gastric reflux Heartburn Former smoker Epididymitis Psoriasis Lyme disease History of malignant neoplasm of skin Vision problems Hyperlipidemia Hearing problem Acid reflux Skin cancer Fracture Back problem Arthritis Surgical History (Updated 11/12/24 @ 13:36 by Tania Terry) Status post bilateral inguinal hernia repair History of hand surgery Family History Mother Arthritis Father Arthritis Brother Colon cancer Diabetes Sister Diabetes Social History Smoking Status: Former smoker quit date: 05/19/69 alcohol intake: current alcohol intake frequency: 0-2 drinks per day Alcohol type: beer substance use type: does not use what type of physical activity do you participate in: none HPI HPI HPI: Patient is a 74-year-old male who is following up after ultrasound of the gallbladder. He is still having right back pain. He says there is no rhyme or reason to it. ROS General General: Yes fatigue; No weight change, appetite, colon cancer, breast cancer or weakness HEENT HEENT: No difficulty swallowing, eye injury, eye surgery, swollen glands or hoarseness Endo Endocrine: No thyroid disease, diabetes mellitus, thyroid cancer, Hair loss, heat intolerance or cold intolerance Skin Skin: No rash or changing moles Musc Musculoskeletal: Yes back problems and arthritis; [...] No wheezing Gastro Gastrointestinal: Yes abdominal pain, No nausea or vomiting, No diarrhea, No constipation, [...] General: cooperative Orientation: alert and oriented x3 [facility] Head: normal to inspection Neck Neck: normal [...] Assessment and Plan Assessment and Plan (1) RUQ pain: Status: Acute Plan: Patient is having right upper quadrant and right back pain. I informed him thathe has a stone on ultrasound in his gallbladder. This may be causing his pain but I could not guarantee it. I informed him that even if we took out his gallbladder the pain might persist if it is not being caused but his gallbladderbut instead by his back. The patient would like his gallbladder removed. I discussed cholecystectomy with him in detail. I discussed the procedure in detail with the patient. I discussed the risks, benefits, and alternatives of the procedure. I discussed the risks including but not limited to bleeding, infection, injury to surrounding organs such as the liver, bile duct, bowels. Idid discuss the possibility of having to convert to an open procedure as well asthe possibility that if any injuries occurred this may necessitate further surgery at a tertiary care center. The patient would also like his umbilical hernia repaired at the time of surgery. I will use it as a port site and repaired on the way out. Haris Harding MD Pager: [facility] [address] [place] [address], [address] [place] [address] Office: Coding Level of Care Code Off vis,est,level 3 Diagnoses RUQ pain R10.11 Clinical Quality Measures Falls Risk Screening/Assistive Devices Have you fallen in the past year?: No 12/07/24 6795 <Electronically signed by Haris duran MD> Date _ Haris Harding MD Cosigner Signature: Date (if applicable) CC: Dr. Kevin Vera, DO ~ [facility] Work Phone: [phone]) 126-753807-10-2025 Radiology Diagnostic study note [facility] Imaging Services [address] [place] [address] [id number] Gallbladder MR#: [id number] Acct: [id number] Name: JIM FOWLER Rep #: [id number] : 1950 M 74 From: Jovani De Santiago MD PCP: Dr. Kevin Vera, DO Status: LILA Mcallister CLDiane Study:Gallbladder Date of Exam: 11/25/24 Exam# [id number] Ordering Dr: Haris Ribeiro MD PROCEDURE: GALLBLADDER 11/25/2024 REASON FOR EXAM: RUQ PAIN COMPARISON: None FINDINGS: Liver: Diffusely echogenic suggesting fatty infiltration. Borderline hepatomegaly. The liver measures 17.7 cm. Gallbladder: Solitary gallstone measuring 1.3 cm 1.3 cm 1.1 cm. Gallbladder wall measures 2 mm. Common bile duct: Normal measuring 5 mm. . Pancreas: Normal Other: The right kidneys of normal size and renal cortex. There is evidence of 2 renal cysts. The largest cyst measures 4.2 cm 3.9 cm 4.7 cm. US/Gallbladder IMPRESSION: Borderline hepatomegaly and fatty infiltration of the liver. Solitary gallstone measuring 1.3 cm 1.3 cm 1.1 cm. Right renal cysts. Reading Location: [place] [address] CC: Dr. Haris Harding MD; Dr. Kevin Vera, ~ [employer]urbine [employer]er: Signed [facility]07-01-2025 Consult note [facility] Medical Records Department [address] [place], [place] [id number] Anesthesia Postop Eval II 11/16/24 0843 MR#: [id number] Acct: [id number] Name: JIM FOWLER Rep #:[id number] : 1950 74 From: Nba Dallas MD PCP: Dr. Kevin Vera, DO Status:LILA Mcallister [facility] [place] Race: C Location: [place] [address] Anesthesia Postop Eval I Sum Postop Eval Completion status Anesthesia document: Postop Eval 1 completed: Yes Anesthesia Postop Eval I Summary Anesthesia Postop Eval I Summary: Anesthesia Postop Eval I: Assessment Summary Airway patent Yes 11/16/24 08:28 [email or web address] Spontaneous unlabored Yes 11/16/24 08:28 [email or web address] respirations Mental status Asleep 11/16/24 08:28 [email or web address] nausea No 11/16/24 08:28 [email or web address] Vomiting No 11/16/24 08:28 [email or web address] Anesthesia Postop Eval I: Fluid Summary Crystalloid volume administer 300 11/16/24 08:28 [email or web address] (ml) Colloids volume administered ( ml) Blood Product volume administered (ml) Total IV fluid infused 300 11/16/24 08:28 [email or web address] Anesthesia Postop Eval I: Summary Notes Anesthesia Complication No 11/16/24 08:28 [email or web address] Anesthesia Complication Comment: Post-operative progress note Anesthesia: Postop Eval II Evaluation Mental status: Awake and Calm Pain Level: 3 nausea: No Vomiting: No Complications Anesthesia Complication: No 11/16/2443 D> Date _ Nba Irvin Signature: Date CC: ~ Signed [facility]07-01-2025 Consult note [facility] Medical Records Department [address] [facility] [place] [address] Anesthesia Postop Eval I 11/16/24827 MR#: [id number] Acct: [id number] Name: JIM FOWLER Rep #:[id number] : 1950 74 From: Zachary Garcia PCP: Dr. eKvin eVra, DO Status:RE G SD Y Race: C Location: [place] [address] Anesthesia: Postop Eval I Current Vital Signs Temperature: 97.8 F Pulse Rate: 67 Blood Pressure: 107/74 Respiratory Rate: 16 Pulse Ox: 92 Oxygen Delivery Method: Room Air Assessment Airway patent: Yes Spontaneous unlabored respirations: Yes Mental status: Asleep nausea: No Vomiting: No Anesthesia Complication: No Fluid Hydration Crystalloid volume administer (ml): 300 Total IV fluid infused: 300 Progress Note Anesthesia document: Postop Eval 1 completed: Yes 11/16/24828 > Date _ Zachary Irvin Signature: Date CC: ~ Signed [facility] [facility] Procedure note [facility] Medical Records Department [address] [place] [address] Operative Report - CC Letter MR#: [id number] Acct: [id number] Name: JIM FOWLER Rep #:[id number] : 1950 74 From: Haris richardson MD PCP: Dr. Kevin Vera, DO Status:[facility] 11/16/2024 Kevin Vera Re : Upper GI endoscopy procedure for Jim Fowler Dear Dr. Vera This procedure was performed on Saturday, November 16, 2024. My impressions and recommendations are as follows: Impressions : - Normal esophagus. - Normal stomach. - Normal examined duodenum. - No specimens collected. Recommendations : - Discharge patient to home. - Resume previous diet. - Continue present medications. - Perform a RUQ ultrasound at appointment to be scheduled. My findings are described in the full procedure note, which is enclosed. If I can be of further assistance, please feel free to contact me at Doctor phone number(s): , Work: . Sincerely, Haris Harding MD 11/16/2024 8:25:52 AM This report has been signed electronically. 11/16/24824 Date _ Haris Irvin Signature: (if indicated) CC: Dr. Haris Harding MD; Dr. Kevin Vera, DO ~ Date Dictated: 11/16/24804 Date Transcribed: Turbine Assembler: MEKHI Signed [facility]07-01-2025 Procedure note [facility] Medical Records Department [address] [place] [address] EGD Report MR#: [id number] Acct: [id number] Name: JIM FOWLER Rep #:[id number] : 1950 74 From: Haris richardson MD PCP: Dr. Kevin Vera, DO Status:[facility] Patient Name: Jim Fowler Procedure Date: 11/16/2024 8:05 AM Date of : 1950 Age: 74 Procedure: Upper GI endoscopy Indications: Epigastric abdominal pain Providers: Haris Harding MD Referring MD: Kevin Vera Medicines: Propofol per Anesthesia Patient Profile: This is a 74 year old male. Refer to note in patient chart for documentation of history and physical. Complications: No immediate complications. Procedure: Pre-Anesthesia Assessment: - Prior to the procedure, a History and Physical was performed, and patient medications and allergies were reviewed. The patient's tolerance of previous anesthesia was also reviewed. The risks and benefits of the procedure and the sedation options and risks were discussed with the patient. All questions were answered, and informed consent was obtained. Prior Anticoagulants: The patient has taken no anticoagulant or antiplatelet agents. After reviewing the risks and benefits, the patient was deemed in satisfactory condition to undergo the procedure. After obtaining informed consent, the endoscope was passed under direct vision. Throughout the procedure, the patient's blood pressure, pulse, and oxygen saturations were monitored continuously. The Endoscope was introduced through the mouth, and advanced to the third part of duodenum. The upper GI endoscopy was accomplished without difficulty. The patient tolerated the procedure well. Scope In: 8:18:02 AM Scope Out: 8:20:18 AM Total Procedure Duration Time 0 hours 2 minutes 16 seconds Findings: The esophagus was normal. The stomach was normal. The examined duodenum was normal. Impression: - Normal esophagus. - Normal stomach. - Normal examined duodenum. - No specimens collected. Recommendation: - Discharge patient to home. - Resume previous diet. - Continue present medications. - Perform a RUQ ultrasound at appointment to be scheduled. Procedure Code(s): --- Professional --- 75016, Esophagogastroduodenoscopy, flexible, transoral; diagnostic, including collection of specimen(s) by brushing or washing, when performed (separate procedure) Diagnosis Code(s): --- Professional --- R10.13, Epigastric pain CPT copyright 2021 [employer]. All rights reserved. The codes documented in this report are preliminary and upon cutting machine tender helper review may be revised to meet current compliance requirements. Haris Harding MD 11/16/2024 8:25:52 AM This report has been signed electronically. Number of Addenda: 0 Note Initiated On: 11/16/2024 8:05 AM 11/16/24824 Date _ Haris Harding MD Cosigner Signature: Date (if indicated) CC: Dr. Haris Harding MD; Dr. Kevin Vera, DO ~ Date Dictated: 11/16/24804 Date Transcribed: Turbine Assembler: AC Signed [facility]07-01-2025 History and physical note [facility] Medical Records Department [address] [place] [address] History & Physical Exam 11/16/24 08 MR#: [id number] Acct: [id number] Name: JIM FOWLER Rep #:[id number] : 1950 74 From: Haris richardson MD PCP: Dr. Kevin Vera, DO Status:[facility] Location: [facility]14-1 History and Physical Date of Admission: 11/16/24 Intake Vital Signs 09/29/2507:49 10/26/2508:29 Height 5 ft 10 in 5 ft 9 in Weight: 210 lb 210 lb BMI 30.1 31.0 BP 199/96 H Blood Pressure Location Rt brachial Position Sitting Respiration 18 Intake Visit Reasons: Dysphagia Chief Complaint: GI issues/due for c-scope Level Vial Inside Grinder Required: No Is patient in pain?: No Allergies amoxicillin Allergy (Severe, Verified 10/26/24 09:30) Rash Medications ?Medication ?Instructions ?Recorded ?Confirmed ?Type clobetasol 0.05 % topical ointment 1 applic topical BID 08/20/17 09/28/24 History metronidazole 0.75 % topical cream 1 applic topical BID 08/20/17 09/28/24 History omeprazole 20 mg capsule,delayed 20 mg PO QDAY 08/20/17 09/28/24 History release amlodipine 5 mg tablet 5 mg PO DAILY 09/13/21 09/28/24 History cholecalciferol (vitamin D3) 50 50 mcg PO DAILY 09/13/21 09/28/24 Histor y mcg (2,000 unit) capsule rosuvastatin 10 mg tablet 10 mg PO DAILY 09/13/21 09/28/24 History methocarbamol 500 mg tablet 500 mg PO TID PRN pain/spasms #60 09/28/24 Rx tabs guselkumab 100 mg/mL subcutaneous 100 mg subcut Q8W 10/26/24 10/26/24 Hist ory auto-injector (Tremfya) Have you fallen in the past year?: No PFSH Medical History Epididymitis Psoriasis Lyme disease History of malignant neoplasm of skin Vision problems Hyperlipidemia Hearing problem Acid reflux Skin cancer Fracture Back problem Arthritis Surgical History Status post bilateral inguinal hernia repair History of hand surgery Family History Mother ArthritisFather ArthritisBrother Colon cancer DiabetesSister Diabetes Social History Smoking Status: Current every day smoker alcohol intake: current alcohol intake frequency: 0-2 drinks per day Alcohol type: beer substance use type: does not use what type of physical activity do you participate in: none HPI HPI HPI: Patient is a 74-year-old male here for belching and bloating. Patient reports that he does not haveany dysphagia. He says he easily swallows with [...] lack of coordination, No loss ofvision, No memoryloss, No numbness, No other visual disturbances, No [...] proceed with procedure. Haris Harding MD Pager: [facility] [address] [place] [address] [address] [place] [address] Office: I have examined the patient and the H&P has been reviewed. There are no clinicalchanges since date of exam. 11/16/24 0801 Cosigner Signature (if applicable): CC: Dr. Haris Harding MD; Dr. Kevin Vera, DO~ Signed [facility]07-01-2025 [facility] Medical Records Department [address] [place] [address] History Physical Exam 11/16/24 0801 MR#: [id number] Acct: [id number] Name: JIM FOWLER Rep #: [id number] : 1950 74 From: Haris Harding MD PCP: Dr. Kevin Vera DO Status:[facility] Location: [place] [address] History and Physical Date of Admission: 11/16/24 Intake Vital Signs 09/29/2507:49 10/26/2508:29 Height 5 ft 10 in 5 ft 9 in Weight: 210 lb 210 lb BMI 30.1 31.0 BP 199/96 H Blood Pressure Location Rt brachial Position Sitting Respiration 18 Intake Visit Reasons: Dysphagia Chief Complaint: GI issues/due for c-scope Level Vial Inside Grinder Required: No Is patient in pain?: No Allergies amoxicillin Allergy (Severe, Verified 10/26/24 09:30) Rash Medications ???Medication ???Instructions ???Recorded ???Confirmed ???Type clobetasol 0.05 % topical ointment 1 applic topical BID 08/20/17 09/28/24 History metronidazole 0.75 % topical cream 1 applic topical BID 08/20/17 09/28/24 History omeprazole 20 mg capsule,delayed 20 mg PO QDAY 08/20/17 09/28/24 History release amlodipine 5 mg tablet 5 mg PO DAILY 09/13/21 09/28/24 History cholecalciferol (vitamin D3) 50 50 mcg PO DAILY 09/13/21 09/28/24 History mcg (2,000 unit) capsule rosuvastatin 10 mg tablet 10 mg PO DAILY 09/13/21 09/28/24 History methocarbamol 500 mg tablet 500 mg PO TID PRN pain/spasms #60 09/28/24 5 Rx tabs guselkumab 100 mg/mL subcutaneous 100 mg subcut Q8W 10/26/24 10/26/24 History auto-injector (Tremfya) Have you fallen in the past year?: No PFSH Medical History Epididymitis Psoriasis Lyme disease History of malignant neoplasm of skin Vision problems Hyperlipidemia Hearing problem Acid reflux Skin cancer Fracture Back problem Arthritis Surgical History Status post bilateral inguinal hernia repair History of hand surgery Family History Mother ArthritisFather ArthritisBrother Colon cancer DiabetesSister Diabetes Social History Smoking Status: Current every [...] visual inspection and full ROM Chest Chest pal (more content not included)...[facility]07-01-2025 Consult note [facility] Medical Records Department [address] [place] [address] Pre-Anesthesia Evaluation 11/16/2438 MR#: [id number] Acct: [id number] Name: JIM FOWLER Rep #:[id number] : 1950 74 From: Nba Dallas MD PCP: Dr. Kevin Vera, DO Status:RE [facility] Race: C Location: [place] [address] ASA Classification* ASA Classification ASA Classification: 3 Assessment & Plan Anesthesia* Anesthesia Assessment Anesthesia Assessment: Discussed sedation and/or anesthesia options, risks, benefits, and alternatives with patient/parents/legal guardian/POA. Questions invited. The patient/parents/legal guardian/POA seems to understand and agrees to proceedwith anesthesia plan. Reviewed the physical assessment, medical history, allergy history and patient home medications list prior to surgery/procedure/anesthetic and documented any changes. Performed airway and anesthesia risk assessments. Anesthesia Type Anesthesia Type: MAC History Source History Obtained from:: Patient and Chart Anesthesia Focused Assessment* Temperature: 98.1 F Pulse Rate: 72 Blood Pressure: 130/86 Respiratory Rate: 16 Pulse Ox: 100 Oxygen Delivery Method: Room Air Airway Assessment Mouth opens: >3 cm Mallampati Score: II Teeth Condition: Intact Labs Anesthesia Preop lab: CBC WBC 6.5 K/mm3 (4.4-11.0) 08/26/23 15:48 08/26/23 RBC 5.21 M/mm3 (4.6-6.2) 08/26/23 15:48 08/26/23 Hgb 16.8 g/dL (13.0-16.5) H 08/26/23 15:48 4 Hct 48.1 % (40-54) 08/26/23 15:48 08/26/23 Plt Count 191 K/mm3 (150-450) 08/26/23 15:48 08/26/23 CHEMISTRY Potassium 4.1 mmol/L (3.5-5.1) 02/09/24 11:18 02/09/24 Sodium 139 mmol/L (136-145) 02/09/24 11:18 02/09/24 BUN 19 mg/dL (7-18) H 02/09/24 11:18 02/09/24 Creatinine 1.04 mg/dL (0.70-1.30) 02/09/24 11:18 02/09/24 Glucose 90 mg/dL (74-106) 02/09/24 11:18 02/09/24 TSH 1.14 uIU/mL (0.358-3.74) 09/13/21 13:45 COAG Pre-Assessment Diagnosis/Proposed Procedure Planned Operative Procedure(s): EGD with biopsies Anesthesia History Anesthesia History - lathe sander: Anesthesia History - lathe sander Hx Hospitalization No 11/12/24 13:37 Any Problems With Anesthesia No 11/12/24 13:37 Cholinesterase deficiency No 11/12/24 13:37 You/Your Family Experience No 11/12/24 13:37 fever (hyperthermia) with Relationship Recent Exposure to Contagious No 11/16/24 07:14 Disease Does patient have nerve No 11/12/24 13:37 stimulator Patient instructed to have device shut off --Does patient have Pacemaker No 11/16/24 07:14 or ICD? When Was Last Pacemaker Check QUESTION #4 FULL TEXT: You/Your Family Experience fever (hyperthermia) with Anesthesia Any additional information?: No Last Oral Intake Last Oral intake: Last Oral Intake NPO since 04:45 11/16/24 07:14 Meds taken in AM with sips of Yes 11/16/24 07:14 water? Meds patient instructed to take am of surgery Any additional information?: No PONV PONV - lathe sander: PONV - lathe sander Female No 11/12/24 13:37 HX of Motion Sickness No 11/12/24 13:37 HX of N/V After Surgery No 11/12/24 13:37 Non-Smoker Yes 11/12/24 13:37 Duration of Surgery greater No 11/12/24 13:37 than 60 minutes Number of Risk Factors 1 11/12/24 13:37 PONV Score Low Risk 11/12/24 13:37 Height & Weight Height & Weight: Anesthesia: Height & Weight Height 5 ft 9 in 11/16/24 07:14 Weight: 94 kg 11/16/24 07:14 Body Mass Index (BMI) 30.6 11/16/24 07:14 Respiratory Assessment Respiratory Assessment - lathe sander: Respiratory Tract Infection Hx - lathe sander Hx Respiratory Tract Infection No 11/12/24 13:37 STOP Sleep Apnea STOP Sleep Apnea - lathe sander: STOP Sleep Apnea - lathe sander Hx Hypertension Yes: on med 11/12/24 13:37 Hx Sleep Apnea No 11/12/24 13:37 CPAP No 06/22/19 06:45 BIPAP No 06/17/19 15:19 Do you snore loudly (louder No 11/12/24 13:37 than talking or can be heard Do you often feel tired/ No 11/12/24 13:37 fatigued/ sleepy during daytime? Has anyone observed you stop No 11/12/24 13:37 breathing during sleep? STOP Results Negative 11/12/24 13:37 QUESTION #5 FULL TEXT : Do you snore loudly (louder than talking or can be heard through closeddoors)? Tobacco Use History Tobacco Use History - lathe sander: Tobacco Use History - lathe sander Tobacco Use Smoking Status Former smoker 11/12/24 13:37 Hx Tobacco Use No 11/12/24 13:37 Years Smoking Packs Smoked per Day Smoking Cessation Date was No - quit smoking greater 11/12/24 13:37 within the last 15 years than 15 years ago Hx Smoking Cessation Date Hx Smoking Cessation No 11/12/24 13:37 Counseling Hematologic Medial History Hematologic Hx - lathe sander: Hematologic Medical Hx - documentation specialist Hx of Blood Transfusion No 11/12/24 13:37 Hx of Transfusion in last 3 No 11/12/24 13:37 Months Date of Last Transfusion (if within last 3 months) Ever experience any problems No 11/12/24 13:37 with transfusion(s)? Specify any problems Hx of Preganancy in last 3 N/A 11/12/24 13:37 Months Nurse Filling Out Transfusion JZOLLINGE 11/12/24 13:37 & Questions: Date: 11/12/24 11/12/24 13:37 Time: 13:39 11/12/24 13:37 Patient unable to answer at this time (ie. confused, unrespo /Reproduction History /Reproductive History - lathe sander: /Reproductive Hx- lathe sander Hx Now No 11/12/24 13:37 Gestational Age (in weeks): EDC: Hx Hx Para Hx Section SAB No 11/12/24 13:37 Active Medications Active Medications: Current Medications Generic Name Dose Route Start Last Admin Trade Name Freq PRN Reason Stop Dose Admin Lactated Ringer's 1,000 mls @ 15 mls/hr 11/16/24 07:00 11/16/24 07:13 IV 15 mls/hr .Q48H MANAS Administration PFSH Medical History (Updated 11/12/24 @ 13:36 by Tania Terry) Wears glasses Alcohol use Back pain Gastric reflux Heartburn Former smoker Epididymitis Psoriasis Lyme disease History of malignant neoplasm of skin Vision problems Hyperlipidemia Hearing problem Acid reflux Skin cancer Fracture Back problem Arthritis Home Medications ?Medication ?Instructions ?Recorded ?Last Taken ?Type clobetasol 0.05 % topical ointment 1 applic topical BI D PRN psoriasis 08/20/17 Unknown History metronidazole 0.75 % topical cream 1 applic topical BI D PRN skin 08/20/17 Unknown History irritation omeprazole 20 mg capsule,delayed 20 mg PO QDAY 8 11/16/24 History release amlodipine 5 mg tablet 5 mg PO DAILY 09/13/2111/16 History cholecalciferol (vitamin D3) 50 50 mcg PO DAILY Unknown History mcg (2,000 unit) capsule rosuvastatin 10 mg tablet 10 mg PO DAILY 09/13/21 Unkn own History guselkumab 100 mg/mL subcutaneous 100 mg subcut Q8W Unknown History auto-injector (Tremfya) Allergy/AdvReac Type Severity Reaction Status Date / Time amoxicillin Allergy Severe Rash Verified 11/16/24 07:12 clams AdvReac Severe Vomiting Verified 11/16/24 07:12 Family History Mother Arthritis Father Arthritis Brother Colon cancer Diabetes Sister Diabetes Surgical History (Updated 11/12/24 @ 13:36 by Tania Teryr) Status post bilateral inguinal hernia repair History of hand surgery Social History Smoking Status: Former smoker quit date: 05/19/69 alcohol intake: current alcohol intake frequency: 0-2 drinks per day Alcohol type: beer substance use type: does not use what type of physical activity do you participate in: none Review of Systems (Anesthesia) ROS Narrative System reviewed and no additional complaints, except as documented. Physical Exam Const alert and oriented x3 Neck full ROM Resp normal respiratory effort and normal air movement Cardio regular rate and regular rhythm Back/Spine normal ROM Extremity full ROM Extremity Narrative: multiple bruises on arm and hands Skin General Skin Exam: ecchymosis Neuro oriented x3 and moves all extremities 11/16/24 0753 D> Date _ Nba Irvin Signature: Date CC: ~ Signed [facility]06-10-2025 Progress [facility] [address] [facility] [facility] [place] [address] OFFICE VISIT Date of Service: 10/26/24 MR#: [id number] Acct: [id number] Name: JIM FOWLER Rep #: [id number] : 1950 Provider: Dr. Heriberto Harding MD Age/Sex: 74/M Location: [facility] Status: Signed Intake Vital Signs 09/28/24 08:49 10/26/24 09:29 Height 5 ft 10 in 5 ft 9 in Weight: 210 lb 210 lb BMI 30.1 31.0 BP 199/96 H Blood Pressure Location Rt brachial Position Sitting Respiration 18 Intake Visit Reasons: Dysphagia Chief Complaint: GI issues/due for c-scope Level Vial Inside Grinder Required: No Is patient in pain?: No [...] bloating. Patient reports that he does not haveany dysphagia. He says he easily swallows with [...] lack of coordination, No loss ofvision, No memoryloss, No numbness, No other visual disturbances, No radicular pain, No restless legs, No sensory deficit, No syncope, No tingling, No tremor(s), No weakness and No other Exam Const General: cooperative Orientation: alert and oriented x3 [facility] Head: normal to inspection Neck Neck: normal [...] proceed with procedure. Haris Harding MD Pager: [facility] [address] [place] [address] [address] [place] [address] Office: Coding Level of Care Code Off vis,new,level 3 Diagnoses Generalized abdominal pain R10.84 Abdominal location: generalized Clinical Quality Measures Falls Risk Screening/Assistive Devices Have you fallen in the past year?: No 10/26/24 1000 renee PÉREZ> Date _ Haris Harding MD Cosigner Signature: Date (if applicable) CC: ~ [facility]06-10-2025 Progress note Author Haris Harding [facility] Note Date/Time October 26, 2024 10:0 0am [facility] [address] [place], [place] [id number] OFFICE VISIT Date of Service: 10/26/24 MR#: [id number] Acct: [id number] Name: JIM FOWLER Rep #: [id number] : 1950 Provider: Dr. Heriberto Harding MD Age/Sex: 74/M Location: [facility] Status: Signed Intake Vital Signs 09/28/24 08:49 10/26/24 09:29 Height 5 ft 10 in 5 ft 9 in Weight: 210 lb 210 lb BMI 30.1 31.0 BP 199/96 H Blood Pressure Location Rt brachial Position Sitting Respiration 18 Intake Visit Reasons: Dysphagia Chief Complaint: GI issues/due for c-scope Level Vial Inside Grinder Required: No Is patient in pain?: No [...] proceed with procedure. Haris Harding MD Pager: [facility] [address] [place] [address], [address] [place] [address] Office: Coding Level of Care Code Off vis,new,level 3 Diagnoses Generalized abdominal pain R10.84 Abdominal location: generalized Clinical Quality Measures Falls Risk Screening/Assistive Devices Have you fallen in the past year?: No 10/26/24 1000 <Electronically signed by Haris duran MD> Date _ Haris Harding MD Cosigner Signature: Date (if applicable) CC: ~ [facility] Work Phone: 1(345) 541-998105-13-2025 Evaluation note* Diagnosis Onset Date Resolution Status Admit Date Compression fracture of T8 vertebra acute September 28, 2024 8 :38am Thoracic back pain acute September 282024 8:38am Abdominal pain acute October 26, 2024 9:07am [facility] Work Phone: 1(378) 226-187105-13-2025 Evaluation note* Diagnosis Onset Date Resolution Status Admit Date Compression fracture of T8 vertebra acute September 28, 2024 8 :38am Thoracic back pain acute September 282024 8:38am Abdominal pain acute October 26, 2024 9:07am RUQ pain acute December 07 2:44pm [facility] Work Phone: Consult note Author Nbaelena Dallas [facility] Note Date/Time November 16, 2024 7:53a [facility] Medical Records Department [address] [place] [address] Pre-Anesthesia Evaluation 11/16/24 0738 MR#: [id number] Acct: [id number] Name: JIM FOWLER Rep #:[id number] : 1950 74 From: Nba Dallas MD PCP: Dr. Kevin Vera, DO Status:[facility] Race: C Location: [place] [address] ASA Classification* ASA Classification ASA Classification: 3 Assessment & Plan Anesthesia* Anesthesia Assessment Anesthesia Assessment: Discussed sedation and/or anesthesia options, risks, benefits, and alternatives with patient/parents/legal guardian/POA. Questions invited. The patient/parents/legal guardian/POA seems to understand and agrees to proceedwith anesthesia plan. Reviewed the physical assessment, medical history, allergy history and patient home medications list prior to surgery/procedure/anesthetic and documented any changes. Performed airway and anesthesia risk assessments. Anesthesia Type Anesthesia Type: MAC History Source History Obtained from:: Patient and Chart Anesthesia Focused Assessment* Temperature: 98.1 F Pulse Rate: 72 Blood Pressure: 130/86 Respiratory Rate: 16 Pulse Ox: 100 Oxygen Delivery Method: Room Air Airway Assessment Mouth opens: >3 cm Mallampati Score: II Teeth Condition: Intact Labs Anesthesia Preop lab: CBC WBC 6.5 K/mm3 (4.4-11.0) 08/26/23 15:48 08/26/23 RBC 5.21 M/mm3 (4.6-6.2) 08/26/23 15:48 08/26/23 Hgb 16.8 g/dL (13.0-16.5) H 08/26/23 15:48 4 Hct 48.1 % (40-54) 08/26/23 15:48 08/26/23 Plt Count 191 K/mm3 (150-450) 08/26/23 15:48 08/26/23 CHEMISTRY Potassium 4.1 mmol/L (3.5-5.1) 02/09/24 11:18 02/09/24 Sodium 139 mmol/L (136-145) 02/09/24 11:18 02/09/24 BUN 19 mg/dL (7-18) H 02/09/24 11:18 02/09/24 Creatinine 1.04 mg/dL (0.70-1.30) 02/09/24 11:18 02/09/24 Glucose 90 mg/dL (74-106) 02/09/24 11:18 02/09/24 TSH 1.14 uIU/mL (0.358-3.74) 09/13/21 13:45 COAG Pre-Assessment Diagnosis/Proposed Procedure Planned Operative Procedure(s): EGD with biopsies Anesthesia History Anesthesia History - lathe sander: Anesthesia History - lathe sander Hx Hospitalization No 11/12/24 13:37 Any Problems With Anesthesia No 11/12/24 13:37 Cholinesterase deficiency No 11/12/24 13:37 You/Your Family Experience No 11/12/24 13:37 fever (hyperthermia) with Relationship Recent Exposure to Contagious No 11/16/24 07:14 Disease Does patient have nerve No 11/12/24 13:37 stimulator Patient instructed to have device shut off --Does patient have Pacemaker No 11/16/24 07:14 or ICD? When Was Last Pacemaker Check QUESTION #4 FULL TEXT: You/Your Family Experience fever (hyperthermia) with Anesthesia Any additional information?: No Last Oral Intake Last Oral intake: Last Oral Intake NPO since 04:45 11/16/24 07:14 Meds taken in AM with sips of Yes 11/16/24 07:14 water? Meds patient instructed to take am of surgery Any additional information?: No PONV PONV - lathe sander: PONV - lathe sander Female No 11/12/24 13:37 HX of Motion Sickness No 11/12/24 13:37 HX of N/V After Surgery No 11/12/24 13:37 Non-Smoker Yes 11/12/24 13:37 Duration of Surgery greater No 11/12/24 13:37 than 60 minutes Number of Risk Factors 1 11/12/24 13:37 PONV Score Low Risk 11/12/24 13:37 Height & Weight Height & Weight: Anesthesia: Height & Weight Height 5 ft 9 in 11/16/24 07:14 Weight: 94 kg 11/16/24 07:14 Body Mass Index (BMI) 30.6 11/16/24 07:14 Respiratory Assessment Respiratory Assessment - lathe sander: Respiratory Tract Infection Hx - lathe sander Hx Respiratory Tract Infection No 11/12/24 13:37 STOP Sleep Apnea STOP Sleep Apnea - lathe sander: STOP Sleep Apnea - lathe sander Hx Hypertension Yes: on med 11/12/24 13:37 Hx Sleep Apnea No 11/12/24 13:37 CPAP No 06/22/19 06:45 BIPAP No 06/17/19 15:19 Do you snore loudly (louder No 11/12/24 13:37 than talking or can be heard Do you often feel tired/ No 11/12/24 13:37 fatigued/ sleepy during daytime? Has anyone observed you stop No 11/12/24 13:37 breathing during sleep? STOP Results Negative 11/12/24 13:37 QUESTION #5 FULL TEXT : Do you snore loudly (louder than talking or can be heard through closed doors)? Tobacco Use History Tobacco Use History - lathe sander: Tobacco Use History - lathe sander Tobacco Use Smoking Status Former smoker 11/12/24 13:37 Hx Tobacco Use No 11/12/24 13:37 Years Smoking Packs Smoked per Day Smoking Cessation Date was No - quit smoking greater 11/12/24 13:37 within the last 15 years than 15 years ago Hx Smoking Cessation Date Hx Smoking Cessation No 11/12/24 13:37 Counseling Hematologic Medial History Hematologic Hx - lathe sander: Hematologic Medical Hx - documentation specialist Hx of Blood Transfusion No 11/12/24 13:37 Hx of Transfusion in last 3 No 11/12/24 13:37 Months Date of Last Transfusion (if within last 3 months) Ever experience any problems No 11/12/24 13:37 with transfusion(s)? Specify any problems Hx of Preganancy in last 3 N/A 11/12/24 13:37 Months Nurse Filling Out Transfusion JZOLLINGE 11/12/24 13:37 & Questions: Date: 11/12/24 11/12/24 13:37 Time: 13:39 11/12/24 13:37 Patient unable to answer at this time (ie. confused, unrespo /Reproduction History /Reproductive History - lathe sander: /Reproductive Hx- lathe sander Hx Now No 11/12/24 13:37 Gestational Age (in weeks): EDC: Hx Hx Para Hx Section SAB No 11/12/24 13:37 Active Medications Active Medications: Current Medications Generic Name Dose Route Start Last Admin Trade Name Freq PRN Reason Stop Dose Admin Lactated Ringer's 1,000 mls @ 15 mls/hr 11/16/24 07:00 11/16/24 07:13 IV 15 mls/hr .Q48H MANAS Administration PFSH Medical History (Updated 11/12/24 @ 13:36 by Tania Terry) Wears glasses Alcohol use Back pain Gastric reflux Heartburn Former smoker Epididymitis Psoriasis Lyme disease History of malignant neoplasm of skin Vision problems Hyperlipidemia Hearing problem Acid reflux Skin cancer Fracture Back problem Arthritis Home Medications ?Medication ?Instructions ?Recorded ?Last Taken ?Type clobetasol 0.05 % topical ointment 1 applic topical BI D PRN psoriasis 08/20/17 Unknown History metronidazole 0.75 % topical cream 1 applic topical BI D PRN skin 08/20/17 Unknown History irritation omeprazole 20 mg capsule,delayed 20 mg PO QDAY 8 11/16/24 History release amlodipine 5 mg tablet 5 mg PO DAILY 09/13/2111/16 History cholecalciferol (vitamin D3) 50 50 mcg PO DAILY Unknown History mcg (2,000 unit) capsule rosuvastatin 10 mg tablet 10 mg PO DAILY 09/13/21 Unkn own History guselkumab 100 mg/mL subcutaneous 100 mg subcut Q8W Unknown History auto-injector (Tremfya) Allergy/AdvReac Type Severity Reaction Status Date / Time amoxicillin Allergy Severe Rash Verified 11/16/24 07:12 clams AdvReac Severe Vomiting Verified 11/16/24 07:12 Family History Mother Arthritis Father Arthritis Brother Colon cancer Diabetes Sister Diabetes Surgical History (Updated 11/12/24 @ 13:36 by Tania Terry) Status post bilateral inguinal hernia repair History of hand surgery Social History Smoking Status: Former smoker quit date: 05/19/69 alcohol intake: current alcohol intake frequency: 0-2 drinks per day Alcohol type: beer substance use type: does not use what type of physical activity do you participate in: none Review of Systems (Anesthesia) ROS Narrative System reviewed and no additional complaints, except as documented. Physical Exam Const alert and oriented x3 Neck full ROM Resp normal respiratory effort and normal air movement Cardio regular rate and regular rhythm Back/Spine normal ROM Extremity full ROM Extremity Narrative: multiple bruises on arm and hands Skin General Skin Exam: ecchymosis Neuro oriented x3 and moves all extremities 11/16/24 2183 <Electronically signed by Nba Cueva D> Date _ Nba Dallas MD Cosigner Signature: Date CC: ~ Signed [facility] Work Phone: Consult note Author Zachary Garcia [facility] Note Date/Time November 16, 2024 8:29a [facility] Medical Records Department [facility] [place] [address] Anesthesia Postop Eval I 11/16/2428 MR#: [id number] Acct: [id number] Name: JIM FOWLER Rep #:[id number] 4 : 1950 74 From: Zachary Garcia PCP: Dr. Kevin Vera, DO Status[place]LILA Mcallister [facility] Race: C Location: [place] [address] Anesthesia: Postop Eval I Current Vital Signs Temperature: 97.8 F Pulse Rate: 67 Blood Pressure: 107/74 Respiratory Rate: 16 Pulse Ox: 92 Oxygen Delivery Method: Room Air Assessment Airway patent: Yes Spontaneous unlabored respirations: Yes Mental status: Asleep nausea: No Vomiting: No Anesthesia Complication: No Fluid Hydration Crystalloid volume administer (ml): 300 Total IV fluid infused: 300 Progress Note Anesthesia document: Postop Eval 1 completed: Yes 11/16/24828 <Electronically signed by Zachary Garcia > Date _ Zachary Irvin Signature: Date CC: ~ Signed [facility] Work Phone: Consult note Author Nba Dallas [facility] Note Date/Time November 16, 2024 9:26a [facility] Medical Records Department [address] [place] [id number] Anesthesia Postop Eval II 11/16/24 0843 MR#: [id number] Acct: [id number] Name: JIM FOWLER Rep #:[id number] 3 : 1950 74 From: Nba Dallas MD PCP: Dr. Kevin Vera, DO Status:LILA FERREIRA Y Race: C Location: [place] [address] Anesthesia Postop Eval I Sum Postop Eval Completion status Anesthesia document: Postop Eval 1 completed: Yes Anesthesia Postop Eval I Summary Anesthesia Postop Eval I Summary: Anesthesia Postop Eval I: Assessment Summary Airway patent Yes 11/16/24 08:28 [email or web address] Spontaneous unlabored Yes 11/16/24 08:28 [email or web address] respirations Mental status Asleep 11/16/24 08:28 [email or web address] nausea No 11/16/24 08:28 [email or web address] Vomiting No 11/16/24 08:28 [email or web address] Anesthesia Postop Eval I: Fluid Summary Crystalloid volume administer 300 11/16/24 08:28 [email or web address] (ml) Colloids volume administered ( ml) Blood Product volume administered (ml) Total IV fluid infused 300 11/16/24 08:28 [email or web address] Anesthesia Postop Eval I: Summary Notes Anesthesia Complication No 11/16/24 08:28 [email or web address] Anesthesia Complication Comment: Post-operative progress note Anesthesia: Postop Eval II Evaluation Mental status: Awake and Calm Pain Level: 3 nausea: No Vomiting: No Complications Anesthesia Complication: No 11/16/24 0843 <Electronically signed by Nba Cueva D> Date _ Nba Dallas MD Cosigner Signature: Date CC: ~ Signed [facility] Work Phone: Evaluation noteNo assessment information available [facility] Work Phone: Evaluation note* Diagnosis Onset Date Resolution Status Fatigue acute [facility] Work Phone: Evaluation note* Diagnosis Onset Date Resolution Status Fatigue acute Abdominal pain acute Medication adverse effect ac dorene [facility] Work Phone: History and physical note Author Haris Harding [facility] Note Date/Time November 16, 2024 8:01a m [facility] Medical Records Department [address] [place] [address] History & Physical Exam 11/16/24 08 MR#: [id number] Acct: [id number] Name: JIM FOWLER Rep #:[id number] 4 : 1950 74 From: Haris richardson MD PCP: Dr. Kevin Vera, DO [place] [facility] [place] [address] History and Physical Date of Admission: 11/16/24 Intake Vital Signs 09/29/2507:49 10/26/2508:29 Height 5 ft 10 in 5 ft 9 in Weight: 210 lb 210 lb BMI 30.1 31.0 BP 199/96 H Blood Pressure Location Rt brachial Position Sitting Respiration 18 Intake Visit Reasons: Dysphagia Chief Complaint: GI issues/due for c-scope Level Vial Inside Grinder Required: No Is patient in pain?: No Allergies amoxicillin Allergy (Severe, Verified 10/26/24 09:30) Rash Medications ?Medication ?Instructions ?Recorded ?Confirmed ?Type clobetasol 0.05 % topical ointment 1 applic topical BID 08/20/17 09/28/24 History metronidazole 0.75 % topical cream 1 applic topical BID 08/20/17 09/28/24 History omeprazole 20 mg capsule,delayed 20 mg PO QDAY 08/20/17 09/28/24 History release amlodipine 5 mg tablet 5 mg PO DAILY 09/13/21 09/28/24 History cholecalciferol (vitamin D3) 50 50 mcg PO DAILY 09/13/21 09/28/24 Histor y mcg (2,000 unit) capsule rosuvastatin 10 mg tablet 10 mg PO DAILY 09/13/21 09/28/24 History methocarbamol 500 mg tablet 500 mg PO TID PRN pain/spasms #60 09/28/24 Rx tabs guselkumab 100 mg/mL subcutaneous 100 mg subcut Q8W 10/26/24 10/26/24 Hist ory auto-injector (Tremfya) Have you fallen in the past year?: No PFSH Medical History Epididymitis Psoriasis Lyme disease History of malignant neoplasm of skin Vision problems Hyperlipidemia Hearing problem Acid reflux Skin cancer Fracture Back problem Arthritis Surgical History Status post bilateral inguinal hernia repair History of hand surgery Family History Mother ArthritisFather ArthritisBrother Colon cancer DiabetesSister Diabetes Social History Smoking Status: Current every [...] proceed with procedure. Haris Harding MD Pager: [facility] [address] [place] [address], [address] [place] [address] Office: I have examined the patient and the H&P has been reviewed. There are no clinicalchanges since date of exam. 11/16/24 0801 <Electronically signed by Haris Harding MD> Cosigner Signature (if applicable): CC: Dr. Haris Harding MD; Dr. Kevin Vera, DO~ Signed [facility] Work Phone: Reason for referral (narrative)No reason for [facility] Work Phone: Summary Purpose Family History [...] Will No June 17 4:19pm Power of Entry Level Electrical Engineer No June 17, 2019 4:19pm Advance Directive Response Recorded Date/ Time Advance Directives No November 24 10:24am Advance Directive Response Recorded Date/ Time Do you have a [facility] Power of Entry Level Electrical Engineer? No November 12, 2024 1:37pm Advance Directives No November 24 10:24am Chief Complaint and Reason for Visit [...] Abdominal pain October 26, 2024 9:07 am Chief Complaint Admit Date CERVICAL SPINE September 28, 2024 8:38a m Room 3 September 28, 2024 9:02a m SKIN October 25, 2024 11:08 am Dysphagia October 26, 2024 9:07 am RUQ PAIN November 25, 2024 7:40 am Chief Complaint Admit Date CERVICAL SPINE September 28, 2024 8:38a m Room 3 September 28, 2024 9:02a m SKIN October 25, 2024 11:08 am Dysphagia October 26, 2024 9:07 am RUQ PAIN November 25, 2024 7:40 am GALLBLADDER U/S RESULTS December 07, 2024 2:44pm Reason for Visit Admit Date Compression fracture of T8 vertebra September 28, 2024 8:38am Thoracic back pain September 28, 2024 8:38a m Abdominal pain October 26, 2024 9:07 am RUQ pain December 07, 2024 2:44 pm Additional Source Comments (unrecognized sect ion and content) No Status Records FoundNo Status Records FoundNo Status Records FoundNo Status Records Found INFORMATION SOURCE (unrecogn ized section and content) DATE CREATED AUTHOR 11/12/2017 [facility] DATE CREATED AUTHOR AUTHOR'S ORGANIZ ATION 02/03/2024 [facility] DATE CREATED AUTHOR AUTHOR'S ORGANIZ ATION 02/05/2024 [facility] DATE CREATED AUTHOR AUTHOR'S ORGANIZ ATION 12/11/2024 [facility] Goals (unrecognized section and content) Goals may [...] End: October 26, 2024 Dr. Kevin Vera , Referring Provider Active Start: October 26, 2024 End: October 26, 2024 Dr. Haris Harding MD Attending Provider Active Start: October 26, 2024 End: October 26, 2024 Team Status: Active Member Role Status Dates Dr. Kevin Vera DO Family Provider Active Dr. Kevin Vera DO Primary Care Provider Active Team Status: Inactive Member Role Status Dates Dr. Kevin Vera , DO Primary Care Pr ovider, Attending Provider, Referring Provider Active Team Status: Inactive Member Role Status Dates Dr. Kevin Vera , DO Primary Care Provider, Attend ing Provider Active Team Status: Inactive Member Role Status Dates Dr. Kevin Vera DO Primary Care Provider, Referr ing Provider Active CONCHITA Dill Attending Provider Active Team Status: Inactive Member Role Status Dates Dr. Kevin Vera DO Primary Care Provider Active CONCHITA Dill Attending Provider Active Team Status: Active Member [...] October 25, 2024 End: October 25, 2024 Team Status: Active Member Role/Relationship Status Dates Dr. Kevin Vera DO Primary Care Provider Active Team Status: Inactive Member Role/Relationship Status Dates Dr. Kevin Vera DO Primary Care Provider Active Start: September 28, 2024 End: September 28, 2024 Dr. Kevin Vera DO Referring Provider Active Start: September 28, 2024 End: September 28, 2024 NAHUN Ferrer Attending Provider Active Star t: September 28, 2024 End: September 28, 2024 Team Status: Inactive Member Role/Relationship Status Dates Dr. Kevin Vera DO Primary Care Provider Active Start: September 28, 2024 End: September 28, 2024 Dr. Lamberto Uribe MD Attending Provider Active S tart: September 28, 2024 End: September 28, 2024 Team Status: Inactive Member Role/Relationship Status Dates Dr. Kevin Vera DO Primary Care Provider Active Start: October 25, 2024 End: October 25, 2024 NAHUN Esquivel Attending Provider Active Sta rt: October 25, 2024 End: October 25, 2024 NAHUN Esquivel Referring Provider Active Sta rt: October 25, 2024 End: October 25, 2024 Team Status: Inactive Member Role/Relationship Status Dates Dr. Kevin Vera DO Primary Care Provider Active Start: October 26, 2024 End: October 26, 2024 Dr. Kevin Vera DO Referring Provider Active Start: October 26, 2024 End: October 26, 2024 Dr. Haris Harding MD Attending Provider Active Start: October 26, 2024 End: October 26, 2024 Team Status: Inactive Member Role/Relationship Status Dates Dr. Kevin Vera DO Primary Care Provider Active Start: November 16, 2024 End: November 16, 2024 Dr. Kevin Vera DO Referring Provider Active Start: November 16, 2024 End: November 16, 2024 Dr. Haris Harding MD Attending Provider Active Start: November 16, 2024 End: November 16, 2024 Team Status: Active Member Role/Relationship Status Dates Dr. Kevin Vera DO Primary Care Provider Active Start: November 16, 2024 Dr. Kevin Vera DO Referring Provider Active Start: November 16, 2024 Dr. Haris Harding MD Attending Provider Active Start: November 16, 2024 Dr. Haris Harding MD Other Provider Active Start: November 16, 2024 Team Status: Inactive Member Role/Relationship Status Dates Dr. Kevin Vera DO Primary Care Provider Active Start: November 25, 2024 End: November 25, 2024 Dr. Haris Harding MD Attending Provider Active Start: November 25, 2024 End: November 25, 2024 Dr. Haris Harding MD Referring Provider Active Start: November 25, 2024 End: November 25, 2024 Team Status: Inactive Member Role/Relationship Status Dates Dr. Kevin Vera , Primary Care Provider Active Start: December 07, 2024 End: December 07, 2024 Dr. Kevin Vera , Referring Provider Active Start: December 07, 2024 End: December 07, 2024 Dr. Haris Harding MD Attending Provider Active Start: December 07, 2024 End: December 07, 2024 FOR RECORDS PERTAINING TO PATIENTS WHO [...] BE BASED ON THE PRIMARY CLINICAL RECORDS. [facility] [employer] provides no warranty or guarantee of the accuracy or completeness of information in this document.
--- NOTE | 2024-12-13 07:02 | EKG12_ITS ---
Test Reason : PRE OP Blood Pressure : */* mmHG Vent. Rate : 57 BPM Atrial Rate : 57 BPM P-R Int : 148 ms QRS Dur : 84 ms QT Int : 414 ms P-R-T Axes : 50 -2 12 degrees QTcB Int : 402 ms Sinus bradycardia Inferior infarct , age undetermined Abnormal ECG When compared with ECG of 13-Jul-2020 15:20, No significant change was found Confirmed by LEAH PÉREZ, DARRION ([id number]), medical editor MAYA URBAN ([id number]) on 12/14/2024 1:07:10 PM Referred By: Haris Harding Confirmed By: DARRION LYNN MD
--- NOTE | 2024-12-13 07:18 | PCM.PRE.AN2 ---
ASA Classification* ASA Classification ASA Classification: 2 Assessment & Plan Anesthesia* Anesthesia Assessment Anesthesia Assessment: Discussed sedation and/or anesthesia options, risks, benefits, and alternatives with patient/parents/legal guardian/POA. Questions invited. The patient/parents/legal guardian/POA seems to understand and agrees to proceed with anesthesia plan. Reviewed the physical assessment, medical history, allergy history and patient home medications list prior to surgery/procedure/anesthetic and documented any changes. Performed airway and anesthesia risk assessments. Anesthesia Type Anesthesia Type: General Anesthesia Focused Assessment* Airway Assessment Mouth opens: >3 cm Mallampati Score: II Labs Anesthesia Preop lab: CBC WBC 6.5 K/mm3 (4.4-11.0) 08/26/23 15:48 08/26/23 RBC 5.21 M/mm3 (4.6-6.2) 08/26/23 15:48 08/26/23 Hgb 16.8 g/dL (13.0-16.5) H 08/26/23 15:48 08/26/23 Hct 48.1 % (40-54) 08/26/23 15:48 08/26/23 Plt Count 191 K/mm3 (150-450) 08/26/23 15:48 08/26/23 CHEMISTRY Potassium 4.1 mmol/L (3.5-5.1) 02/09/24 11:18 02/09/24 Sodium 139 mmol/L (136-145) 02/09/24 11:18 02/09/24 BUN 19 mg/dL (7-18) H 02/09/24 11:18 02/09/24 Creatinine 1.04 mg/dL (0.70-1.30) 02/09/24 11:18 02/09/24 Glucose 90 mg/dL (74-106) 02/09/24 11:18 02/09/24 TSH 1.14 uIU/mL (0.358-3.74) 09/13/21 13:45 09/13/21 COAG Pre-Assessment Diagnosis/Proposed Procedure Planned Operative Procedure(s): Laparoscopic cholecystectomy and umbilical hernia repair Anesthesia History 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 When Was Last Pacemaker Check QUESTION #4 FULL TEXT: You/Your Family Experience fever (hyperthermia) with Anesthesia Last Oral Intake Last Oral intake: Last Oral Intake NPO since Meds taken in AM with sips of water? 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 Has anyone observed you stop breathing during sleep? STOP Results QUESTION #5 FULL TEXT : Do you snore loudly (louder than talking or can be heard through closed doors)? 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 Specify any problems Hx of Preganancy in last 3 Months Nurse Filling Out Transfusion & Questions: Date: Time: Patient unable to answer at this time (ie. 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 Hx Now Gestational Age (in weeks): EDC: Hx Hx Para Hx Section SAB No 11/12/24 13:37 Active Medications Active Medications: Current Medications Generic Name Dose Route Start Last Admin Trade Name Freq PRN Reason Stop Dose Admin Lactated Ringer's 1,000 mls @ 15 mls/hr 12/13/24 07:00 IV .Q48H MANAS Clindamycin Phosphate 900 mg in 50 mls @ 75 mls/hr 12/13/24 07:15 Cleocin IV 12/13/24 07:54 INTRAOP ONE PFSH Medical History RUQ pain Wears glasses Alcohol use Back pain Gastric reflux Heartburn Former smoker Epididymitis Psoriasis Lyme disease History of malignant neoplasm of skin Vision problems Hyperlipidemia Hearing problem Acid reflux Skin cancer Fracture Back problem Arthritis Home Medications ?Medication ?Instructions ?Recorded ?Last Taken ?Type clobetasol 0.05 % topical ointment 1 applic topical BID PRN psoriasis 08/20/17 Unknown History metronidazole 0.75 % topical cream 1 applic topical BID PRN skin 08/20/17 Unknown History irritation omeprazole 20 mg capsule,delayed 20 mg PO QDAY 08/20/17 11/16/24 History release amlodipine 5 mg tablet 5 mg PO DAILY 09/13/21 11/16/24 History cholecalciferol (vitamin D3) 50 50 mcg PO DAILY 09/13/21 Unknown History mcg (2,000 unit) capsule rosuvastatin 10 mg tablet 10 mg PO DAILY 09/13/21 Unknown History guselkumab 100 mg/mL subcutaneous 100 mg subcut Q8W 10/26/24 Unknown History auto-injector (Tremfya) Allergy/AdvReac Type Severity Reaction Status Date / Time amoxicillin Allergy Severe Rash Verified 12/13/24 07:17 clams AdvReac Severe Vomiting Verified 12/13/24 07:17 Family History Mother Arthritis Father Arthritis Brother Colon cancer Diabetes Sister Diabetes Surgical History Status post bilateral inguinal hernia repair History of hand surgery Social History Smoking Status: Former smoker quit date: 05/19/69 alcohol intake: current alcohol intake frequency: 0-2 drinks per day Alcohol type: beer substance use type: does not use what type of physical activity do you participate in: none Review of Systems (Anesthesia) ROS Narrative System reviewed and no additional complaints, except as documented.
--- NOTE | 2024-12-13 07:45 | RAD_ITS ---
PROCEDURE: CHOLANGIOGRAM/ O R,INITIAL 12/13/2024 REASON FOR EXAM: CHOLECYSTECTOMY WITH IOC TECHNIQUE: CHOLANGIOGRAM/ O R,INITIAL COMPARISON: None. FINDINGS: Intraoperative fluoroscopy for a cholangiogram was performed. 10.8 seconds of fluoroscopic time. 7.88 mGy. See procedure report for full details. RAD/Cholangiogram/ O R,Initial IMPRESSION: As above. Reading Location: [id number]
[2024-12-13] MEDS: Lactated Ringers 1,000 ML 15 ML IV ×2 (08:03→10:12)
--- NOTE | 2024-12-13 08:11 | HP.PCM_ITS ---
History and Physical Date of Admission: 12/13/24 Intake Vital Signs 11/16/2506:14 12/07/2513:52 Height 5 ft 9 in 59 ft BP 117/80 Blood Pressure Location Lt brachial Position Sitting Respiration 17 Pulse 84 Pulse Source Monitor Pulse Oximetry (%) 96 Oxygen Delivery Method room air Intake Visit Reasons: GALLBLADDER U/S RESULTS Chief Complaint: gallbladder u/s results Is patient in pain?: No Allergies amoxicillin Allergy (Severe, Verified 12/07/24 14:49) Rashclams Adverse Reaction (Severe, Verified 12/07/24 14:49) Vomiting Medications ?Medication ?Instructions ?Recorded ?Confirmed ?Type clobetasol 0.05 % topical ointment 1 applic topical BID PRN psoriasis 08/2012/07/24 History metronidazole 0.75 % topical cream 1 applic topical BID PRN skin 08/20/17 12/07/24 History irritation omeprazole 20 mg capsule,delayed 20 mg PO QDAY 08/20/17 12/07/24 History release amlodipine 5 mg tablet 5 mg PO DAILY 09/13/21 12/07/24 History cholecalciferol (vitamin D3) 50 50 mcg PO DAILY 09/13/21 12/07/24 Histor y mcg (2,000 unit) capsule rosuvastatin 10 mg tablet 10 mg PO DAILY 09/13/21 12/07/24 History guselkumab 100 mg/mL subcutaneous 100 mg subcut Q8W 10/26/24 12/07/24 Hist ory auto-injector (Tremfya) Have you fallen in the past year?: No PFSH Medical History RUQ pain Wears glasses Alcohol use Back pain Gastric reflux Heartburn Former smoker Epididymitis Psoriasis Lyme disease History of malignant neoplasm of skin Vision problems Hyperlipidemia Hearing problem Acid reflux Skin cancer Fracture Back problem Arthritis Surgical History (Updated 11/12/24 @ 13:36 by Tanai Terry) Status post bilateral inguinal hernia repair History of hand surgery Family History Mother ArthritisFather ArthritisBrother Colon cancer DiabetesSister Diabetes Social History Smoking Status: Former smoker quit date: 05/19/69 alcohol intake: current alcohol intake frequency: 0-2 drinks per day Alcohol type: beer substance use type: does not use what type of physical activity do you participate in: none HPI HPI HPI: Patient is a 74-year-old male who is following up after ultrasound of the gallbladder. He is still having right back pain. He says there is no rhyme or reason to it. ROS General General: Yes fatigue; No weight change, appetite, colon cancer, breast cancer or weakness HEENT HEENT: No difficulty swallowing, eye injury, eye surgery, swollen glands or hoarseness Endo Endocrine: No thyroid disease, diabetes mellitus, thyroid cancer, Hair loss, heat intolerance or cold intolerance Skin Skin: No rash or changing moles Musc Musculoskeletal: Yes back problems and arthritis; No rheumatoid arthritis, gout or joint pain Cardio Cardiovascular: No murmur, pacemaker, heart disease, atrial fibrillation, high blood pressure, heart attack, heart stent, palpitations, shortness of breath with exertion or chest pain Psych Psychiatric: No depression, anxiety or hearing voices Resp Respiratory: Yes shortness of breath, No sleep apnea, No cough, No COPD, No asthma, No emphysema and No wheezing Gastro Gastrointestinal: Yes abdominal pain, No nausea or vomiting, No diarrhea, No constipation, No blood in stool, Yes acid reflux, Yes hemorrhoids, No ulcers, No gallbladder problem and No black,tarry stools Will Hematologic: No blood thinners, No blood disorders, No bleeding, No anemia and No blood clots Neuro Neurologic: No system reviewed and no additional complaints, except as documented, No as per HPI, No abnormal gait, No abnormal hearing, No abnormal movements, No abnormal speech, No behavioral changes, No burning sensations, No confusion, No convulsions, No disequilibrium, No dizziness, No localized weakness, No frequent falls, No headache(s), No lack of coordination, No loss of vision, No memory loss, No numbness, No other visual disturbances, No radicular pain, No restless legs, No sensory deficit, No syncope, No tingling, No tremor(s), No weakness and No other Exam Const General: cooperative Orientation: alert and oriented x3 HENMT Head: normal to inspection Neck Neck: normal visual inspection and full ROM Chest Chest palpation & inspection: normal inspection of the chest Resp Effort & Inspection: normal respiratory effort Auscultation: clear to auscultation bilaterally Cardio Rate: regular rate Rhythm: regular rhythm GI Inspection: non-distended Palpation: soft and nontender Skin General: no rashes or lesions noted Neuro General: patient alert and patient oriented x3 Extrem General: full ROM Psych Appearance: grossly normal Mental Status: mental status grossly normal Assessment and Plan Assessment and Plan (1) RUQ pain: Status: Acute Plan: Patient is having right upper quadrant and right back pain. I informed him that he has a stone on ultrasound in his gallbladder. This may be causing his pain but I could not guarantee it. I informed him that even if we took out his gallbladder the pain might persist if it is not being caused but his gallbladder but instead by his back. The patient would like his gallbladder removed. I discussed cholecystectomy with him in detail. I discussed the procedure in detail with the patient. I discussed the risks, benefits, and alternatives of the procedure. I discussed the risks including but not limited to bleeding, infection, injury to surrounding organs such as the liver, bile duct, bowels. I did discuss the possibility of having to convert to an open procedure as well as the possibility that if any injuries occurred this may necessitate further surgery at a tertiary care center. The patient would also like his umbilical hernia repaired at the time of surgery. I will use it as a port site and repaired on the way out. Haris Harding MD Pager: [facility] [address] [place] [address], [address] [place] [address] Office: I have examined the patient and the H&P has been reviewed. There are no clinical changes since date of exam.
--- NOTE | 2024-12-13 08:45 | HERN_PTH ---
PATIENT: GILL KENNEY LOC: [facility] U#:[id number] AGE/SX: 74/M ROOM: RE12/13/[address]: Dr. Haris Harding MD : 1950 BED: DIS: 12/13/2024 SPEC #: [id number] RECD: 12/13/24 11:22 STATUS: MARILU REReva #: [id number] TOÑO: 12/13/24 08:[address]: Haris Harding DEPT: SURGICAL PATHOLOGY RECD BY: Terry Ochoa ENTERED: 12/13/24 12:40 SP TYPE: Hernia OTHR DR: Dr. Hang Vera, DO Tissues: A - HERNIA B - Gallbladder, NOS Procedures: Surgery Specimen Level II Surgery Specimen Level III HEADER OPERATION: Laparoscopic cholecystectomy with IOC and umbilical hernia repair PRE-OP DIAGNOSIS: Right upper quadrant pain, gallbladder stones TISSUE SUBMITTED: A- Hernia sac, B- Gallbladder and contents MICROSCOPIC DIAGNOSIS A. Hernia sac, RUQ pain, gallbladder stones, resection: - Fibroadipose tissue with reactive mesothelial lining and active chronic inflammation, consistent with hernia sac. B. Gallbladder and contents, RUQ pain, gallbladder stones, cholecystectomy: - Cholelithiasis. MICROSCOPIC DESCRIPTION Slides are reviewed. GROSS DESCRIPTION Received in 2 formalin containers labeled with the patient's name and date of . Designated as: A. Hernia sac is a 1.8 x 1.1 x 0.8 cm ramirez-pink to yellow focally cauterized tissue fragment. The specimen is serially sectioned and entirely submitted in 1 cassette. B. Gallbladder and contents is a 7.0 x 3.3 x 1.9 cm ramirez-pink, fatty and intact gallbladder with attached patent cystic duct (inked black, shaved). A lymph node is not present. Opening reveals yellow-green tenacious bile and a 1.0 cm irregular, pigmented cholelith. The mucosa is ramirez-pink and granular with a maximum wall thickness of 0.2 cm. Cholesterolosis is not present. Novelty Printing Machine Operator sections are submitted in 1 cassette. HI 12/13/2024 CPT:[id number]
[2024-12-13] MEDS: Bupiv/Epi 0.25% 30 ML Vial (09:32)
--- NOTE | 2024-12-13 09:33 | OP.PCM_ITS ---
Operative Report (Standard) Operative Information Date of Procedure: 12/13/24 Pre-Operative Diagnosis: 1. Cholelithiasis 2. Umbilical hernia Post-Operative Diagnosis: Same Surgery/Procedure Performed: Laparoscopic cholecystectomy with cholangiograms w ith umbilical hernia repair senior interactive producer: Yes Estimator And Drafter Supervisor: Ene Gonzalez Tasks completed by service assistant: Opening & closing and Retracting Type of Anesthesia: General/Regional RN Documented Start/Stop Times: Operation Date: 12/13/24 08:45 Case Time Into Pre-Op 12/13/24 06:55 Anesthesia Start 12/13/24 08:49 Into Room 12/13/24 08:49 Procedure Start 12/13/24 09:07 Procedure Start Time: 09:07 Procedure Stop Time: 09:40 Select all DRAINS/GRAFTS/IMPLANTS that apply: None Estimated Blood Loss: 5 Specimen collected: Yes Description of specimen(s) removed: Gallbladder Description of surgery: After obtaining informed consent patient was brought back to the operating room. General anesthesia was induced. The abdomen was prepped and draped in usual sterile fashion. Curvilinear incision was marked inferior to the umbilicus and incised. The hernia sac was dissected free and removed. Finger sweep was performed and the Dasilva trocar was placed into the abdomen. The balloon was inflated. The abdomen was inflated to 15 mmHg. Next a camera was introduced into the abdomen and the abdomen was inspected. Next under direct visualization three 5-mm ports were placed one subxiphoid and 2 subcostal. Next the gallbladder was elevated and retracted toward the right shoulder. The peritoneum was stripped from the gallbladder. The infundibulum was located and retracted laterally. Next the triangle of Calot was dissected and the cystic duct and cystic artery were identified. Cholangiograms were performed. The Kimble clamp was used to clamp across the infundibulum and the catheter needle was inserted into the gallbladder. Under fluoroscopy contrast was instilled into the gallbladder and the common duct, cystic duct as well as proximal hepatic ducts were identified. There was good filling of the duodenum. There were no filling defects noted in the common bile duct. The clamp was removed as well as the needle and the infundibulum was grasped once more. Three hemolock clips were placed across the cystic duct. The cystic duct was then divided leaving 2 clips on the stump. The cystic artery was clipped and divided in the same fashion. The hook cautery was then used to take the gallbladder off of the gallbladder bed. Hemostasis was obtained. Gallbladder fossa was irrigated and no active bleeding or bile leakage was noted. Next the camera was introduced in the subxiphoid port. An Endopouch bag was placed through the umbilical port and the gallbladder was placed into it. The gallbladder was then removed through the umbilical incision. The camera was then reinserted through the umbilical port. The gallbladder fossa was inspected once more and noted to be hemostatic with no leaking bile. The abdomen was suctioned dry. The 5 mm ports were removed under direct visualization. The umbilical port was then removed and the air was removed from the abdomen. Next using an 0 Vicryl suture the umbilical fascia was closed in a [id number] fashion. The umbilical port site was irrigated local anesthetic was administered to all the incisions. All the incisions were closed with interrupted subcuticular 4-0 Monocryl sutures followed by Steri-Strips and dressings. The patient was awoken and taken to PACU in stable condition. Surgical Findings: Umbilical hernia and cholelithiasis with normal intraoperative cholangiogram's Complications Complications: No Admit VTE Documentation VTE Mechan Device Prophylaxis: SCD's
--- NOTE | 2024-12-13 09:35 | EX.PCM.DISCH ---
Discharge Instructions Procedure Gallbladder Diet Discharge Diet: Light diet - advance as tolerated Activity Discharge Activity: May Not Drive (for 2-3 days or while taking narcotic pain medications.) and - (Do not drive, work heavy equipment or sign legal documents for 24 hours.) May shower in (days): 1 Lifting Restrictions: 20 lbs for 2 weeks Additional Activity Instructions:: Pain medication may cause nausea. You should typically eat light foods as you take your pain medications. Pain medication may also cause constipation. If this is a problem for you, please discuss with your doctor. Dressing / Incision Call your doctor if your incision/area has: Continuous Slow Oozing, Sudden Increased Bleeding, Increased Pain/ Swelling, Increased Redness and Foul Smelling Discharge Call your doctor if you observe: Fever of 101 or Higher Suture Line Care: Avoid Pulling/Pushing and Avoid Pinching/Bending Remove Dressing in: 2 days Additional Dressing/Incision Instructions:: Leave operative bandaids on for 2 days. When you remove dressing, leave Steri-Strips on until your follow-up appointment, or until the Steri-Strips fall off on their own. Alternate ibuprofen and Tylenol for pain control, oxycodone for breakthrough pain. Take MiraLAX with narcotics to avoid constipation Follow Up Care Please Follow Up With: Haris Harding MD When: Please call to schedule 2 week follow up appointment. [phone] Test Results: Test results from this visit will be discussed in further detail at your follow-up appointment, if applicable. Discharge Plan Admission Attending Provider: Haris Harding Primary Care Provider: Hang Vera Instructions Print Language: Ukrainian Discharge Orders/Prescriptions Prescriptions: New oxycodone 5 mg Tablet 5 - 10 mg PO Q4H PRN PRN (Reason: Pain Score 4-10) 5 Days Qty: 14 0RF No Action omeprazole 20 mg capsule,delayed release(DR/EC) 20 mg PO QDAY metronidazole 0.75 % cream 1 applic TOPICAL BID PRN (Reason: skin irritation) clobetasol 0.05 % ointment 1 applic TOPICAL BID PRN (Reason: psoriasis) rosuvastatin 10 mg tablet 10 mg PO DAILY cholecalciferol (vitamin D3) 50 mcg (2,000 unit) capsule 50 mcg PO DAILY amlodipine 5 mg tablet 5 mg PO DAILY Tremfya 100 mg/mL auto-injector 100 mg subcut Q8W Referrals / Follow Up: Hang Vera DO [Primary Care Provider] - Disposition Disposition (needs filled in before D/C Order can be placed): Home, Self Care
--- NOTE | 2024-12-13 09:58 | PCM.POST.ANE ---
Anesthesia: Postop Eval I Current Vital Signs Temperature: 97.3 F Pulse Rate: 54 Blood Pressure: 115/68 Respiratory Rate: 18 Pulse Ox: 97 Assessment Airway patent: Yes Spontaneous unlabored respirations: Yes nausea: No Vomiting: No Anesthesia Complication: No Fluid Hydration Crystalloid volume administer (ml): 1,000 Total IV fluid infused: 1,000 Progress Note Anesthesia document: Postop Eval 1 completed: Yes
--- NOTE | 2024-12-13 13:55 | POSTOPAN2_ITS ---
Anesthesia Postop Eval I Sum Postop Eval Completion status Anesthesia document: Postop Eval 1 completed: Yes Anesthesia Postop Eval I Summary Anesthesia Postop Eval I Summary: Anesthesia Postop Eval I: Assessment Summary Airway patent Yes 12/13/24 09:58 LINUX SOLARIS ADMINISTRATOR.CSIR Spontaneous unlabored Yes 12/13/24 09:58 LINUX SOLARIS ADMINISTRATOR.CSIR respirations Mental status nausea No 12/13/24 09:58 LINUX SOLARIS ADMINISTRATOR.CSIR Vomiting No 12/13/24 09:58 LINUX SOLARIS ADMINISTRATOR.CSIR Anesthesia Postop Eval I: Fluid Summary Crystalloid volume administer 1,000 12/13/24 09:58 LINUX SOLARIS ADMINISTRATOR.CSIR (ml) Colloids volume administered ( ml) Blood Product volume administered (ml) Total IV fluid infused 1,000 12/13/24 09:58 LINUX SOLARIS ADMINISTRATOR.CSIR Anesthesia Postop Eval I: Summary Notes Anesthesia Complication No 12/13/24 09:58 LINUX SOLARIS ADMINISTRATOR.CSIR Anesthesia Complication Comment: Post-operative progress note Anesthesia: Postop Eval II Evaluation Mental status: Awake Pain Level: 0 nausea: No Vomiting: No
--- NOTE | 2024-12-13 13:55 | PCM.POSTANE2 ---
Anesthesia Postop Eval I Sum Postop Eval Completion status Anesthesia document: Postop Eval 1 completed: Yes Anesthesia Postop Eval I Summary Anesthesia Postop Eval I Summary: Anesthesia Postop Eval I: Assessment Summary Airway patent Yes 12/13/24 09:58 PICKED EDGE SEWING MACHINE OPERATOR.CSIR Spontaneous unlabored Yes 12/13/24 09:58 PICKED EDGE SEWING MACHINE OPERATOR.CSIR respirations Mental status nausea No 12/13/24 09:58 PICKED EDGE SEWING MACHINE OPERATOR.CSIR Vomiting No 12/13/24 09:58 PICKED EDGE SEWING MACHINE OPERATOR.CSIR Anesthesia Postop Eval I: Fluid Summary Crystalloid volume administer 1,000 12/13/24 09:58 PICKED EDGE SEWING MACHINE OPERATOR.CSIR (ml) Colloids volume administered ( ml) Blood Product volume administered (ml) Total IV fluid infused 1,000 12/13/24 09:58 PICKED EDGE SEWING MACHINE OPERATOR.CSIR Anesthesia Postop Eval I: Summary Notes Anesthesia Complication No 12/13/24 09:58 PICKED EDGE SEWING MACHINE OPERATOR.CSIR Anesthesia Complication Comment: Post-operative progress note Anesthesia: Postop Eval II Evaluation Mental status: Awake Pain Level: 0 nausea: No Vomiting: No
== END 2024-12-13 12:57 | disposition home or self-care (01) ==
LOC: SDC 06:50 → AC 06:51
PROVIDERS: PCP Family Medicine; Referring Provider Surgery; Visit Provider Surgery
PROC: (CPT 47610; principal; 2024-12-13 08:25)
DX: K80.20 Calculus of gallbladder without cholecystitis without obstruction (principal); K42.9 Umbilical hernia without obstruction or gangrene; K21.9 Gastro-esophageal reflux disease without esophagitis; L40.9 Psoriasis, unspecified; E78.5 Hyperlipidemia, unspecified; Z87.891 Personal history of nicotine dependence; Z79.899 Other long term (current) drug therapy
CPT/HCPCS: 47563; 49591; 74300; 76000; 88302; 88304; 93005; J2405

== ENCOUNTER → 2025-04-26 | Outpatient (CLI) | payer MEDICARE, BC, SELFPAY ==
--- NOTE | 2025-04-26 12:27 | RAD_ITS ---
PROCEDURE: THORACIC SPINE 3 VIEWS 04/26/2025 REASON FOR EXAM: MID BACK PAIN TECHNIQUE: Procedure Code: RADSPT Modality: DX Procedure: THORACIC SPINE 3 VIEWS COMPARISON: 09/28/2024. FINDINGS: Mild increase in moderate compression deformity of T8 vertebral body with mild associated sclerosis at the level of the fracture lines, possibly presenting healing process. Increased dorsal kyphosis, mildly progressed. Increased mild compression deformity of T7 vertebral body in the interim. Unchanged mild chronic compression deformities of the lower thoracic vertebral bodies. Mild S shaped degenerative scoliosis. There are diffuse spondylotic changes. Findings are demonstrated to by diffuse disc space narrowing, osteophyte formation and degenerative endplate sclerosis. There is diffuse facet joint arthropathy with secondary bilateral neural foramina narrowing. No dislocation is seen. No aggressive lytic or blastic bony lesion is noted. RAD/Thoracic Spine 3 Views IMPRESSION: Mild increase in moderate compression deformity of T8 vertebral body with mild associated sclerosis at the level of the fracture lines, possibly presenting healing process. Increased dorsal kyphosis, mildly progressed. Increased mild compression deformity of T7 vertebral body in the interim. Unchanged mild chronic compression deformities of the lower thoracic vertebral bodies. Mild S shaped degenerative scoliosis. Reading [facility]
--- OUTSIDE RECORDS SUMMARY | 2025-04-26 16:01 | XMS RPT_ITS | CCD ---
Author Organization [facility] Care Team Providers Care Automotive Specialty Technician Name Role Phone UNKNOWN, PCP D Unavailable Unavailable ESTERSHANNON, RYANNE Unavailable Unavailable ESTERSHANNON, RYANNE Unavailable Unavailable ESTERLE, RYANNE Unavailable Unavailable BAYELE, RYANNE Unavailable Unavailable Dr. Kevin Samuel Primary Care Provider [phone] Dr. Kevin Samuel Referring Provider [phone] NAHUN Dominguez Attending Provider Unavailab Dr. Kevin Osorio Primary Care Provider [phone] Dr. Kevin Samuel Attending Provider [phone] Dr. Kevin Samuel Referring Provider [phone] CONCHITA Power Attending Provider [phone] KEVIN SAMUEL Consulting Unavailable KEVIN SAMUEL Referring Unavailable CLAUDIOLUIS Admitting Unavailable CLAUDIO, LUIS E Primary Care Unavailable CLAUDIOLUIS Attending Unavailable PROVIDER, UNKNOWN Consulting Unavailable PROVIDER, UNKNOWN Consulting Unavailable NEO COLLIER Admitting Unavailable COLLIER NEO C Primary Care Unavailable NEO COLLIER Attending Unavailable KEVIN SAMUEL DO Consulting Unavailable PROVIDER, UNKNOWN Consulting Unavailable PROVIDER, UNKNOWN Consulting Unavailable LAURITA SANCHEZ MD Admitting Unavailable LAURITA SANCHEZ MD Primary Care Unavailable LAURITA SANCHEZ MD Attending Unavailable KEVIN SAMUEL DO Consulting Unavailable PROVIDER, UNKNOWN Consulting Unavailable PROVIDER, UNKNOWN Consulting Unavailable KEVIN SAMUEL DO Consulting Unavailable BELIA HOLLEY DR Admitting Unavailable BELIA HOLLEY DR Primary Care Unavailable BELIA HOLLEY DR Attending Unavailable PROVIDER, UNKNOWN Consulting Unavailable PROVIDER, UNKNOWN Consulting Unavailable Dr. Kevin Samuel DO Primary Care Provider Dr. Kevin Samuel DO Referring Provider [phone] Jennie Yun Attending Provider Jojo PÉREZ, Dr. Orantes Attending Provider Gilberto Elmore Attending Provider [phone] Gilberto lEmore Referring Provider Meaghan PÉREZ, Dr. Carballo Attending Provider Meaghan PÉREZ, Dr. Carballo Other Provider [phone] Meaghan PÉREZ, Dr. Carballo Referring Provider Jemma Lr PA-C Attending Provider Chuy MCCARTNEY, Dr. Kevin Reeder Primary Care Provider Chuy MCCARTNEY, Dr. Kevin Reeder Referring Provider [phone] Jojo PÉREZ, Dr. Oranets Attending Provider [phone] Chuy MCCARTNEY, Dr. Kevin Reeder Attending Provider Calmyriametta, Haris Referring Unavailable Calabretta, Haris Attending Unavailable Brown, Kevin R Primary Care Unavailable Brown, Kevin R Primary Care Unavailable Brown, Kevin R Referring Unavailable Calabretta, Haris Attending Unavailable Calabretta, Haris Referring Unavailable Calabretta, Haris Attending Unavailable Brown, Kevin R Primary Care Unavailable Laura, Laurita Referring Unavailable Laura, Laurita Attending Unavailable Brown, Kevin R Primary Care Unavailable Gilberto Elmore Referring Unavailable Gilberto Elmore Attending Unavailable Brown, Kevin R Primary Care Unavailable Brown, Kevin R Primary Care Unavailable JojoLamberto Attending Unavailable Brown, Kevin R Primary Care Unavailable Calabretta, Haris Referring Unavailable JojoRul Attending Unavailable Brown, Kevin R Primary Care Unavailable Calabretta, Haris Consulting Unavailable Calabretta, Haris Referring Unavailable Calabretta, Haris Attending Unavailable Brown, Kevin R Primary Care Unavailable Brown, Kevin R Referring Unavailable Calabretta, Haris Consulting Unavailable Calabretta, Haris Attending Unavailable Brown, Kevin R Referring Unavailable Calabretta, Haris Attending Unavailable Brown, Kevin R Primary Care Unavailable Brown, Kevin R Primary Care Unavailable Brown, Kevin R Referring Unavailable Jemma Sue Attending Unavailable Brown, Kevin R Primary Care Unavailable Brown, Kevin R Referring Unavailable Brown, Kevin R Attending Unavailable Brown, Kevin R Primary Care Unavailable Kevin Samuel Referring Unavailable Haris Harding Attending Unavailable Kevin Samuel Primary Care Unavailable Kevin Samuel Referring Unavailable Jennie Calvo Attending Unavailable Allergies Allergy Classification Reported Allergen(s) Allergy Type Date of Onset Reaction(s) Facility (1 source) Adhesive agent; Translations: [ADHESIVE] Propensity to adverse reactions (disorder) [facility] Repository (1 source) Shellfish; Translations: [SHELLFISH DERIVED] Propensity to adverse reactions (disorder) [facility] Repository (1 source) Adhesive Tape; Translations: [TAPE] Propensity to adverse reactions (disorder) [facility] Repository (1 source) Seafood; Translations: [SEAFOOD] Food allergy (disorder) [facility] Repository (10 sources) Amoxicillin Drug Allergy 5 [facility] (6 sources) clam allergenic extract Drug Allergy 5 [facility] (1 source) Amoxicillin Drug Allergy 5 [facility] Repository (1 source) clams Drug allergy (disorder) 5 [facility] Repository Medications Current Medications Medication Drug Class(es) Dates Sig (Normalized) Sig (Original) amLODIPine 5 mg oral tablet (13 sources) Dihydropyridine Calcium Channel Katie Start: 09-13-2021 take 1 tablet by mouth once daily Amlodipine 5 mg tablet Active 5 mg PO DAILY September 13, 2021 12:00am cholecalciferol 0.05 mg oral capsule (13 sources) Vitamin D Start: 09-13-2021 take 1 capsule by mouth once daily Cholecalciferol (Vitamin D3) 50 mcg (2,000 unit) capsule Active 50 ug PO DAILY September 13, 2021 12:00am clobetasol propionate 0.0005 mg/mg topical ointment (13 sources) Corticosteroid Start: 08-20-2017 Clobetasol 0.05 % ointment Active 1 NMA TOPICAL TWICE A DAY as needed for psoriasis August 20, 2017 12:00am 1 ml guselkumab 100 mg/ml auto-injector (8 sources) Interleukin-23 Antagonist Start: 10-26-2024 Guselkumab (Tremfya) 100 mg/mL auto-injector Active 100 mg SC every 8 weeks October 26, 2024 12:00am metroNIDAZOLE 7.5 mg/ml topical cream (13 sources) Nitroimidazole Antimicrobial Start: 08-20-2017 Metronidazole 0.75 % cream Active 1 NMA TOPICAL TWICE A DAY as needed for skin irritation August 20, 2017 12:00am omeprazole 20 mg delayed release oral capsule (13 sources) Proton Pump Inhibitor Start: 08-20-2017 take 1 capsule by mouth once daily Omeprazole 20 mg capsule,delayed release(DR/EC) Active 20 mg PO daily August 20, 2017 12:00am rosuvastatin calcium 10 mg oral tablet (13 sources) HMG-CoA Reductase Inhibitor Start: 09-13-2021 take 1 tablet by mouth once daily Rosuvastatin 10 mg tablet Active 10 mg PO DAILY September 13, 2021 12:00am Completed/Discontinued Medications Medication Drug Class(es) Dates Sig (Normalized) Sig (Original) acetaminophen 325 mg / oxyCODONE hydrochloride 5 mg oral tablet (13 sources) Opioid Agonist Start: 11-30-2013 End: 08-20-2017 [...] 2017 10:16am apremilast 30 mg oral tablet (13 sources) Start: 08-20-2017 End: 09-13-2021 take 1 [...] 2018 9:45am cephalexin 500 mg oral capsule (13 sources) Cephalosporin Antibacterial Start: 08-16-2020 End: 09-13-2021 take 1 capsule by mouth twice daily Cephalexin (Keflex) 500 mg capsule Discontinued 500 mg PO TWICE A DAY 14 August 16, 2020 12:00am September 13, 2021 1:03pm ciprofloxacin 500 mg oral tablet (13 sources) Quinolone Antimicrobial Start: 11-30-2013 End: 08-20-2017 take 1 tablet by mouth twice daily Ciprofloxacin Hcl 500 MG tablet Discontinued 500 mg PO TWICE A DAY 6 November 30, 2013 12:00am August 20, 2017 10:16am DULoxetine 30 mg delayed release oral capsule (20 sources) Serotonin and Norepinephrine Reuptake Inhibitor Start: 08-12-2023 End: 08-26-2023 take 1 capsule by mouth once daily Duloxetine 30 mg capsule,delayed release(DR/EC) Discontinued 30 mg PO DAILY 30 August 12, 2023 12:00am August 26, 2023 3:41pm Start: 08-20-2017 End: 08-18-2018 take 1 capsule by mouth once daily Duloxetine 30 mg capsule,delayed release(DR/EC) Discontinued 30 mg PO daily 30 August 25, 2017 3:59pm August 18, 2018 9:44am gabapentin 300 mg oral capsule (13 sources) Anti-epileptic Agent Start: 06-27-2020 End: 09-13-2021 take 1 capsule by mouth at bedtime Gabapentin 300 mg capsule Discontinued 300 mg PO AT BEDTIME 30 June 27, 2020 1:00am September 13, 2021 1:04pm levoFLOXacin 500 mg oral tablet (13 sources) Quinolone Antimicrobial Start: 06-16-2020 End: 06-28-2020 take 1 tablet by mouth every twenty-four hours Levofloxacin 500 mg tablet Discontinued 500 mg PO Q24H 10 June 16, 2020 1:00am June 28, 2020 3:50pm methocarbamol 500 mg oral tablet (9 sources) Muscle Relaxant Start: 09-28-2024 End: 11-12-2024 take 1 tablet by mouth three times daily as needed for pain Methocarbamol 500 mg tablet Discontinued 500 mg PO THREE TIMES A DAY as needed for pain/spasms 60 0 September 28, 2024 12:00am November 12, 2024 1:27pm oxyCODONE hydrochloride 5 mg oral tablet (3 sources) Opioid Agonist Start: 12-13-2024 End: 12-27-2024 take 5-10 mg by mouth every four hours as needed for pain Oxycodone 5 mg Tablet Discontinued 5 - 10 mg PO EVERY 4 HOURS NEEDED as needed for Pain Score 4-10 14 5 0 December 13, 2024 December 27, 2024 9:08am Right upper quadrant abdominal pain Right upper quadrant pain pramipexole dihydrochloride 0.25 mg oral tablet (20 sources) Nonergot Dopamine Agonist Start: 03-22-2020 End: 06-27-2020 take 1 tablet by mouth at bedtime Pramipexole 0.25 mg tablet Discontinued 0.25 mg PO AT BEDTIME 30 3 March 22, 2020 3:27pm June 27, 2020 4:55pm Start: 02-02-2020 End: 03-22-2020 take 1 tablet by mouth at bedtime Pramipexole 0.125 mg tablet Discontinued 0.125 mg PO AT BEDTIME 30 3 February 02, 2020 12:00am March 22, 2020 3:28pm sulfamethoxazole 800 mg / trimethoprim 160 mg oral tablet (13 sources) Dihydrofolate Reductase Inhibitor Antibacterial, Sulfonamide Antimicrobial Start: 06-28-2020 End: 09-13-2021 Sulfamethoxazole-Trimethopri m (Bactrim Ds) 800-160 mg tablet Discontinued 1 {tbl} PO TWICE A DAY 28 0 June 28, 2020 1:00am September 13, 2021 1:03pm tamsulosin hydrochloride 0.4 mg oral capsule (13 sources) alpha-Adrenergic Katie Start: 11-24-2013 End: 08-20-2017 take 1 capsule by mouth once daily Tamsulosin 0.4 MG capsule Discontinued 0.4 mg PO DAILY November 24, 2013 12:00am August 20, 2017 10:16am Problems Active Problems Problem Classification Problem Date Documented Da te Episodic/Chronic Abdominal hernia (2 sources) Umbilical hernia; Translations: [Umbilical hernia without obstruction or gangrene] 12-27-2024 Episodic Abdominal pain (20 sources) Abdominal pain; Translations: [Unspecified abdominal pain] Onset: 10-26-2024 08-26-2023 Episodic Allergic reactions (1 source) Other atopic dermatitis; Translations: [Other atopic dermatitis] Onset: 03-06-2024 Chronic Allergic reactions (12 sources) Environmental allergy; Translations: [Other allergy status, other than to drugs and biological substances] 10-24-2021 Episodic Biliary tract disease (2 sources) Chronic cholecystitis with calculus; Translations: [Calculus of gallbladder with chronic cholecystitis without obstruction] 12-27-2024 Episodic Blindness and vision defects (13 sources) Disorder of vision; Translations: [Unspecified visual loss] 08-20-2017 Chronic Comment on above: blurry vision Disorders of lipid metabolism (14 sources) Hyperlipidemia, unspecified; Translations: [Hyperlipidemia] Onset: 10-02-2016 07-28-2019 Chronic E Codes: Adverse effects of medical drugs (12 sources) Adverse reaction to drug; Translations: [Adverse effect of unspecified drugs, medicaments and biological substances, initial encounter] 08-26-2023 Episodic Esophageal disorders (14 sources) Gastro-esophageal reflux disease without esophagitis; Translations: [Gastroesophageal reflux disease] Onset: 10-02-2016 08-20-2017 Chronic External Injury - Machinery (1 source) Contact with other specified machinery, initial encounter; Translations: [CONTACT OTH SPEC MACHINE] Onset: 10-02-2016 Immunizations and screening for infectious disease (1 source) Encounter for immunization; Translations: [Encounter for immunization] Onset: 02-01-2025 Episodic Inflammatory conditions of male genital organs (13 sources) Epididymitis; Translations: [Epididymitis] 06-28-2020 Episodic Malaise and fatigue (14 sources) Fatigue; Translations: [Other fatigue] 10-17-2021 Episodic Osteoarthritis (13 sources) Arthritis; Translations: [Unspecified osteoarthritis, unspecified site] 08-20-2017 Chronic Other ear and sense organ disorders (13 sources) Hearing disorder; Translations: [Unspecified hearing loss, unspecified ear] 08-20-2017 Chronic Other fractures (15 sources) Compression fracture of thoracic spine; Translations: [Wedge compression fracture of T7-T8 vertebra, initial encounter for closed fracture] 09-28-2024 Episodic Other gastrointestinal disorders (8 sources) Dysphagia; Translations: [Dysphagia, unspecified] 10-05-2024 Episodic Other hereditary and degenerative nervous system conditions (13 sources) Restless legs; Translations: [Restless legs syndrome] 04-05-2020 Chronic Other infections; including parasitic (13 sources) Lyme disease; Translations: [Lyme disease, unspecified] 08-20-2017 Episodic Other inflammatory condition of skin (1 source) Psoriasis, unspecified; Translations: [PSORIASIS UNSPECIFIED] Onset: 10-02-2016 Chronic Other inflammatory condition of skin (13 sources) Psoriasis; Translations: [Psoriasis, unspecified] 08-20-2017 Chronic Other inflammatory condition of skin (1 source) Psoriasis vulgaris; Translations: [Psoriasis vulgaris] Onset: 10-29-2024 Chronic Other lower respiratory disease (13 sources) History of influenza; Translations: [Personal history of other diseases of the respiratory system] 07-28-2019 Episodic Other nervous system disorders (13 sources) Peripheral neuritis; Translations: [Unspecified mononeuropathy of unspecified lower limb] 02-01-2020 Chronic Other non-epithelial cancer of skin (13 sources) Malignant neoplasm of skin; Translations: [Unspecified malignant neoplasm of skin, unspecified] 08-20-2017 Episodic Other screening for suspected conditions (not mental disorders or infectious disease) (13 sources) Patient encounter status; Translations: [Encounter for screening for malignant neoplasm of intestinal tract, unspecified] 06-22-2019 Episodic Past or Other Problems Problem Classification [...] [PAIN IN LEFT HAND] Onset: 10-02-2016 Episodic Spondylosis; intervertebral disc disorders; other back problems (20 sources) Back problem; Translations: [Dorsopathy, unspecified] Onset: 09-28-2024 08-20-2017 Episodic Results Test Name Value Interpretation Reference Range Facility Internal Medicine Office Vis lester 02-01-2025 Internal Medicine Office Visit [facility] [address] [place] [address] [place] [address] OFFICE VISIT Date of Service: 02/01/25 MR#: [id number] Acct: [id number] Name: JIM FOWLER Rep #: [id number] : 1950 Provider: Dr. Kevin prakash, DO Age/Sex: 74/M Location: [facility] Status: Signed Intake Vital Signs 12/13/24 07:24 02/01/25 15:07 Height 5 ft 9 in 5 ft 9 in Weight: 209 lb BMI 30.8 BP 138/86 H Blood Pressure Location Lt brachial Position Sitting Respiration 16 Pulse 98 Pulse Source Monitor Temp 97.7 F L Temp Source Temporal Pulse Oximetry (%) 93 Oxygen Delivery Method room air Intake Visit Reasons: Surgery Follow Up Chief Complaint: Postoperative recheck. Base Engineer Required: No Is patient in pain?: Yes (LLQ) Pain scale (1-10): 4 Allergies amoxicillin Allergy (Severe, Verified 02/01/25 14:54) Rash clams Adverse Reaction (Severe, Verified 02/01/25 14:54) Vomiting Medications ???Medication ???Instructions ???Recorded ???Confirmed ???Type clobetasol 0.05 % topical ointment 1 applic topical BID PRN psorias is 08/20/17 02/01/25 History metronidazole 0.75 % topical cream 1 applic topical BID PRN skin 02/01/25 History irritation omeprazole 20 mg capsule,delayed 20 mg PO QDAY 08/20/17 02/01/25 Hi story release amlodipine 5 mg tablet 5 mg PO DAILY 09/13/21 02/01/25 Hi story cholecalciferol (vitamin D3) 50 50 mcg PO DAILY 09/13/21 02/01/25 History mcg (2,000 unit) capsule rosuvastatin 10 mg tablet 10 mg PO DAILY 09/13/21 02/01/25 H istory guselkumab 100 mg/mL subcutaneous 100 mg subcut Q8W 10/26/24 History auto-injector (Tremfya) Have you fallen in the past year?: No Nurse's Note: Pt states after healing from laproscopic cholecystectomy, he noticed he had LUQ. He thinks he had it all along but RLQ was more painful. Pt states that the pain is constant, and laying around resting makes it better Pt states lifting makes the pain worse. pain as a dull ache, when lifting it is described as a sharp pain. Pt has not tried anything to treat otc but tylneol which helped some. Pt describes the pa Pt wonders if it coorelates to bilateral inguinal hernia mesh from his early 20's. Pt states at it's worst pain it is a 10/10 in comparison to the 4 it was in office. [facility] Medical History RUQ pain Wears glasses Alcohol use Back pain Gastric reflux Heartburn Former smoker Epididymitis Psoriasis Lyme disease History of malignant neoplasm of skin Vision problems Hyperlipidemia Hearing problem Acid reflux Skin cancer Fracture Back problem Arthritis Surgical History History of umbilical hernia repair S/P laparoscopic cholecystectomy Hx of tonsillectomy Status post bilateral inguinal hernia repair History of hand surgery Family History Mother Arthritis Father Arthritis Brother Colon cancer Diabetes Sister Diabetes Social History Smoking Status: Former smoker quit date: 05/19/69 alcohol intake: current alcohol intake frequency: 0-2 drinks per day Alcohol type: beer substance use type: does not use what type of physical activity do you participate in: none HPI HPI Chief Complaint: Postoperative recheck. Details: JIM FOWLER, is a 74 M who presents to the office today for a postoperative recheck after having a cholecystectomy about 6 weeks ago. He says he feels very good after the cholecystectomy but he has some difficulty with vision in the morning especially and he has concerned about some pains in the left lower rib area. ROS Const Constitutional: No body ache, chills, excessive sweating, fatigue, fever(s), frequent falls, headache(s), snoring, weakness, sleep problems or change in appetite Eyes Eyes: No blurry vision, change in vision, eye pain or Light sensitivity ENT ENT: No abnormal hearing, ear or mastoid pain, tinnitus, nasal congestion, headache(s), neck pain or sore throat Resp Respiratory: No cough, shortness of breath, snoring or wheezing Cardio Cardiology: No chest pain at rest, chest pain with exertion, excessive sweating, shortness of breath, dyspnea on exertion, lightheadedness, orthopnea or palpitations Gastro GI: Positive for abdominal pain; No change in bowel habits, constipation, cramping, diarrhea, nausea/dyspepsia or vomiting Genitourinary Male: No burning urination, painful urination, urinary incontinence or urinary frequency Musc Musculoskeletal: No abnormal gait, joint pain, back pain, limited range of motion, neck pain or numbness Skin Skin: No dry s (more content not included)... Normal [facility] Surgery Visit Reporton 12-[address] [facility] [address] [place] [address] OFFICE VISIT Date of Service: 12/27/24 MR#: [id number] Acct: [id number] Name: JIM FOWLER Rep #: [id number] : 1950 Provider: RIMA escamilla Age/Sex: 74/M Location: [facility] Status: Signed Intake Vital Signs 12/13/24 07:24 Height 5 ft 9 in Intake Visit Reasons: gallbladder 12-13 Chief Complaint: f/u lap shreyas Base Engineer Required: No Is patient in pain?: No Allergies amoxicillin Allergy (Severe, Verified 12/27/24 09:08) Rash clams Adverse Reaction (Severe, Verified 12/27/24 09:08) Vomiting Medications ???Medication ???Instructions ???Recorded ???Confirmed ???Type clobetasol 0.05 % topical ointment 1 applic topical BID PRN psorias is 08/20/17 12/27/24 History metronidazole 0.75 % topical cream 1 applic topical BID PRN skin 12/27/24 History irritation omeprazole 20 mg capsule,delayed 20 mg PO QDAY 08/20/17 12/27/24 Hi story release amlodipine 5 mg tablet 5 mg PO DAILY 09/13/21 12/27/24 Hi story cholecalciferol (vitamin D3) 50 50 mcg PO DAILY 09/13/21 12/27/24 History mcg (2,000 unit) capsule rosuvastatin 10 mg tablet 10 mg PO DAILY 09/13/21 12/27/24 H istory guselkumab 100 mg/mL subcutaneous 100 mg subcut Q8W 10/26/24 History auto-injector (Tremfya) Have you fallen in the past year?: No Subjective Details: Patient is a 74 y/o M I am following s/p laparoscopic cholecystectomy with cholangiogram with simple umbilical hernia repair by Dr. Harding on . Patient tolerated the procedure well. Patient denies any nausea, vomiting, fever. He notes appetite and bowel habits have returned to normal. Pathology demonstrated the following: MICROSCOPIC DIAGNOSIS A. Hernia sac, RUQ pain, gallbladder stones, resection: - Fibroadipose tissue with reactive mesothelial lining and active chronic inflammation, consistent with hernia sac. B. Gallbladder and contents, RUQ pain, gallbladder stones, cholecystectomy: - Cholelithiasis. Objective Details: Abdomen- soft, benign. Incisions c/d/i. No erythema or infection noted. Coding Level of Care Code Global Post Op Diagnoses Chronic cholecystitis with calculus K80.10 Umbilical hernia K42.9 [facility] Medical History (Updated 12/27/24 @ 10:08 by Jemma GARNICA, PA-C) RUQ pain Wears glasses Alcohol use Back pain Gastric reflux Heartburn Former smoker Epididymitis Psoriasis Lyme disease History of malignant neoplasm of skin Vision problems Hyperlipidemia Hearing problem Acid reflux Skin cancer Fracture Back problem Arthritis Surgical History (Updated 12/27/24 @ 09:09 by Rita Echevarria) History of umbilical hernia repair S/P laparoscopic cholecystectomy Hx of tonsillectomy Status post bilateral inguinal hernia repair History of hand surgery Family History Mother Arthritis Father Arthritis Brother Colon cancer Diabetes Sister Diabetes Social History Smoking Status: Former smoker quit date: 05/19/69 alcohol intake: current alcohol intake frequency: 0-2 drinks per day Alcohol type: beer substance use type: does not use what type of physical activity do you participate in: none Assessment and Plan (No Qualifiers) Assessment and Plan (1) Chronic cholecystitis with calculus: Status: Chronic (2) Umbilical hernia: Status: Acute Plan No lifting greater than 50 pounds for 2 additional weeks Recommend keeping the umbilical incision covered over the next 4 days; changing the dressing every day Discussed signs of infection and when to contact our office Follow-up as needed 12/27/24 1011 Date Jemma Irvin Signature: Date (if applicable) CC: Dr. Kevin Samuel, DO [facility] 12 Lead EKGon 12-13-2024 12 Lead EKG [facility] [address] [place] [address] 12 Lead EKG 12/13/24 0703 MR#: [id number] Acct: [id number] Name: JIM FOWLER Rep #: [id number] : 1950 74 From: Lamberto Uribe MD Attending Dr: Dr. Haris Harding MD Status: [place] [facility] [place]: Poncho Holt MD Date: 12/13/24 [place] [facility] Sex: M C Admitted: Test Reason : PRE OP Blood Pressure : */* mmHG Vent. Rate : 57 BPM Atrial Rate : 57 BPM P-R Int : 148 ms QRS Dur : 84 ms QT Int : 414 ms P-R-T Axes : 50 -2 12 degrees QTcB Int : 402 ms Sinus bradycardia Inferior infarct , age undetermined Abnormal ECG When compared with ECG of 13-Jul-2020 15:20, No significant change was found Confirmed by JOJO PÉREZ, LAMBERTO ([id number]), editor sound JEMMA URBAN ([id number]) on 12/14/2024 1:07:10 PM Referred By: Haris Harding Confirmed By: LAMBERTO URIBE MD 12/14/24 1307 Date Lamberto Uribe MD CC: Dr. Haris Harding MD; Dr. Poncho Holt MD; Dr. Kevin Samuel DO Signed Normal [facility] Cholangiogram/ O R,Initialon 12-13-2024 Cholangiogram/ O R,Initial [facility] [address] [place] [address] Cholangiogram/ O R,Initial MR#: [id number] Acct: [id number] Name: JIM FOWLER Rep #: [id number] : 1950 M 74 From: Clifton Orantes MD PCP: Dr. Kevin Samuel DO Status: [facility] Study: Cholangiogram/ O R,Initial Date of Exam: 12/13 Exam# [id number] Ordering Dr: Haris Harding PROCEDURE: CHOLANGIOGRAM/ O R,INITIAL 12/13/2024 REASON FOR EXAM: CHOLECYSTECTOMY WITH IOC TECHNIQUE: CHOLANGIOGRAM/ O R,INITIAL COMPARISON: None. FINDINGS: Intraoperative fluoroscopy for a cholangiogram was performed. 10.8 seconds of fluoroscopic time. 7.88 mGy. See procedure report for full details. RAD/Cholangiogram/ O R,Initial IMPRESSION: As above. Reading Location: [id number] CC: Dr. Haris Harding MD; Dr. 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 Kevin Samuel DO Status:[facility] Discharge Instructions Procedure Gallbladder Diet Discharge Diet: Light diet - advance as tolerated Activity Discharge Activity: May Not Drive (for 2-3 days or while taking narcotic pain medications.) and - (Do not drive, work heavy equipment or sign legal documents for 24 hours.) May shower in (days): 1 Lifting Restrictions: 20 lbs for 2 weeks Additional Activity Instructions:: Pain medication may cause nausea. You should typically eat light foods as you take your pain medications. Pain medication may also cause constipation. If this is a problem for you, please discuss with your doctor. Dressing / Incision Call your doctor if your incision/area has: Continuous Slow Oozing, Sudden Increased Bleeding, Increased Pain/ Swelling, Increased Redness and Foul Smelling Discharge Call your doctor if you observe: Fever of 101 or Higher Suture Line Care: Avoid Pulling/Pushing and Avoid Pinching/Bending Remove Dressing in: 2 days Additional Dressing/Incision Instructions:: Leave operative bandaids on for 2 days. When you remove dressing, leave Steri-Strips on until your follow-up appointment, or until the Steri-Strips fall off on their own. Alternate ibuprofen and Tylenol for pain control, oxycodone for breakthrough pain. Take MiraLAX with narcotics to avoid constipation Follow Up Care Please Follow Up With: Haris Harding MD When: Please call to schedule 2 week follow up appointment. [phone] Test Results: Test results from this visit will be discussed in further detail at your follow-up appointment, if applicable. Discharge Plan Admission Attending Provider: Haris Harding Primary Care Provider: Kevin Samuel Instructions Print Language: Beninese Discharge Orders/Prescriptions Prescriptions: New oxycodone 5 mg Tablet 5 - 10 mg PO Q4H PRN PRN (Reason: Pain Score 4-10) 5 Days Qty: 14 0RF No Action omeprazole 20 mg capsule,delayed release(DR/EC) 20 mg PO QDAY metronidazole 0.75 % cream 1 applic TOPICAL BID PRN (Reason: skin irritation) clobetasol 0.05 % ointment 1 applic TOPICAL BID PRN (Reason: psoriasis) rosuvastatin 10 mg tablet 10 mg PO DAILY cholecalciferol (vitamin D3) 50 mcg (2,000 unit) capsule 50 mcg PO DAILY amlodipine 5 mg tablet 5 mg PO DAILY Tremfya 100 mg/mL auto-injector 100 mg subcut Q8W Referrals / Follow Up: Kevin Samuel DO [Primary Care Provider] - Disposition Disposition (needs filled in before D/C Order can be placed): Home, Self Care 12/13/24 5703 Haris Harding MD CC: Dr. Kevin Samuel DO Signed [facility] MR/POSTOP.ANEon 12-13-2024 MR/POSTOP.[facility] Medical Records Department [address] [place] [address] Anesthesia Postop Eval I 12/13/24 0958 MR#: [id number] Acct: [id number] Name: JIM FOWLER Rep #: [id number] : 1950 74 From: Felicitas Merida CRNA PCP: Dr. Kevin Samuel, DO Status:[facility] Y Race: C Location: [place] [address] Anesthesia: Postop Eval I Current Vital Signs Temperature: 97.3 F Pulse Rate: 54 Blood Pressure: 115/68 Respiratory Rate: 18 Pulse Ox: 97 Assessment Airway patent: Yes Spontaneous unlabored respirations: Yes nausea: No Vomiting: No Anesthesia Complication: No Fluid Hydration Crystalloid volume administer (ml): 1,000 Total IV fluid infused: 1,000 Progress Note Anesthesia document: Postop Eval 1 completed: Yes 12/13/24958 Date Felicitas Merida OYSTER BUYER Cosigner Signature: Date CC: Signed [facility] MR/[id number] 12-13-2024 MR/POSTOPAN2 [facility] Medical Records Department [address] [place] [address] Anesthesia Postop Eval II 12/13/24 1355 MR#: [id number] Acct: [id number] Name: JIM FOWLER Rep #: [id number] : 1950 74 From: Poncho Holt MD PCP: Dr. Kevin Samuel, DO Status:[facility] Y Race: C [place] [facility] [place]esthesia Postop Eval I Sum Postop Eval Completion status Anesthesia document: Postop Eval 1 completed: Yes Anesthesia Postop Eval I Summary Anesthesia Postop Eval I Summary: Anesthesia Postop Eval I: Assessment Summary Airway patent Yes 12/13/24 09:58 OYSTER BUYER.CSIR Spontaneous unlabored Yes 12/13/24 09:58 OYSTER BUYER.CSIR respirations Mental status nausea No 12/13/24 09:58 OYSTER BUYER.CSIR Vomiting No 12/13/24 09:58 OYSTER BUYER.CSIR Anesthesia Postop Eval I: Fluid Summary Crystalloid volume administer 1,000 12/13/24 09:58 OYSTER BUYER.CSIR (ml) Colloids volume administered ( ml) Blood Product volume administered (ml) Total IV fluid infused 1,000 12/13/24 09:58 OYSTER BUYER.CSIR Anesthesia Postop Eval I: Summary Notes Anesthesia Complication No 12/13/24 09:58 OYSTER BUYER.CSIR Anesthesia Complication Comment: Post-operative progress note Anesthesia: Postop Eval II Evaluation Mental status: Awake Pain Level: 0 nausea: No Vomiting: No 12/13/24 1355 Date Poncho Irvin Signature: Date CC: Signed Normal [facility] Operative Reporton Operative Report [facility] Medical Records Department [address] [place] [address] Operative Report 12/13/24 0933 MR#: [id number] Acct: [id number] Name: JIM FOWLER Rep #: [id number] : 1950 74 From: Haris Harding MD PCP: Dr. Kevin Samuel, DO Status:[facility] Location: [place] [address] Operative Report (Standard) Operative Information Date of Procedure: 12/13/24 Pre-Operative Diagnosis: 1. Cholelithiasis 2. Umbilical hernia Post-Operative Diagnosis: Same Surgery/Procedure Performed: Laparoscopic cholecystectomy with cholangiograms with umbilical hernia repair slice cutting machine operator helper: Yes Pulp Tester: Ene Gonzalez Tasks completed by dental assistant medical assistant: Opening closing and Retracting Type of Anesthesia: General/Regional RN Documented Start/Stop Times: Operation Date: 12/13/24 08:45 Case Time Into Pre-Op 12/13/24 06:55 Anesthesia Start 12/13/24 08:49 Into Room 12/13/24 08:49 Procedure Start 12/13/24 09:07 Procedure Start Time: 09:07 Procedure Stop Time: 09:40 Select all DRAINS/GRAFTS/IMPLANT S that apply: None Estimated Blood Loss: 5 Specimen collected: Yes Description of specimen(s) removed: Gallbladder Description of surgery: After obtaining informed consent patient was brought back to the operating room. General anesthesia was induced. The abdomen was prepped and draped in usual sterile fashion. Curvilinear incision was marked inferior to the umbilicus and incised. The hernia sac was dissected free and removed. Finger sweep was performed and the Dasilva trocar was placed into the abdomen. The balloon was inflated. The abdomen was inflated to 15 mmHg. Next a camera was introduced into the abdomen and the abdomen was inspected. Next under direct visualization three 5-mm ports were placed one subxiphoid and 2 subcostal. Next the gallbladder was elevated and retracted toward the right shoulder. The peritoneum was stripped from the gallbladder. The infundibulum was located and retracted laterally. Next the triangle of Calot was dissected and the cystic duct and cystic artery were identified. Cholangiograms were performed. The Kimble clamp was used to clamp across the infundibulum and the catheter needle was inserted into the gallbladder. Under fluoroscopy contrast was instilled into the gallbladder and the common duct, cystic duct as well as proximal hepatic ducts were identified. There was good filling of the duodenum. There were no filling defects noted in the common bile duct. The clamp was removed as well as the needle and the infundibulum was grasped once more. Three hemolock clips were placed across the cystic duct. The cystic duct was then divided leaving 2 clips on the stump. The cystic artery was clipped and divided in the same fashion. The hook cautery was then used to take the gallbladder off of the gallbladder bed. Hemostasis was obtained. Gallbladder fossa was irrigated and no active bleeding or bile leakage was noted. Next the camera was introduced in the subxiphoid port. An Endopouch bag was placed through the umbilical port and the gallbladder was placed into it. The gallbladder was then removed through the umbilical incision. The camera was then reinserted through the umbilical port. The gallbladder fossa was inspected once more and noted to be hemostatic with no leaking bile. The abdomen was suctioned dry. The 5 mm ports were removed under direct visualization. The umbilical port was then removed and the air was removed from the abdomen. Next using an 0 Vicryl suture the umbilical fascia was closed in a nthelx-tj-guzse fashion. The umbilical port site was irrigated local anesthetic was administered to all the incisions. All the incisions were closed with interrupted subcuticular 4-0 Monocryl sutures followed by Steri-Strips and dressings. The patient was awoken and taken to PACU in stable condition. Surgical Findings: Umbilical hernia and cholelithiasis with normal intraoperative cholangiogram's Complications Complications: No Admit VTE Documentation VTE Mechan Device Prophylaxis: SCD's 12/13/24 0935 Cosigner Signature (if applicable): CC: Dr. Haris Harding MD; Dr. Kevin Samuel DO Signed Normal [facility] Surgery Specimen Level IIon 12-13-2024 Surgery Specimen Level II -------- Patient Age/Sex Location Account Attending Physician -------- JIM FOWLER 74/M [facility] [id number]. Haris Harding MD -------- Specimen: [id number] Received: 12/13/24 Status: MARILU Dan Num: [id number] Spec Type: Hernia Subm Dr: Dr. Haris Harding MD HEADER OPERATION: Laparoscopic cholecystectomy with IOC and umbilical hernia repair PRE-OP DIAGNOSIS: Right upper quadrant pain, gallbladder stones TISSUE SUBMITTED: A- Hernia sac, B- Gallbladder and contents -------- MICROSCOPIC DIAGNOSIS A. Hernia sac, RUQ pain, gallbladder stones, resection: - Fibroadipose tissue with reactive mesothelial lining and active chronic inflammation, consistent with hernia sac. B. Gallbladder and contents, RUQ pain, gallbladder stones, cholecystectomy: - Cholelithiasis. MICROSCOPIC DESCRIPTION Slides are reviewed. GROSS DESCRIPTION Received in 2 formalin containers labeled with the patient's name and date of . Designated as: A. Hernia sac is a 1.8 x 1.1 x 0.8 cm ramirez-pink to yellow focally cauterized tissue fragment. The specimen is serially sectioned and entirely submitted in 1 cassette. B. Gallbladder and contents is a 7.0 x 3.3 x 1.9 cm ramirez-pink, fatty and intact gallbladder with attached patent cystic duct (inked black, shaved). A lymph node is not present. Opening reveals yellow-green tenacious bile and a 1.0 cm irregular, pigmented cholelith. The mucosa is ramirez-pink and granular with a maximum wall thickness of 0.2 cm. Cholesterolosis is not present. Automatic Coil Machine Operator sections are submitted in 1 cassette. [place] 12/13/2024 CPT:97995,64009 -------- Patient Age/Sex Location Account Attending Physician -------- JIM FOWLER 74/M [facility] [id number] Dr. Haris Harding MD -------- Signed (signature on file) Dr. Patricia Lopez MD 12/17/24 1751 -------- Normal [facility] Comment on above: Performed By: #### P MATILDA ####[facility] [address] [place], [id number] Surgery Visit Reporton 12-[address] [facility] [address] [place] [address] OFFICE VISIT Date of Service: 12/07/24 MR#: [id number] Acct: [id number] Name: JIM FOWLER Rep #: [id number] : 1950 Provider: Dr. Haris lockhart MD Age/Sex: 74/M Location: [facility] Status: Signed Intake Vital Signs 11/16/24 [...] effort Aus (more content not included)... Normal [facility] Gallbladderon 11-25-2024 Gallbladder [facility] Imaging Services [address] [place] [address] Gallbladder MR#: [id number] Acct: [id number] Name: JIM FOWLER Rep #: [id number] : 1950 M 74 From: Jake salazar MD PCP: Dr. Kevin Samuel DO Status: REG CLI Study: Gallbladder Date of Exam: 11/25/24 Exam# [id number] Ordering Dr: Haris Harding PROCEDURE: GALLBLADDER 11/25/2024 [...] 1.1 cm. Right renal cysts. Reading Location: [facility] CC: Dr. Haris Harding MD; Dr. Kevin Samuel DO Sprinkler Truck Driver: Signed Normal [facility] EGD Reporton 11-16-2024 EGD Report [facility] Medical Records Department [address] [place] [address] EGD Report MR#: [id number] Acct: [id number] Name: JIM FOWLER Rep #: [id number] : 1950 74 From: Haris Harding MD PCP: Dr. Kevin Samuel, DO Status:REG [facility] Patient Name: Jim Fowler Procedure Date: 11/16/2024 8:05 AM Date of : 1950 Age: 74 Procedure: Upper GI endoscopy Indications: Epigastric abdominal pain Providers: Haris Harding MD Referring MD: Kevin Samuel Medicines: Propofol per Anesthesia Patient Profile: This [...] be scheduled. Procedure Code(s): --- Professional --- 60452, Esophagogastroduodeno scopy, flexible, transoral; diagnostic, including collection of specimen(s) by brushing or washing, when performed (separate procedure) Diagnosis Code(s): --- Professional --- R10.13, Epigastric pain CPT copyright 2021 [employer]. All rights reserved. The codes documented in this report are preliminary and upon senior report developer review may be revised to meet current compliance requirements. Haris Harding MD 11/16/2024 8:25:52 AM This report has been signed electronically. Number of Addenda: 0 Note Initiated On: 11/16/2024 8:05 AM 11/16/24824 Date Haris Costaign Signature: Date (if indicated) CC: Dr. Haris Harding MD; Dr. Kevin Samuel, Date Dictated: 11/16/24804 Date Transcribed: Sprinkler Truck Driver: MEKHI [facility] MR/POSTOP.[facility] 11-16-2024 MR/POSTOP.[facility] Medical Records Department [address] [place] [address] Anesthesia Postop Eval I 11/16/24827 MR#: [id number] Acct: [id number] Name: JIM FOWLER Rep #: [id number] : 1950 74 From: Zachary Garcia PCP: Dr. Kevin Samuel, DO Status:REG [facility] Y Race: C Location: [place] [address] Anesthesia: Postop Eval I Current Vital Signs [...] document: Postop Eval 1 completed: Yes 11/16/24828 Date Zachary Irvin Signature: Date CC: Signed Normal [facility] MR/[id number] 11-16-2024 MR/POSTOPAN2 [facility] Medical Records Department [address] [place] [address] Anesthesia Postop Eval II 11/16/24842 MR#: [id number] Acct: [id number] Name: JIM FOWLER Rep #: [id number] : 1950 74 From: Nba Dallas MD PCP: Dr. Kevin Samuel, DO Status:REG [facility] Y Race: C Location: [place] [address] Anesthesia Postop Eval I Sum Postop Eval [...] MD Cosigner Signature: Date CC: Signed Normal [facility] Quantiferon TB-Gold+on 10-27 QFT MITOGEN JEREMIAH > 10.00 Normal . [facility] Comment on above: Performed By: #### L 3400.8000 ####[facility] [address] [place], [place], [id number] QFT NIL VALUE 0.05 IU/mL Normal . [facility] Comment on above: Performed By: #### L 3400.8000 ####[facility] [address] [place], [place], [id number] QFT TB GOLD+ Comment Normal . [facility] Comment on above: Result Comment: Nicolás [...] the test. Performed By: #### L 3400.8000 ####[facility] [address] [place], [place], [address] QFT TB POS CRIT Negative Normal Negative [facility] Comment on above: Result Comment: No [...] interferon gamma. Chemiluminescence immunoassay methodology Performed at: [facility] [id number] Food Safety Manager: Pro Briceño PhD, Phone: [phone] Performed By: #### L 3400.8000 ####[facility] [address] [place], [place], [address] QFT TB1+ AG JEREMIAH 0.04 IU/mL Normal . [facility] Comment on above: Performed By: #### L 3400.8000 ####[facility] [address] [place], [place], [address] QFT TB2+ AG JEREMIAH 0.05 IU/mL Normal . [facility] Comment on above: Performed By: #### L 3400.8000 ####[facility] [address] [place], [place], [address] Surgery Visit Reporton 10-[address] [facility] [address] [place], [place] [address] OFFICE VISIT Date of Service: 10/26/24 MR#: [id number] Acct: [id number] Name: JIM FOWLER Rep #: [id number] : 1950 Provider: Dr. Haris lockhart MD Age/Sex: 74/M Location: [facility] Status: Signed Intake Vital Signs 09/28/24 08:49 10/26/24 09:29 Height 5 ft 10 in 5 ft 9 in Weight: 210 lb 210 lb BMI 30.1 31.0 BP 199/96 H Blood Pressure Location Rt brachial Position Sitting Respiration 18 Intake Visit Reasons: Dysphagia Chief Complaint: GI issues/due for c-scope Base Engineer Required: No Is patient in pain?: No [...] Chest Chest (more content not included)... Normal [facility] Qualitative QuantiFERON-TB g old in tube testOrdered By: Gilberto Cosme on 10-25-2024 M. tuberculosis tuberculin stim IFN-g Ql (Bld) 0.04 IU/mL . [facility] Cerv Spine 4 or 5 Viewson Cerv Spine 4 or [address] [facility] Imaging Services [address] [place] [address] Cerv Spine 4 or 5 Views MR#: [id number] Acct: [id number] Name: JIM FOWLER Rep #: [id number] : 1950 M 74 From: Thai Ayers MD PCP: Dr. Kevin Samuel, DO Status: DEP AMB Study: Cerv Spine 4 or 5 Views Date of Exam: 09/28/24 Exam# [id number] Ordering Dr: Jennie Calvo PROCEDURE: CERV SPINE [...] C3 on C4, likely degenerative. Reading Location: [id number] CC: NAHUN Ferrer; Dr. Kevin Samuel DO Sprinkler Truck Driver: Signed Normal [facility] Orthopedic Visit Reporton Orthopedic Visit Report [facility] [address] [place] [address] OFFICE VISIT Date of Service: 09/28/24 MR#: [id number] Acct: [id number] Name: JIM FOWLER Rep #: [id number] : 1950 Provider: NAHUN Ferrer Age/Sex: 74/M Location: [facility] Status: Signed Intake Vital Signs 08/26/23 15:23 [...] Status: Acu (more content not included)... Normal [facility] Thoracic Spine 2 Viewson Thoracic Spine 2 Views [facility] Imaging Services [address] [place], [place] [id number] Thoracic Spine 2 Views MR#: [id number] Acct: [id number] Name: JIM FOWLER Rep #: [id number] : 1950 M 74 From: Fabian Mayer MD PCP: Dr. Kevin Samuel, DO Status: DEP AMB Study: Thoracic Spine 2 Views Date of Exam: 09/28/24 Exam# [id number] Ordering Dr: Jennie Calvo PROCEDURE: THORACIC SPINE [...] to be T8, clinically correlate. Reading Location: [facility] CC: NAHUN Ferrer; Dr. Kevin Samuel DO Sprinkler Truck Driver: Signed Normal [facility] Urine Cultureon 02-10-2024 URC Culture exhibits no growth. Normal [facility] Comment on above: Performed By: #### L 500.4050, L400.0001, L501.9985, M100.2200 ####[facility] [address] [place], [address] Comprehensive Metabolic Prof ilon 02-09-2024 Albumin [Mass/Vol] 3.8 g/dL Normal 3.2-5.0 [facility] Comment on above: Performed By: #### L 500.4050, L400.0001, L501.9985, M100.2200 ####[facility] [address] [place], [address] Albumin/Globulin [Mass ratio] 1.1 {ratio} Normal 0.9-2.4 [facility] Comment on above: Performed By: #### L 500.4050, L400.0001, L501.9985, M100.2200 ####[facility] [address] [place], [address] ALK P 56 U/L Normal 45-117 [facility] Comment on above: Performed By: #### L 500.4050, L400.0001, L501.9985, M100.2200 ####[facility] [address] [place], [address] ALT [Catalytic activity/Vol] 49 U/L Normal 16-61 [facility] Comment on above: Performed By: #### L 500.4050, L400.0001, L501.9985, M100.2200 ####[facility] [address] [place], [address] AST [Catalytic activity/Vol] 39 U/L High 15-37 [facility] Comment on above: Performed By: #### L 500.4050, L400.0001, L501.9985, M100.2200 ####[facility] [address] [place], [address] Bilirubin [Mass/Vol] 0.90 mg/dL Normal 0.20-1.00 [facility] Comment on above: Result Comment: For patients on eltrombopag therapy, use of Dimension [place] TBIL is not recommended. Performed By: #### L 500.4050, L400.0001, L501.9985, M100.2200 ####[facility] [address] [place], [address] BUN/CRE 18.3 RATIO Normal 10-20 [facility] Comment on above: Performed By: #### L 500.4050, L400.0001, L501.9985, M100.2200 ####[facility] [address] [place], [address] CA,Total 10.0 mg/dL Normal 8.5-10.1 [facility] Comment on above: Performed By: #### L 500.4050, L400.0001, L501.9985, M100.2200 ####[facility] [address] [place], [address] Chloride [Moles/Vol] 103 mmol/L Normal 98-107 [facility] Comment on above: Performed By: #### L 500.4050, L400.0001, L501.9985, M100.2200 ####[facility] [address] [place], [address] CO2 [Moles/Vol] 29.0 mmol/L Normal 21.0-32.0 [facility] Comment on above: Performed By: #### L 500.4050, L400.0001, L501.9985, M100.2200 ####[facility] [address] [place], [address] Creatinine [Mass/Vol] 1.04 mg/dL Normal 0.70-1.30 [facility] Comment on above: Result Comment: The validity of the calculated GFR GFRAA in patients over 70 years has not been determined. Clinical correlation is essential. Performed By: #### L 500.4050, L400.0001, L501.9985, M100.2200 ####[facility] [address] [place], [address] EST GFR - AA 89 mL/min Normal >60 [facility] Comment on above: Result Comment: Afri can [place] GFR Calc Performed By: #### L 500.4050, L400.0001, L501.9985, M100.2200 ####[facility] [address] [place], [address] GAP 7 Normal 5-15 [facility] Comment on above: Performed By: #### L 500.4050, L400.0001, L501.9985, M100.2200 ####[facility] [address] [place], [address] GFR/1.73 sq M.predicted among non-blacks MDRD (S/P/Bld) [Vol rate/Area] 74 mL/min/{1.73_m2} Normal >60 [facility] Comment on above: Result Comment: Non- GFR Calc Performed By: #### L 500.4050, L400.0001, L501.9985, M100.2200 ####[facility] [address] [place], [address] Globulin (S) [Mass/Vol] 3.5 g/dL Normal 2.2-4.2 [facility] [facility] [place] Comment on above: Performed By: #### L 500.4050, L400.0001, L501.9985, M100.2200 ####[facility] [address] [place], [address] Glucose [Mass/Vol] 90 mg/dL Normal 74-106 [facility] Comment on above: Performed By: #### L 500.4050, L400.0001, L501.9985, M100.2200 ####[facility] [address] [place], [address] Potassium [Moles/Vol] 4.1 mmol/L Normal 3.5-5.1 [facility] Comment on above: Performed By: #### L 500.4050, L400.0001, L501.9985, M100.2200 ####[facility] [address] [place], [address] Sodium [Moles/Vol] 139 mmol/L Normal 136-145 [facility] Comment on above: Performed By: #### L 500.4050, L400.0001, L501.9985, M100.2200 ####[facility] [address] [place], [address] T PROT 7.3 g/dL Normal 6.4-8.2 [facility] Comment on above: Performed By: #### L 500.4050, L400.0001, L501.9985, M100.2200 ####[facility] [address] [place], [address] Urea nitrogen [Mass/Vol] 19 mg/dL High 7-18 [facility] Comment on above: Performed By: #### L 500.4050, L400.0001, L501.9985, M100.2200 ####[facility] [address] [place], [address] Hemoglobin A1con 02-09-2024 HbA1c (Bld) [Mass fraction] 5.8 % High 3.8-5.6 [facility] Comment on above: Result Comment: Norm al < 5.7 % Prediabetic 5.7 - 6.4 % Diabetic >or= 6.5 % Please note range changes. Performed By: #### L 500.4050, L400.0001, L501.9985, M100.2200 ####[facility] [address] [place], [address] Urinalysis, Completeon 02-08 Mucus Ql (Urine sed) RARE Normal [facility] Comment on above: Order Comment: CLEAN CATCH Performed By: #### L 500.4050, L400.0001, L501.9985, M100.2200 ####[facility] [address] [place], [address] WBC 0-5 SEEN Normal 0-5 [facility] Comment on above: Order Comment: CLEAN CATCH Performed By: #### L 500.4050, L400.0001, L501.9985, M100.2200 ####[facility] [address] [place], [address] BACTERIA 0 SEEN Normal None Seen [facility] Comment on above: Order Comment: CLEAN CATCH Performed By: #### L 500.4050, L400.0001, L501.9985, M100.2200 ####[facility] [address] [place], [address] EPI,SQUAMOUS 0 SEEN Normal 0-5 [facility] Comment on above: Order Comment: CLEAN CATCH Performed By: #### L 500.4050, L400.0001, L501.9985, M100.2200 ####[facility] [address] [place], [address] RBC 0 SEEN Normal 0-5 [facility] Comment on above: Order Comment: CLEAN CATCH Performed By: #### L 500.4050, L400.0001, L501.9985, M100.2200 ####[facility] [address] [place], [address] HEPATITIS ACUTE PANEL [CCL]o n 02-03-2024 Hep B Core Ab, IgM Negative Normal Negative [facility] Comment on above: Result Comment: No e vidence of recent infection with Hepatitis B virus. Should recent infection be suspected, repeat testing may be considered 3-4 weeks after this draw. Performed By: #### 2 [address] #### [place] [address] Hepatitis A Ab IgM Negative Normal Negative [facility] Comment on above: Result Comment: No e vidence of recent infection with Hepatitis A virus. Performed By: #### 2 [address]4627 #### [place] [address] Hepatitis B Surf. Ag Negative Normal Negative [facility] Comment on above: Result Comment: [facility] [address] [place] [address] Aric Whitt III, M.D. [id number] Performed By: #### 2 [address]8416 #### [place] [address] Hepatitis C Ab IA Negative Normal Negative [facility] Comment on above: Result Comment: The result suggests no evidence of active infection with Hepatitis C virus. Should recent infection be suspected, repeat testing may be considered 4-6 weeks after this draw. Performed By: #### 2 [address]8716 #### [place] [id number] HAV IgM Ser Qlon 02-02-2024 HAV IgM Ql (S) Negative Normal Negative [facility] Comment on above: Order Comment: Specdiane bear Type: BLOOD SPECIMEN Ordering Facility: [facility] Address: [place] [address] Result Comment: No e vidence of recent infection with Hepatitis A virus. Performed By: #### 3 1204-1, 5195-3, 92497-0 #### [facility] CLIA [id number] [address] [place] [address] [place] HBV core IgM Ser Qlon 2023 HBV core IgM Ql (S) Negative Normal Negative [facility] Comment on above: Order Comment: [facility] Type: BLOOD SPECIMEN Ordering Facility: [facility] Address: [place] [address] Result Comment: No e vidence of recent infection with Hepatitis B virus. Should recent infection be suspected, repeat testing may be considered 3-4 weeks after this draw. Performed By: #### 3 1204-1, 5195-3, 39166-7 #### [facility] CLIA [id number] [address] [place] [address] [place] HBV surface Ag Ser Qlon 01-17 HBV surface Ag Ql (S) Negative Normal Negative [facility] Comment on above: Order Comment: [facility] Type: BLOOD SPECIMEN Ordering Facility: [facility] Address: [address] [place] [id number] Performed By: #### 3 1204-1, 5195-3, 57327-3 #### [facility] CLIA [id number] [address] [place] [address] [place] HCV Ab Ser Qlon 02-02-2024 HCV Ab Ql (S) Negative Normal Negative [facility] Comment on above: Order Comment: [facility] Type: BLOOD SPECIMEN Ordering Facility: [facility] Address: [place] [address] Result Comment: The result suggests no evidence of active infection with Hepatitis C virus. Should recent infection be suspected, repeat testing may be considered 4-6 weeks after this draw. Performed By: #### 1 6128-1 #### [facility] CLIA [id number] [address] [place] [address] [place] EMERGENCY REPORTon 4 EMERGENCY REPORT [facility] EMERGENCY ROOM REPORT NAME ACCOUNT SEX AGE ADMIT DISCHARGE PT MED. RECORD# NUMBER DATE DATE TYPE JIM FOWLER [id number] M 73 09/20/23 09/20/23 3 [id number] ROOM: ER DATE OF : 1950 DICTATING [...] the wrist or Page 1 of 2 ANNE MARIEJIM PENN Bridget Emergency Room Report JIM FOWLER : 1950 [...] if symptoms worsen. He was referred to [facility] to follow up in 24-48 hours if the eye has any ongoing symptoms, returning if it is significantly worse. Follow up with family provider in 2 to 3 days if the hand has any ongoing symptoms as well. Dictated By: Neo Collier MD 09/20/23 09:11 JOB #: [id number] Transcribed By: darrell 09/20/23 12:13 Electronically signed by: LILO Collier M.D. 09/28/23 08:20 Page 2 of 2 DALE FOWLERLIZ Gill Emergency Room Report Normal [facility] Absolute lymphocyte countOrd ered By: Iis Power on 08-26-2023 Lymphocytes Auto (Unsp spec) [#/Vol] 1.80 10*3/uL 0.83-4.51 [facility] Automated lymphocyte count a s percentage of total leukocytesOrdered By: Isi Power on 08-26-2023 Lymphocytes/100 WBC Auto (Unsp spec) 27.6 % 19-41 [facility] Basophil percentageOrdered B y: Isi Power on 08-26-2023 Amylase [Catalytic activity/Vol] 40 U/L 25-115 [facility] Basophils/100 WBC (Bld) 0.5 % 0-1 [facility] Bilirubin [Mass/Vol] 0.90 mg/dL 0.20-1.00 [facility] Comment on above: For patients on eltr ombopag therapy, use of [employer] [place] TBIL is not recommended. Chloride [Moles/Vol] 106 mmol/L 98-107 [facility] Eosinophils/100 WBC (Bld) 1.1 % 0-5 [facility] Glucose [Mass/Vol] 179 mg/dL 74-106 [facility] Comment on above: Fasting Glucose resu lt greater than or equal to 126 mg/dL suggests DIABETES MELLITUS per A.D.A. criteria. Hemoglobin (Bld) [Mass/Vol] 16.8 g/dL 13.0-16.5 [facility] Monocytes/100 WBC (Bld) 9.0 % 0-10 [facility] Neutrophils (Bld) [#/Vol] 4.0 10*3/uL 2.0-7.7 [facility] Neutrophils/100 WBC (Bld) 61.5 % 47-70 [facility] Potassium [Moles/Vol] 3.8 mmol/L 3.5-5.1 [facility] Protein [Mass/Vol] 7.8 g/dL 6.4-8.2 [facility] Sodium [Moles/Vol] 136 mmol/L 136-145 [facility] WBC (Bld) [#/Vol] 6.5 10*3/uL 4.4-11.0 [facility] Determination of erythrocyte mean corpuscular volume (MCV)Ordered By: Isi Power on 08-26-2023 MCV (RBC) [Entitic vol] 92.3 fL 80-94 [facility] Erythrocyte distribution wid th ratioOrdered By: Isi Power on 08-26-2023 Erythrocyte distribution width (RBC) [Ratio] 12.2 % 11.6-14.6 [facility] Erythrocyte distribution wid th standard deviationOrdered By: Isi Power on 08-26-2023 Erythrocyte distribution width (RBC) [Entitic vol] 41.5 fL 35.1-43.9 [facility] Hematocrit Auto (Bld) [Volum e fraction]Ordered By: Isi Power on 08-26-2023 Hematocrit (Bld) [Volume fraction] 48.1 % 40-54 [facility] Immature granulocytes/100 WB C Auto (Bld)Ordered By: Isi Power on 08-26-2023 Immature granulocytes/100 WBC (Bld) 0.300 % 0.0-0.9 [facility] Comment on above: IG% - Immature Granu locytes (promyelocytes, myelocytes and metamyelocytes) > 1% indicates that a LEFT SHIFT is Present. Laboratory - Chemistry and C hemistry - challengeon 08-26-2023 Bilirubin Ql (U) Small (1+) [facility] Glucose Ql (U) Negative [facility] Ketones Ql (U) Small (15+) [facility] pH (U) 6 [pH] [facility] Specific gravity (U) [Rel density] 1.015 [facility] Urobilinogen (U) [Mass/Vol] Negative [facility] Laboratory - Chemistry and C hemistry - challengeOrdered By: Isi Power on 08-26-2023 Albumin/Globulin [Mass ratio] 0.8 {ratio} 0.9-2.4 [facility] ALP [Catalytic activity/Vol] 79 U/L 45-117 [facility] ALT [Catalytic activity/Vol] 54 U/L 16-61 [facility] CO2 [Moles/Vol] 21.0 mmol/L 21.0-32.0 [facility] Globulin (S) [Mass/Vol] 4.3 g/dL 2.2-4.2 [facility] Lipase [Catalytic activity/Vol] 26 U/L 13-75 [facility] Comment on above: Please note:LIPASE r evised reference range effective 22. New Lipase methodology. Expected to produce lower values than the previous assay method. NEW Reference Range: 13 - 75 U/L Urea nitrogen/Creatinine [Mass ratio] 12.9 mg/mg 10-20 [facility] Laboratory - Hematology and Cell countson 08-26-2023 Hemoglobin Ql (U) Negative [facility] Laboratory - Hematology and Cell countsOrdered By: Isi Power on 08-26-2023 MCH (RBC) [Entitic mass] 32.2 pg 27.0-32.0 [facility] MCHC (RBC) [Mass/Vol] 34.9 g/dL 32-36 [facility] Nucleated RBC/100 WBC (Bld) [Ratio] 0 % 0-5 [facility] Platelet mean volume (Bld) [Entitic vol] 10.4 fL 6.2-12.0 [facility] Platelets (Bld) [#/Vol] 191 10*3/uL 150-450 [facility] Laboratory - Specimen inform ationon 08-26-2023 Clarity (U) Cloudy [facility] Color (U) STRAW [facility] Laboratory - Urinalysison Nitrite Ql (U) Negative [facility] Protein Ql (U) Negative [facility] No Panel Informationon 08-25 Urine Leukocytes Negatve [facility] Urine Non-Hemolyzed Blood [facility] No Panel InformationOrdered By: Isi Power on 08-26-2023 Estimated GFR (MDRD) Amer 68 mL/min >60 [facility] Comment on above: GFR Calc Estimated GFR (MDRD) Non-Af Amer 56 mL/min >60 [facility] Comment on above: Non- GFR Calc Lyme Disease Total Antibody Negative Negative [facility] Comment on above: Lyme antibodies not detected. Reflex testing is notindicated.No laboratory evidence of infection with B. burgdorferi(Lyme disease). Negative results may occur in patientsrecently infected (less than or equal to 14 days) with B.burgdorferi. If recent infection is suspected, repeattesting on a new sample collected in 7 to 14 days isrecommended.Performed at: [facility] Lab[address] [id number] Director: Pro Briceño PhD, Phone: [phone] RBC Auto (Bld) [#/Vol]Ordere d By: Isi Power on 08-26-2023 RBC (Bld) [#/Vol] 5.21 10*6/uL 4.6-6.2 [facility] Serum or plasma calcium sadiq urement (mass/volume)Ordered By: Isi Power on 08-26-2023 Calcium [Mass/Vol] 8.9 mg/dL 8.5-10.1 [facility] Serum or plasma creatinine m easurement (mass/volume)Ordered By: Isi Power on 08-26-2023 Creatinine [Mass/Vol] 1.32 mg/dL 0.70-1.30 [facility] Comment on above: The validity of the calculated GFR & GFRAA in patients over 70 years has not been determined. Clinical correlation is essential. Serum or plasma urea nitroge n measurement (mass/volume)Ordered By: Isi Power on 08-26-2023 Urea nitrogen [Mass/Vol] 17 mg/dL 7-18 [facility] Thin prep Papanicolaou smear with manual screeningOrdered By: Isi Power on 08-26-2023 Thin prep Papanicolaou smear with manual screening 3.5 g/dL 3.2-5.0 [facility] Thin prep Papanicolaou smear with manual screening 40 U/L 15-37 [facility] Thin prep Papanicolaou smear with manual screening 9 5-15 [facility] Absolute lymphocyte countOrd ered By: Kevin Samuel on 08-05-2023 Lymphocytes Auto (Unsp spec) [#/Vol] 2.06 10*3/uL 0.83-4.51 [facility] Automated lymphocyte count a s percentage of total leukocytesOrdered By: Kevin Samuel on 08-05-2023 Lymphocytes/100 WBC Auto (Unsp spec) 35.3 % 19-41 [facility] Basophil percentageOrdered B y: Kevin Samuel on 08-05-2023 Basophils/100 WBC (Bld) 0.3 % 0-1 [facility] Eosinophils/100 WBC (Bld) 0.7 % 0-5 [facility] Hemoglobin (Bld) [Mass/Vol] 16.4 g/dL 13.0-16.5 [facility] Monocytes/100 WBC (Bld) 11.0 % 0-10 [facility] Neutrophils (Bld) [#/Vol] 3.1 10*3/uL 2.0-7.7 [facility] Neutrophils/100 WBC (Bld) 52.4 % 47-70 [facility] Testosterone [Mass/Vol] 490.12 ng/dL [facility] Comment on above: CENTRAL 90% REFERENC E RANGES MALE AGE <50 197.44 - 669.58 ng/dL MALE AGE > or = 50 187.72 - 684.19 ng/dL FEMALE AGE <50 8.38 - 35.01 ng/dL FEMALE AGE > or = 50 <7.00 - 35.92 ng/dL Effective as of 12/12/20 WBC (Bld) [#/Vol] 5.8 10*3/uL 4.4-11.0 [facility] Determination of erythrocyte mean corpuscular volume (MCV)Ordered By: Kevin Samuel on 08-05-2023 MCV (RBC) [Entitic vol] 93.7 fL 80-94 [facility] Erythrocyte distribution wid th ratioOrdered By: Kevin Samuel on 08-05-2023 Erythrocyte distribution width (RBC) [Ratio] 12.3 % 11.6-14.6 [facility] Erythrocyte distribution wid th standard deviationOrdered By: Kevin Samuel on 08-05-2023 Erythrocyte distribution width (RBC) [Entitic vol] 42.8 fL 35.1-43.9 [facility] Hematocrit Auto (Bld) [Volum e fraction]Ordered By: Kevinranjit Samuel on 08-05-2023 Hematocrit (Bld) [Volume fraction] 49.0 % 40-54 [facility] Immature granulocytes/100 WB C Auto (Bld)Ordered By: Kevin Samuel on 08-05-2023 Immature granulocytes/100 WBC (Bld) 0.300 % 0.0-0.9 [facility] Comment on above: IG% - Immature Granu locytes (promyelocytes, myelocytes and metamyelocytes) > 1% indicates that a LEFT SHIFT is Present. Laboratory - Hematology and Cell countsOrdered By: Kevin Samuel on 08-05-2023 MCH (RBC) [Entitic mass] 31.4 pg 27.0-32.0 [facility] MCHC (RBC) [Mass/Vol] 33.5 g/dL 32-36 [facility] Nucleated RBC/100 WBC (Bld) [Ratio] 0 % 0-5 [facility] Platelet mean volume (Bld) [Entitic vol] 10.6 fL 6.2-12.0 [facility] Platelets (Bld) [#/Vol] 189 10*3/uL 150-450 [facility] RBC Auto (Bld) [#/Vol]Zoilae d By: Kevin Samuel on 08-05-2023 RBC (Bld) [#/Vol] 5.23 10*6/uL 4.6-6.2 [facility] Absolute lymphocyte counton 09-13-2021 Lymphocytes Auto (Unsp spec) [#/Vol] 2.01 10*3/uL 0.83-4.51 [facility] Work Phone: Basophil percentageon 2021 Basophils/100 WBC (Bld) 0.4 % 0-1 [facility] Work Phone: Eosinophils/100 WBC (Bld) 0.7 % 0-5 [facility] Work Phone: Neutrophils (Bld) [#/Vol] 5.2 10*3/uL 2.0-7.7 [facility] Work Phone: Neutrophils/100 WBC (Bld) 63.6 % 47-70 [facility] Work Phone: WBC (Bld) [#/Vol] 8.1 10*3/uL 4.4-11.0 [facility] Work Phone: [phone] Blood erythrocytes count (nu mber/volume)on 09-13-2021 RBC (Bld) [#/Vol] 4.98 10*6/uL 4.6-6.2 [facility] Work Phone: Blood hemoglobin measurement (mass/volume)on 09-13-2021 Hemoglobin (Bld) [Mass/Vol] 16.2 g/dL 13.0-16.5 [facility] Work Phone: Blood lymphocytes/100 leukoc yteson 09-13-2021 Lymphocytes/100 WBC (Bld) 24.7 % 19-41 [facility] Work Phone: Blood monocytes/100 leukocyt eson 09-13-2021 Monocytes/100 WBC (Bld) 10.2 % 0-10 [facility] Work Phone: Blood platelet mean volumeon 09-13-2021 Platelet mean volume (Bld) [Entitic vol] 9.9 fL 6.2-12.0 [facility] Work Phone: Determination of erythrocyte mean corpuscular volume (MCV)on 09-13-2021 MCV (RBC) [Entitic vol] 95.4 fL 80-94 [facility] Work Phone: Hematocrit Auto (Bld) [Volum e fraction]on 09-13-2021 Hematocrit (Bld) [Volume fraction] 47.5 % 40-54 [facility] Work Phone: Laboratory - Hematology and Cell countson 09-13-2021 Erythrocyte distribution width (RBC) [Entitic vol] 45.4 fL 35.1-43.9 [facility] Work Phone: Erythrocyte distribution width (RBC) [Ratio] 12.9 % 11.6-14.6 [facility] Work Phone: Immature granulocytes/100 WBC (Bld) 0.400 % 0.0-0.9 [facility] Work Phone: Comment on above: IG% - Immature Granu locytes (promyelocytes, myelocytes and metamyelocytes) > 1% indicates that a LEFT SHIFT is Present. MCH (RBC) [Entitic mass] 32.5 pg 27.0-32.0 [facility] Work Phone: Nucleated RBC/100 WBC (Bld) [Ratio] 0 % 0-5 [facility] Work Phone: MCHC Auto (RBC) [Mass/Vol]on 09-13-2021 MCHC (RBC) [Mass/Vol] 34.1 g/dL 32-36 [facility] Work Phone: No Panel Informationon 09-13 Thyroid Stimulating Hormone (TSH) 1.14 uIU/mL 0.358-3.74 [facility] Work Phone: Platelets bldon 09-13-2021 Platelets (Bld) [#/Vol] 225 10*3/uL 150-450 [facility] Work Phone: Vital Signs Date Time Vital Sign Value Performing Clinician Faci lity 02-01-2025 15:07-0400 Body height 175.[address] Kevin Samuel DO Work Phone: [facility] 02-01-2025 15:07-0400 Body mass index (BMI) [Ratio] 30.8 kg/m2 Dr. Kevin Samuel DO Work Phone: [facility] 02-01-2025 15:07-0400 Body temperature 97.7 [degF] Dr. Kevin Samuel DO Work Phone: [facility] 02-01-2025 15:07-0400 Body weight 94.[address] Kevin Samuel DO Work Phone: [facility] 02-01-2025 15:07-0400 Diastolic blood pressure 86 mm[Hg] Dr. Kevin Samuel DO Work Phone: [facility] 02-01-2025 15:07-0400 Heart rate 98 /min Dr. Kevin Samuel DO Work Phone: [facility] 02-01-2025 15:07-0400 Respiratory rate 16 /min Dr. Kevin Samuel DO Work Phone: [facility] 02-01-2025 15:07-0400 SaO2% (BldA) [Mass fraction] 93 % Dr. Kevin Samuel DO Work Phone: [facility] 02-01-2025 15:07-0400 Systolic blood pressure 138 mm[Hg] Dr. Kevin Samuel DO Work Phone: [facility] 12-13-2024 12:51-0400 Body temperature 97 [degF] Dr. Kevin Samuel DO Work Phone: [facility] 12-13-2024 12:51-0400 Diastolic blood pressure 80 mm[Hg] Dr. Kevin Samuel DO Work Phone: [facility] 12-13-2024 12:51-0400 Heart rate 57 /min Dr. Kevin Samuel DO Work Phone: [facility] 12-13-2024 12:51-0400 Respiratory rate 16 /min Dr. Kevin Samuel DO Work Phone: [facility] 12-13-2024 12:51-0400 SaO2% (BldA) [Mass fraction] 97 % Dr. Kevin Samuel DO Work Phone: [facility] 12-13-2024 12:51-0400 Systolic blood pressure 123 mm[Hg] Dr. Kevin Samuel DO Work Phone: [facility] 12-13-2024 11:00-0400 Inhaled oxygen flow rate 2 L/min Dr. Kevin Samuel DO Work Phone: [facility] 12-13-2024 07:24-0400 Body height 175.[address] Kevin Samuel DO Work Phone: [facility] 12-13-2024 07:24-0400 Body mass index (BMI) [Ratio] 31.2 kg/m2 Dr. Kevin Samuel DO Work Phone: [facility] 12-13-2024 07:24-0400 Body weight [address] Kevin Samuel DO Work Phone: [facility] 12-07-2024 14:52-0400 Body height 1798.[address] Kevin Samuel DO Work Phone: [facility] 12-07-2024 14:52-0400 Diastolic blood pressure 80 mm[Hg] Dr. Kevin Samuel DO Work Phone: [facility] 12-07-2024 14:52-0400 Heart rate 84 /min Dr. Kevin Samuel DO Work Phone: [facility] 12-07-2024 14:52-0400 Respiratory rate 17 /min Dr. Kevin Samuel DO Work Phone: [facility] 12-07-2024 14:52-0400 SaO2% (BldA) [Mass fraction] 96 % Dr. Kevin Samuel DO Work Phone: [facility] 12-07-2024 14:52-0400 Systolic blood pressure 117 mm[Hg] Dr. Kevin Samuel DO Work Phone: [facility] 11-16-2024 08:40-0400 Body temperature 97.8 [degF] Dr. Kevin Samuel DO Work Phone: [facility] 11-16-2024 08:40-0400 Diastolic blood pressure 80 mm[Hg] Dr. Kevin Samuel DO Work Phone: [facility] 11-16-2024 08:40-0400 Heart rate 62 /min Dr. Kevin Samuel DO Work Phone: [facility] 11-16-2024 08:40-0400 Respiratory rate 16 /min Dr. Kevin Samuel DO Work Phone: [facility] 11-16-2024 08:40-0400 SaO2% (BldA) [Mass fraction] 96 % Dr. Kevin Samuel DO Work Phone: [facility] 11-16-2024 08:40-0400 Systolic blood pressure 108 mm[Hg] Dr. Kevin Samuel DO Work Phone: [facility] 11-16-2024 07:14-0400 Body height 175.[address] Kevin Samuel DO Work Phone: [facility] 11-16-2024 07:14-0400 Body mass index (BMI) [Ratio] 30.6 kg/m2 Dr. Kevin Samuel DO Work Phone: [facility] 11-16-2024 07:14-0400 Body weight [address] Kevin Samuel DO Work Phone: [facility] 10-26-2024 09:29-0400 Body height 175.[address] Kevin Brown DO Work Phone: [facility] 10-26-2024 09:29-0400 Body mass index (BMI) [Ratio] 31 kg/m2 Dr. Kevin Samuel DO Work Phone: [facility] 10-26-2024 09:29-0400 Body weight 95.[address] Kevin Samuel DO Work Phone: [facility] 10-26-2024 09:29-0400 Diastolic blood pressure 96 mm[Hg] Dr. Kevin Samuel DO Work Phone: [facility] 10-26-2024 09:29-0400 Respiratory rate 18 /min Dr. Kevin Samuel DO Work Phone: [facility] 10-26-2024 09:29-0400 Systolic blood pressure 199 mm[Hg] Dr. Kevin Samuel DO Work Phone: [facility] 09-28-2024 08:49-0400 Body height 177.[address] Kevin Samuel DO Work Phone: [facility] 09-28-2024 08:49-0400 Body mass index (BMI) [Ratio] 30.1 kg/m2 Dr. Kevin Samuel DO Work Phone: [facility] 09-28-2024 08:49-0400 Body weight 95.[address] Kevin Samuel DO Work Phone: [facility] 08-26-2023 15:23-0400 Body height 177.[address] Kevin Samuel Work Phone: [facility] 08-26-2023 15:23-0400 Body mass index (BMI) [Ratio] 27.8 kg/m2 Dr. Kevin Samuel Work Phone: [facility] 08-26-2023 15:23-0400 Body temperature 97.8 [degF] Dr. Kevin Samuel Work Phone: [facility] 08-26-2023 15:23-0400 Body weight 88.[address] Kevin Samuel Work Phone: [facility] 08-26-2023 15:23-0400 Diastolic blood pressure 70 mm[Hg] Dr. Kevin Samuel Work Phone: [facility] 08-26-2023 15:23-0400 Heart rate 105 /min Dr. Kevin Samuel Work Phone: [facility] 08-26-2023 15:23-0400 Respiratory rate 16 /min Dr. Kevin Samuel Work Phone: [facility] 08-26-2023 15:23-0400 SaO2% (BldA) [Mass fraction] 98 % Dr. Kevin Samuel Work Phone: [facility] 08-26-2023 15:23-0400 Systolic blood pressure 118 mm[Hg] Dr. Kevin Samuel Work Phone: [facility] 08-05-2023 10:42-0400 Body height 177.[address] Kevin Samuel Work Phone: [facility] 08-05-2023 10:42-0400 Body mass index (BMI) [Ratio] 28.1 kg/m2 Dr. Kevin Samuel Work Phone: [facility] 08-05-2023 10:42-0400 Body temperature 97.3 [degF] Dr. Kevin Samuel Work Phone: [facility] 08-05-2023 10:42-0400 Body weight 88.[address] Kevin Samuel Work Phone: [facility] 08-05-2023 10:42-0400 Diastolic blood pressure 84 mm[Hg] Dr. Kevin Samuel Work Phone: [facility] 08-05-2023 10:42-0400 Heart rate 78 /min Dr. Kevin Samuel Work Phone: [facility] 08-05-2023 10:42-0400 Respiratory rate 16 /min Dr. Kevin Samuel Work Phone: [facility] 08-05-2023 10:42-0400 SaO2% (BldA) [Mass fraction] 96 % Dr. Kevin Samuel Work Phone: [facility] 08-05-2023 10:42-0400 Systolic blood pressure 128 mm[Hg] Dr. Kevin Samuel Work Phone: [facility] 09-13-2021 13:19-0400 Body height 177.[address] Kevin Samuel Work Phone: [facility] Work Phone: 09-13-2021 13:19-0400 Body mass index (BMI) [Ratio] 27.8 kg/m2 Dr. Kevin Samuel Work Phone: [facility] Work Phone: 09-13-2021 13:19-0400 Body temperature 97.4 [degF] Dr. Kevin Samuel Work Phone: [facility] Work Phone: 09-13-2021 13:19-0400 Body weight 87.[address] Kevin Samuel Work Phone: [facility] Work Phone: 09-13-2021 13:19-0400 Diastolic blood pressure 86 mm[Hg] Dr. Kevin Samuel Work Phone: [facility] Work Phone: 09-13-2021 13:19-0400 Heart rate 72 /min Dr. Kevin Samuel Work Phone: [facility] Work Phone: 09-13-2021 13:19-0400 Respiratory rate 14 /min Dr. Kevin Samuel Work Phone: [facility] Work Phone: 09-13-2021 13:19-0400 SaO2% (BldA) [Mass fraction] 99 % Dr. Kevin Samuel Work Phone: [facility] Work Phone: 09-13-2021 13:19-0400 Systolic blood pressure 138 mm[Hg] Dr. Kevin Samuel Work Phone: [facility] Work Phone: Encounters Encounter Date Encounter Type Care Provider Facility Start: 02-01-2025 End: 02-01-[address] Kevin Reeder DO -[facility] Work Phone: Start: 02-01-2025 End: 02-01-[address] Kevin Samuel DO Work Phone: -[facility] Start: 12-27-2024 End: 12-27-2024 Patient encounter procedure Jemma Lr PA-C -[facility] Work Phone: Start: 12-27-2024 End: 12-27-[address] Kevin Samuel DO Work Phone: -[facility] Start: 12-13-2024 ambulatory Kevin Samuel Facilit y:[facility] Start: 12-13-2024 Non-patient / Non-visit Dr. Haris Harding MD -[facility] Start: 12-13-2024 End: 12-13-2024 Non-patient / Non-visit Dr. Lamberto Uribe MD -[facility] Work Phone: Start: 12-13-2024 End: 12-13-2024 Admission to same day surgery center Dr. Haris Harding MD -[facility] Start: 12-13-2024 End: 12-13-[address] Kevin Samuel DO Work Phone: [facility] Start: 12-07-2024 End: 12-07-[address] Haris Harding MD -[facility] Work Phone: Start: 12-07-2024 End: 12-07-[address] Kevin Samuel DO Work Phone: -[facility] Start: 11-25-2024 End: 11-25-[address] Kevin Samuel DO Work Phone: [facility] Start: 11-25-2024 End: 11-25-[address] Haris Harding MD -Ultrasound [facility] Work Phone: Start: 11-25-2024 End: 11-25-2024 ambulatory Haris Harding Facility:[facility] Start: 11-16-2024 ambulatory Kevin Samuel Facilit y:[facility] Start: 11-16-2024 Non-patient / Non-visit Dr. Haris Harding MD -[facility] Start: 11-16-2024 End: 11-16-2024 Admission to same day surgery center Dr. Haris Harding MD -Endoscopy Work Phone: Start: 11-16-2024 End: 11-16-[address] Kevin Samuel DO Work Phone: -Endoscopy Start: 10-26-2024 End: 10-26-[address] Haris Harding MD -[facility] Work Phone: Start: 10-26-2024 End: 10-26-[address] Kevin Samuel DO Work Phone: [facility] Work Phone: Start: 10-25-2024 End: 10-25-[address] Kevin Samuel DO Work Phone: [facility] Work Phone: Start: 10-25-2024 End: 10-25-2024 Patient encounter procedure Gilberto GARNICA -[facility] Work Phone: Start: 10-25-2024 End: 10-25-2024 ambulatory Gilberto GARNICA Facility:[facility] Start: 09-28-2024 End: 09-28-[address] Lamberto Uribe MD -[facility] Start: 09-28-2024 End: 09-28-[address] Kevin Samuel DO Work Phone: [facility] Work Phone: Start: 02-09-2024 End: 02-09-2024 ambulatory Laurita Sanchez Facility:[facility] Start: 02-02-2024 End: 02-02-2024 [facility] Start: 09-20-2023 End: 09-20-2023 Emergency department patient visit NEO COLLIER [facility] Start: 08-26-2023 End: 08-26-[address] Kevin Samuel Work Phone: [facility] Work Phone: Start: 08-26-2023 End: 08-26-[address] Kevin Samuel Work Phone: [facility] Work Phone: Start: 08-05-2023 End: 08-05-[address] Kevin Samuel Work Phone: [facility] Work Phone: Start: 08-05-2023 End: 08-05-[address] Kevin Samuel Work Phone: [facility] Work Phone: Start: 05-22-2023 End: 05-22-2023 ambulatory KEVIN MALCOLM [facility] Start: 03-29-2023 End: 03-29-2023 Emergency department patient visit KEVIN SAMUEL [facility] Start: 09-13-2021 End: 09-13-[address] Kevin Samuel Work Phone: [facility] Start: 10-03-2016 End: 10-04-2016 Evaluation and management of inpatient PCP D UNKNOWN Facility:[facility] Procedures Date Procedure Procedure Detail Performing Clinician Start: 12-13-2024 Total cholecystectomy and exploration of common bile duct Dr. Kevin Samuel DO Work Phone: Start: 12-13-2024 Biliary tract contrast procedure Dr. Ricardo Samuel DO Work Phone: Start: 12-13-[address] Kevin Samuel DO Work Phone: Start: 11-25-2024 US scan of gallbladder Dr. Kevin Samuel DO Work Phone: Start: 11-16-[address] [...] the productionof interferon gamma. Chemiluminescence immunoassaymethodologyPerformed at: [facility] [id number] Director: Pro Briceño PhD, Phone: [phone] Start: 09-28-[address] Kevin Samuel DO Work Phone: Start: 09-28-2024 X-ray of cervical spine Dr. Kevin pitts DO Work Phone: Start: 10-02-2016 EXTRACTION LEFT HAND SKI PROVIDER UNKNOW N Start: 10-02-2016 REPAIR LEFT HAND TENDON PROVIDER UNKNOWN Plan of Treatment Date Care Activity Detail Author Start: 12-13-2024 Anes intraperitoneal upper abdomen w/laps nos ANES IPER UPR ABD NOS [facility] Start: 12-13-2024 Laps surg cholecystectomy w/cholangiography LAPARO CHOLECYSTECTOMY/GRA PH [facility] Start: 12-13-2024 RPR AA HRN 1ST < 3 CM RDC RPR AA HRN 1ST < 3 CM RDC [facility] Start: 12-13-2024 Patient discharge [facility] Start: 12-13-2024 Biliary tract contrast procedure Cholangiogram/ O R,Initial [facility] Start: 12-13-2024 XR Biliary ducts and Gallbladder Views W contrast IV [facility] Start: 11-16-2024 Esophagogastroduodenoscopy transoral diagnostic EGD DIAGNOSTIC BRUSH WASH [facility] Start: 11-16-2024 Patient discharge [facility] Start: 10-25-2024 In-vitro immunologic test [facility] Start: 09-28-2024 XR Thoracic spine Views [facility] Start: 09-28-2024 Xray thoracic spine Thoracic Spine 2 Views [facility] Start: 09-28-2024 X-ray of cervical spine Cerv Spine 4 or 5 Views [facility] Start: 09-28-2024 XR Cervical spine 4 or 5 Views [facility] 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 [Presence] in Blood [facility] Payers Date Payer Category Payer Self-pay [id number] 2024 Unknown [id number] 2013 Medicare [id number] 2013 Unknown [id number] 1950 Unknown [id number] 2.16.8 [id number] 1950 Unknown [id number] 2.16.8 40.1.289114.3.579.2.651 1950 Unknown [id number] 2.16.8 40.1.441899.3.579.2.651 1950 Unknown [id number] 2.16.8 40.1.991717.3.579.2.651 Medicare [id number] Unknown [id number] Unknown [id number] Unknown [id number] 2.16.8 40.1.628531.3.579.2.462 Unknown [id number] 2.16.8 40.1.923135.3.579.2.462 Unknown [id number] 2.16.8 40.1.139438.3.579.2.462 Unknown [id number] 2.16.8 40.1.769418.3.579.2.462 Unknown [id number] 2.16.8 40.1.424413.3.579.2.462 Unknown [id number] 2.16.8 40.1.484801.3.579.2.462 Unknown [id number] 2.16.8 40.1.713130.3.579.2.462 Unknown [id number] 2.16.8 40.1.775896.3.579.2.462 Unknown [id number] 2.16.8 40.1.529085.3.579.2.462 Unknown [id number] 2.16.8 40.1.929248.3.579.2.462 Unknown [id number] 2.16.8 40.1.392243.3.579.2.462 Unknown [id number] 2.16.8 40.1.355085.3.579.2.462 Unknown [id number] 2.16.8 40.1.346960.3.579.2.462 Unknown [id number] 2.16.8 40.1.692324.3.579.2.462 Social History Date Type Detail Facility Start: 09-13-2021 End: 08-26-2023 Tobacco smoking status NHIS Unknown if ever smoked [facility] Start: 06-17-2019 [facility] Start: 1950 Sex Assigned At Male W [facility] Start: 08-26-2023 Tobacco smoking stat us UTIS Smokes tobacco daily (finding) [facility] Start: 11-12-2024 End: 12-13-2024 Tobacco smoking status NHIS Ex-smoker (finding) [facility] Medical Equipment Procedure Code Equipment Code Equipment Original Text Equipment Identifier Dates Total cholecystectomy with exploration of common bile duct CLIP,HEMOLOCK MED [employer] Start: 12-13-2024 Total cholecystectomy with exploration of common bile duct CLIP,HEMOLOCK MED [employer] Start: 12-13-2024 Goals Date Patient Goal Desired Activity /State Mental Status Date Assessment Result Facility 12-13-2024 Cognitive function Voice/Name [facility] Work Phone: 11-16-2024 Cognitive function Touch/Shaking [facility] Work Phone: Clinical Notes 09-28-2024 to 12-13-2024 Note Date & Type Note Facility 12-13-2024 History and physical note [facility] 12-13-2024 Consult note Note Date/Time December 13, 2024 9:59am [facility] Medical Records Department [address] [place] [address] Anesthesia Postop Eval I 12/13/2458 MR#: [id number] Acct: [id number] Name: JIM FOWLER Rep #:[id number] 5 : 1950 74 From: Felicitas Merida [employer] BU[employer] PCP: Dr. Kevin Samuel, DO Status:RE G SDC Y Race: C Location: [place] [address] Anesthesia: Postop Eval I Current Vital Signs Temperature: 97.3 F Pulse Rate: 54 Blood Pressure: 115/68 Respiratory Rate: 18 Pulse Ox: 97 Assessment Airway patent: Yes Spontaneous unlabored respirations: Yes nausea: No Vomiting: No Anesthesia Complication: No Fluid Hydration Crystalloid volume administer (ml): 1,000 Total IV fluid infused: 1,000 Progress Note Anesthesia document: Postop Eval 1 completed: Yes 12/13/2459 <Electronically signed by Felicitas gill [employer]> Date _ Felicitas Irvin Signature: Date CC: ~ Signed [facility] Work Phone: 1(368) 788-100207-28-2025 Discharge summary Author Haris Harding [facility] Note Date/Time December 13, 2024 9:38 am [facility] Medical Records Department [address] [place] [address] Instructions for Home/Discharge Instructions 12/13/24 0935 MR#: [id number] Acct: [id number] Name: JIM FOWLER Rep #:[id number] 1 : 1950 74 From: Haris richardson MD PCP: Dr. Kevin Samuel, DO Status[place]RE G [facility] Discharge Instructions Procedure Gallbladder Diet Discharge Diet: Light diet - advance as tolerated Activity Discharge Activity: May Not Drive (for 2-3 days or while taking narcotic pain medications.) and - (Do not drive, work heavy equipment or sign legal documents for 24 hours.) May shower in (days): 1 Lifting Restrictions: 20 lbs for 2 weeks Additional Activity Instructions:: Pain medication may cause nausea. You should typically eat light foods as you take your pain medications. Pain medication may also cause constipation. If this is a problem for you, please discuss with your doctor. Dressing / Incision Call your doctor if your incision/area has: Continuous Slow Oozing, Sudden Increased Bleeding, Increased Pain/ Swelling, Increased Redness and Foul Smelling Discharge Call your doctor if you observe: Fever of 101 or Higher Suture Line Care: Avoid Pulling/Pushing and Avoid Pinching/Bending Remove Dressing in: 2 days Additional Dressing/Incision Instructions:: Leave operative bandaids on for 2 days. When you remove dressing, leave Steri-Strips on until your follow-up appointment, or until the Steri-Strips fall off on their own. Alternate ibuprofen and Tylenol for pain control, oxycodone for breakthrough pain. Take MiraLAX with narcotics to avoid constipation Follow Up Care Please Follow Up With: Haris Harding MD When: Please call to schedule 2 week follow up appointment. [phone] Test Results: Test results from this visit will be discussed in further detail at your follow- up appointment, if applicable. Discharge Plan Admission Attending Provider: Haris Harding Primary Care Provider: Kevin Samuel Instructions Print Language: Beninese Discharge Orders/Prescriptions Prescriptions: New oxycodone 5 mg Tablet 5 - 10 mg PO Q4H PRN PRN (Reason: Pain Score 4-10) 5 Days Qty: 14 0RF No Action omeprazole 20 mg capsule,delayed release(DR/EC) 20 mg PO QDAY metronidazole 0.75 % cream 1 applic TOPICAL BID PRN (Reason: skin irritation) clobetasol 0.05 % ointment 1 applic TOPICAL BID PRN (Reason: psoriasis) rosuvastatin 10 mg tablet 10 mg PO DAILY cholecalciferol (vitamin D3) 50 mcg (2,000 unit) capsule 50 mcg PO DAILY amlodipine 5 mg tablet 5 mg PO DAILY Tremfya 100 mg/mL auto-injector 100 mg subcut Q8W Referrals / Follow Up: Kevin Samuel DO [Primary Care Provider] - Disposition Disposition (needs filled in before D/C Order can be placed): Home, Self Care 12/13/24 0938<Electronically signed by Haris Harding MD>Haris Harding MD CC: Dr. Kevin Samuel, DO ~ Signed [facility] Work Phone: 1(294) 998-376807-28-2025 History and physical note Author Haris Harding [facility] Note Date/Time December 13, 2024 12:5 7pm [facility] Medical Records Department [address] [place] [address] History & Physical Exam 12/13/24 0811 MR#: [id number] Acct: [id number] Name: JIM FOWLER Rep #:[id number] 1 : 1950 74 From: Haris richardson MD PCP: Dr. Kevin Samuel DO Status:[facility] Location: [place] [address] History and Physical Date of Admission: 12/13/24 Intake Vital Signs 11/16/2506:14 12/07/2513:52 Height 5 ft 9 in 59 ft BP 117/80 Blood Pressure Location Lt brachial Position Sitting Respiration 17 Pulse 84 Pulse Source Monitor Pulse Oximetry (%) 96 Oxygen Delivery Method room air Intake Visit Reasons: GALLBLADDER U/S RESULTS Chief Complaint: gallbladder u/s results Is patient in pain?: No Allergies amoxicillin Allergy (Severe, Verified 12/07/24 14:49) Rashclams Adverse Reaction (Severe, Verified 12/07/24 14:49) Vomiting Medications ?Medication ?Instructions ?Recorded ?Confirmed ?Type clobetasol 0.05 % topical ointment 1 applic topical BID PRN psoriasis 08/2012/07/24 History metronidazole 0.75 % topical cream 1 applic topical BID PRN skin 08/20/17 12/07/24 History irritation omeprazole 20 mg capsule,delayed 20 mg PO QDAY 08/20/17 12/07/24 History release amlodipine 5 mg tablet 5 mg PO DAILY 09/13/21 12/07/24 History cholecalciferol (vitamin D3) 50 50 mcg PO DAILY 09/13/21 12/07/24 Histor y mcg (2,000 unit) capsule rosuvastatin 10 mg tablet 10 mg PO DAILY 09/13/21 12/07/24 History guselkumab 100 mg/mL subcutaneous 100 mg subcut Q8W 10/26/24 12/07/24 Hist ory auto-injector (Tremfya) Have you fallen [...] cancer DiabetesSister Diabetes Social History Smoking Status: Former smoker [...] the way out. Haris Harding MD Pager: [facility] [address] [place] [address], [address] [place] [address] Office: I have examined the patient and the H&P has been reviewed. There are no clinicalchanges since date of exam. 12/13/24 0811 <Electronically signed by Haris Harding MD> Cosigner Signature (if applicable): CC: Dr. Haris Harding MD; Dr. Kevin Samuel, DO~ Signed [facility] Work Phone: 1(681) 765-988807-28-2025 Consult note [facility] Medical Records Department [address] [place] [address] Anesthesia Postop Eval I 12/13/24 0958 MR#: [id number] Acct: [id number] Name: JIM FOWLER Rep #:[id number] 5 : 1950 74 From: Felicitas Merida [employer] BU[employer]ER PCP: Dr. Kevin Samuel, DO Status:LILA FELDER Y Race: C Location: [place] [address] Anesthesia: Postop Eval I Current Vital Signs Temperature: 97.3 F Pulse Rate: 54 Blood Pressure: 115/68 Respiratory Rate: 18 Pulse Ox: 97 Assessment Airway patent: Yes Spontaneous unlabored respirations: Yes nausea: No Vomiting: No Anesthesia Complication: No Fluid Hydration Crystalloid volume administer (ml): 1,000 Total IV fluid infused: 1,000 Progress Note Anesthesia document: Postop Eval 1 completed: Yes 12/13/24 0959 a [employer] BU[employer]> Date _ Felicitas Magnolia [employer] BU[employer]ER Cosigner Signature: Date CC: ~ Signed [facility]07-28-2025 Discharge summary [facility] Medical Records Department [address] [place] [address] Instructions for Home/Discharge Instructions 12/13/24 0935 MR#: [id number] Acct: [id number] Name: JIM FOWLER Rep #:[id number] 1 : 1950 74 From: Haris richardson MD PCP: Dr. Kevin Samuel, DO Status:LILA Mcallister [facility] Discharge Instructions Procedure Gallbladder Diet Discharge Diet: Light diet - advance as tolerated Activity Discharge Activity: May Not Drive (for 2-3 days or while taking narcotic pain medications.) and - (Do not drive, work heavy equipment or sign legal documents for 24 hours.) May shower in (days): 1 Lifting Restrictions: 20 lbs for 2 weeks Additional Activity Instructions:: Pain medication may cause nausea. You should typically eat lightfoods as you take your pain medications. Pain medication may also cause constipation. If this is a problem for you, please discuss with yourdoctor. Dressing / Incision Call your doctor if your incision/area has: Continuous Slow Oozing, Sudden Increased Bleeding, Increased Pain/ Swelling, Increased Redness and Foul Smelling Discharge Call your doctor if you observe: Fever of 101 or Higher Suture Line Care: Avoid Pulling/Pushing and Avoid Pinching/Bending Remove Dressing in: 2 days Additional Dressing/Incision Instructions:: Leave operative bandaids on for 2 days. When you removedressing, leave Steri-Strips on until your follow-up appointment, or until the Steri-Strips fall off on their own. Alternate ibuprofen and Tylenol for pain control, oxycodone for breakthrough pain. Take MiraLAX with narcotics to avoid constipation Follow Up Care Please Follow Up With: Haris Harding MD When: Please call to schedule 2 week follow up appointment. [phone] Test Results: Test results from this visit will be discussed in further detail at your follow- up appointment, if applicable. Discharge Plan Admission Attending Provider: Haris Harding Primary Care Provider: Kevin Samuel Instructions Print Language: Beninese Discharge Orders/Prescriptions Prescriptions: New oxycodone 5 mg Tablet 5 - 10 mg PO Q4H PRN PRN (Reason: Pain Score 4-10) 5 Days Qty: 14 0RF No Action omeprazole 20 mg capsule,delayed release(DR/EC) 20 mg PO QDAY metronidazole 0.75 % cream 1 applic TOPICAL BID PRN (Reason: skin irritation) clobetasol 0.05 % ointment 1 applic TOPICAL BID PRN (Reason: psoriasis) rosuvastatin 10 mg tablet 10 mg PO DAILY cholecalciferol (vitamin D3) 50 mcg (2,000 unit) capsule 50 mcg PO DAILY amlodipine 5 mg tablet 5 mg PO DAILY Tremfya 100 mg/mL auto-injector 100 mg subcut Q8W Referrals / Follow Up: Kevin Samuel DO [Primary Care Provider] - Disposition Disposition (needs filled in before D/C Order can be placed): Home, Self Care 12/13/24 0938Anthcarlyn Harding MD CC: Dr. Kevin Samuel DO ~ Signed [facility]07-28-2025 Procedure note [facility] Medical Records Department [address] [place] [address] Operative Report 12/13/24 0933 MR#: [id number] Acct: [id number] Name: JIM FOWLER Rep #:[id number] : 1950 74 From: Haris richardson MD PCP: Dr. Kevin Samuel, DO Status:RE G [facility] Location: [place] [address] Operative Report (Standard) Operative Information Date of Procedure: 12/13/24 Pre-Operative Diagnosis: 1. Cholelithiasis 2. 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 Pulp Tester: Ene Gonzalez Tasks completed by dental assistant medical assistant: Opening & closing and Retracting Type of Anesthesia: General/Regional RN Documented Start/Stop Times: Operation Date: 12/13/24 08:45 Case Time Into Pre-Op 12/13/24 06:55 Anesthesia Start 12/13/24 08:49 Into Room 12/13/24 08:49 Procedure Start 12/13/24 09:07 Procedure Start Time: 09:07 Procedure Stop Time: 09:40 Select all DRAINS/GRAFTS/IMPLANTS that apply: None Estimated Blood Loss: 5 Specimen collected: Yes Description of specimen(s) removed: Gallbladder Description of surgery: After obtaining informed consent patient was brought back to the operating room. General anesthesiawas induced. The abdomen was prepped and draped in usual sterile fashion. Curvilinear incision was marked inferior to the umbilicus and incised. The hernia sac was dissected free and removed. Finger sweep was performed and the Dasilva trocar was placed into the abdomen. The balloon was inflated. Theabdomen was inflated to 15 mmHg. Next a camera was introduced into the abdomen and the abdomen was inspected. Next under direct visualization three 5-mm ports were placed one subxiphoid and 2 subcostal. Next the gallbladder was elevated and retracted toward the right shoulder. The peritoneum was stripped from the gallbladder. The infundibulum was located and retracted laterally. Next the triangleof Calot was dissected and the cystic duct and cystic artery were identified. Cholangiograms were performed. The Kimble clamp was used to clamp across the infundibulum and the catheter needle was inserted into the gallbladder. Under fluoroscopy contrast was instilled into the gallbladder and the common duct, cystic duct as well as proximal hepatic ducts were identified. There was good filling of the duodenum. There were no filling defects noted in the common bile duct. The clamp was removed as well as the needle and the infundibulum was grasped once more. Three hemolock clips were placed across the cystic duct. The cystic duct was then divided leaving 2 clips on the stump. The cystic artery was clipped and divided in the same fashion. The hook cautery was then used to take the gallbladder off of thegallbladder bed. Hemostasis was obtained. Gallbladder fossa was irrigated and no active bleeding or bile leakage was noted. Next the camera was introduced inthe subxiphoid port. An Endopouchbag was placed through the umbilical port andthe gallbladder was placed into it. The gallbladder was then removed through the umbilical incision. The camera was then reinserted through the umbilical port. The gallbladder fossa was inspected once more and noted to be hemostatic with no leaking bile.The abdomen was suctioned dry. The 5 mm ports were removed under direct visualization. The umbilical port was then removed and theair was removed from the abdomen. Next using an 0 Vicryl suture the umbilical fascia was closed in a [id number] fashion. The umbilical port site was irrigated localanesthetic was administered to all the incisions. All the incisions were closed with interrupted subcuticular 4-0 Monocryl sutures followed by Steri-Strips and dressings. The patient was awoken and taken to PACU in stable condition. Surgical Findings: Umbilical hernia and cholelithiasis with normal intraoperative cholangiogram's Complications Complications: No Admit VTE Documentation VTE Mechan Device Prophylaxis: SCD's 12/13/24 0935 Cosigner Signature (if applicable): CC: Dr. Haris Harding MD; Dr. Kevin Samuel, DO~ Signed [facility]07-28-2025 Consult note Author Poncho Holt [facility] Note Date/Time December 13, 2024 7:19 am [facility] Medical Records Department [address] [place] [address] Pre-Anesthesia Evaluation 12/13/24 0718 MR#: [id number] Acct: [id number] Name: JIM FOWLER Rep #:[id number] : 1950 74 From: Poncho Holt MD PCP: Dr. Kevin Samuel, Status:RE G SDC Y Race: C Location: [place] [address]- ASA Classification* ASA Classification ASA Classification: 2 Assessment & Plan Anesthesia* Anesthesia Assessment Anesthesia [...] anesthesia risk assessments. Anesthesia Type Anesthesia Type: General Anesthesia Focused Assessment* Airway Assessment Mouth opens: >3 cm Mallampati Score: II Labs Anesthesia Preop lab: CBC WBC 6.5 [...] COAG Pre-Assessment Diagnosis/Proposed Procedure Planned Operative Procedure(s): Laparoscopic cholecystectomy and umbilical hernia repair Anesthesia History Anesthesia History - services rep: Anesthesia History - services rep Hx Hospitalization No 11/12/24 13:37 Any Problems With Anesthesia No 11/12/24 13:37 Cholinesterase deficiency No 11/12/24 13:37 You/Your Family Experience No 11/12/24 13:37 fever (hyperthermia) with Relationship Recent Exposure to Contagious No 11/16/24 07:14 Disease Does patient have nerve No 11/12/24 13:37 stimulator Patient instructed to have device shut off --Does patient have Pacemaker or ICD? When Was Last Pacemaker Check QUESTION #4 FULL TEXT: You/Your Family Experience fever (hyperthermia) with Anesthesia Last Oral Intake Last Oral intake: Last Oral Intake NPO since Meds taken in AM with sips of water? 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 - services rep: PONV - services rep Female HX of Motion Sickness HX of N/V After Surgery Non-Smoker Duration of Surgery greater than 60 minutes Number of Risk Factors PONV Score Height & Weight Height & Weight: Anesthesia: Height & Weight Height 59 ft 12/07/24 14:52 Respiratory Assessment Respiratory Assessment - services rep: Respiratory Tract Infection Hx - services rep Hx Respiratory Tract Infection No 11/12/24 13:37 STOP Sleep Apnea STOP Sleep Apnea - services rep: STOP Sleep Apnea - services rep Hx Hypertension Yes: on med 11/12/24 13:37 Hx Sleep Apnea No 11/16/24 08:40 CPAP No 11/16/24 08:25 BIPAP No 06/17/19 15:19 Do you snore loudly (louder than talking or can be heard Do you often feel tired/ fatigued/ sleepy during daytime? Has anyone observed you stop breathing during sleep? STOP Results QUESTION #5 FULL TEXT : Do you snore loudly (louder than talking or can be heard through closed doors)? 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 Specify any problems Hx of Preganancy in last 3 Months Nurse Filling Out Transfusion & Questions: Date: Time: Patient unable to answer at this time (ie. confused, unrespo /Reproduction History /Reproductive History - services rep: /Reproductive Hx- services rep Hx Now Gestational Age (in weeks): EDC: Hx Hx Para Hx Section SAB No 11/12/24 13:37 Active Medications Active Medications: Current Medications Generic Name Dose Route Start Last Admin Trade Name Freq PRN Reason Stop Dose Admin Lactated Ringer's 1,000 mls @ 15 mls/hr 12/13/24 07:00 IV .Q48H MANAS Clindamycin Phosphate 900 mg in 50 mls @ 75 mls/hr 12/13/24 07:15 Cleocin IV 12/13/24 07:54 INTRAOP ONE PFSH Medical History RUQ pain Wears glasses [...] / Time amoxicillin Allergy Severe Rash Verified 12/13/24 07:17 clams AdvReac Severe Vomiting Verified 12/13/24 07:17 Family History Mother Arthritis Father Arthritis Brother Colon cancer Diabetes Sister Diabetes Surgical History Status post bilateral inguinal hernia [...] and no additional complaints, except as documented. 12/13/24718 <Electronically signed by Poncho Holt MD > Date _ Poncho Holt MD [facility] Signature: Date CC: ~ Signed [facility] Work Phone: 1(167) 152-181207-28-2025 [facility] Medical Records Department [address] [place] [address] History Physical Exam 12/13/24810 MR#: [id number] Acct: [id number] Name: JIM FOWLER Rep #: [id number] : 1950 74 From: Haris Harding MD PCP: Dr. Kevin Samuel, DO Status:[facility] Location: [place] [address] History and Physical Date of Admission: 12/13/24 Intake Vital Signs 11/16/2506:14 12/07/2513:52 Height 5 ft 9 in 59 ft BP 117/80 Blood Pressure Location Lt brachial Position Sitting Respiration 17 Pulse 84 Pulse Source Monitor Pulse Oximetry (%) 96 Oxygen Delivery Method room air Intake Visit Reasons: GALLBLADDER U/S RESULTS Chief Complaint: gallbladder u/s results Is patient in pain?: No Allergies amoxicillin Allergy (Severe, Verified 12/07/24 14:49) Rashclams Adverse Reaction (Severe, Verified 12/07/24 14:49) Vomiting Medications ???Medication ???Instructions ???Recorded ???Confirmed ???Type clobetasol 0.05 % topical ointment 1 applic topical BID PRN psoriasis 08/20/17 History metronidazole 0.75 % topical cream 1 applic topical BID PRN skin 08/20/17 12/07/24 Hi story irritation omeprazole 20 mg capsule,delayed 20 mg PO QDAY 08/20/17 12/07/24 History release amlodipine 5 mg tablet 5 mg PO DAILY 09/13/21 12/07/24 History cholecalciferol (vitamin D3) 50 50 mcg PO DAILY 09/13/21 12/07/24 History mcg (2,000 unit) capsule rosuvastatin 10 mg tablet 10 mg PO DAILY 09/13/21 12/07/24 History guselkumab 100 mg/mL subcutaneous 100 mg subcut Q8W 10/26/24 12/07/24 History auto-injector (Tremfya) Have you fallen [...] cancer DiabetesSister Diabetes Social History Smoking Status: Former smoker [...] chest Resp Effort Inspection: normal respiratory effort Ausc (more content not included)...[facility]07-28-2025 Consult note [facility] Medical Records Department [address] [place] [address] Pre-Anesthesia Evaluation 12/13/24 0718 MR#: [id number] Acct: [id number] Name: JIM FOWLER Rep #:[id number] : 1950 74 From: Poncho Holt MD PCP: Dr. Kevin Samuel, DO Status:RE G SDC Y Race: C Location: [place] [address] ASA Classification* ASA Classification ASA Classification: 2 Assessment & Plan Anesthesia* Anesthesia Assessment Anesthesia [...] anesthesia risk assessments. Anesthesia Type Anesthesia Type: General Anesthesia Focused Assessment* Airway Assessment Mouth opens: >3 cm Mallampati Score: II Labs Anesthesia Preop lab: CBC WBC 6.5 [...] COAG Pre-Assessment Diagnosis/Proposed Procedure Planned Operative Procedure(s): Laparoscopic cholecystectomy and umbilical hernia repair Anesthesia History Anesthesia History - services rep: Anesthesia History - services rep Hx Hospitalization No 11/12/24 13:37 Any Problems With Anesthesia No 11/12/24 13:37 Cholinesterase deficiency No 11/12/24 13:37 You/Your Family Experience No 11/12/24 13:37 fever (hyperthermia) with Relationship Recent Exposure to Contagious No 11/16/24 07:14 Disease Does patient have nerve No 11/12/24 13:37 stimulator Patient instructed to have device shut off --Does patient have Pacemaker or ICD? When Was Last Pacemaker Check QUESTION #4 FULL TEXT: You/Your Family Experience fever (hyperthermia) with Anesthesia Last Oral Intake Last Oral intake: Last Oral Intake NPO since Meds taken in AM with sips of water? 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 - services rep: PONV - services rep Female HX of Motion Sickness HX of N/V After Surgery Non-Smoker Duration of Surgery greater than 60 minutes Number of Risk Factors PONV Score Height & Weight Height & Weight: Anesthesia: Height & Weight Height 59 ft 12/07/24 14:52 Respiratory Assessment Respiratory Assessment - services rep: Respiratory Tract Infection Hx - services rep Hx Respiratory Tract Infection No 11/12/24 13:37 STOP Sleep Apnea STOP Sleep Apnea - services rep: STOP Sleep Apnea - services rep Hx Hypertension Yes: on med 11/12/24 13:37 Hx Sleep Apnea No 11/16/24 08:40 CPAP No 11/16/24 08:25 BIPAP No 06/17/19 15:19 Do you snore loudly (louder than talking or can be heard Do you often feel tired/ fatigued/ sleepy during daytime? Has anyone observed you stop breathing during sleep? STOP Results QUESTION #5 FULL TEXT : Do you snore loudly (louder than talking or can be heard through closeddoors)? 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 Specify any problems Hx of Preganancy in last 3 Months Nurse Filling Out Transfusion & Questions: Date: Time: Patient unable to answer at this time (ie. confused, unrespo /Reproduction History /Reproductive History - services rep: /Reproductive Hx- services rep Hx Now Gestational Age (in weeks): EDC: Hx Hx Para Hx Section SAB No 11/12/24 13:37 Active Medications Active Medications: Current Medications Generic Name Dose Route Start Last Admin Trade Name Freq PRN Reason Stop Dose Admin Lactated Ringer's 1,000 mls @ 15 mls/hr 12/13/24 07:00 IV .Q48H MANAS Clindamycin Phosphate 900 mg in 50 mls @ 75 mls/hr 12/13/24 07:15 Cleocin IV 12/13/24 07:54 INTRAOP ONE PFSH Medical History RUQ pain Wears glasses [...] / Time amoxicillin Allergy Severe Rash Verified 12/13/24 07:17 clams AdvReac Severe Vomiting Verified 12/13/24 07:17 Family History Mother Arthritis Father Arthritis Brother Colon cancer Diabetes Sister Diabetes Surgical History Status post bilateral inguinal hernia [...] and no additional complaints, except as documented. 12/13/24 0719 > Date _ Poncho Holt MD [facility] Signature: Date CC: ~ Signed [facility]07-22-2025 [facility] [address] [place] [address] OFFICE VISIT Date of Service: 12/07/24 MR#: [id number] Acct: [id number] Name: JIM FOWLER Rep #: [id number] : 1950 Provider: Dr. Heriberto Harding MD Age/Sex: 74/M Location: [facility] Status: Signed Intake Vital Signs 11/16/24 [...] or vomiting, No diarrhea, No constipation, No bloodin stool, Yes acid reflux, Yes hemorrhoids, No [...] General: cooperative Orientation: alert and oriented x3 HENAR Head: normal to inspection Neck Neck: normal [...] the way out. Haris Harding MD Pager: [facility] [address] [place] [address] [address] [place] [address] Office: Coding Level of Care Code Off vis,est,level 3 Diagnoses RUQ pain R10.11 Clinical Quality Measures Falls Risk Screening/Assistive Devices Have you fallen in the past year?: No 12/07/24 1518 renee PÉREZ> Date _ [facility] MD [facility] Signature: Date (if applicable) CC: Dr. Kevin Samuel, DO ~ [facility]07-22-2025 Progress note Author Haris Harding [facility] Note Date/Time December 07, 2024 3:18 pm [facility] [address] [place], [place] [id number] OFFICE VISIT Date of Service: 12/07/24 MR#: [id number] Acct: [id number] Name: JIM FOWLER Rep #: [id number] : 1950 Provider: Dr. Heriberto Harding MD Age/Sex: 74/M Location: [facility] Status: Signed Intake Vital Signs 11/16/24 07:14 [...] the way out. Haris Harding MD Pager: [facility] [address] [place] [address] [place] [address] Office: Coding Level of Care Code Off vis,est,level 3 Diagnoses RUQ pain R10.11 Clinical Quality Measures Falls Risk Screening/Assistive Devices Have you fallen in the past year?: No 12/07/24 1518 <Electronically signed by Haris duran MD> Date _ Haris Harding MD Cosigner Signature: Date (if applicable) CC: Dr. Kevin Samuel, DO ~ [facility] Work Phone: 1(667) 853-466707-10-2025 Radiology Diagnostic study note [facility] Imaging Services [address] [place] [address] Gallbladder MR#: [id number] Acct: [id number] Name: JIM FOWLER Rep #: [id number] : 1950 M 74 From: Joavni De Santiago MD PCP: Dr. Kevin Samuel, DO Status: LILA Mcallister CLI Study:Gallbladder Date of Exam: 11/25/24 Exam# [id number] Ordering Dr: Haris Ribeiro MD PROCEDURE: GALLBLADDER [...] 1.1 cm. Right renal cysts. Reading Location: [place] [address] CC: Dr. Haris Harding MD; Dr. Kevin Samuel DO ~ Sprinkler Truck Driver: Signed [facility]07-01-2025 Consult note [facility] Medical Records Department [address] [place] [address] Anesthesia Postop Eval II 11/16/24 0843 MR#: [id number] Acct: [id number] Name: JIM FOWLER Rep #:[id number] : 1950 74 From: Nba Dallas MD PCP: Dr. Kevin Samuel, DO Status:LILA Mcallister SDC Y Race: C Location: [place] [address]- Anesthesia Postop Eval I Sum Postop Eval [...] No Complications Anesthesia Complication: No 11/16/24 0843 D> Date _ Nba Irvin Signature: Date CC: ~ Signed [facility]07-01-2025 Consult note [facility] Medical Records Department [address] [place] [address] Anesthesia Postop Eval I 11/16/24827 MR#: [id number] Acct: [id number] Name: JIM FOWLER Rep #:[id number] : 1950 74 From: Zachary Garcia PCP: Dr. Kevin Samuel, DO Status:RE G SDC Y Race: C Location: [place] [address] Anesthesia: Postop Eval I Current Vital Signs [...] Anesthesia document: Postop Eval 1 completed: Yes 11/16/2429 > Date _ Zachary Costaignluis Signature: Date CC: ~ Signed [facility]07-01-2025 Procedure note [facility] Medical Records Department [address] [place] [address] Operative Report - CC Letter MR#: [id number] Acct: [id number] Name: JIM FOWLER Rep #:[id number] : 1950 74 From: Haris richardson MD PCP: Dr. Kevin Samuel, DO Status:RE [facility] 11/16/2024 Kevin Samuel Re : Upper GI endoscopy procedure for Jim Fowler Dear Dr. Samuel This procedure was performed on Saturday, November [...] been signed electronically. 11/16/24824 Date _ [facility] MD [facility] Signature: Date (if indicated) CC: Dr. Haris Harding MD; Dr. Kevin Samuel DO ~ Date Dictated: 11/16/24804 Date Transcribed: Sprinkler Truck Driver: AC Signed [facility]07-01-2025 Procedure note [facility] Medical Records Department [address] [place] [address] EGD Report MR#: [id number] Acct: [id number] Name: JIM FOWLER Rep #:[id number] : 1950 74 From: Haris richardson MD PCP: Dr. Kevin Samuel DO Status:[facility] Patient Name: Jim Fowler Procedure Date: 11/16/2024 8:05 AM Date of : 1950 Age: 74 Procedure: Upper GI endoscopy Indications: Epigastric abdominal pain Providers: Haris Harding MD Referring MD: Kevin Samuel Medicines: Propofol per Anesthesia Patient Profile: This [...] be scheduled. Procedure Code(s): --- Professional --- 65659, Esophagogastroduodenoscopy, flexible, transoral; diagnostic, including collection of specimen(s) by brushing or washing, when performed (separate procedure) Diagnosis Code(s): --- Professional --- R10.13, Epigastric pain CPT copyright 2021 [employer]. All rights reserved. The codes documented in this report are preliminary and upon senior report developer review may be revised to meet current compliance requirements. Haris Harding MD 11/16/2024 8:25:52 AM This report has been signed electronically. Number of Addenda: 0 Note Initiated On: 11/16/2024 8:05 AM 11/16/24824 Date _ Haris Harding MD Cosigner Signature: Date (if indicated) CC: Dr. Haris Harding MD; Dr. Kevin Samuel DO ~ Date Dictated: 11/16/24804 Date Transcribed: Sprinkler Truck Driver: MEHKI Signed [facility]07-01-2025 History and physical note [facility] Medical Records Department [address] [place] [address] History & Physical Exam 11/16/24800 MR#: [id number] Acct: [id number] Name: JIM FOWLER Rep #:[id number] : 1950 74 From: Haris richardson MD PCP: Dr. Kevin Samuel, DO Status:[facility] Location: [place] [address] History and Physical Date of Admission: 11/16/24 Intake Vital Signs 09/29/2507:49 10/26/2508:29 Height 5 ft 10 in 5 ft 9 in Weight: 210 lb 210 lb BMI 30.1 31.0 BP 199/96 H Blood Pressure Location Rt brachial Position Sitting Respiration 18 Intake Visit Reasons: Dysphagia Chief Complaint: GI issues/due for c-scope Base Engineer Required: No Is patient in pain?: No [...] proceed with procedure. Haris Harding MD Pager: [facility] [address] [place] [address], [address] [place] [address] Office: I have examined the patient and the H&P has been reviewed. There are no clinicalchanges since date of exam. 11/16/24 08 Cosigner Signature (if applicable): CC: Dr. Haris Harding MD; Dr. Kevin Samuel, DO~ Signed [facility]07-01-2025 [facility] Medical Records Department [address] [place], [place] [id number] History Physical Exam 11/16/24800 MR#: [id number] Acct: [id number] Name: JIM FOWLER Rep #: [id number] : 1950 74 From: Haris Harding MD PCP: Dr. Kevin Samuel, DO Status[place] Location: [place] [address] History and Physical Date of Admission: 11/16/24 Intake Vital Signs 09/29/2507:49 10/26/2508:29 Height 5 ft 10 in 5 ft 9 in Weight: 210 lb 210 lb BMI 30.1 31.0 BP 199/96 H Blood Pressure Location Rt brachial Position Sitting Respiration 18 Intake Visit Reasons: Dysphagia Chief Complaint: GI issues/due for c-scope Base Engineer Required: No Is patient in pain?: No [...] ROM Chest Chest pal (more content not included)...[facility]07-01-2025 Consult note [facility] Medical Records Department [address] [place] [address] Pre-Anesthesia Evaluation 11/16/24 0738 MR#: [id number] Acct: [id number] Name: JIM FOWLER Rep #:[id number] : 1950 74 From: Nba Dallas MD PCP: Dr. Kevin Samuel, DO Status:RE G SDC Y Race: C Location: [place] [address] ASA Classification* ASA Classification ASA Classification: 3 [...] with biopsies Anesthesia History Anesthesia History - services rep: Anesthesia History - services rep Hx Hospitalization No 11/12/24 13:37 Any Problems [...] Any additional information?: No PONV PONV - services rep: PONV - services rep Female No 11/12/24 13:37 HX of Motion [...] 11/16/24 07:14 Respiratory Assessment Respiratory Assessment - services rep: Respiratory Tract Infection Hx - services rep Hx Respiratory Tract Infection No 11/12/24 13:37 STOP Sleep Apnea STOP Sleep Apnea - services rep: STOP Sleep Apnea - services rep Hx Hypertension Yes: on med 11/12/24 13:37 [...] Tobacco Use History Tobacco Use History - services rep: Tobacco Use History - services rep Tobacco Use Smoking Status Former smoker 11/12/24 13:37 Hx Tobacco Use No 11/12/24 13:37 Years Smoking Packs Smoked per Day Smoking Cessation Date was No - quit smoking greater 11/12/24 13:37 within the last 15 years than 15 years ago Hx Smoking Cessation Date Hx Smoking Cessation No 11/12/24 13:37 Counseling Hematologic Medial History Hematologic Hx - services rep: 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 Hx of Blood Transfusion No 11/12/24 13:37 [...] confused, unrespo /Reproduction History /Reproductive History - services rep: /Reproductive Hx- services rep Hx Now No 11/12/24 13:37 Gestational Age [...] Nba Irvin Signature: Date CC: ~ Signed [facility]06-10-2025 Evaluation note* Diagnosis Onset Date Resolution Status Admit Date Abdominal pain acute October 26, 2024 9:07am RUQ pain acute December 07 2:44pm Umbilical hernia acute December 172024 8:47am Chronic cholecystitis with calculus chronic December 27 8:47am [facility] Work Phone: 1(546) 709-926806-10-2025 [facility] [address] [place] [address] OFFICE VISIT Date of Service: 10/26/24 MR#: [id number] Acct: [id number] Name: JIM FOWLER Rep #: [id number] : 1950 Provider: Dr. Heriberto Harding MD Age/Sex: 74/M Location: [facility] Status: Signed Intake Vital Signs 09/28/24 08:49 10/26/24 09:29 Height 5 ft 10 in 5 ft 9 in Weight: 210 lb 210 lb BMI 30.1 31.0 BP 199/96 H Blood Pressure Location Rt brachial Position Sitting Respiration 18 Intake Visit Reasons: Dysphagia Chief Complaint: GI issues/due for c-scope Base Engineer Required: No Is patient in pain?: No [...] proceed with procedure. Haris Harding MD Pager: [facility] [address] [place] [address], [address] [place] [address] Office: Coding Level of Care Code Off vis,new,level 3 Diagnoses Generalized abdominal pain R10.84 Abdominal location: generalized Clinical Quality Measures Falls Risk Screening/Assistive Devices Have you fallen in the past year?: No 10/26/24 Bimal duran MD> Date _ Haris Harding MD Cosigner Signature: Date (if applicable) CC: ~ [facility]06-10-2025 Progress note Author Haris Harding [facility] Note Date/Time October 26, 2024 10:0 0am [facility] [address] [place] [address] OFFICE VISIT Date of Service: 10/26/24 MR#: [id number] Acct: [id number] Name: JIM FOWLER Rep #: [id number] : 1950 Provider: Dr. Heriberto Harding MD Age/Sex: 74/M Location: [facility] Status: Signed Intake Vital Signs 09/28/24 08:49 10/26/24 09:29 Height 5 ft 10 in 5 ft 9 in Weight: 210 lb 210 lb BMI 30.1 31.0 BP 199/96 H Blood Pressure Location Rt brachial Position Sitting Respiration 18 Intake Visit Reasons: Dysphagia Chief Complaint: GI issues/due for c-scope Base Engineer Required: No Is patient in pain?: No [...] proceed with procedure. Haris Harding MD Pager: [facility] [address] [place] [address], [address] [place] [address] Office: Coding Level of Care Code Off vis,new,level 3 Diagnoses Generalized abdominal pain R10.84 Abdominal location: generalized Clinical Quality Measures Falls Risk Screening/Assistive Devices Have you fallen in the past year?: No 10/26/24 1000 <Electronically signed by Haris duran MD> Date _ Haris Harding MD Cosign Signature: Date (if applicable) CC: ~ [facility] Work Phone: [phone]) 906-899305-13-2025 Evaluation note* Diagnosis Onset Date Resolution Status Admit Date Compression fracture of T8 vertebra acute September 28, 2024 8 :38am Thoracic back pain acute September 282024 8:38am Abdominal pain acute October 26, 2024 9:07am [facility] Work Phone: 1(377) 614-367905-13-2025 Evaluation note* Diagnosis Onset Date Resolution Status Admit Date Compression fracture of T8 vertebra acute September 28, 2024 8 :38am Thoracic back pain acute September 282024 8:38am Abdominal pain acute October 26, 2024 9:07am RUQ pain acute December 07 2:44pm [facility] Work Phone: Consult note Author Nba Dallas [facility] Note Date/Time November 16, 2024 7:53a m [facility] Medical Records Department [address] [place] [address] Pre-Anesthesia Evaluation 11/16/24 0738 MR#: [id number] Acct: [id number] Name: JIM FOWLER Rep #:[id number] : 1950 74 From: Nba Dallas MD PCP: Dr. Kevin Samuel, DO Status:RE G SDC Y Race: C Location: [facility]14-1 ASA Classification* ASA Classification ASA Classification: 3 [...] with biopsies Anesthesia History Anesthesia History - services rep: Anesthesia History - services rep Hx Hospitalization No 11/12/24 13:37 Any Problems [...] Any additional information?: No PONV PONV - services rep: PONV - services rep Female No 11/12/24 13:37 HX of Motion [...] 11/16/24 07:14 Respiratory Assessment Respiratory Assessment - services rep: Respiratory Tract Infection Hx - services rep Hx Respiratory Tract Infection No 11/12/24 13:37 STOP Sleep Apnea STOP Sleep Apnea - services rep: STOP Sleep Apnea - services rep Hx Hypertension Yes: on med 11/12/24 13:37 [...] Tobacco Use History Tobacco Use History - services rep: Tobacco Use History - services rep Tobacco Use Smoking Status Former smoker 11/12/24 13:37 Hx Tobacco Use No 11/12/24 13:37 Years Smoking Packs Smoked per Day Smoking Cessation Date was No - quit smoking greater 11/12/24 13:37 within the last 15 years than 15 years ago Hx Smoking Cessation Date Hx Smoking Cessation No 11/12/24 13:37 Counseling Hematologic Medial History Hematologic Hx - services rep: 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 Specify any problems Hx of Preganancy in last 3 N/A 11/12/24 13:37 Months Nurse Filling Out Transfusion NellieZOLAUREL 11/12/24 13:37 & Questions: Date: 11/12/24 11/12/24 13:37 Time: 13:39 11/12/24 13:37 Patient unable to answer at this time (ie. confused, unrespo /Reproduction History /Reproductive History - services rep: /Reproductive Hx- services rep Hx Now No 11/12/24 13:37 Gestational Age [...] x3 and moves all extremities 11/16/24 0753 <Electronically signed by Nba Dallas M D> Date _ Nba Irvin Signature: Date CC: ~ Signed [facility] Work Phone: Consult note Author Zachary Garcia [facility] Note Date/Time November 16, 2024 8:29a [facility] Medical Records Department [address] [place] [address] Anesthesia Postop Eval I 11/16/24827 MR#: [id number] Acct: [id number] Name: JIM FOWLER Rep #:[id number] : 1950 74 From: Zachary Garcia PCP: Dr. Kevin Samuel, DO Status:[facility] Y Race: C Location: [place] [address] Anesthesia: Postop Eval I Current Vital Signs [...] Zachary Irvin Signature: Date CC: ~ Signed [facility] Work Phone: Consult note Author Nba Dallas [facility] Note Date/Time November 16, 2024 9:26a [facility] Medical Records Department [address] [place] [address] Anesthesia Postop Eval II 11/16/24 0843 MR#: [id number] Acct: [id number] Name: JIM FOWLER Rep #:[id number] : 1950 74 From: Nba Dallas MD PCP: Dr. Kevin Samuel, DO Status:RE G SDC Y Race: C Location: [facility]14- Anesthesia Postop Eval I Sum Postop Eval [...] MD Cosigner Signature: Date CC: ~ Signed [facility] Work Phone: Evaluation noteNo assessment information available [facility] Work Phone: Evaluation note* Diagnosis Onset Date Resolution Status Fatigue acute [facility] Work Phone: Evaluation note* Diagnosis Onset Date Resolution Status Fatigue acute Abdominal pain acute Medication adverse effect ac platinum [facility] Work Phone: History and physical note Author Haris Harding [facility] Note Date/Time November 16, 2024 8:01a m [facility] Medical Records Department [address] [place] [address] History & Physical Exam 11/16/24800 MR#: [id number] Acct: [id number] Name: JIM FOWLER Rep #:[id number] : 1950 74 From: Haris richardson MD PCP: Dr. Kevin Samuel, DO Status:RE G [facility] [place]: [facility]- History and Physical Date of Admission: 11/16/24 Intake Vital Signs 09/29/2507:49 10/26/2508:29 Height 5 ft 10 in 5 ft 9 in Weight: 210 lb 210 lb BMI 30.1 31.0 BP 199/96 H Blood Pressure Location Rt brachial Position Sitting Respiration 18 Intake Visit Reasons: Dysphagia Chief Complaint: GI issues/due for c-scope Base Engineer Required: No Is patient in pain?: No [...] General: cooperative Orientation: alert and oriented x3 HENAR Head: normal to inspection Neck Neck: normal [...] proceed with procedure. Haris Harding MD Pager: [facility] [address] [place] [address], [address] [place] [address] Office: I have examined the patient and the H&P has been reviewed. There are no clinicalchanges since date of exam. 11/16/24 0801 <Electronically signed by Haris Harding MD> Cosigner Signature (if applicable): CC: Dr. Haris Harding MD; Dr. Kevin Samuel, DO~ Signed [facility] Work Phone: Reason for referral (narrative)No reason for referral information [facility] Work Phone: Summary Purpose Family History No Family History Records Found Relationship Condition Age at Onset Recorded Date/T gavino mother Arthritis Unknown father Arthritis Unknown brother Malignant neoplasm of colon Unknown Diabetes mellitus Unknown sister Diabetes mellitus Unknown Advance Directives No Advanced Directives Records Found Advance Directive Response Recorded Date/ Time Advance Directives No November 24 10:24am Living Will No June 17 4:19pm Power of Mobile Application Engineer No June 17, 2019 4:19pm Advance Directive Response Recorded Date/ Time Advance Directives No November 24 4 10:24am Advance Directive Response Recorded Date/ Time Do you have a Healthcare Power of Mobile Application Engineer? No November 12, 2024 1:37pm Advance Directives No November 24 4 10:24am Advance Directive Response Recorded Date/ Time Do you have a Healthcare Pow er of Mobile Application Engineer? Yes December 13, 2024 7:24am Name of Medical Power of Mobile Application Engineer Gurvinder Fowler ( jordi) December 13, 2024 7:24am Do you have a Healthcare Pow er of Mobile Application Engineer? No November 12, 2024 1:37pm Advance Directives No November 24 4 10:24am [...] RUQ pain December 07, 2024 2:44 pm Chief Complaint Admit Date CERVICAL SPINE September 28, 2024 8:38a m Room 3 September 28, 2024 9:02a m SKIN October 25, 2024 11:08 am Dysphagia October 26, 2024 9:07 am RUQ PAIN November 25, 2024 7:40 am GALLBLADDER U/S RESULTS December 07, 2024 2:44pm Laparoscopic, Cholecystectomy with IOC & umbilical December 13, 2024 6:49am Laparoscopic, Cholecystectomy with IOC & umbilical December 13, 2024 8:11am Chief Complaint Admit Date CERVICAL SPINE September 28, 2024 8:38a m Room 3 September 28, 2024 9:02a m SKIN October 25, 2024 11:08 am Dysphagia October 26, 2024 9:07 am RUQ PAIN November 25, 2024 7:40 am GALLBLADDER U/S RESULTS December 07, 2024 2:44pm Laparoscopic, Cholecystectomy with IOC & umbilical December 13, 2024 6:49am PREOP December 13, 2024 7:03 am Laparoscopic, Cholecystectomy with IOC & umbilical December 13, 2024 8:11am gallbladder 12-13December 27, 2024 8: 47am Chief Complaint Admit Date SKIN October 25, 2024 11:08 am Dysphagia October 26, 2024 9:07 am RUQ PAIN November 25, 2024 7:40 am GALLBLADDER U/S RESULTS December 07, 2024 2:44pm Laparoscopic, Cholecystectomy with IOC & umbilical December 13, 2024 6:49am PREOP December 13, 2024 7:03 am Laparoscopic, Cholecystectomy with IOC & umbilical December 13, 2024 8:11am gallbladder 12-13December 27, 2024 8: 47am Surgery Follow Up February 01, 2025 2:52pm Reason for Visit Admit Date Abdominal pain October 26, 2024 9:07 am RUQ pain December 07, 2024 2:44 pm Umbilical hernia December 27, 2024 8: 47am Chronic cholecystitis with calculus Augu st 2024 8:47am Additional Source Comments (unrecognized sect ion and content) No Status Records FoundNo Status Records FoundNo Status Records FoundNo Status Records Found INFORMATION SOURCE (unrecogn ized section and content) DATE CREATED AUTHOR 11/12/2017 [facility] DATE CREATED AUTHOR AUTHOR'S ORGANIZ ATION 02/03/2024 [facility] DATE CREATED AUTHOR AUTHOR'S ORGANIZ ATION 02/05/2024 [facility] DATE CREATED AUTHOR AUTHOR'S ORGANIZ ATION 02/02/2025 [facility] Goals (unrecognized section and content) Goals may [...] Active Member Role Status Dates Dr. Kevin Samuel , DO Primary Care Provider Active Team Status: Inactive Member Role Status Dates Dr. Kevin Samuel DO Primary Care Provider Active Start: September 28, 2024 End: September 28, 2024 Dr. Kevin Samuel DO Referring Provider Active Start: September 28, 2024 End: September 28, 2024 NAHUN Ferrer Attending Provider Active Star t: September 28, 2024 End: September 28, 2024 Team Status: Inactive Member Role Status Dates Dr. Kevin Samuel DO Primary Care Provider Active Start: September 28, 2024 End: September 28, 2024 Dr. Lamberto Uribe MD Attending Provider Active S tart: September 28, 2024 End: September 28, 2024 Team Status: Active Member Role Status Dates Dr. Kevin Samuel DO Primary Care Provider Active Start: October 25, 2024 NAHUN Esquivel Attending Provider Active Sta rt: October 25, 2024 NAHUN Esquivel Referring Provider Active Sta rt: October 25, 2024 Team Status: Inactive Member Role Status Dates Dr. Kevin Samuel DO Primary Care Provider Active Start: October 26, 2024 End: October 26, 2024 Dr. Kevin Samuel DO Referring Provider Active Start: October 26, 2024 End: October 26, 2024 Dr. Haris Harding MD Attending Provider Active Start: October 26, 2024 End: October 26, 2024 Team Status: Active Member Role Status Dates Dr. Kevin Samuel DO Family Provider Active Dr. Kevin Samuel DO Primary Care Provider Active Team Status: Inactive Member Role Status Dates Dr. Kevin Samuel DO Primary Care Pr ovider, Attending Provider, Referring Provider Active Team Status: Inactive Member Role Status Dates Dr. Kevin Samuel DO Primary Care Provider, Attend ing Provider Active Team Status: Inactive Member Role Status Dates Dr. Kevin Samuel DO Primary Care Provider, Referr ing Provider Active CONCHITA Dill Attending Provider Active Team Status: Inactive Member Role Status Dates Dr. Kevin Samuel DO Primary Care Provider Active CONCHITA Dill Attending Provider Active Team Status: Active Member Role Status Dates Dr. Kevin Samuel DO Primary Care Provider Active Start: September 28, 2024 Dr. Kevin Samuel DO Referring Provider Active Start: September 28, 2024 NAHUN Ferrer Attending Provider Active Star t: September 28, 2024 Team Status: Inactive Member Role Status Dates Dr. Kevin Samuel DO Primary Care Provider Active Start: October 25, 2024 End: October 25, 2024 Gilberto GARNICA PA Attending Provider Active Sta rt: October 25, 2024 End: October 25, 2024 Gilberto GARNICA PA Referring Provider Active Sta rt: October 25, 2024 End: October 25, 2024 Team Status: Active Member Role/Relationship Status Dates Dr. Kevin Samuel DO Primary Care Provider Active Team Status: Inactive Member Role/Relationship Status Dates Dr. Kevin Samuel DO Primary Care Provider Active Start: September 28, 2024 End: September 28, 2024 Dr. Kevin Samuel DO Referring Provider Active Start: September 28, 2024 End: September 28, 2024 NAHUN Ferrer Attending Provider Active Star t: September 28, 2024 End: September 28, 2024 Team Status: Inactive Member Role/Relationship Status Dates Dr. Kevin Samuel DO Primary Care Provider Active Start: September 28, 2024 End: September 28, 2024 Dr. Lamberto Uribe MD Attending Provider Active S tart: September 28, 2024 End: September 28, 2024 Team Status: Inactive Member Role/Relationship Status Dates Dr. Kevin Samuel DO Primary Care Provider Active Start: October 25, 2024 End: October 25, 2024 Gilberto GARNICA PA Attending Provider Active Sta rt: October 25, 2024 End: October 25, 2024 Gilberto Cosme PA PA Referring Provider Active Sta rt: October 25, 2024 End: October 25, 2024 Team Status: Inactive Member Role/Relationship Status Dates Dr. Kevin Samuel DO Primary Care Provider Active Start: October 26, 2024 End: October 26, 2024 Dr. Kevin Samuel DO Referring Provider Active Start: October 26, 2024 End: October 26, 2024 Dr. Haris Harding MD Attending Provider Active Start: October 26, 2024 End: October 26, 2024 Team Status: Inactive Member Role/Relationship Status Dates Dr. Kevin Samuel DO Primary Care Provider Active Start: November 16, 2024 End: November 16, 2024 Dr. Kevin Samuel DO Referring Provider Active Start: November 16, 2024 End: November 16, 2024 Dr. Haris Harding MD Attending Provider Active Start: November 16, 2024 End: November 16, 2024 Team Status: Active Member Role/Relationship Status Dates Dr. Kevin Samuel DO Primary Care Provider Active Start: November 16, 2024 Dr. Kevin Samuel DO Referring Provider Active Start: November 16, 2024 Dr. Haris Harding MD Attending Provider Active Start: November 16, 2024 Dr. Haris Harding MD Other Provider Active Start: November 16, 2024 Team Status: Inactive Member Role/Relationship Status Dates Dr. Kevin Samuel DO Primary Care Provider Active Start: November 25, 2024 End: November 25, 2024 Dr. Haris Harding MD Attending Provider Active Start: November 25, 2024 End: November 25, 2024 Dr. Haris Harding MD Referring Provider Active Start: November 25, 2024 End: November 25, 2024 Team Status: Inactive Member Role/Relationship Status Dates Dr. Kevin Samuel DO Primary Care Provider Active Start: December 07, 2024 End: December 07, 2024 Dr. Kevin Samuel DO Referring Provider Active Start: December 07, 2024 End: December 07, 2024 Dr. Haris Harding MD Attending Provider Active Start: December 07, 2024 End: December 07, 2024 Team Status: Inactive Member Role/Relationship Status Dates Dr. Kevin Samuel DO Primary Care Provider Active Start: December 13, 2024 End: December 13, 2024 Dr. Haris Harding MD Attending Provider Active Start: December 13, 2024 End: December 13, 2024 Dr. Haris Harding MD Referring Provider Active Start: December 13, 2024 End: December 13, 2024 Team Status: Active Member Role/Relationship Status Dates Dr. Kevin Samuel DO Primary Care Provider Active Start: December 13, 2024 Dr. Haris Harding MD Attending Provider Active Start: December 13, 2024 Dr. Haris Harding MD Referring Provider Active Start: December 13, 2024 Dr. Haris Harding MD Other Provider Active Start: December 13, 2024 Team Status: Active Member Role/Relationship Status Dates Dr. Kevin Samuel DO Primary Care Provider Active Start: December 13, 2024 End: December 13, 2024 Dr. Lamberto Uribe MD Attending Provider Active S tart: December 13, 2024 End: December 13, 2024 Dr. Haris Harding MD Referring Provider Active Start: December 13, 2024 End: December 13, 2024 Team Status: Active Member Role/Relationship Status Dates Dr. Kevin Samuel DO Primary Care Provider Active Start: December 13, 2024 Dr. Haris Harding MD Attending Provider Active Start: December 13, 2024 Dr. Haris Harding MD Referring Provider Active Start: December 13, 2024 Dr. Haris Harding MD Other Provider Active Start: December 13, 2024 Team Status: Inactive Member Role/Relationship Status Dates Dr. Kevin Samuel DO Primary Care Provider Active Start: December 27, 2024 End: December 27, 2024 Dr. Kevin Samuel DO Referring Provider Active Start: December 27, 2024 End: December 27, 2024 Jemma GARNICA PA-C Attending Provider Active Start: December 27, 2024 End: December 27, 2024 Team Status: Inactive Member Role/Relationship Status Dates Dr. Kevin Samuel DO Primary Care Provider Active Start: October 25, 2024 End: October 25, 2024 NAHUN Esquivel Attending Provider Active Sta rt: October 25, 2024 End: October 25, 2024 NAHUN Esquivel Referring Provider Active Sta rt: October 25, 2024 End: October 25, 2024 Team Status: Inactive Member Role/Relationship Status Dates Dr. Kevin Samuel DO Primary Care Provider Active Start: October 26, 2024 End: October 26, 2024 Dr. Kevin Samuel DO Referring Provider Active Start: October 26, 2024 End: October 26, 2024 Dr. Haris Harding MD Attending Provider Active Start: October 26, 2024 End: October 26, 2024 Team Status: Inactive Member Role/Relationship Status Dates Dr. Kevin Samuel DO Primary Care Provider Active Start: November 16, 2024 End: November 16, 2024 Dr. Kevin Samuel DO Referring Provider Active Start: November 16, 2024 End: November 16, 2024 Dr. Haris Harding MD Attending Provider Active Start: November 16, 2024 End: November 16, 2024 Team Status: Active Member Role/Relationship Status Dates Dr. Kevin Samuel DO Primary Care Provider Active Start: November 16, 2024 Dr. Kevin Samuel DO Referring Provider Active Start: November 16, 2024 Dr. Haris Harding MD Attending Provider Active Start: November 16, 2024 Dr. Haris Harding MD Other Provider Active Start: November 16, 2024 Team Status: Inactive Member Role/Relationship Status Dates Dr. Kevin Samuel DO Primary Care Provider Active Start: November 25, 2024 End: November 25, 2024 Dr. Haris Harding MD Attending Provider Active Start: November 25, 2024 End: November 25, 2024 Dr. Haris Harding MD Referring Provider Active Start: November 25, 2024 End: November 25, 2024 Team Status: Inactive Member Role/Relationship Status Dates Dr. Kevin Samuel DO Primary Care Provider Active Start: December 07, 2024 End: December 07, 2024 Dr. Kevin Samuel DO Referring Provider Active Start: December 07, 2024 End: December 07, 2024 Dr. Haris Harding MD Attending Provider Active Start: December 07, 2024 End: December 07, 2024 Team Status: Inactive Member Role/Relationship Status Dates Dr. Kevin Samuel DO Primary Care Provider Active Start: December 13, 2024 End: December 13, 2024 Dr. Haris Harding MD Attending Provider Active Start: December 13, 2024 End: December 13, 2024 Dr. Haris Harding MD Referring Provider Active Start: December 13, 2024 End: December 13, 2024 Team Status: Active Member Role/Relationship Status Dates Dr. Kevin Samuel DO Primary Care Provider Active Start: December 13, 2024 End: December 13, 2024 Dr. Lamberto Uribe MD Attending Provider Active S tart: December 13, 2024 End: December 13, 2024 Dr. Haris Harding MD Referring Provider Active Start: December 13, 2024 End: December 13, 2024 Team Status: Active Member Role/Relationship Status Dates Dr. Kevin Samuel DO Primary Care Provider Active Start: December 13, 2024 Dr. Haris Harding MD Attending Provider Active Start: December 13, 2024 Dr. Haris Harding MD Referring Provider Active Start: December 13, 2024 Dr. Haris Harding MD Other Provider Active Start: December 13, 2024 Team Status: Inactive Member Role/Relationship Status Dates Dr. Kevin Samuel DO Primary Care Provider Active Start: December 27, 2024 End: December 27, 2024 Dr. Kevin Samuel DO Referring Provider Active Start: December 27, 2024 End: December 27, 2024 Jemma GARNICA PA-C Attending Provider Active Start: December 27, 2024 End: December 27, 2024 Team Status: Inactive Member Role/Relationship Status Dates Dr. Kevin Samuel DO Primary Care Provider Active Start: February 01, 2025 End: February 01, 2025 Dr. Kevin Samuel DO Attending Provider Active Start: February 01, 2025 End: February 01, 2025 Dr. Kevin Samuel DO Referring Provider Active Start: February 01, 2025 End: February 01, 2025 FOR RECORDS PERTAINING TO PATIENTS WHO ARE [...] BE BASED ON THE PRIMARY CLINICAL RECORDS. [facility] [employer] provides no warranty or guarantee of the accuracy or completeness of information in this document.
== END | disposition home or self-care (01) ==
LOC: RAD 12:23
PROVIDERS: PCP Family Medicine; Referring Provider Family Medicine; Visit Provider Family Medicine
DX: S22.060A Wedge compression fracture of T7-T8 vertebra, initial encounter for closed fracture (principal)
CPT/HCPCS: 72072